=== PATIENT | female | born 1950 | race Caucasian/White ===

== ENCOUNTER 2016-11-08 17:04 | Inpatient (IN) | payer OTHER, MEDICARE ==
[2016-11-08] VITALS (8 sets, daily range): BP systolic 116–173; BP diastolic 55–101; PULSE 63–184; RESP 18–24; TEMP 98.2–98.7; O2SAT 95–100
[~2016-11-08] VITALS: Ht 170.2 cm; Wt 59.0 kg
[~2016-11-08 17:04] MED LIST: ASPI1TAB69 PO; ATOR40TA16 PO; CEFT500T3 PO; FURO20TA PO; KOMB2.5T PO; LOSA25TA PO; MAGN400T2 PO; METO25TA3 PO; PRED5PAK2 PO; ZITH250T PO
[2016-11-08] MEDS ORDERED: RESP: ALBUTEROL 2.5 MG/IPRATROPIUM 0.5 MG NEB (SCH) INH ONE (17:15)
[2016-11-08] MEDS ORDERED: SODIUM CHLOR 0.9% 1000 ML INJ 1,000 ML IV ONE (17:15)
[2016-11-08] MEDS ORDERED: SODIUM CHLORIDE 0.9% FLUSH 5 ML FLUSH IVF PRN (17:15)
--- NOTE | 2016-11-08 17:19 | PD ---
HPI Chief Complaint: Respiratory Symptoms Time Seen by Provider: 17:11 Travel History International Travel<30 days: No Contact w/Intl Traveler<30days: No Traveled to known affect area: No History of Present Illness HPI 66-year-old female with history of CAD, tobaccoism, recently quit smoking, brought in by ambulance from home for evaluation of hemoptysis. The patient is been coughing up blood for last 2 days. She denies hematemesis. She states that she was admitted to the hospital about 2 weeks ago and diagnosed with a right lower lobe pneumonia. Her symptoms never improved. She denies chest pain. Mild dyspnea. EMS noted her heart rate to be in the 160s, A. fib. The patient states that she was recently told that she has A. fib. She is on aspirin. No other antiplatelets or anticoagulants. No recent travel. No known history of cancer. No history of DVT or PE. PFSH Past Medical History Hx Anticoagulant Therapy: Yes (BABY ASA DAILY) Anxiety: Yes Depression: No Cancer: No Cardiac Catheterization: Yes (2 STENTS) Cardiovascular Problems: Yes (TRIIPLE BYPASS, HTN) Coronary Artery Disease: Yes Diabetes: Yes Diminished Hearing: No Endocrine: Yes Genitourinary: Yes Hypertension: Yes Musculoskeletal: Yes Neurologic: No Psychiatric: Yes Reproductive: No Respiratory: No ?: Not Menopausal: Yes Past Surgical History Section: Yes Coronary Artery Bypass Graft: Yes (07/2015) Gynecologic Surgery: Yes (3 ) Hysterectomy: Yes Social History Alcohol Use: No Tobacco Use: Yes (2-5 cigarettes/day) Substance Use: No Allergies-Medications (Allergen,Severity, Reaction): Coded Allergies: No Known Allergies (Verified , 11/08/16) Reported Meds & Prescriptions Reported Meds & Active Scripts Active Zithromax (Azithromycin) 250 Mg Tab 500 Mg PO DAILY Reported Metoprolol Tartrate 25 Mg Tab 25 Mg PO BID Atorvastatin (Atorvastatin Calcium) 40 Mg Tab 40 Mg PO HS Magnesium Oxide 400 Mg Tab 400 Mg PO BID Kombiglyze Xr (Saxagliptin-Metformin ER) 2.5-1,000 Mg Tab 1 Tab PO DAILY Aspirin 81 Mg Tabdr 81 Mg PO DAILY Review of Systems Except as stated in HPI: all other systems reviewed are Neg Physical Exam Narrative GENERAL: Well-developed well-nourished, awake, alert, coughing up blood, no acute distress. SKIN: Warm and dry. HEAD: Atraumatic. Normocephalic. EYES: Pupils equal and round. No scleral icterus. No injection or drainage. ENT: No nasal bleeding or discharge. Mucous membranes pink and moist. Poor dentition with several missing teeth. No oral mucosal lesions. NECK: Trachea midline. No JVD. CARDIOVASCULAR: Tachycardic, irregularly irregular, rate 160s. RESPIRATORY: No accessory muscle use. Coarse breath sounds bilaterally. Breath sounds equal bilaterally. GASTROINTESTINAL: Abdomen soft, non-tender, nondistended. MUSCULOSKELETAL: No obvious deformities. No clubbing. No cyanosis. No edema. NEUROLOGICAL: Awake and alert. No obvious cranial nerve deficits. Motor grossly within normal limits. Normal speech. PSYCHIATRIC: Appropriate mood and affect; insight and judgment normal. Data Data Last Documented VS Vital Signs Date Time Temp Pulse Resp B/P Pulse Ox O2 Delivery O2 Flow Rate FiO2 11/08/16 19:29 92 22 97 Nasal Cannula 11/08/16 19:28 155/68 11/08/16 18:33 2 11/08/16 14:33 98.7 Orders Complete Blood Count With Diff (11/08/16 17:11) Comprehensive Metabolic Panel (11/08/16 17:11) B-Type Natriuretic Peptide (11/08/16 17:11) Act Partial Throm Time (Ptt) (11/08/16 17:11) Prothrombin Time / Inr (Pt) (11/08/16 17:11) Ckmb (Isoenzyme) Profile (11/08/16 17:11) Troponin I (11/08/16 17:11) Influenzae A/B Antigen (11/08/16 17:11) Blood Culture (11/08/16 17:11) Iv Access Insert/Monitor (11/08/16 17:11) Electrocardiogram (11/08/16 17:11) Ecg Monitoring (11/08/16 17:11) Oximetry (11/08/16 17:11) Oxygen Administration (11/08/16 17:11) Chest, Single Ap (11/08/16 17:11) Ct Pulmonary Angiogram (11/08/16 17:11) Sodium Chloride 0.9% Flush (Ns Flush) (11/08/16 17:15) Albuterol-Ipratropium Neb (Duoneb Neb) (11/08/16 17:15) Type And Screen (11/08/16 17:11) Lactic Acid (11/08/16 17:11) Sodium Chlor 0.9% 1000 Ml Inj (Ns 1000 M (11/08/16 17:15) Diltiazem Inj (Cardizem Inj) (11/08/16 17:30) Iohexol 350 Inj (Omnipaque 350 Inj) (11/08/16 18:21) Lorazepam Inj (Ativan Inj) (11/08/16 19:00) Ceftriaxone Inj (Rocephin Inj) (11/08/16 19:00) Azithromycin Inj (Zithromax Inj) (11/08/16 19:00) Admit Order (Ed Use Only) (11/08/16 19:34) Labs Laboratory Tests Test 11/08/16 17:10 White Blood Count 14.5 TH/MM3 Red Blood Count 3.38 MIL/MM3 Hemoglobin 8.7 GM/DL Hematocrit 26.4 % Mean Corpuscular Volume 78.1 FL Mean Corpuscular Hemoglobin 25.6 PG Mean Corpuscular Hemoglobin 32.8 % Concent Red Cell Distribution Width 15.5 % Platelet Count 310 TH/MM3 Mean Platelet Volume 8.3 FL Neutrophils (%) (Auto) 63.2 % Lymphocytes (%) (Auto) 25.7 % Monocytes (%) (Auto) 8.3 % Eosinophils (%) (Auto) 1.7 % Basophils (%) (Auto) 1.1 % Neutrophils # (Auto) 9.1 TH/MM3 Lymphocytes # (Auto) 3.7 TH/MM3 Monocytes # (Auto) 1.2 TH/MM3 Eosinophils # (Auto) 0.2 TH/MM3 Basophils # (Auto) 0.2 TH/MM3 CBC Comment DIFF FINAL Differential Comment Prothrombin Time 10.7 SEC Prothromb Time International 1.0 RATIO Ratio Activated Partial 24.6 SEC Thromboplast Time Sodium Level 134 MEQ/L Potassium Level 4.0 MEQ/L Chloride Level 98 MEQ/L Carbon Dioxide Level 25.7 MEQ/L Anion Gap 10 MEQ/L Blood Urea Nitrogen 15 MG/DL Creatinine 0.85 MG/DL Estimat Glomerular Filtration 67 ML/MIN Rate Random Glucose 315 MG/DL Lactic Acid Level 2.5 mmol/L Calcium Level 8.1 MG/DL Total Bilirubin 0.3 MG/DL Aspartate Amino Transf 6 U/L (AST/SGOT) Alanine Aminotransferase 11 U/L (ALT/SGPT) Alkaline Phosphatase 84 U/L Total Creatine Kinase 57 U/L Troponin I 0.06 NG/ML B-Type Natriuretic Peptide 477 PG/ML Total Protein 6.1 GM/DL Albumin 2.8 GM/DL Blood Type A POSITIVE Antibody Screen NEGATIVE MDM Medical Decision Making Medical Screen Exam Complete: Yes Emergency Medical Condition: Yes Medical Record Reviewed: Yes Interpretation(s) EKG: A. fib, rate 150, normal axis, ST depressions in V3 through V6, inferior leads, I and aVL, no ST elevations. Differential Diagnosis PE, pneumonia, pulmonary infarct, TB, CHF, anemia, A. fib with RVR, coagulopathy Narrative Course The patient's initial EKG showed A. fib with RVR. About 15 minutes after arrival to the emergency department the patient's heart rate improved to 80 without any intervention. Repeat EKG shows sinus with a rate of [address] depressions in V4 through V6, I and aVL, no ST segment elevations. Vital signs reviewed. CBC is remarkable for hemoglobin 8.7. Her baseline is around 10. WBC 14.5, hematocrit 26.4, platelets 310 CMP is remarkable for random glucose 315, otherwise unremarkable. Cardiac enzymes show a troponin of 0.06 Lactic acid is 2.5. CT pulmonary angiogram: CONCLUSION: 1. Right hilar mass of concern for a central primary bronchogenic carcinoma. Enlarged subcarinal lymph node, presumably metastatic. 2. Obstructive consolidation of the right middle lobe. 3. Patchy groundglass opacities in both lungs, probably infectious or inflammatory. 4. Bilateral adrenal nodules that are I believe unchanged and probably benign. The patient was made aware of all findings. She will be given antibiotics. She became a little anxious after receiving the news and states that she usually takes Ativan. I will give her a dose here. She'll be admitted for further treatment and evaluation of massive hemoptysis, bronchogenic carcinoma. Case discussed with hospitalist Dr. Martinez who will admit the patient to her service. Diagnosis Primary Impression: Lung mass Additional Impressions: Hemoptysis Anemia Qualified Code: D64.9 - Anemia, unspecified type Pneumonia Qualified Code: J18.9 - Pneumonia of right lung due to infectious organism, unspecified part of lung Admitting Information Admitting Physician Requests: Admit Jai Marie MD Nov 08, 2016 17:19
[2016-11-08] MEDS ORDERED: DILTIAZEM HCL 25 MG/5 ML VIAL IV ONE (17:30)
--- NOTE | 2016-11-08 17:44 | RADRPT ---
EXAM DATE/TIME: 11/08/2016 17:21 [facility] COMPARISON: CHEST SINGLE AP, October 20, 2016, 11:25. INDICATIONS : Shortness of breath and cough. Coughing up blood today. MEDICAL HISTORY : Hypertension. SURGICAL HISTORY : CABG. ENCOUNTER: Initial ACUITY: 1 day PAIN SCORE: 0/10 LOCATION: Bilateral chest FINDINGS: Sternal wires from previous median sternotomy are noted. The heart is enlarged. Pulmonary vasculari ty is normal. There is no alveolar consolidation, pleural effusion or pneumothorax. Portion of the bony skeleton visualized is unremarkable. CONCLUSION: 1. Evidence for bypass. 2. Mild compensated cardiomegaly. Yasmany Coon MD FACR on November 08, 2016 at 17:41 Board Certified Radiologist. This report was verified electronically.
[2016-11-08 17:47] LABS: AUTOMATED NEUTROPHIL # 9.1 TH/MM3 (1.8-7.7); BASOPHIL # 0.2 TH/MM3 (0-0.2); BASOPHIL % 1.1 % (0.0-2.0); EOSINOPHIL # 0.2 TH/MM3 (0-0.4); EOSINOPHIL % 1.7 % (0.0-4.0); HEMATOCRIT 26.4 % (35.0-46.0); HEMO FLAGS DIFF FINAL; LYMPH % 25.7 % (9.0-44.0); LYMPHOCYTE # 3.7 TH/MM3 (1.0-4.8); MEAN CELL VOLUME 78.1 FL (80.0-100.0); MEAN CORPUSCULAR HEMOGLOBIN 25.6 PG (27.0-34.0); MEAN CORPUSCULAR HGB CONC 32.8 % (32.0-36.0); MONO % 8.3 % (0.0-8.0); NEUT % 63.2 % (16.0-70.0); PLATELET COUNT 310 TH/MM3 (150-450); RED BLOOD COUNT 3.38 MIL/MM3 (4.00-5.30); RED CELL DISTRIBUTION WIDTH 15.5 % (11.6-17.2); WHITE BLOOD COUNT 14.5 TH/MM3 (4.0-11.0)
[2016-11-08 17:53] LABS: APTT (PATIENT) 24.6 SEC (24.3-30.1); PROTHROMBIN TIME - PATIENT 10.7 SEC (9.8-11.6)
[2016-11-08 18:02] LABS: ANION GAP 10 MEQ/L (5-15); AST (GOT) 6 U/L (15-37); BICARBONATE 25.7 MEQ/L (21.0-32.0); BLOOD UREA NITROGEN 15 MG/DL (7-18); CHLORIDE 98 MEQ/L (98-107); GLOMERULAR FILTRATION RATE 67 ML/MIN (>89); SODIUM (NA) 134 MEQ/L (136-145)
[2016-11-08 18:08] LABS: ALKALINE PHOSPHATASE 84 U/L (45-117); ALT (GPT) 11 U/L (10-53); TOTAL BILIRUBIN ADULT 0.3 MG/DL (0.2-1.0)
[2016-11-08 18:15] LABS: CREATINE KINASE 57 U/L (26-192)
[2016-11-08] MEDS ORDERED: IOHEXOL 350 MG/ML 10 ML VIAL (for RAD DIAG) IV ONE (18:21)
--- NOTE | 2016-11-08 18:45 | RADRPT ---
EXAM DATE/TIME: 11/08/2016 18:21 [facility] COMPARISON: CT PULMONARY ANGIOGRAM, February 03, 2016, 23:41. INDICATIONS : Coughing up blood and atrial fibrillation. IV CONTRAST: 74 cc Omnipaque 350 (iohexol) IV RADIATION DOSE: 23.38 CTDIvol (mGy) MEDICAL HISTORY : Hypertension. Cardiovascular disease SURGICAL HISTORY : None. ENCOUNTER: Initial ACUITY: 1 day PAIN SCALE: 3/10 LOCATION: Bilateral chest TECHNIQUE: Volumetric scanning of the chest was performed using a pulmonary embolism protocol MIP images were re constructed. Using automated exposure control and adjustment of the mA and/or kV according to patien t size, radiation dose was kept as low as reasonably achievable to obtain optimal diagnostic quality images. FINDINGS: There is ill-defined mass in the right hilum and an approximate 4.8 cm subcarinal lymph node of swapna rn for a central primary bronchogenic carcinoma with mediastinal evelyn metastases. There is obstructi ve consolidation of the right middle lobe. Patchy groundglass opacities are seen of both lungs, fairl y diffuse but with a slight basilar predominance. No effusion. No pneumothorax. No pulmonary embolus demonstrated. Heart size normal. There is coronary artery calcification. Subcentimeter bilateral adrenal nodules are demonstrated and I don't think changed. CONCLUSION: 1. Right hilar mass of concern for a central primary bronchogenic carcinoma. Enlarged subcarinal lymp h node, presumably metastatic. 2. Obstructive consolidation of the right middle lobe. 3. Patchy groundglass opacities in both lungs, probably infectious or inflammatory. 4. Bilateral adrenal nodules that are I believe unchanged and probably benign. Henry Biggs MD on November 08, 2016 at 18:38 Board Certified Radiologist. This report was verified electronically.
[2016-11-08] MEDS ORDERED: LORazepam 2 MG/ML VIAL IV PUSH ONE (19:00)
[2016-11-08] MEDS ORDERED: cefTRIAXone INJ 1,000 MG in SODIUM CHLORIDE 0.9% INJ 100 ML IV ONE (19:00)
[2016-11-08] MEDS ORDERED: AZITHROMYCIN INJ 500 MG in SODIUM CHLOR 0.9% 250 ML INJ 250 ML IV ONE (19:00)
[2016-11-08] MEDS ORDERED: SODIUM CHLORIDE 0.9% FLUSH 5 ML FLUSH FLUSH PRN (20:30)
[2016-11-08] MEDS ORDERED: NALOXONE HCL 0.4 MG/ML AMP IV PRN (20:30)
[2016-11-08] MEDS: SODIUM CHLORIDE 0.9% FLUSH 5 ML FLUSH FLUSH SCH (21:29)
[2016-11-08] MEDS: METOPROLOL TARTRATE 25 MG TAB PO SCH (21:30)
[2016-11-08] MEDS: ATORVASTATIN 40 MG TAB PO SCH (21:30)
[2016-11-08] MEDS: MAGNESIUM OXIDE 400 MG TAB PO SCH (22:42)
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
[2016-11-09] VITALS (15 sets, daily range): BP systolic 120–198; BP diastolic 50–85; PULSE 64–72; RESP 16–20; TEMP 97–99; O2SAT 95–100
[2016-11-09] MEDS: LORazepam 0.5 MG TAB PO PRN ×3 (00:34→21:59)
[2016-11-09 07:27] LABS: AUTOMATED NEUTROPHIL # 8.8 TH/MM3 (1.8-7.7); BASOPHIL # 0.1 TH/MM3 (0-0.2); EOSINOPHIL # 0.2 TH/MM3 (0-0.4); EOSINOPHIL % 1.8 % (0.0-4.0); HEMATOCRIT 21.8 % (35.0-46.0); HEMO FLAGS DIFF FINAL; LYMPH % 24.2 % (9.0-44.0); LYMPHOCYTE # 3.2 TH/MM3 (1.0-4.8); MEAN CELL VOLUME 77.7 FL (80.0-100.0); MEAN CORPUSCULAR HEMOGLOBIN 25.5 PG (27.0-34.0); MEAN CORPUSCULAR HGB CONC 32.9 % (32.0-36.0); MONO % 7.4 % (0.0-8.0); NEUT % 65.6 % (16.0-70.0); PLATELET COUNT 298 TH/MM3 (150-450); RED BLOOD COUNT 2.81 MIL/MM3 (4.00-5.30); RED CELL DISTRIBUTION WIDTH 15.5 % (11.6-17.2); WHITE BLOOD COUNT 13.3 TH/MM3 (4.0-11.0)
[2016-11-09 07:40] LABS: BICARBONATE 26.1 MEQ/L (21.0-32.0); POTASSIUM 4.2 MEQ/L (3.5-5.1)
[2016-11-09] MEDS: MAGNESIUM OXIDE 400 MG TAB PO SCH ×2 (08:12→21:59)
[2016-11-09] MEDS: LEVOFLOXACIN 750 MG PREMIX INJ 150 ML IV SCH (08:12)
[2016-11-09] MEDS: METOPROLOL TARTRATE 25 MG TAB PO SCH ×2 (08:12→21:59)
[2016-11-09] MEDS: SODIUM CHLORIDE 0.9% FLUSH 5 ML FLUSH FLUSH SCH ×2 (08:13→21:58)
[2016-11-09] MEDS ORDERED: DEXTROSE 50% IN WATER 50 ML VIAL(D50) IV PUSH PRN (09:00)
[2016-11-09] MEDS ORDERED: GLUCAGON 1 MG/ML VIAL OTHER PRN (09:00)
[2016-11-09] MEDS ORDERED: ASPIRIN EC 81 MG TABEC PO SCH (09:00)
--- NOTE | 2016-11-09 09:01 | HHI.PR ---
Subjective Remarks Follow-up for hemoptysis, weight loss, cough. Patient is currently doing well. Denies any chest pain, shortness of breath. No fever or chills. Daughter at bedside. Patient is anxious about her possible diagnosis of lung cancer. Objective Vitals Vital Signs Date Time Temp Pulse Resp B/P Pulse Ox O2 Delivery O2 Flow Rate FiO2 11/09/16 08:35 97.9 67 18 137/59 100 11/09/16 05:48 98.2 68 20 129/50 99 11/09/16 00:04 98.5 69 20 120/52 95 11/09/16 00:00 69 11/08/16 22:30 72 11/08/16 22:07 98.2 78 20 116/55 100 11/08/16 21:29 90 22 161/70 95 Nasal Cannula 3 11/08/16 19:29 92 22 97 Nasal Cannula 11/08/16 19:28 92 22 155/68 97 Nasal Cannula 11/08/16 18:33 67 22 173/78 100 Nasal Cannula 2 11/08/16 18:02 97 Nasal Cannula 2.00 11/08/16 18:02 24 97 Nasal Cannula 2 11/08/16 18:02 72 18 173/78 97 Nasal Cannula 2 11/08/16 18:02 97 Nasal Cannula 2 11/08/16 17:09 184 24 144/101 96 I/O 11/08/16 11/08/16 11/08/16 11/09/16 11/09/16 11/09/16 07:00 15:00 23:00 07:00 15:00 23:00 Output Total 114 ml 50 ml Balance -114 ml -50 ml Output Emesis 114 ml 50 ml # Voids 1 1 # Bowel Movements 0 Result Diagram: 11/09/16 0630 11/09/16 0630 Imaging Last Impressions Chest X-Ray 11/08/161710 Signed Impressions: Service Date/Time: Tuesday, November 08, 2016 17:21 - CONCLUSION: 1. Evidence for bypass. 2. Mild compensated cardiomegaly. Yasmany Coon MD FACR CT Angiography 11/08/161710 Signed Impressions: Service Date/Time: Tuesday, November 08, 2016 18:21 - CONCLUSION: 1. Right hilar mass of concern for a central primary bronchogenic carcinoma. Enlarged subcarinal lymph node, presumably metastatic. 2. Obstructive consolidation of the right middle lobe. 3. Patchy groundglass opacities in both lungs, probably infectious or inflammatory. 4. Bilateral adrenal nodules that are I believe unchanged and probably benign. Henry Biggs MD Objective Remarks GENERAL: AOX3, NAD. SKIN: Warm and dry. HEAD: Normocephalic. EYES: No scleral icterus. No injection or drainage. NECK: Supple, trachea midline. No JVD or lymphadenopathy. CARDIOVASCULAR: Regular rate and rhythm without murmurs, gallops, or rubs. RESPIRATORY: Moderate air entry. Somewhat diminished breath sound on the right but no wheezing noted. No accessory muscle use. GASTROINTESTINAL: Abdomen soft, non-tender, nondistended. MUSCULOSKELETAL: No cyanosis, or edema. BACK: Nontender without obvious deformity. No CVA tenderness. Procedures None. A/P Problem List: (1) Bronchogenic carcinoma of right lung ICD Code: C34.91 Status: Acute (2) Hemoptysis ICD Code: R04.2 Status: Acute (3) Anemia ICD Code: D64.9 Status: Acute (4) Pneumonia ICD Code: J18.9 Status: Acute Assessment and Plan Ms. Dutta is a pleasant 66-year-old female with a long history of smoking, coronary artery disease status post CABG who presented to the emergency department on 11/08/2016 due to worsening cough, hemoptysis. She has recently been treated at various medical facilities for suspected upper respiratory infection and pneumonia. However, despite using antibiotics her symptoms have continued to worsen. She reports about 40 pound weight loss in the last 1 year. - Right hilar mass - Given patient's history of smoking and clinical symptoms of hemoptysis, weight loss - findings concerning for primary bronchogenic carcinoma. - Subcarinal lymph node also enlarged. - Pulmonology consult pending - waiting for Dr. Corky garrison to evaluate patient. - May need Bronchoscopy - Probable iron deficiency anemia - Will do a iron study. - Hgb 8.7 --> 7.2. Possibly dilutional effect from fluid. Will repeat H&H. If it drops below 7.0, we will transfuse. - No active chest pain - thus even with a history of CABG more than a year ago, at this point, we will hold off transfusion. - Probable post-obstructive pneumonia. - Leukocytosis is improving - 14.5 --> 13.3. - Will continue Levaquin IV for now. Consider Levaquin PO in a day or so. - CAD s/p CABG more than one year ago - Hold aspirin for now. Continue metoprolol tartrate 25 mg by mouth twice a day, atorvastatin 40 mg by mouth daily at bedtime - History of Afib - currently rate/rhythm control. - If heart rate becomes high, we can put her back on telemetry. - Diabetes mellitus - patient takes oral comminution medication - Saxagliptin- Metformin. - Inpatient we'll continue Levemir 5 units daily at bedtime, pre-meal insulin 3 units 3 times a day before meals, sliding scale insulin. - Titrate up basal insulin and pre-meal insulin as needed. - Tobacco abuse - patient counselled on tobacco cessation. Full code. SCDs. Problem Qualifiers (1) Anemia: Qualified Code: D64.9 - Anemia, unspecified type (2) Pneumonia: Qualified Code: J18.9 - Pneumonia of right lung due to infectious organism, unspecified part of lung Henrietta Nelson DO Nov 09, 2016 9:01 am
[2016-11-09 11:18] LABS: REVIEW FLAG FINAL
[2016-11-09 12:26] LABS: TRANSFERRIN IRON PROFILE 190 MG/DL (200-360)
[2016-11-09] MEDS: INSULIN ASPART 1,000 UNITS/10 ML VIAL SQ SCH ×2 (13:23→17:50)
[2016-11-09] MEDS: INSULIN ASPART SUPPLEMENTAL SCALE SQ SCH ×3 (13:23→21:00)
--- NOTE | 2016-11-09 14:07 | EKG ---
Date Performed: 11/08/2016 Time Performed: 17:17:12 PTAGE: 66 years EKG: ATRIAL FIBRILLATION WITH RAPID VENTRICULAR RESPONSE ST DEPRESSION, CONSIDER SUBENDOCARDIAL INJURY Compared to previous tracing, atrial fibrillation is new and ST-T wave changes is more promina nt. ABNORMAL ECG PREVIOUS TRACING : 10/20/2016 23.20 DOCTOR: Man Campos Interpretating Date/Time 11/09/2016 14:06:21
--- NOTE | 2016-11-09 14:07 | EKG ---
Date Performed: 11/08/2016 Time Performed: 17:27:38 PTAGE: 66 years EKG: Sinus rhythm LEFT ATRIAL ENLARGEMENT NONSPECIFIC ST & T-WAVE ABNORMALITY Compared to previous tracing, the patien t is no longer in afib, prominant ST abnormalities persist. ABNORMAL ECG PREVIOUS TRACING : 11/08/2016 17.17 DOCTOR: Man Campos Interpretating Date/Time 11/09/2016 14:06:53
[2016-11-09] MEDS ORDERED: diphenhydrAMINE HCL 25 MG CAP PO PRN (15:15)
[2016-11-09] MEDS ORDERED: ACETAMINOPHEN 325 MG TAB PO PRN (15:15)
[2016-11-09] MEDS ORDERED: FUROSEMIDE 20 MG/2 ML VIAL IV ONE (15:45)
--- NOTE | 2016-11-09 17:09 | MB ---
cc: LEON PENDLETON DATE OF CONSULTATION 11/09/16 HISTORY The patient is a 66-year-old white female, lifelong smoker, who has been ill for 2-3 months. She has had cough, congestion, has received intermittent courses of antibiotics and steroids, would get better and then worse and finally presented for a chest x-ray a couple of weeks ago and had a pneumonia in the right lung. However, she was not doing well with outpatient therapy. She came in today because she was having significant hemoptysis and was concerned. CT scan on admission reveals a right middle and lower lobe infiltrate as well as a probable right hilar and subcarinal mass suspicious for malignancy. Although she has recently cut back on smoking, she continues to smoke about 5-10 cigarettes a day and has a 40-50 pack-year smoking history. She also has a significant prior cardiac history. She has had stents in the past and then about a year ago she had a CABG. She is followed by Dr. White and apparently has had a recent outpatient nuclear study that was stable. She has had no obvious anginal chest pain recently, but she has had significant dyspnea, orthopnea, PND. No significant edema. PAST MEDICAL HISTORY 1. Hypertension, 2. Diabetes, 3. Coronary artery disease, 4. Prior . ALLERGIES None known. MEDICATIONS Reviewed in the EMR. SOCIAL HISTORY Smoking noted. No recent alcohol use. Manages her own affairs. Recently grieving over the loss of son. REVIEW OF SYSTEMS The hemoptysis has been mixed with sputum. She has had no obvious hemorrhage from the lung, although she is quite anemic. She is receiving blood transfusion. CT scan does not suggest significant intrapulmonary hemorrhage. She has no chest pain. Denies fever, has lost 30 pounds since her bypass last year. No swelling in her legs. Denies nausea, vomiting or chronic reflux, has had no recent diarrhea or abdominal pain. PHYSICAL EXAMINATION GENERAL: Thin, white female, comfortable at rest, cough with no hemoptysis at this point. VITAL SIGNS: 98 degrees, 130/60, pulse 66, RR 18, sat 100%. HEENT: Sclerae pale, anicteric. Mucous membranes are a little dry. NECK: Neck veins are not distended. LUNGS: She has wheezing throughout both lungs and scattered congestion. HEART: Regular rhythm. No harsh murmur. ABDOMEN: Soft. No peripheral edema or cyanosis. No clubbing. No calf tenderness. LABORATORY DATA Hemoglobin prior to transfusion 6.2, white count 13,000, BUN, creatinine 15.8. BNP 477. PT/INR normal. DISCUSSION Mrs. Dutta presents with intermittent hemoptysis with a prolonged illness over the last several months and a CT scan very suspicious for malignancy. We will need to treat this probable pneumonia with exacerbation of chronic obstructive pulmonary disease initially. She is on antibiotics. I will order IV corticosteroids and aerosolized bronchodilators. We will try to collect a sputum culture. Once stabilized, she needs to be bronchoscoped and I have asked cardiology also to clear her in light of the prior cardiac history and fairly recent bypass surgery. Further diagnostic and/or therapeutic intervention will depend on her ongoing clinical course and response to therapy. ADDENDUM Brief pulmonary note for a bronchoscopy informed consent on an inpatient. Ms. Dutta is a 66-year-old white female who presented yesterday with hemoptysis and a right hilar mass. She had cardiac complications as well but Dr. Man Campos has seen her, her rhythm has converted to sinus and he feels that she is stable from a cardiac standpoint to proceed with bronchoscopy. I have discussed the procedure with Ms. Dutta in simple terms so that she understands what it involves and we have also discussed the potential risks. There is an increased cardiovascular risk and anesthetic risk. She has had hemoptysis. There is a risk of additional bleeding and a more remote risk of pneumothorax. After reviewing this with her carefully she understands the risks and benefits and is agreeable to proceed. R. MD DEIDRE Ibrahim/ /3:20 PM /2:23 PM
[2016-11-09] MEDS: RESP: ALBUTEROL 2.5 MG/IPRATROPIUM 0.5 MG NEB (SCH) NEB (20:12)
[2016-11-09] MEDS ORDERED: INSULIN DETEMIR 100 UNITS/ML VIAL SQ SCH (21:00)
[2016-11-09] MEDS: ATORVASTATIN 40 MG TAB PO SCH (21:59)
[2016-11-09] MEDS: methylPREDNISolone SOD SUCC 40 MG/1 ML VIAL IV PUSH SCH (21:59)
[2016-11-10] VITALS (12 sets, daily range): BP systolic 122–190; BP diastolic 61–80; PULSE 60–115; RESP 16–20; TEMP 96.6–98.4; O2SAT 93–100
[2016-11-10] MEDS: methylPREDNISolone SOD SUCC 40 MG/1 ML VIAL IV PUSH SCH (05:37)
[2016-11-10] MEDS: INSULIN ASPART SUPPLEMENTAL SCALE SQ SCH (06:00)
[2016-11-10] MEDS: RESP: ALBUTEROL 2.5 MG/IPRATROPIUM 0.5 MG NEB (SCH) NEB ×3 (07:30→20:16)
[2016-11-10 07:45] LABS: AUTOMATED NEUTROPHIL # 9.7 TH/MM3 (1.8-7.7); BASOPHIL % 0.2 % (0.0-2.0); HEMATOCRIT 28.8 % (35.0-46.0); HEMO FLAGS DIFF FINAL; LYMPH % 5.5 % (9.0-44.0); LYMPHOCYTE # 0.6 TH/MM3 (1.0-4.8); MEAN CELL VOLUME 80.4 FL (80.0-100.0); MEAN CORPUSCULAR HEMOGLOBIN 26.8 PG (27.0-34.0); MEAN CORPUSCULAR HGB CONC 33.3 % (32.0-36.0); MONO % 0.7 % (0.0-8.0); NEUT % 93.6 % (16.0-70.0); PLATELET COUNT 238 TH/MM3 (150-450); RED BLOOD COUNT 3.58 MIL/MM3 (4.00-5.30); RED CELL DISTRIBUTION WIDTH 15.8 % (11.6-17.2); WHITE BLOOD COUNT 10.4 TH/MM3 (4.0-11.0)
[2016-11-10] MEDS: LEVOFLOXACIN 750 MG PREMIX INJ 150 ML IV SCH (07:55)
[2016-11-10] MEDS: SODIUM CHLORIDE 0.9% FLUSH 5 ML FLUSH FLUSH SCH ×2 (07:56→21:08)
[2016-11-10 08:08] LABS: MAGNESIUM 1.9 MG/DL (1.5-2.5); POTASSIUM 4.1 MEQ/L (3.5-5.1)
[2016-11-10] MEDS: INSULIN ASPART 1,000 UNITS/10 ML VIAL SQ SCH ×3 (09:14→16:25)
[2016-11-10] MEDS: MAGNESIUM OXIDE 400 MG TAB PO SCH ×2 (09:14→21:09)
[2016-11-10] MEDS: METOPROLOL TARTRATE 25 MG TAB PO SCH ×2 (09:14→21:09)
[2016-11-10] MEDS ORDERED: GLUCAGON 1 MG/ML VIAL OTHER PRN (10:15)
[2016-11-10] MEDS ORDERED: DEXTROSE 50% IN WATER 50 ML VIAL(D50) IV PUSH PRN (10:15)
--- NOTE | 2016-11-10 10:57 | MB ---
cc: CHIN PIERRE M.D. DATE OF CONSULTATION: 11/10/2016 REASON FOR CONSULTATION Preoperative clearance for bronchoscopy. HISTORY OF PRESENT ILLNESS Kristi Dutta is a 66-year-old woman followed by my colleague, Dr. White. She has known heart disease. She had a cardiac catheterization on August 13, 2015. The left main coronary artery was normal. The left anterior descending artery had an 80% mid stenosis. The circumflex artery had 70% proximal and mid disease. The first obtuse marginal branch had some distal disease. This vessel was not bypassed. There was a second obtuse marginal branch. The right coronary artery had 70% mid disease with history of previous stents. She underwent bypass surgery August 18, 2015 with a left internal mammary graft to the LAD, vein graft to the right coronary artery and vein graft to the second obtuse marginal branch. She has not had any chest pain at all. She was seen by Dr. White on October 21 at which time she had pneumonia and very mildly elevated troponins of 0.2, 0.18 and 0.17. She underwent a nuclear stress test. This showed a small area of mild ischemia in the lateral wall. Medical therapy was elected. The patient does not have any anginal symptoms. She has continued to have a cough and developed hemoptysis, and came to the hospital because of hemoptysis. She now has a CT scan showing a 4.8 cm subcarinal lymph node of concern and an ill-defined mass in the right hilum suspicious for central primary bronchogenic carcinoma with metastasis to the mediastinum and obstruction of the right middle lobe. Dr. Yasmany Quiroz has been consulted and will be doing a bronchoscopy for definitive diagnosis. Of note, the patient has been having severe paroxysms of coughing with hemoptysis and this has been going on for at least a couple of weeks. She has noticed some increased heart rate which settles down as soon as she stops coughing. When she came into the ER she was in atrial fibrillation with a ventricular rate of 150, but 15 minutes later converted back to sinus rhythm and is in sinus rhythm now. She has been on aspirin but that has been stopped at the time of admission because of the hemoptysis. She has no history of strokes. She has continued to smoke and has smoked all of her life. PAST MEDICAL HISTORY 1. Hypertension. 2. Diabetes. 3. Anxiety. 4. Chronic tobacco use. 5. Coronary artery disease. 6. Peripheral arterial disease with bilateral disease of both superficial femoral arteries, but has not had intervention. Denies claudication at the moment. FAMILY HISTORY Father had CHF and a pacemaker. Her son of an aortic and esophageal tear apparently. SOCIAL HISTORY Notable for lifelong smoking. PHYSICAL EXAMINATION GENERAL: A thin female older than her stated age. VITAL SIGNS: Vital signs are charted. HEENT: Exam unremarkable. NECK: No JVD. No bruits. CHEST: Diminished breath sounds on the right. CARDIAC: S1, S2, regular rate and rhythm, 1/6 systolic murmur. ABDOMEN: Soft. EXTREMITIES: No peripheral edema. Pedal pulses are reduced. Femoral pulses are strong. Radial pulses are intact. LABORATORY DATA Hematocrit 19.0 at 10:50 a.m. Repeat was 28.8. BUN is 16, creatinine 0.95. Glucose is elevated. There was one troponin checked which was normal. EKG DATA EKG shows sinus rhythm with extensive ST-T wave changes, but she has had ST-T wave changes in all of her prior tracings as well. IMPRESSION This a 66-year-old female with known coronary artery disease. She was only bypassed a little over a year ago. She does not have any typical angina. There was disease of the distal first obtuse marginal branch that was not bypassed and that would account for the nuclear stress test. I do not think she requires a repeat cardiac cath. I am clearing her for bronchoscopy. She has had paroxysmal atrial fibrillation occurring in the setting of coughing, hopefully that will not recur. She is obviously not a candidate for anticoagulation. Prognosis of concern here because if it is truly bronchogenic cancer that has metastasized to the mediastinum her prognosis will be quite limited. I favor medical management at this point for her heart problems and clearing her for bronchoscopy. I will be available to see her as needed. Thank you for asking me to see this pleasant lady. MD RATNA Medrano/ALAINA /10:09 AM /10:34 AM
[2016-11-10] MEDS: MEDIUM DOSE INSULIN NOVOLOG SUPPLEMENTAL SCALE SQ SCH ×3 (12:43→21:09)
[2016-11-10] MEDS ORDERED: RESP: ALBUTEROL CONC 2.5 MG/0.5 ML NEB NEB SCH (13:30)
[2016-11-10] MEDS ORDERED: SODIUM CHLOR 0.45% 1000 ML INJ 1,000 ML IV SCH (13:30)
[2016-11-10] MEDS ORDERED: RESP: LIDOCAINE HCL 4% PF 5 ML NEB NEB SCH (13:30)
[2016-11-10 16:46] LABS: HEMOGLOBIN A1a 1.7 %; HEMOGLOBIN A1b 2.2 %; HEMOGLOBIN Ao 79.5 %; HEMOGLOBIN P3 4.6 %
--- NOTE | 2016-11-10 17:18 | HHI.PR ---
Subjective Remarks Patient sitting in bed, denied chest and or short of breath Stable, she is going for bronchoscopy tomorrow Afebrile still having some cough Objective Vitals Vital Signs Date Time Temp Pulse Resp B/P Pulse Ox O2 Delivery O2 Flow Rate FiO2 11/10/16 15:54 97.5 70 18 156/66 97 11/10/16 11:15 97.5 60 18 141/64 97 11/10/16 08:46 72 11/10/16 07:31 98 Nasal Cannula 2.00 11/10/16 07:18 97.6 74 18 136/66 98 11/10/16 06:09 68 16 128/61 97 11/10/16 05:47 96.6 115 16 122/70 98 11/10/16 04:42 98.2 63 20 168/69 93 11/10/16 00:42 98.4 62 20 152/68 95 11/09/16 23:52 67 11/09/16 22:00 97.0 68 16 146/67 96 11/09/16 20:31 97.0 69 16 165/72 98 11/09/16 20:14 96 Nasal Cannula 2.00 11/09/16 19:44 98.7 72 16 158/85 98 11/09/16 18:20 99.0 70 16 156/68 96 11/09/16 18:05 98.9 69 16 150/70 98 Result Diagram: 11/10/16 0729 11/10/16 1239 Objective Remarks GENERAL: This is a well-nourished, well-developed patient, in no apparent distress. SKIN: No rashes, warm and dry HEAD: Atraumatic. Normocephalic. EYES: Pupils equal round and reactive. Extraocular motions intact. No scleral icterus. ENT: Nose without bleeding, or drainage, Airway patent. NECK: Trachea midline. Supple CARDIOVASCULAR: Regular rate and rhythm systolic murmur 3 out of 6 in the aortic area RESPIRATORY: Diminished air entry on the right with crackles. GASTROINTESTINAL: Abdomen soft, non-tender, nondistended. Positive bowel sounds MUSCULOSKELETAL: Extremities without clubbing, cyanosis, or edema. Pedal pulses appreciated NEUROLOGICAL: Awake and alert. Moves all extremity. Normal speech.no focal neurological deficit Procedures None. A/P Problem List: (1) Bronchogenic carcinoma of right lung ICD Code: C34.91 Status: Acute (2) Hemoptysis ICD Code: R04.2 Status: Acute (3) Anemia ICD Code: D64.9 Status: Acute (4) Pneumonia ICD Code: J18.9 Status: Acute Assessment and Plan Ms. Dutta is a pleasant 66-year-old female with a long history of smoking, coronary artery disease status post CABG who presented to the emergency department on 11/08/2016 due to worsening cough, hemoptysis. She has recently been treated at various medical facilities for suspected upper respiratory infection and pneumonia. However, despite using antibiotics her symptoms have continued to worsen. She reports about 40 pound weight loss in the last 1 year. - Right hilar mass - Given patient's history of smoking and clinical symptoms of hemoptysis, weight loss - findings concerning for primary bronchogenic carcinoma. - Subcarinal lymph node also enlarged. -Appreciate pulmonology consultation -Plan for bronchoscopy in a.m. - Probable iron deficiency anemia -Iron study showed low iron level and saturation. - Hgb 8.7 --> 7.2. Status post transfusion now hemoglobin at 9.6 - No active chest pain - thus even with a history of CABG more than a year ago, at this point, we will hold off transfusion. - Probable post-obstructive pneumonia. - Leukocytosis is improving - continue Levaquin IV for now. - CAD s/p CABG more than one year ago - Hold aspirin for now. Continue metoprolol tartrate 25 mg by mouth twice a day, atorvastatin 40 mg by mouth daily at bedtime - History of Afib - currently rate/rhythm control. - Diabetes mellitus uncontrolled blood glucose in the 400s on 11/10/16- patient takes oral comminution medication - Saxagliptin-Metformin. -Increase Levemir 10 units twice a day, pre-meal insulin 3 units 3 times a day before meals, upgrade sliding scale insulin. - Tobacco abuse - patient counselled on tobacco cessation. Full code. SCDs. Problem Qualifiers (1) Anemia: Qualified Code: D64.9 - Anemia, unspecified type (2) Pneumonia: Qualified Code: J18.9 - Pneumonia of right lung due to infectious organism, unspecified part of lung Nanette Muñoz MD Nov 10, 2016 17:18 Nanette Muñoz MD Nov 10, 2016 17:18
[2016-11-10 17:36] LABS: BICARBONATE 22.2 MEQ/L (21.0-32.0); POTASSIUM 3.7 MEQ/L (3.5-5.1)
[2016-11-10] MEDS: ATORVASTATIN 40 MG TAB PO SCH (21:09)
[2016-11-10] MEDS: INSULIN DETEMIR 100 UNITS/ML VIAL SQ SCH (21:10)
[2016-11-10] MEDS: LORazepam 0.5 MG TAB PO PRN (21:11)
[2016-11-11] VITALS (9 sets, daily range): BP systolic 140–184; BP diastolic 64–76; PULSE 56–73; RESP 16–20; TEMP 97.2–98.1; O2SAT 96–99
[2016-11-11] MEDS: MEDIUM DOSE INSULIN NOVOLOG SUPPLEMENTAL SCALE SQ SCH ×4 (05:41→21:45)
[2016-11-11] MEDS: LEVOFLOXACIN 750 MG PREMIX INJ 150 ML IV SCH (07:41)
[2016-11-11] MEDS: SODIUM CHLORIDE 0.9% FLUSH 5 ML FLUSH FLUSH SCH ×2 (07:41→21:45)
[2016-11-11] MEDS: INSULIN ASPART 1,000 UNITS/10 ML VIAL SQ SCH ×3 (08:00→16:30)
[2016-11-11] MEDS: RESP: ALBUTEROL 2.5 MG/IPRATROPIUM 0.5 MG NEB (SCH) NEB ×3 (08:00→19:08)
[2016-11-11] MEDS: METOPROLOL TARTRATE 25 MG TAB PO SCH ×2 (09:00→21:44)
[2016-11-11] MEDS: INSULIN DETEMIR 100 UNITS/ML VIAL SQ SCH ×2 (09:00→21:46)
[2016-11-11] MEDS ORDERED: INSULIN DETEMIR 100 UNITS/ML VIAL SQ ONE (09:15)
[2016-11-11] MEDS: methylPREDNISolone SOD SUCC 40 MG/1 ML VIAL IV PUSH SCH (09:28)
[2016-11-11] MEDS: MAGNESIUM OXIDE 400 MG TAB PO SCH ×2 (09:29→21:44)
[2016-11-11] MEDS ORDERED: ePHEDrine/NS 50 MG/5 ML SYR IV ONE (12:00)
[2016-11-11] MEDS ORDERED: ONDANSETRON HCL 4 MG/2 ML VIAL IV PUSH ONE (12:00)
[2016-11-11] MEDS ORDERED: PROPOFOL 200 MG/20 ML AMP IV ONE (12:00)
[2016-11-11] MEDS ORDERED: LIDOCAINE HCL 4% PF 5 ML AMP OTHER ONE (12:14)
[2016-11-11] MEDS ORDERED: EPINEPHrine HCL (1:1000) 1 MG/ML VIAL ITR ONE (12:14)
[2016-11-11] MEDS ORDERED: RESP: ALBUTEROL 2.5 MG/3 ML NEB (PRN) NEB (12:45)
[2016-11-11] MEDS ORDERED: DO NOT ADM ANY ANTICOAGULANT DRUGS XX PRN (12:52)
[2016-11-11] MEDS ORDERED: MIDAZOLAM HCL 2 MG/2 ML VIAL ONE (13:02)
--- NOTE | 2016-11-11 16:07 | HHI.PR ---
Subjective Remarks Resting in bed comfortably Breathing okay, she came from bronchoscopy today Afebrile still coughing, blood sugar better today She told me she had never problem controlling her blood sugar she usually on glipizide Objective Vitals Vital Signs Date Time Temp Pulse Resp B/P Pulse Ox O2 Delivery O2 Flow Rate FiO2 11/11/16 15:55 98.1 73 20 140/66 97 11/11/16 13:15 97.2 76 16 131/58 96 Nasal Cannula 2 11/11/16 13:00 90 16 156/66 97 Nasal Cannula 2 11/11/16 12:50 97.2 101 16 188/94 99 Nasal Cannula 4 11/11/16 07:50 97.6 61 18 184/74 96 148/64 11/11/16 07:30 61 11/11/16 05:40 162/75 11/11/16 04:27 97.6 65 20 180/76 99 11/11/16 00:12 97.2 67 16 150/76 99 11/10/16 22:02 71 11/10/16 20:17 95 21 11/10/16 20:02 97.6 63 20 187/78 100 I/O 11/10/16 11/10/16 11/10/16 11/11/16 11/11/16 11/11/16 07:00 15:00 23:00 07:00 15:00 23:00 Intake Total 400 ml Balance 400 ml Intake Other 400 ml # Voids 1 Result Diagram: 11/10/16 0729 11/10/16 1637 Objective Remarks GENERAL: This is a well-nourished, well-developed patient, in no apparent distress. SKIN: No rashes, warm and dry HEAD: Atraumatic. Normocephalic. EYES: Pupils equal round and reactive. Extraocular motions intact. No scleral icterus. ENT: Nose without bleeding, or drainage, Airway patent. NECK: Trachea midline. Supple CARDIOVASCULAR: Regular rate and rhythm systolic murmur 3 out of 6 in the aortic area RESPIRATORY: Better aeration with bilateral crackles. Positive wheezing bilaterally GASTROINTESTINAL: Abdomen soft, non-tender, nondistended. Positive bowel sounds MUSCULOSKELETAL: Extremities without clubbing, cyanosis, or edema. Pedal pulses appreciated NEUROLOGICAL: Awake and alert. Moves all extremity. Normal speech.no focal neurological deficit Procedures None. A/P Problem List: (1) Bronchogenic carcinoma of right lung ICD Code: C34.91 Status: Acute (2) Hemoptysis ICD Code: R04.2 Status: Acute (3) Anemia ICD Code: D64.9 Status: Acute (4) Pneumonia ICD Code: J18.9 Status: Acute Assessment and Plan Ms. Dutta is a pleasant 66-year-old female with a long history of smoking, coronary artery disease status post CABG who presented to the emergency department on 11/08/2016 due to worsening cough, hemoptysis. She has recently been treated at various medical facilities for suspected upper respiratory infection and pneumonia. However, despite using antibiotics her symptoms have continued to worsen. She reports about 40 pound weight loss in the last 1 year. - Right hilar mass - Given patient's history of smoking and clinical symptoms of hemoptysis, weight loss - findings concerning for primary bronchogenic carcinoma. - Subcarinal lymph node also enlarged. -Appreciate pulmonology consultation -Status post bronchoscopy today, report pending - Probable iron deficiency anemia -Iron study showed low iron level and saturation. - Hgb 8.7 --> 7.2. Status post transfusion now hemoglobin at 9.6 - No active chest pain - thus even with a history of CABG more than a year ago, at this point, we will hold off transfusion. - Probable post-obstructive pneumonia. - Leukocytosis is improving - continue Levaquin IV for now. - CAD s/p CABG more than one year ago - Hold aspirin for now. Continue metoprolol tartrate 25 mg by mouth twice a day, atorvastatin 40 mg by mouth daily at bedtime - History of Afib - currently rate/rhythm control. - Diabetes mellitus uncontrolled blood glucose in the 400s on 11/10/16- patient takes oral comminution medication - Saxagliptin-Metformin. -Better control with Levemir 10 units twice a day, pre-meal insulin 3 units 3 times a day before meals, upgrade sliding scale insulin. Hemoglobin A1c 7.8, will monitor after tapering Solu-Medrol - Tobacco abuse - patient counselled on tobacco cessation. Full code. SCDs. Problem Qualifiers (1) Anemia: Qualified Code: D64.9 - Anemia, unspecified type (2) Pneumonia: Qualified Code: J18.9 - Pneumonia of right lung due to infectious organism, unspecified part of lung Nanette Muñoz MD Nov 11, 2016 16:07
[2016-11-11] MEDS: ACETAMINOPHEN/HYDROcodone 325 MG/5 MG TAB PO PRN (16:31)
[2016-11-11 16:56] LABS: BICARBONATE 24.4 MEQ/L (21.0-32.0); POTASSIUM 4.4 MEQ/L (3.5-5.1)
[2016-11-11] MEDS: ATORVASTATIN 40 MG TAB PO SCH (21:44)
[2016-11-11] MEDS: LORazepam 0.5 MG TAB PO PRN (22:00)
[2016-11-12] VITALS (11 sets, daily range): BP systolic 140–202; BP diastolic 65–83; PULSE 53–65; RESP 18–20; TEMP 96.6–98.8; O2SAT 96–98
[2016-11-12] MEDS: MEDIUM DOSE INSULIN NOVOLOG SUPPLEMENTAL SCALE SQ SCH ×4 (06:50→21:00)
[2016-11-12] MEDS: RESP: ALBUTEROL 2.5 MG/IPRATROPIUM 0.5 MG NEB (SCH) NEB ×3 (08:00→19:44)
[2016-11-12 08:15] LABS: BICARBONATE 27.8 MEQ/L (21.0-32.0); MAGNESIUM 1.9 MG/DL (1.5-2.5); POTASSIUM 4.2 MEQ/L (3.5-5.1)
[2016-11-12] MEDS: LEVOFLOXACIN 750 MG PREMIX INJ 150 ML IV SCH (08:18)
[2016-11-12] MEDS: MAGNESIUM OXIDE 400 MG TAB PO SCH ×2 (08:20→23:43)
[2016-11-12] MEDS: INSULIN DETEMIR 100 UNITS/ML VIAL SQ SCH ×2 (08:20→23:42)
[2016-11-12] MEDS: METOPROLOL TARTRATE 25 MG TAB PO SCH ×2 (08:20→23:43)
[2016-11-12] MEDS: methylPREDNISolone SOD SUCC 40 MG/1 ML VIAL IV PUSH SCH (08:21)
[2016-11-12] MEDS: INSULIN ASPART 1,000 UNITS/10 ML VIAL SQ SCH ×3 (08:25→17:54)
[2016-11-12] MEDS: SODIUM CHLORIDE 0.9% FLUSH 5 ML FLUSH FLUSH SCH ×2 (08:25→23:42)
[2016-11-12] MEDS: ACETAMINOPHEN/HYDROcodone 325 MG/5 MG TAB PO PRN (08:34)
--- NOTE | 2016-11-12 15:55 | HHI.PR ---
Subjective Remarks patient is emotional, she was told about the results of the bronchoscopy by the young adult librarian, her daughter and her friend at the bedside, oncology was consulted by pulmonology see patient the daughter asked questionsif the patient will be discharged tomorrow Patient still coughing some phlegm Objective Vitals Vital Signs Date Time Temp Pulse Resp B/P Pulse Ox O2 Delivery O2 Flow Rate FiO2 11/12/16 11:53 97.6 53 18 165/71 98 11/12/16 09:34 18 11/12/16 08:32 97 11/12/16 08:12 57 11/12/16 08:07 96.6 58 18 141/65 96 11/12/16 05:32 98.2 62 19 150/70 96 11/12/16 02:16 98 21 11/12/16 00:47 97.8 65 20 157/70 98 11/11/16 23:51 56 11/11/16 20:06 98.1 64 20 148/67 97 11/11/16 17:58 68 I/O 11/11/16 11/11/16 11/11/16 11/12/16 11/12/16 11/12/16 07:00 15:00 23:00 07:00 15:00 23:00 Intake Total 400 ml Balance 400 ml Intake Other 400 ml Result Diagram: 11/10/16 0729 11/12/16 0622 Objective Remarks GENERAL: This is a well-nourished, well-developed patient, in no apparent distress. SKIN: No rashes, warm and dry HEAD: Atraumatic. Normocephalic. EYES: Pupils equal round and reactive. Extraocular motions intact. No scleral icterus. ENT: Nose without bleeding, or drainage, Airway patent. NECK: Trachea midline. Supple CARDIOVASCULAR: Regular rate and rhythm systolic murmur 3 out of 6 in the aortic area RESPIRATORY: Better aeration with bilateral crackles. Positive wheezing bilaterally GASTROINTESTINAL: Abdomen soft, non-tender, nondistended. Positive bowel sounds MUSCULOSKELETAL: Extremities without clubbing, cyanosis, or edema. Pedal pulses appreciated NEUROLOGICAL: Awake and alert. Moves all extremity. Normal speech.no focal neurological deficit Procedures None. A/P Problem List: (1) Bronchogenic carcinoma of right lung ICD Code: C34.91 Status: Acute (2) Hemoptysis ICD Code: R04.2 Status: Acute (3) Anemia ICD Code: D64.9 Status: Acute (4) Pneumonia ICD Code: J18.9 Status: Acute Assessment and Plan Ms. Dutta is a pleasant 66-year-old female with a long history of smoking, coronary artery disease status post CABG who presented to the emergency department on 11/08/2016 due to worsening cough, hemoptysis. She has recently been treated at various medical facilities for suspected upper respiratory infection and pneumonia. However, despite using antibiotics her symptoms have continued to worsen. She reports about 40 pound weight loss in the last 1 year. - Right hilar mass - Given patient's history of smoking and clinical symptoms of hemoptysis, weight loss - findings concerning for primary bronchogenic carcinoma. - Subcarinal lymph node also enlarged. -Appreciate pulmonology consultation -Status post bronchoscopy 11/11/16>> Mostly bronchogenic cneoplasm, oncology consulted by young adult librarian - Probable iron deficiency anemia -Iron study showed low iron level and saturation. - Hgb 8.7 --> 7.2. Status post transfusion now hemoglobin at 9.6 - No active chest pain - thus even with a history of CABG more than a year ago, at this point, we will hold off transfusion. - Probable post-obstructive pneumonia. - Leukocytosis is improving - continue Levaquin IV for now. - CAD s/p CABG more than one year ago - Hold aspirin for now. Continue metoprolol tartrate 25 mg by mouth twice a day, atorvastatin 40 mg by mouth daily at bedtime - History of Afib - currently rate/rhythm control. - Diabetes mellitus uncontrolled blood glucose in the 400s on 11/10/16- patient takes oral comminution medication - Saxagliptin-Metformin. -Better control with Levemir 10 units twice a day, pre-meal insulin 3 units 3 times a day before meals, upgrade sliding scale insulin. Hemoglobin A1c 7.8, will monitor after tapering Solu-Medrol - Tobacco abuse - patient counselled on tobacco cessation. Full code. SCDs. Problem Qualifiers (1) Anemia: Qualified Code: D64.9 - Anemia, unspecified type (2) Pneumonia: Qualified Code: J18.9 - Pneumonia of right lung due to infectious organism, unspecified part of lung Nanette Muñoz MD Nov 12, 2016 15:55
[2016-11-12] MEDS: ATORVASTATIN 40 MG TAB PO SCH (23:43)
[2016-11-12] MEDS: LORazepam 0.5 MG TAB PO PRN (23:51)
[2016-11-13 01:34] VITALS: BP 172/74; PULSE 54
[2016-11-13 03:30] VITALS: PULSE 51
[2016-11-13 04:36] VITALS: BP 185/78; PULSE 56; RESP 19; TEMP 97.9; O2SAT 94
[2016-11-13] MEDS: MEDIUM DOSE INSULIN NOVOLOG SUPPLEMENTAL SCALE SQ SCH ×2 (06:18→13:21)
[2016-11-13 07:09] LABS: RETIC % 4.6 % (0.4-3.0); REVIEW FLAG FINAL
[2016-11-13 07:21] LABS: LDH SERUM 155 U/L (84-246); TRANSFERRIN IRON PROFILE 189 MG/DL (200-360)
[2016-11-13 07:36] VITALS: BP_SYST 166; BP_SYST 191; BP_DIAS 58; BP_DIAS 77; PULSE 57; RESP 19; O2SAT 95
[2016-11-13] MEDS: RESP: ALBUTEROL 2.5 MG/IPRATROPIUM 0.5 MG NEB (SCH) NEB ×2 (08:13→14:00)
[2016-11-13 08:15] VITALS: O2SAT 97
[2016-11-13] MEDS ORDERED: predniSONE 10 MG TAB PO SCH (09:00)
[2016-11-13] MEDS: INSULIN DETEMIR 100 UNITS/ML VIAL SQ SCH (09:00)
[2016-11-13] MEDS: MAGNESIUM OXIDE 400 MG TAB PO SCH (09:00)
[2016-11-13] MEDS: METOPROLOL TARTRATE 25 MG TAB PO SCH (09:00)
[2016-11-13] MEDS: SODIUM CHLORIDE 0.9% FLUSH 5 ML FLUSH FLUSH SCH (09:01)
[2016-11-13] MEDS: INSULIN ASPART 1,000 UNITS/10 ML VIAL SQ SCH ×2 (09:01→13:22)
[2016-11-13] MEDS: LEVOFLOXACIN 750 MG PREMIX INJ 150 ML IV SCH (09:02)
--- NOTE | 2016-11-13 09:08 | MB ---
cc: ALEXANDR MIRANDA DATE OF CONSULTATION: 11/13/2016 ADDENDUM: ASSESSMENT AND PLAN: 1. I will obtain a CEA and Lactic acid dehydrogenase level. 2. Anemia. We will obtain anemia workup, I have checked a stool hemoccult. 3. Tobacco abuse counseling. I advised the patient to abstain from smoking. Thank you for allowing me to participate in the care of this patient. I will continue to follow this patient along with you. MD LACY Gonzalez/marcello /11:53 PM /9:06 AM
[2016-11-13] MEDS ORDERED: IOHEXOL 350 MG/ML 10 ML VIAL (for RAD DIAG) IV ONE (09:33)
--- NOTE | 2016-11-13 09:38 | MB ---
cc: ALEXANDR MIRANDA DATE OF CONSULTATION: DATE OF : 1950 REASON FOR CONSULTATION The patient with newly diagnosed invasive moderately differentiated squamous cell carcinoma. CHIEF COMPLAINT Dyspnea and congestion, shortness of breath and intermittent hemoptysis. HISTORY OF PRESENT ILLNESS Ms. Dutta is a 66-year-old female who has a history of tobacco abuse, COPD and coronary artery disease. She has a history of cardiac cath in 2014. She also has a history of diabetes, history of peripheral arterial disease with both superficial femoral arteries. She presented to the emergency department with a history of nyw-mq-vwyit months of being not feeling well. She complained of cough, congestion and intermittent hemoptysis. She states that she recently went to the [facility] and was discharged home with antibiotics and steroids but then she continued to feel ill with dyspnea and cough. She presented to the [facility]. A CT angiogram was completed on admission, it did not show any evidence of pulmonary embolism but there was an ill-defined mass in the right hilum and an approximate 4.8 cm subcarinal lymph node. There was obstructive consolidation of the right middle lobe. She underwent bronchoscopy and had right mainstem bronchus biopsy which confirmed invasive moderately differentiated squamous cell carcinoma. I have been consulted to make further recommendations. The patient denies any headaches, no blurry vision, no dysphagia. She has occasional pleuritic chest pain, complains of dyspnea, intermittent hemoptysis. No abdominal pain. No changes in her bowel habits. She has lower extremity edema. Her ECOG performance status is 0. REVIEW OF SYSTEMS A comprehensive 14-point review of systems was completed which is negative except as described in the HPI. PAST MEDICAL HISTORY 1. Hypertension. 2. Diabetes. 3. Coronary artery disease. 4. COPD. 5. Tobacco abuse. PAST SURGICAL HISTORY History of . MEDICATIONS Inpatient medications include - 1. Prednisone 30 mg daily. 2. Newcomb 5/325 p.o. q.6 hours p.r.n. 3. Insulin. 4. Levemir injection 10 units q.12 hours. 5. Albuterol nebulizer as needed. 6. Insulin sliding scale. 7. DuoNebs t.i.d. p.r.n. 8. Ativan 0.5 mg p.o. p.r.n. 9. Levofloxacin q.24 hours IV. 10. Atorvastatin 40 mg p.o. q.h.s. 11. Magnesium hydroxide 400 mg one tablet p.o. b.i.d. 12. Lopressor 25 mg p.o. b.i.d. ALLERGIES NO KNOWN DRUG ALLERGIES. FAMILY HISTORY Family history was reviewed and is noncontributory to this admission. SOCIAL HISTORY She is a chronic smoker with greater than 40 pack-years of smoking history. Occasional alcohol use. No illicit drug use. PHYSICAL EXAMINATION VITAL SIGNS: Blood pressure is 165/71, pulse is in the 50s, temperature is 97.6, respiratory rate is 18, O2 sats are 98% on room air. GENERAL: A thin female, in no apparent distress. HEENT: Pupils are equal, round and reactive to light. EOMI. No oral thrush. No oral lesions. NECK: Neck is supple. No JVD. No bruits. No lymphadenopathy. CHEST: Bilateral scattered rhonchi, bilateral wheezes on expiration in upper lung singh. CARDIAC: S1, S2. Regular rate and rhythm. ABDOMEN: Soft, nontender, nondistended. Bowel sounds are present. EXTREMITIES: Without any edema, erythema or cyanosis. SKIN: Without any petechiae, lesion or bruises. EXTREMITIES: Trace edema. NEUROLOGIC: No focal deficits. PSYCHIATRIC: Mood and affect is appropriate. LABORATORY DATA WBC 7.4, hemoglobin is 9.6, MCV is 80.4, platelet count is 238. Sodium is 134, potassium 4.2, chloride is 98, BUN is 16, creatinine is 0.84, GFR is 68, calcium is 8.3, phosphorus 3.2, magnesium is 1.9. INR is 1, PT 10.7, PTT 24.6. IMAGING STUDIES Chest x-ray and CT angiogram reviewed. ASSESSMENT AND PLAN This is a 66-year-old female with a history of chronic tobacco abuse, COPD, coronary artery disease, diabetes, hypertension who presents with dyspnea, cough and intermittent hemoptysis and she was found to have multiple lung lesions. Multiple right lung lesions consistent with invasive moderately differentiated squamous cell carcinoma. I have reviewed the imaging and it appears that this is at least stage III disease with involvement of the mediastinal lymph nodes, the disease appeared to be ipsilateral. We will need to obtain PET-CT scan to further assess her disease. I had a long conversation with the patient. I explained to her that if this is stage III disease, this is usually treated with combined modality radiation and chemotherapy; however, we will need to obtain a PET-CT scan which can be completed outpatient. I will obtain a CT of the abdomen and pelvis with contrast to evaluate for any distant disease. She does not have any signs and symptoms of WHITE SIDEWALL TIRE BUFFER involvement, but I would defer any imaging of the brain at this time. She will need to have a port placed prior to receiving chemotherapy. The patient insisted that she would like to go home as soon as possible. I explained to her that it will depend on her clinical status and whether she gets cleared by the primary team. MD LACY Gonzalez/SHAY /11:38 PM /8:56 AM MTDD
--- NOTE | 2016-11-13 09:43 | PD.ONC.PN ---
Subjective Subjective Remarks pat. seen no new issues o/n Objective Data Date Time Temp Pulse Resp B/P Pulse Ox O2 Delivery O2 Flow Rate FiO2 11/13/16 08:15 97 21 11/13/16 07:36 57 19 166/58 95 Manual Cuff/Auscultation 11/13/16 04:36 97.9 56 19 185/78 94 11/13/16 03:30 51 11/13/16 01:34 54 172/74 11/12/16 23:36 98.1 64 202/83 96 11/12/16 19:45 98 21 11/12/16 18:11 56 11/12/16 16:24 98.8 60 18 188/78 98 11/12/16 11:53 97.6 53 18 165/71 98 Result Diagram: 11/10/1629 11/12/1622 Laboratory Results Laboratory Tests Test 11/13/16 06:00 Reticulocyte Count 4.6 % Absolute Reticulocyte Count 152.0 MIL/L Haptoglobin 235 MG/DL Iron Level 49 MCG/DL Total Iron Binding Capacity 265 MCG/DL Percent Iron Saturation 18.5 % Transferrin 189 MG/DL Lactate Dehydrogenase 155 U/L Carcinoembryonic Antigen 2.4 NG/ML Vitamin B12 Level 317 PG/ML Blood Type A POSITIVE Direct Antiglobulin Test NEGATIVE (Shiraz) Culture Results Microbiology Date/Time Procedure Status Source Growth 11/11/16 12:29 Gram Stain - Final Resulted Bronchial Washings Other 11/11/16 12:29 Bronchial Culture - Preliminary Resulted Bronchial Washings Other NO GROWTH IN 24 HOURS. 11/11/16 12:29 Acid Fast Stain - Final Resulted Bronchial Washings Other NO ACID FAST BACILLI SEEN 11/11/16 12:29 Mycobacterial Culture Resulted Bronchial Washings Other Pending 11/11/16 12:29 Fungal Smear - Final Resulted Bronchial Washings Other NO FUNGAL ELEMENTS SEEN. 11/11/16 12:29 Fungal Culture Resulted Bronchial Washings Other Pending Administered Medications Medications (Trade) Dose Ordered Sig/Babar Route PRN Reason Start Time Stop Time Status Last Admin Dose Admin IV Flush (NS Flush) 2 ml BID FLUSH 11/08/16 21:00 11/13/16 09:01 Atorvastatin Calcium (Lipitor) 40 mg HS PO 11/08/16 21:00 11/12/16 23:43 Magnesium Oxide (Mag-Ox) 400 mg BID PO 11/08/16 21:00 11/13/16 09:00 Metoprolol Tartrate 25 mg 25 mg BID PO 11/08/16 21:00 11/13/16 09:00 Levofloxacin/ Dextrose (Levaquin 750 Mg Premix Inj) 150 ml @ 100 mls/hr Q24H IV 11/09/16 08:00 11/13/16 09:02 Insulin Aspart (NovoLOG INJ) 3 units TIDAC SQ 11/09/16 12:00 11/13/16 09:01 Lorazepam 0.5 mg 0.5 mg TID PRN PO anxiety 11/09/16 18:00 11/12/16 23:51 Sodium Chloride (1/2 NS 1000 ml Inj) 1,000 ml @ 0 mls/hr Q0M IV 11/10/16 13:30 11/11/16 11:19 Insulin Detemir (Levemir Inj) 10 units Q12HR SQ 11/10/16 21:00 11/13/16 09:00 Acetaminophen/ Hydrocodone Bitart (Bigfork 5-325 Mg) 1 tab Q6H PRN PO pain4-10 11/11/16 16:15 11/12/16 08:34 Prednisone (Deltasone) 30 mg DAILY PO 11/13/16 09:00 11/13/16 09:00 Objective Remarks GENERAL: Well-nourished, well-developed patient. SKIN: Warm and dry. HEAD: Normocephalic. EYES: No scleral icterus. No injection or drainage. NECK: Supple, trachea midline. No JVD or lymphadenopathy. LYMPHATIC: No adenopathy. CARDIOVASCULAR: Regular rate and rhythm without murmurs. RESPIRATORY: Breath sounds equal bilaterally. No accessory muscle use. GASTROINTESTINAL: Abdomen soft, non-tender, nondistended. EXTREMITIES: No cyanosis, or edema. MUSCULOSKELETAL: Adequate muscle tone. NEUROLOGICAL: No obvious focal deficit. Awake, alert, and oriented x3. PSYCHIATRIC: Appropriate mood and affect; insight and judgment normal. Assessment/Plan Plan continue current management Narendra Stewart MD Nov 13, 2016 09:42
--- NOTE | 2016-11-13 10:38 | RADRPT ---
EXAM DATE/TIME: 11/13/2016 09:23 [facility] COMPARISON: CT PULMONARY ANGIOGRAM, November 08, 2016, 18:21. INDICATIONS : Epigastic pain. Right hilar mass. IV CONTRAST: 100 cc Omnipaque 350 (iohexol) IV ORAL CONTRAST: No oral contrast ingested. RADIATION DOSE: 5.98 CTDIvol (mGy) MEDICAL HISTORY : Cardiovascular disease. Hypertension. Diabetes mellitus type 2. SURGICAL HISTORY : Hysterectomy. ENCOUNTER: Initial ACUITY: 1 day PAIN SCALE: 5/10 LOCATION: abdomen TECHNIQUE: Volumetric scanning of the abdomen and pelvis was performed. Using automated exposure control and ad justment of the mA and/or kV according to patient size, radiation dose was kept as low as reasonably achievable to obtain optimal diagnostic quality images. FINDINGS: LOWER LUNGS: There is stable mild groundglass attenuation in the inferior aspect of the right middle lobe and left upper lobe. LIVER: Homogeneous density without lesion. There is no dilation of the biliary tree. No calcified gallston es. SPLEEN: Normal size without lesion. PANCREAS: Within normal limits. KIDNEYS: Normal in size and shape. There is no mass, stone or hydronephrosis. ADRENAL GLANDS: Within normal limits. VASCULAR: There is no aortic aneurysm. There is severe atherosclerotic disease. BOWEL/MESENTERY: The stomach, small bowel, and colon demonstrate no acute abnormality. There is no free intraperitone al air or fluid. ABDOMINAL WALL: Within normal limits. RETROPERITONEUM: There is no lymphadenopathy. BLADDER: No wall thickening or mass. REPRODUCTIVE: Within normal limits. INGUINAL: There is no lymphadenopathy or hernia. MUSCULOSKELETAL: There are degenerative changes of the spine. No lytic or blastic lesion is seen. CONCLUSION: 1. No acute finding is identified within the abdomen or pelvis. Specifically, there are no findings t o indicate metastatic disease. 2. Stable groundglass attenuation in the visualized inferior aspect of the right middle lobe and left upper lobe. 3. Severe atherosclerotic disease. Henry Guerrier MD on November 13, 2016 at 10:33 Board Certified Radiologist. This report was verified electronically.
[2016-11-13 12:00] VITALS: BP 146/67; PULSE 54; RESP 20; TEMP 95.7; O2SAT 97
[2016-11-13] MEDS ORDERED: LEVA750T PO (13:32)
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
--- NOTE | 2016-11-16 19:17 | MR ---
cc: Ezra PENDLETON DATE: 11/11/2016 PROCEDURE Bronchoscopy. INDICATION Hemoptysis and lung mass. After informed consent was obtained, the patient underwent diagnostic bronchoscopy with LMA anesthesia. Examination of the larynx was unremarkable. Examination of the trachea down to the level of the mainstem bronchi was normal but at the takeoff of the right upper lobe there was a large endobronchial mass. There was also a visible mucosal irregularity with the appearance of tumor in the mid proximal to mid left mainstem bronchus as well. There was some old blood noted. This was all aspirated. The area of the tumor was washed extensively and submitted for cytology and cultures. A needle aspiration biopsy was then obtained and submitted for cytology. Two brushings were then obtained from the tumor itself and submitted for cytology. There was a little bit of bleeding with that. Dilute epinephrine solution was then instilled over the tumor and a bronchial biopsy was obtained. There was a little brisk bleeding after that but it was controlled. A good piece of the tumor was obtained. Bleeding was controlled, some additional instillation of adrenaline solution and no active bleeding at the end of the procedure. SUMMARY She has a large tumor right at the right mainstem bronchus and what appears to be disease as well in the proximal to mid medial left mainstem bronchus as well. Multiple specimens were submitted for culture, cytology and routine histology. She tolerated the procedure well without apparent complication and bleeding is stopped at the end of the procedure. MD DEIDRE Rojas/SHENG /12:46 PM /7:06 PM
== END 2016-11-13 15:24 | disposition home or self-care (01) | DRG 180 ==
LOC: NEPA 17:04 → NEDA 19:35 → NEPHCDU 21:54
PROVIDERS: ADMIT Hospitalist; ATTEND Hospitalist
PROC: 30233N1 Transfusion of Nonautologous Red Blood Cells into Peripheral Vein, Percutaneous Approach (ICD-10-PCS; 2016-11-09)
PROC: 0BB38ZX Excision of Right Main Bronchus, Via Natural or Artificial Opening Endoscopic, Diagnostic (ICD-10-PCS; principal; 2016-11-11 12:01)
DX: C34.01 Malignant neoplasm of right main bronchus (principal); J18.9 Pneumonia, unspecified organism; E87.2 Acidosis; I48.0 Paroxysmal atrial fibrillation; E11.65 Type 2 diabetes mellitus with hyperglycemia; J44.0 Chronic obstructive pulmonary disease with (acute) lower respiratory infection; F17.210 Nicotine dependence, cigarettes, uncomplicated; I10 Essential (primary) hypertension; D50.9 Iron deficiency anemia, unspecified; R04.2 Hemoptysis; I25.10 Atherosclerotic heart disease of native coronary artery without angina pectoris; I73.9 Peripheral vascular disease, unspecified; Z79.84 Long term (current) use of oral hypoglycemic drugs; Z95.1 Presence of aortocoronary bypass graft; Z95.5 Presence of coronary angioplasty implant and graft
CPT/HCPCS: 36430; 71010; 71275; 74177; 80048; 80053; 82378; 82550; 82607; 82747; 82947; 82948; 83010; 83036; 83540; 83550; 83605; 83615; 83735; 83880; 84100; 84466; 84484; 85014; 85018; 85025; 85044; 85610; 85730; 86850; 86880; 86900; 86901; 86920; 87015; 87040; 87070; 87102; 87116; 87205; 87206; 87804; 88112; 88305; 93005; 94640; 94664; 96361; 96374; J0171; J0456; J0696; J1815; J1940; J1956; J2060; J2250; J2405; J2920; J3010; J7030; J7050; J7512; J7611; P9016; Q9967

== ENCOUNTER 2016-11-16 16:40 | Emergency (ER) | payer MEDICARE, OTHER ==
[~2016-11-16] VITALS: Ht 170.2 cm; Wt 60.0 kg
[~2016-11-16 16:40] MED LIST changes: +LEVA750T PO
[2016-11-16 16:42] VITALS: BP 199/82; PULSE 67; RESP 14; TEMP 97.6; O2SAT 97
--- NOTE | 2016-11-16 17:44 | PD ---
HPI Chief Complaint: Abnormal Results Time Seen by Provider: 17:44 Travel History International Travel<30 days: No Contact w/Intl Traveler<30days: No Traveled to known affect area: No History of Present Illness HPI 66 year-old female recently diagnosed with primary bronchogenic carcinoma presents to emergency department at the instruction [facility], her primary care providers HYBRID TESTER. Patient states that she is uncertain why she is here. I contacted Shannon and Shannon states that in the office today the patient was short of breath and having coughing fits. She was concerned that she would not be able to handle this at home on her own since sent her to the emergency department. Patient states that at this time she feels fine. She states she has shortness of breath but she typically does in her cough is productive of bloody sputum like it has been. She states she has been taking Levaquin as prescribed. She denies fever or chills. She denies any significant pain. She has no other symptoms to report. Shannon informedr me that they have put a stat consulted to Dr. Stewart, the oncologist for follow-up and hope to have an appointment tomorrow.. She stated that if the patient did feel okay to go home and we felt couple discharging her that she could but requested she be given a cough syrup to help ease her cough. PFSH Past Medical History Hx Anticoagulant Therapy: Yes (BABY ASA DAILY) Blood Disorders: No Anxiety: Yes Depression: No Heart Rhythm Problems: No Cancer: Yes (DIAGNOSED THIS ADMISSION) Cardiac Catheterization: Yes (2 STENTS) Cardiovascular Problems: Yes High Cholesterol: No Chest Pain: No Congestive Heart Failure: Yes Coronary Artery Disease: Yes Diabetes: Yes Diminished Hearing: No Endocrine: Yes Genitourinary: Yes Hypertension: Yes Immune Disorder: No Musculoskeletal: Yes Neurologic: No Psychiatric: Yes Reproductive: No Respiratory: Yes Thyroid Disease: No ?: Not Menopausal: Yes Past Surgical History Body Medical Devices: STENTS Section: Yes Coronary Artery Bypass Graft: Yes (07/2015) Gynecologic Surgery: Yes (3 ) Hysterectomy: Yes Other Surgery: Yes Social History Alcohol Use: No Tobacco Use: Yes (2-5 cigarettes/day) Substance Use: No Allergies-Medications (Allergen,Severity, Reaction): Coded Allergies: No Known Allergies (Verified , 11/08/16) Reported Meds & Prescriptions Reported Meds & Active Scripts Active Proair Hfa 8.5 GM Inh (Albuterol Sulfate) 90 Mcg/Act Aer 2 Puff INH Q4HR PRN 108 mcg/actuation Promethazine-Codeine Liq 6.25-10 Mg/5 Ml Syrp 10 Ml PO Q6H PRN Levaquin (Levofloxacin) 750 Mg Tab 750 Mg PO DAILY Zithromax (Azithromycin) 250 Mg Tab 500 Mg PO DAILY Reported Metoprolol Tartrate 25 Mg Tab 25 Mg PO BID Atorvastatin (Atorvastatin Calcium) 40 Mg Tab 40 Mg PO HS Magnesium Oxide 400 Mg Tab 400 Mg PO BID Kombiglyze Xr (Saxagliptin-Metformin ER) 2.5-1,000 Mg Tab 1 Tab PO DAILY Aspirin 81 Mg Tabdr 81 Mg PO DAILY Review of Systems Except as stated in HPI: all other systems reviewed are Neg Physical Exam Narrative GENERAL: Thin female patient, ambulatory and in no acute distress SKIN: Warm and dry. HEAD: Atraumatic. Normocephalic. EYES: Pupils equal and round. No scleral icterus. No injection or drainage. ENT: No nasal bleeding or discharge. Mucous membranes pink and moist. NECK: Trachea midline. No JVD. CARDIOVASCULAR: Regular rate and rhythm. No murmur appreciated. RESPIRATORY: No accessory muscle use. Coarse throughout, Rales and rhonchi Breath sounds equal bilaterally. GASTROINTESTINAL: Abdomen soft, non-tender, nondistended. Hepatic and splenic margins not palpable. MUSCULOSKELETAL: No obvious deformities. No clubbing. No cyanosis. No edema. NEUROLOGICAL: Awake and alert. No obvious cranial nerve deficits. Motor grossly within normal limits. Normal speech. PSYCHIATRIC: Appropriate mood and affect; insight and judgment normal. Data Data Last Documented VS Vital Signs Date Time Temp Pulse Resp B/P Pulse Ox O2 Delivery O2 Flow Rate FiO2 11/16/16 18:37 99 21 11/16/16 16:42 97.6 67 14 199/82 Room Air Orders Dexamethasone Inj (Decadron Inj) (11/16/16 18:15) Albuterol-Ipratropium Neb (Duoneb Neb) (11/16/16 18:15) [facility] Medical Decision Making Medical Screen Exam Complete: Yes Emergency Medical Condition: Yes Medical Record Reviewed: Yes Differential Diagnosis Carcinoma versus pneumonia versus bronchospasm versus COPD exacerbation Narrative Course 66 year-old female presents to emergency department for evaluation. Patient appears without distress. Her vital signs are stable. Patient does have very coarse breath sounds and she does have hemoptysis however this is not acute. Patient is given IM Decadron and counseled on closely monitoring her glucose. I discussed the patient with my attending physician Dr. Queen who agrees that the patient can be discharged home She is given prescription for albuterol and has well as Phenergan with codeine cough syrup. I have instructed her to contact her primary care provider's office in the morning and also informed her that a stat consult has been placed to oncology. She agrees to return immediately with any acute worsening symptoms. Diagnosis Primary Impression: Bronchogenic carcinoma of right lung Additional Impression: Hemoptysis Referrals: Narendra Stewart MD Primary Care Physician Patient Instructions: Acute Hemoptysis (DC), General Instructions Additional Instructions: Call Dr. Stewart's office in the morning Call Dr. Fleming's office in the AM Return to ED with acute worsening of symptoms Med/Other Pt SpecificInfo: Prescription(s) given Scripts Albuterol 8.5 GM Inh (Proair Hfa 8.5 GM Inh)90 Mcg/Act Aer2 Puff INH Q4HR PRN ( SHORTNESS OF BREATH) #1 INHALER Ref 0 108 mcg/actuation Prov:Jes Kaufman 11/16/16 Promethazine-Codeine Liq 6.25-10 Mg/5 Ml Syrp10 Ml PO Q6H PRN (COUGH) #120 ML Ref 0 Prov:Allan Queen MD 11/16/16 Disposition: 01 DISCHARGE HOME Condition: Stable Jes Kaufman Nov 16, 2016 17:44
[2016-11-16] MEDS ORDERED: PROM6.256 PO (18:11)
[2016-11-16] MEDS ORDERED: ALBUAER3 INH (18:14)
[2016-11-16] MEDS ORDERED: RESP: ALBUTEROL 2.5 MG/IPRATROPIUM 0.5 MG NEB (SCH) NEB ONE (18:15)
[2016-11-16] MEDS ORDERED: DEXAMETHASONE SOD PHOS 20 MG/5 ML VIAL IM ONE (18:15)
[2016-11-16 18:37] VITALS: O2SAT 99
== END 2016-11-16 21:03 | disposition home or self-care (01) ==
LOC: NETRI 16:40
DX: C34.90 Malignant neoplasm of unspecified part of unspecified bronchus or lung (principal); R04.2 Hemoptysis; I10 Essential (primary) hypertension; E11.9 Type 2 diabetes mellitus without complications; Z72.0 Tobacco use; Z79.82 Long term (current) use of aspirin; Z79.84 Long term (current) use of oral hypoglycemic drugs; Z86.59 Personal history of other mental and behavioral disorders; Z86.79 Personal history of other diseases of the circulatory system; Z87.448 Personal history of other diseases of urinary system; Z87.39 Personal history of other diseases of the musculoskeletal system and connective tissue; Z87.09 Personal history of other diseases of the respiratory system
CPT/HCPCS: 94664; 96372; 99284; J1100

== ENCOUNTER 2016-11-26 06:09 | Day surgery (SDC) | payer OTHER ==
[~2016-11-26] VITALS: Ht 170.2 cm; Wt 60.5 kg
[~2016-11-26 06:09] MED LIST changes: +ALBUAER3 INH; -CEFT500T3 PO; -FURO20TA PO; -LOSA25TA PO; -PRED5PAK2 PO; +PROM6.256 PO
[2016-11-26 06:42] VITALS: BP 194/85; PULSE 53; RESP 20; TEMP 98; O2SAT 95
[2016-11-26] MEDS ORDERED: POVIDONE IODINE 5% (ANTISEPSIS KIT) 4 APPLICATIONS EACH NARE SCH (06:45)
[2016-11-26] MEDS ORDERED: VANCOMYCIN 1000 MG/NS 250 ML - implanted port/tunneled catheter IV SCH ×2 (06:45)
[2016-11-26] MEDS ORDERED: SODIUM CHLORIDE 0.9% 1000 ML IV SCH (06:45)
[2016-11-26] MEDS ORDERED: CHLORHEXIDINE GLUCONATE 2 % 1 PACK (2 CLOTHS) TOPICAL SCH (06:45)
[2016-11-26] MEDS ORDERED: ceFAZolin 2 GM PREMIX 50 ML - implanted port/tunneled catheter insertion IV SCH (06:45)
[2016-11-26] MEDS ORDERED: MIDAZOLAM HCL 5 MG/5 ML VIAL ONE (08:03)
[2016-11-26] MEDS ORDERED: fentaNYL CITRATE 250 MCG/5 ML AMP ONE (08:03)
[2016-11-26] MEDS ORDERED: LIDOCAINE 1%/EPINEPHrine 1:100,000 SOLN 20 ML VIAL ONE (08:07)
--- NOTE | 2016-11-26 09:13 | PD.RAD ---
Post Procedure Progress Note Procedure Date: Nov 26, 2016 Supervising Radiologist: Aiden Conti Proceduralist/Assist: Talia Salazar RT(R), Liz Taylor RT(R)() Anesthesia: Local, Conscious Sedation Plan of Activity Patient to Unit: [facility]U Patient Condition: Good See PACS Report for procedural detail/treatment Central Venous Access Device Procedure 1 Right Internal Jugular Infusaport Placement single lumen [place]: 8 Aiden Conti MD Nov 26, 2016 09:13
[2016-11-26 09:20] VITALS: BP 192/72; PULSE 192; PULSE 52; RESP 16; RESP 18; TEMP 98.3; O2SAT 88
[2016-11-26 09:35] VITALS: BP 171/63; PULSE 50; RESP 18; O2SAT 97
[2016-11-26 10:05] VITALS: BP 175/73; PULSE 51; RESP 18; O2SAT 97
[2016-11-26 10:35] VITALS: BP 137/58; PULSE 52; RESP 18; O2SAT 98
--- NOTE | 2016-11-26 11:30 | RADRPT ---
EXAM DATE/TIME: 11/26/2016 08:22 [facility] COMPARISON: No previous studies available for comparison. INDICATIONS : Patient with history of lung cancer in need of port placement. MEDICAL HISTORY : 1.COPD 2.CAD 3.DM 4.PAD 5.HTN SURGICAL HISTORY : 1.Cardiac cath 2. ENCOUNTER: Initial ACUITY: 3 months PAIN SCORE: 0/10 FLUORO TIME: 0.6 minutes SEDATION TIME: 45 minutes ACCESS: Right internal jugular vein SEDATION: 1.) 3.5 mg midazolam (Versed) IV 2.) 175 mcg fentanyl (Sublimaze) IV Prophylactic antibiotics were administered with appropriate pre-procedure timing. Vancomycin within 2 hours of procedure, Ancef (or alternative) within 1 hour of procedure. DEVICE: 1. 8 [place] single lumen Bard Power Port PROCEDURE : 1. Continuous pulse oximetry and EKG monitoring. 2. Intravenous conscious sedation. 3. Ultrasound guidance for venous access. 4. Fluoroscopic guided implantable central venous port placement. The patient was placed supine. The neck was prepped in sterile fashion. Full sterile technique was u sed, including cap, mask, sterile gloves and gown, and a large sterile sheet. Hand hygiene and 2% ch lorhexidine Betadine was utilized per protocol for cutaneous antisepsis with appropriate dry time for site. The skin and subcutaneous tissues were infiltrated with local anesthetic solution. Under direct ultrasound guidance, central venous access was accomplished in the targeted vessel. The ultrasound images depicting access guidance were stored and saved to PACS for permanent record. A s ubcutaneous pocket was created using blunt dissection. The port was introduced to the pocket. The c atheter tubing was fed through a subcutaneous tunnel to the venotomy site. The catheter tubing was c ut to a suitable length and then was introduced through a valved Peel-Away sheath and positioned with catheter tubing tip at the cavo-atrial junction level. The pocket incision was closed with subcutic ular Vicryl suture. Steri-Strips were applied. The port was flushed and locked with heparin solutio n per protocol. Sterile dressing was applied to the site. The patient tolerated the procedure well. Conscious sedation was performed with the prescribed dosages and duration as above. The patient gustavo ated the procedure well and there were no complications. EKG and oximetry remained stable throughout the procedure. The patient was sent to post anesthesia recovery in stable condition. CONCLUSION: Uncomplicated ultrasound and fluoroscopic guided implanted central venous port catheter placement as described in detail above. An 8 [place]an Power port was placed. Aiden Cotni MD on November 26, 2016 at 11:29 Board Certified Radiologist. This report was verified electronically.
[2016-11-26 11:35] VITALS: BP 148/60; PULSE 53; RESP 18; O2SAT 95
== END 2016-11-26 11:50 | disposition home or self-care (01) ==
LOC: HRIP 06:09 → HROP 06:09
PROVIDERS: ATTEND Internal Medicine
DX: C34.01 Malignant neoplasm of right main bronchus (principal)
CPT/HCPCS: 36561; 76937; 77001; 99152; 99153; C1788; J0690; J1642; J2250; J3010; J3370; J7030; J7050

== ENCOUNTER 2016-12-20 13:46 | Inpatient (IN) | payer OTHER, MEDICARE ==
[~2016-12-20] VITALS: Ht 170.2 cm; Wt 60.8 kg
[~2016-12-20 13:46] MED LIST changes: -ATOR40TA16 PO; -LEVA750T PO; -PROM6.256 PO; -ZITH250T PO
[2016-12-20 13:48] VITALS: BP 169/75; PULSE 60; RESP 20; TEMP 97.9; O2SAT 97
[2016-12-20] MEDS ORDERED: ZANT300T PO (13:56)
[2016-12-20] MEDS ORDERED: FLUTI110I INH (13:56)
[2016-12-20] MEDS ORDERED: PRED20 PO (13:56)
[2016-12-20 14:12] VITALS: O2SAT 98
[2016-12-20] MEDS ORDERED: SODIUM CHLOR 0.9% 1000 ML INJ 1,000 ML IV ONE (14:36)
--- NOTE | 2016-12-20 14:42 | PD ---
HPI Chief Complaint: General Weakness Time Seen by Provider: 14:38 Travel History International Travel<30 days: No Contact w/Intl Traveler<30days: No Traveled to known affect area: No History of Present Illness HPI 66-year-old female that presents to the ED for evaluation of weakness, nausea and vomiting and history of cancer. Per patient she has lung cancer that is currently being treated with chemotherapy. Per patient she had her first dose of chemotherapy last Tuesday. Per patient since having the chemotherapy she's been weak and tired as well as having some nausea and vomiting. Patient was prescribed medications for the nausea and vomiting. Per patient she's been trying to deal with it as she knew that she will expect some side effects from the medication but she states that for the past 24 hours she just been getting worse and worse. Per patient the medication for the nausea and vomiting doesn' t seem to help anymore. Per patient she cannot keep anything down. Per patient she has some abdominal discomfort. Per patient she also had diarrhea yesterday. She states that she's been trying to keep fluids down but it tastes different and it's hard to drink because of the but also because she feels nauseous and feels like he cannot throw it up. She also has lost her appetite. She states that she try to contact her doctor Dr. Stewart with success. She has no allergies to medication. Per patient she has minimal discomfort other than GI upset which she doesn't really call it pain, more like an ache. Per patient this discomfort is 4 out of 10. She is able to pass gas and bowel movements. She denies any chest pain or shortness of breath. She denies any cough. No fevers chills or sweats. PFSH Past Medical History Hx Anticoagulant Therapy: Yes (BABY ASA DAILY) Blood Disorders: No Anxiety: Yes Depression: No Heart Rhythm Problems: No Cancer: Yes (Lung ca) Cardiac Catheterization: Yes (2 STENTS) Cardiovascular Problems: Yes High Cholesterol: No Chemotherapy: Yes Chest Pain: No Congestive Heart Failure: Yes Coronary Artery Disease: Yes Diabetes: Yes Patient Takes Glucophage: Yes Diminished Hearing: No Endocrine: Yes Genitourinary: No Hepatitis: No Hiatal Hernia: No Hypertension: Yes Immune Disorder: No Implanted Vascular Access Dvce: Yes Medical other: Yes Musculoskeletal: No Neurologic: No Psychiatric: No Reproductive: No Respiratory: Yes Immunizations Current: No Thyroid Disease: No Tetanus Vaccination: > 5 Years Menopausal: Yes Past Surgical History Abdominal Surgery: No AICD: No Body Medical Devices: STENTS Cardiac Surgery: Yes (Stents, CABG x 3) Section: Yes Coronary Artery Bypass Graft: Yes (07/2015) Ear Surgery: No Endocrine Surgery: No Eye Surgery: No Genitourinary Surgery: No Gynecologic Surgery: No Hysterectomy: Yes Joint Replacement: No Oral Surgery: No Pacemaker: No Thoracic Surgery: No Other Surgery: Yes Social History Alcohol Use: No Tobacco Use: Yes Substance Use: No Allergies-Medications (Allergen,Severity, Reaction): Coded Allergies: No Known Allergies (Verified , 12/20/16) Reported Meds & Prescriptions Reported Meds & Active Scripts Active Proair Hfa 8.5 GM Inh (Albuterol Sulfate) 90 Mcg/Act Aer 2 Puff INH Q4HR PRN 108 mcg/actuation Reported Flovent Hfa 12 GM Inh (Fluticasone Propionate) 110 Mcg/Act Inh 2 Puff INH BID Prednisone 20 Mg Tab 20 Mg PO DIRECTED 40 MG twice a day x 3 days, then 20 MG daily x 3 days, then 10 MG daily x 3 days Zantac (Ranitidine HCl) 300 Mg Tab 300 Mg PO DAILY Metoprolol Tartrate 25 Mg Tab 25 Mg PO BID Magnesium Oxide 400 Mg Tab 400 Mg PO BID Kombiglyze Xr (Saxagliptin-Metformin ER) 2.5-1,000 Mg Tab 1 Tab PO DAILY Aspirin 81 Mg Tabdr 81 Mg PO DAILY Review of Systems General / Constitutional: No: Fever, Chills, Weight Gain, Weight Loss, Other Eyes: No: Diploplia, Blurred Vision, Photophobia, Drainage, Redness, Foreign Body Sensation, Pain, Tearing, Blind Spots, Visual changes, Blindness, Other HENT: No: Headaches, Vertigo, Lightheadedness, Sore Throat, Rhinitis, Rhinorrhea, Congestion, Nosebleed, Neck Stiffness, Neck Pain, Masses, Gingival Bleeding, Dental Difficulties, Ear Discharge, Earache, Other Cardiovascular: No: Chest Pain or Discomfort, Palpitations, Irregular Rhythm, Tachycardia, Diaphoresis, Syncope, Dyspnea on exertion, Varicosities, Edema, Cyanosis, Varicosities, Phlebitis, Claudication, Other Respiratory: No: Cough, Shortness of Breath, Wheezing, Sneezing, Orthopnea, Hemoptysis, Stridor, Night Sweats, Pleuritic Pain, Other Gastrointestinal: Positive: Nausea, Vomiting, Diarrhea, Abdominal Pain, Indigestion, No: Hematemesis, Hematochezia, Constipation, Changes in Bowel Habits, Dysphagia, Loss of Appetite, Other Genitourinary: No: Urgency, Frequency, Dysuria, Nocturia, Hematuria, Decreased Urinary Output, Oliguria, Hesitancy, Dribbling, Incontinence, Pelvic Pain, Flank Pain, Dyspareunia, Discharge, Dysmenorrhea, Menorrhagia, Metorrhagia, Vaginal Bleeding, Other Musculoskeletal: No: Myalgias, Arthralgias, Limited ROM, Weakness, Cramping, Edema, Pain, Atrophy, Other Skin: No Rash, No Itching, No Dryness, No Lumps, No Hives, No Change in Pigmentation, No Change in nails, No Alopecia, No Lesions, No Breast Lumps, No Breast Tenderness, No Breast Swelling, No Other Neurologic: No: Weakness, Dizziness, Syncope, Focal Abnormalities, Coordination Problem, Tremor, Ataxia, Headache, Change in Mentation, Slurred Speech, Paresthesia, Incontinence, Seizures, Sensory Disturbance, Other Psychiatric: No: Anxiety, Depression, Suicidal Ideations, Disorder of Thought, Mood Disorder, Substance Abuse, Homicidal Ideation, Other Endocrine: No: Heat Intolerance, Cold Intolerance, Polyuria, Polydipsia, Other Hematologic/Lymphatic: No: Easy Bruising, Lymph Node Enlargement, Other Physical Exam Narrative GENERAL: SKIN: Warm and dry. HEAD: Atraumatic. Normocephalic. EYES: Pupils equal and round. No scleral icterus. No injection or drainage. ENT: No nasal bleeding or discharge. Mucous membranes pink and moist. Tongue is midline. No uvula deviation. NECK: Trachea midline. No JVD. CARDIOVASCULAR: Regular rate and rhythm. No murmurs, S3, S4. RESPIRATORY: No accessory muscle use. Clear to auscultation. Breath sounds equal bilaterally. GASTROINTESTINAL: Abdomen soft, non-tender, nondistended. Hepatic and splenic margins not palpable. MUSCULOSKELETAL: Extremities without clubbing, cyanosis, or edema. No obvious deformities. Full range of motion of the upper and lower extremities bilaterally. 2+ pulses bilaterally. NEUROLOGICAL: Awake and alert. No obvious cranial nerve deficits. Motor grossly within normal limits. Five out of 5 muscle strength in the arms and legs. Normal speech. PSYCHIATRIC: Appropriate mood and affect; insight and judgment normal. Data Data Last Documented VS Vital Signs Date Time Temp Pulse Resp B/P Pulse Ox O2 Delivery O2 Flow Rate FiO2 12/20/16 14:12 98 Room Air 12/20/16 13:48 97.9 60 20 169/75 Orders Electrocardiogram (12/20/16 14:05) Complete Blood Count With Diff (12/20/16 14:05) Comprehensive Metabolic Panel (12/20/16 14:05) Ckmb (Isoenzyme) Profile (12/20/16 14:05) Troponin I (12/20/16 14:05) Prothrombin Time / Inr (Pt) (12/20/16 14:05) Act Partial Throm Time (Ptt) (12/20/16 14:05) Lipase (12/20/16 14:05) Urinalysis - C+S If Indicated (12/20/16 14:05) Thyroid Stimulating Hormone (12/20/16 14:05) Chest, Single Ap (12/20/16 14:05) Iv Access Insert/Monitor (12/20/16 14:05) Ecg Monitoring (12/20/16 14:05) Oximetry (12/20/16 14:05) Ondansetron Inj (Zofran Inj) (12/20/16 14:45) Sodium Chlor 0.9% 1000 Ml Inj (Ns 1000 M (12/20/16 14:36) C Diff Toxin Pcr (12/20/16 15:24) Cath For Specimen (12/20/16 15:41) Admit Order (Ed Use Only) (12/20/16 16:22) Labs Laboratory Tests Test 12/20/16 14:20 White Blood Count 0.7 TH/MM3 Red Blood Count 3.97 MIL/MM3 Hemoglobin 10.1 GM/DL Hematocrit 30.7 % Mean Corpuscular Volume 77.3 FL Mean Corpuscular Hemoglobin 25.4 PG Mean Corpuscular Hemoglobin 32.9 % Concent Red Cell Distribution Width 15.3 % Platelet Count 178 TH/MM3 Mean Platelet Volume 9.3 FL Neutrophils (%) (Auto) % Lymphocytes (%) (Auto) % Monocytes (%) (Auto) % Eosinophils (%) (Auto) % Basophils (%) (Auto) % Neutrophils # (Auto) TH/MM3 Lymphocytes # (Auto) TH/MM3 Monocytes # (Auto) TH/MM3 Eosinophils # (Auto) TH/MM3 Basophils # (Auto) TH/MM3 CBC Comment AUTO DIFF Differential Total Cells 50 Counted Neutrophils % (Manual) 52 % Band Neutrophils % 2 % Lymphocytes % 42 % Monocytes % 2 % Basophils % 2 % Neutrophils # (Manual) 0.4 TH/MM3 Nucleated Red Blood Cells 2 /100 WBC Differential Comment FINAL DIFF MANUAL Toxic Vacuolation PRESENT Platelet Estimate NORMAL Platelet Morphology Comment NORMAL Target Cells 1+ Robi Cells 1+ Rouleau PRESENT Keratocytes 1+ Prothrombin Time 10.7 SEC Prothromb Time International 1.0 RATIO Ratio Activated Partial 18.7 SEC Thromboplast Time Sodium Level 134 MEQ/L Potassium Level 4.8 MEQ/L Chloride Level 102 MEQ/L Carbon Dioxide Level 23.4 MEQ/L Anion Gap 9 MEQ/L Blood Urea Nitrogen 21 MG/DL Creatinine 0.85 MG/DL Estimat Glomerular Filtration 67 ML/MIN Rate Random Glucose 210 MG/DL Calcium Level 8.6 MG/DL Total Bilirubin 1.0 MG/DL Aspartate Amino Transf 19 U/L (AST/SGOT) Alanine Aminotransferase 15 U/L (ALT/SGPT) Alkaline Phosphatase 69 U/L Total Creatine Kinase 46 U/L Troponin I 0.04 NG/ML Total Protein 6.2 GM/DL Albumin 3.2 GM/DL Lipase 164 U/L Thyroid Stimulating Hormone 0.314 uIU/ML [address] [place] [address] Medical Decision Making Medical Screen Exam Complete: Yes Emergency Medical Condition: Yes Medical Record Reviewed: Yes Interpretation(s) CBC & BMP Diagram 12/20/16 14:20 LFTS and lipase WNL CXR negative Differential Diagnosis Intractable vomiting versus nausea and vomiting versus medication side effect versus cancer versus chemotherapy versus obstruction versus leukocytosis versus generalized weakness Narrative Course 66-year-old female that presents to the ED for evaluation of weakness, nausea and vomited secondary to chemotherapy. Patient was properly examined and was found to have signs and symptoms consistent with appears to be side effects from the chemotherapy. At this time labs and imaging will be done. Patient was given IV fluids and antiemetics. Patient will be reassessed. Patient does appear to be dehydrated on exam. Patient was reassessed and still feels not improved. Patient still feels weak. Patient still looks somewhat dehydrated. She was given a liter of fluids. Case was discussed in my attending Dr. Wyatt who recommends admission for intractable nausea and vomiting likely secondary to the chemotherapy and generalized weakness. Labs here essentially unremarkable other than for a neuthrophenia likely secondary to edema HEPAS was paged and Dr Red agrees to admission, Spoke with Dr Stewart who was made aware of patient and agrees to evaluate her in the hospital. Diagnosis Primary Impression: Nausea & vomiting Qualified Code: R11.2 - Intractable vomiting with nausea, unspecified vomiting type Additional Impressions: Generalized weakness Bronchogenic carcinoma of right lung Admitting Information Admitting Physician Requests: Fer Solomon Dec 20, 2016 14:42
[2016-12-20 14:44] LABS: HEMATOCRIT 30.7 % (35.0-46.0); MEAN CELL VOLUME 77.3 FL (80.0-100.0); MEAN CORPUSCULAR HEMOGLOBIN 25.4 PG (27.0-34.0); MEAN CORPUSCULAR HGB CONC 32.9 % (32.0-36.0); PLATELET COUNT 178 TH/MM3 (150-450); RED BLOOD COUNT 3.97 MIL/MM3 (4.00-5.30); RED CELL DISTRIBUTION WIDTH 15.3 % (11.6-17.2); WHITE BLOOD COUNT 0.7 TH/MM3 (4.0-11.0)
[2016-12-20] MEDS ORDERED: ONDANSETRON HCL 4 MG/2 ML VIAL IVP ONE (14:45)
[2016-12-20 14:56] LABS: APTT (PATIENT) 18.7 SEC (24.3-30.1); PROTHROMBIN TIME - PATIENT 10.7 SEC (9.8-11.6)
[2016-12-20 15:02] LABS: HEMO FLAGS AUTO DIFF
--- NOTE | 2016-12-20 15:02 | RADRPT ---
EXAM DATE/TIME: 12/20/2016 14:30 [facility] COMPARISON: CHEST SINGLE AP, November 08, 2016, 17:21. INDICATIONS : Syncope, increased weakness. Shortness of breath. MEDICAL HISTORY : Hypertension. Carcinoma, lung. Diabetes mellitus type II. Congestive heart failure. SURGICAL HISTORY : CABG. Coronary artery stent. Port placement. ENCOUNTER: Initial ACUITY: 1 day PAIN SCORE: 0/10 LOCATION: Bilateral chest FINDINGS: [id number] is in good position. Sternal wires from previous median sternotomy are noted. Heart and pulmonary vascularity are normal. Portions of the bony skeleton visualized are unremarkable. CONCLUSION: Negative chest for acute disease. Yasmany Coon MD FACR on December 20, 2016 at 14:53 Board Certified Radiologist. This report was verified electronically.
[2016-12-20 15:04] LABS: ALKALINE PHOSPHATASE 69 U/L (45-117); ALT (GPT) 15 U/L (10-53); ANION GAP 9 MEQ/L (5-15); AST (GOT) 19 U/L (15-37); BICARBONATE 23.4 MEQ/L (21.0-32.0); BLOOD UREA NITROGEN 21 MG/DL (7-18); CHLORIDE 102 MEQ/L (98-107); GLOMERULAR FILTRATION RATE 67 ML/MIN (>89); POTASSIUM 4.8 MEQ/L (3.5-5.1); SODIUM (NA) 134 MEQ/L (136-145)
[2016-12-20 15:13] LABS: CREATINE KINASE 46 U/L (26-192)
[2016-12-20 15:38] LABS: BANDS 2 % (0-6); BASOPHILS 2 % (0-2); CORRECTED NUCLEATED RBC 2 /100 WBC (0-0); NEUTROPHIL # MANUAL DIFF 0.4 TH/MM3 (1.8-7.7); POLYS (SEG NEUTROPHILS) 52 % (16-70); ROULEAUX PRESENT (NORMAL); WBC DIFF SAMPLE 50
[2016-12-20 15:39] LABS: TOXIC VACUOLATION PRESENT (NONE SEEN)
[2016-12-20 15:40] LABS: BURR CELLS 1+ (NORMAL); KERATOCYTES 1+ (NORMAL)
[2016-12-20 15:41] LABS: TARGET CELLS 1+ (NORMAL)
[2016-12-20 15:54] LABS: PLATELET ESTIMATE SMEAR NORMAL (NORMAL); PLATELET MORPHOLOGY NORMAL (NORMAL)
[2016-12-20 15:55] LABS: SCAN/DIFF FINAL DIFF MANUAL
[2016-12-20 16:28] LABS: BLOOD, URINE NEG (NEG); COMMENT (UR) CULT NOT INDICATED; CULTURE IF INDICATED CULT NOT INDICATED; GLUCOSE,URINE 300 mg/dL (NEG); KETONE, URINE TRACE mg/dL (NEG); MUCUS URINE FEW /lpf (OCC); NITRITE,URINE NEG (NEG); URINE COLOR YELLOW (YELLW/STRAW)
[2016-12-20] MEDS ORDERED: GLUCAGON 1 MG/ML VIAL OTHER PRN (17:45)
[2016-12-20] MEDS ORDERED: SODIUM CHLORIDE 0.9% FLUSH 5 ML FLUSH IV PRN (17:45)
[2016-12-20] MEDS ORDERED: DEXTROSE 50% IN WATER 50 ML VIAL(D50) IV PUSH PRN (17:45)
[2016-12-20] MEDS ORDERED: ONDANSETRON HCL 4 MG/2 ML VIAL IV PRN (17:45)
[2016-12-20] MEDS ORDERED: ALBUTEROL SULFATE 90 MCG/ACT HFA 8 GM INHALER INH PRN (17:45)
--- NOTE | 2016-12-20 17:53 | HHI.HP ---
HPI Service [facility] Primary Care Physician Henry Fleming, Admission Diagnosis nausea and vomit, dehydration, generalized weakness Diagnoses: Chief Complaint: Generalized weakness Travel History International Travel<30 Days: No Contact w/Intl Traveler <30 Da: No Traveled to Known Affected Are: No History of Present Illness 66-year-old female with history of HTN, DM, CAD, COPD, SCC right lung currently undergoing chemotherapy who presents with nausea, vomiting, diarrhea, and weakness. The patient's last chemotherapy treatment was a week ago last Tuesday. She states that she's been having nausea and poor appetite since then. She has been having intermittent vomiting since that time, last tolerated oral intake yesterday morning. For the past week she's been having intermittent loose stools, now with intractable diarrhea overnight. She's been taking oral Zofran and Compazine at home with no improvement in nausea. She denies any specific fever or chills. She has mild abdominal ache from retching. She denies any chest pain or shortness of breath. She does have a cough, but this is significantly improved since starting the chemotherapy. Today the patient was feeling significantly more weak, could not get up, and so the paramedics were called to bring her to the hospital. Review of Systems Except as stated in HPI: all other systems reviewed are Neg Past Family Social History Past Medical History Hypertension Diabetes mellitus Coronary artery disease COPD Squamous cell carcinoma of the right lung Past Surgical History CABG Reported Medications Proair Hfa 8.5 GM Inh (Albuterol Sulfate) 90 Mcg/Act Aer 2 Puff INH Q4HR PRN 108 mcg/actuation Flovent Hfa 12 GM Inh (Fluticasone Propionate) 110 Mcg/Act Inh 2 Puff INH BID Prednisone 20 Mg Tab 20 Mg PO DIRECTED 40 MG twice a day x 3 days, then 20 MG daily x 3 days, then 10 MG daily x 3 days Zantac (Ranitidine HCl) 300 Mg Tab 300 Mg PO DAILY Metoprolol Tartrate 25 Mg Tab 25 Mg PO BID Magnesium Oxide 400 Mg Tab 400 Mg PO BID Kombiglyze Xr (Saxagliptin-Metformin ER) 2.5-1,000 Mg Tab 1 Tab PO DAILY Aspirin 81 Mg Tabdr 81 Mg PO DAILY Allergies: Coded Allergies: No Known Allergies (Verified , 12/20/16) Family History Father has CHF and pacemaker placement Son had esophageal and aortic tear Social History Smoked about 1 pack per day for 40 years, quit a few months ago Denies any alcohol or substance abuse Physical Exam Vital Signs Vital Signs Date Time Temp Pulse Resp B/P Pulse Ox O2 Delivery O2 Flow Rate FiO2 12/20/16 14:12 98 Room Air 12/20/16 13:48 97.9 60 20 169/75 97 Physical Exam GENERAL: Well-developed well-nourished. In no acute distress. SKIN: Warm and dry. No lesions noted. HEENT: Normocephalic. Pupils equal and round. Mucous membranes pink and moist. CARDIOVASCULAR: Regular rate and rhythm. No murmur appreciated. RESPIRATORY: No accessory muscle use. Clear to auscultation. Breath sounds equal bilaterally. GASTROINTESTINAL: Abdomen soft, non-tender, nondistended. Hyperactive Bowel sounds. MUSCULOSKELETAL: No obvious deformities. No clubbing or cyanosis. No edema. NEUROLOGICAL: Awake and alert. No focal neurological deficits. Moves upper and lower extremities spontaneously. Normal speech. PSYCHIATRIC: Appropriate mood and affect; insight and judgment normal. Laboratory Laboratory Tests Test 12/20/16 12/20/16 14:20 16:07 White Blood Count 0.7 Red Blood Count 3.97 Hemoglobin 10.1 Hematocrit 30.7 Mean Corpuscular Volume 77.3 Mean Corpuscular Hemoglobin 25.4 Mean Corpuscular Hemoglobin 32.9 Concent Red Cell Distribution Width 15.3 Platelet Count 178 Mean Platelet Volume 9.3 Neutrophils (%) (Auto) Lymphocytes (%) (Auto) Monocytes (%) (Auto) Eosinophils (%) (Auto) Basophils (%) (Auto) Neutrophils # (Auto) Lymphocytes # (Auto) Monocytes # (Auto) Eosinophils # (Auto) Basophils # (Auto) CBC Comment AUTO DIFF Differential Total Cells 50 Counted Neutrophils % (Manual) 52 Band Neutrophils % 2 Lymphocytes % 42 Monocytes % 2 Basophils % 2 Neutrophils # (Manual) 0.4 Nucleated Red Blood Cells 2 Differential Comment FINAL DIFF MANUAL Toxic Vacuolation PRESENT Platelet Estimate NORMAL Platelet Morphology Comment NORMAL Target Cells 1+ Robi Cells 1+ Rouleau PRESENT Keratocytes 1+ Prothrombin Time 10.7 Prothromb Time International 1.0 Ratio Activated Partial 18.7 Thromboplast Time Sodium Level 134 Potassium Level 4.8 Chloride Level 102 Carbon Dioxide Level 23.4 Anion Gap 9 Blood Urea Nitrogen 21 Creatinine 0.85 Estimat Glomerular Filtration 67 Rate Random Glucose 210 Calcium Level 8.6 Total Bilirubin 1.0 Aspartate Amino Transf 19 (AST/SGOT) Alanine Aminotransferase 15 (ALT/SGPT) Alkaline Phosphatase 69 Total Creatine Kinase 46 Troponin I 0.04 Total Protein 6.2 Albumin 3.2 Lipase 164 Thyroid Stimulating Hormone 0.314 3rd Gen Urine Color YELLOW Urine Turbidity HAZY Urine pH 5.0 Urine Specific [place] 1.015 Urine Protein 30 Urine Glucose (UA) 300 Urine Ketones TRACE Urine Occult Blood NEG Urine Nitrite NEG Urine Bilirubin NEG Urine Urobilinogen LESS THAN 2.0 Urine Leukocyte Esterase SMALL Urine WBC 3 Urine Amorphous Sediment RARE Urine Mucus FEW Microscopic Urinalysis Comment CULT NOT INDICATED Result Diagram: 12/20/16 1420 12/20/16 1420 Imaging Last Impressions Chest X-Ray 12/20/16 1405 Signed Impressions: Service Date/Time: Tuesday, December 20, 2016 14:30 - CONCLUSION: Negative chest for acute disease. Yasmany Coon MD FACR Assessment and Plan Assessment and Plan 66-year-old female with history of HTN, DM, CAD, COPD, SCC right lung currently undergoing chemotherapy who presents with nausea, vomiting, diarrhea, and weakness Nausea, vomiting, diarrhea: Chemotherapy side effects vs acute gastroenteritis. Neutropenia. Afebrile. Check stool studies. IVF. Antiemetics. Clear liquids, ADAT. Follow-up labs in the a.m. Continue home Zantac. Squamous cell carcinoma of the right lung currently undergoing chemotherapy: With neutropenia as above. ED consulted patient's oncologist, appreciate input. Weakness: Secondary to the above. PT eval when the patient is improved. CAD/HTN: Chronic. Continue aspirin, metoprolol. Diabetes mellitus: Hold home oral hypoglycemic. Coverage with SSI with [employer]. COPD: Chronic, stable. Continue home albuterol and fluticasone inhalers. O2 as needed. DVT prophylaxis: Lovenox Discussed Condition With Patient with family at bedside, Dr. Red Attending Statement 66 years old with Lung cancer ongoing chemotherapy, neutropenia with weakness, nausea started on IVF Prn Zofran blood cultures ordered. type 2 DM . on short course Prednisone. ff blood sugars Dr. Stewart - Oncologist consulted and will be ff along with us The exam, history, and the medical decision-making described in the above note were completed with the assistance of the mid-level provider. I reviewed and agree with the findings presented. I attest that I had a [id number] encounter with the patient on the same day, and personally performed and documented my assessment and findings in the medical record. Walter Luna Dec 20, 2016 17:53 Kassy Red MD Dec 20, 2016 20:59
[2016-12-20 17:54] VITALS: BP 145/63; PULSE 62; RESP 18; O2SAT 96
[2016-12-20] MEDS: SODIUM CHLOR 0.9% 1000 ML INJ 1,000 ML IV SCH (18:40)
[2016-12-20 18:54] VITALS: BP 175/94; PULSE 63; RESP 18; O2SAT 94
[2016-12-20 20:00] VITALS: BP 144/63; PULSE 74; RESP 18; TEMP 100.6; O2SAT 99
[2016-12-20] MEDS: ENOXAPARIN SODIUM 40 MG/0.4 ML SYRINGE SQ SCH (20:47)
[2016-12-20] MEDS: INSULIN ASPART SUPPLEMENTAL SCALE SQ SCH (20:47)
[2016-12-20] MEDS: METOPROLOL TARTRATE 25 MG TAB PO SCH (20:48)
[2016-12-20] MEDS: FAMOTIDINE 20 MG TAB PO SCH (20:48)
[2016-12-20] MEDS: SODIUM CHLORIDE 0.9% FLUSH 5 ML FLUSH IV SCH (20:49)
[2016-12-20] MEDS: FLUTICASONE PROPIONATE 110 MCG/ACT 12 GM INHALER INH SCH (20:49)
[2016-12-20] MEDS ORDERED: ACETAMINOPHEN 325 MG TAB PO ONE (21:00)
[2016-12-20] MEDS ORDERED: metroNIDAZOLE 500 MG INJ 100 ML IV ONE (23:00)
--- NOTE | 2016-12-20 23:06 | HHI.PR ---
Addendum to Inpatient Note Additional Information Neutropenic fever. Blood cultures obtained. Urinalysis not suggestive UTI. Chest x-ray negative for pneumonia. Obtain C. difficile and give single doses of IV vancomycin, Zosyn and Flagyl Patrick Aggarwal MD Dec 20, 2016 23:06
[2016-12-20] MEDS ORDERED: PIPERACIL-TAZO 3.375 GM PREMIX 50 ML IV ONE (23:30)
[2016-12-21] VITALS: BP 130/60; PULSE 55; RESP 18; TEMP 98.9; O2SAT 98
[2016-12-21] MEDS ORDERED: VANCOMYCIN INJ 750 MG in SODIUM CHLOR 0.9% 250 ML INJ 250 ML IV ONE ×2
[2016-12-21 04:00] VITALS: BP 146/67; PULSE 60; RESP 17; TEMP 98.8; O2SAT 97
[2016-12-21] MEDS: INSULIN ASPART SUPPLEMENTAL SCALE SQ SCH ×4 (05:41→21:00)
[2016-12-21 06:39] LABS: AUTOMATED NEUTROPHIL # 0.1 TH/MM3 (1.8-7.7); BASOPHIL % 1.3 % (0.0-2.0); EOSINOPHIL % 1.5 % (0.0-4.0); HEMATOCRIT 22.7 % (35.0-46.0); LYMPH % 61.3 % (9.0-44.0); LYMPHOCYTE # 0.4 TH/MM3 (1.0-4.8); MEAN CELL VOLUME 76.7 FL (80.0-100.0); MEAN CORPUSCULAR HEMOGLOBIN 25.5 PG (27.0-34.0); MEAN CORPUSCULAR HGB CONC 33.2 % (32.0-36.0); MONO % 17.6 % (0.0-8.0); NEUT % 18.3 % (16.0-70.0); PLATELET COUNT 129 TH/MM3 (150-450); RED BLOOD COUNT 2.96 MIL/MM3 (4.00-5.30); WHITE BLOOD COUNT 0.6 TH/MM3 (4.0-11.0)
[2016-12-21 07:05] LABS: HEMO FLAGS AUTO DIFF
[2016-12-21 07:11] LABS: BICARBONATE 22.3 MEQ/L (21.0-32.0); POTASSIUM 3.5 MEQ/L (3.5-5.1)
[2016-12-21 08:00] VITALS: BP 122/86; PULSE 84; RESP 18; TEMP 99.2; O2SAT 96
[2016-12-21 08:09] LABS: BANDS 4 % (0-6); BASOPHILS 2 % (0-2); EOSINOPHILS 4 % (0-4); NEUTROPHIL # MANUAL DIFF 0.1 TH/MM3 (1.8-7.7); PLATELET ESTIMATE SMEAR LOW (NORMAL); PLATELET MORPHOLOGY NORMAL (NORMAL); POLYS (SEG NEUTROPHILS) 14 % (16-70); SCAN/DIFF FINAL DIFF MANUAL; WBC DIFF SAMPLE 50
[2016-12-21] MEDS: SODIUM CHLORIDE 0.9% FLUSH 5 ML FLUSH IV SCH ×2 (09:00→21:00)
[2016-12-21] MEDS: FLUTICASONE PROPIONATE 110 MCG/ACT 12 GM INHALER INH SCH ×2 (09:00→21:00)
[2016-12-21] MEDS: FAMOTIDINE 20 MG TAB PO SCH ×2 (09:53→22:14)
[2016-12-21] MEDS: ASPIRIN EC 81 MG TABEC PO SCH (09:53)
[2016-12-21] MEDS: METOPROLOL TARTRATE 25 MG TAB PO SCH ×2 (09:54→22:14)
[2016-12-21] MEDS: SODIUM CHLOR 0.9% 1000 ML INJ 1,000 ML IV SCH ×2 (09:54→18:18)
[2016-12-21] MEDS: PROMETHAZINE INJ 25 MG/ML VIAL IM PRN ×2 (09:57→18:19)
[2016-12-21 16:00] VITALS: BP 151/6; PULSE 59; RESP 18; TEMP 100.5; O2SAT 99
--- NOTE | 2016-12-21 16:31 | HHI.PR ---
Subjective Remarks feels weak, hard to swallow having some loose stools Objective Vitals Vital Signs Date Time Temp Pulse Resp B/P Pulse Ox O2 Delivery O2 Flow Rate FiO2 12/21/16 08:00 99.2 84 18 122/86 96 12/21/16 04:00 98.8 60 17 146/67 97 12/21/16 00:00 98.9 55 18 130/60 98 12/20/16 20:00 100.6 74 18 144/63 99 12/20/16 18:54 63 18 175/94 94 12/20/16 17:54 62 18 145/63 96 I/O 12/20/16 12/20/16 12/20/16 12/21/16 12/21/16 12/21/16 07:00 15:00 23:00 07:00 15:00 23:00 Intake Total 806 ml Balance 806 ml Intake IV Total 806 ml # Voids 1 # Bowel Movements 1 Result Diagram: 12/21/16 0530 12/21/16 0530 Imaging Last Impressions Chest X-Ray 12/20/16 1405 Signed Impressions: Service Date/Time: Tuesday, December 20, 2016 14:30 - CONCLUSION: Negative chest for acute disease. Yasmany Coon MD FACR Objective Remarks awake and alert, tearful anicteric throat- hard palate with some petechial rashes no oral thrush no nuchal rigidity lungs clear regular rhythm abdomen soft, nontender extremities no edema neuro exam- unremarkable A/P Assessment and Plan 66-year-old female with history of HTN, DM, CAD, COPD, SCC right lung currently undergoing chemotherapy who presents with nausea, vomiting, diarrhea, and weakness Nausea, vomiting, diarrhea: Chemotherapy side effects vs acute gastroenteritis. Febrile Neutropenia. - low grade fever Check stool studies. IVF. ? Neupogen- will defer to Dr. Stewart KEILA. Follow-up labs in the a.m. d/w Dr. Stewart- start Cefepime 2 gm q 8 . Acute anemia- check iron studies type and x match 2 units RBC standby Squamous cell carcinoma of the right lung currently undergoing chemotherapy: - on hold Dr. Stewart ff Odynophagia/Dysphagia Lidocaine/magic mouthwash qid consider GI consult History of CAD. on ASA. BB Weakness: PT eval when the patient is improved. Cachexia-get quality control technician consult CAD/HTN: Chronic. Continue aspirin, metoprolol. Diabetes mellitus: Hold home oral hypoglycemic. Coverage with SSI with Accu- Cheks. change to regular diet for now COPD: Chronic, stable. Continue home albuterol and fluticasone inhalers. O2 as needed. DVT prphylaxis- TEDS. on Lovenox- hold with acute drop in hemoglobin Kassy Red MD Dec 21, 2016 16:31
--- NOTE | 2016-12-21 16:47 | EKG ---
Date Performed: 12/20/2016 Time Performed: 15:51:25 PTAGE: 66 years EKG: Sinus rhythm WITH SINUS ARRHYTHMIA LEFT ATRIAL ENLARGEMENT ST DEVIATION AND MODERATE T-WAVE ABNORMALITY, CONSIDER ANTEROLATERAL ISCHEmia ST-T WAVE CHANGE IS NEW, MORE MARKED IN THE PRECARDIUM THAN IN PRIOR TRACING. Clinical correlation is recommended ABNORMAL ECG PREVIOUS TRACING : 11/08/2016 17.27 DOCTOR: Jose A Field Interpretating Date/Time 12/21/2016 16:45:48
[2016-12-21] MEDS: NYSTAT/DIPHENHY/LIDO MOUTHWASH (Adult) 120ML SWISH-SWAL SCH ×2 (18:18→22:13)
[2016-12-21] MEDS: CEFEPIME INJ 2,000 MG in SODIUM CHLORIDE 0.9% INJ 100 ML IV SCH (18:19)
--- NOTE | 2016-12-21 19:28 | MB ---
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 CHIEF COMPLAINT Nausea, vomiting, dehydration, lethargy, weakness. HISTORY OF PRESENT ILLNESS Ms. Dutta is a 66-year-old female with a past medical history of moderately differentiated squamous cell carcinoma. She is currently being treated with chemotherapy consisting of cisplatin and Taxol. The patient was considered not a candidate for concurrent radiation treatments because of her poor PFTs. She has received first cycle of her treatment. She is now being admitted with nausea, vomiting, diarrhea and weakness. She has persistent hemoptysis and cough secondary to her malignancy. She was admitted to the hospital on admission. She was found to be neutropenic with a WBC of 0.6. Her hemoglobin today is 7.5 and platelet count is 129,000. She had spiked a fever earlier and I spoke with Dr. Red and the patient was started on IV cefepime. Blood cultures were drawn. She had a chest x-ray on admission which did not show any evidence of pneumonia. REVIEW OF SYSTEMS A comprehensive 14-point review of systems was completed which is negative except as described in the HPI. PAST MEDICAL HISTORY New squamous cell carcinoma of the lung, hypertension, diabetes, coronary artery disease, COPD. PAST SURGICAL HISTORY 1. CABG. 2. 3. Lung biopsy. HOME MEDICATIONS: 1. ProAir HFA 2. Flovent 3. Prednisone 20 mg daily 4. Zantac 3 mg daily 5. Metoprolol 25 mg tablet p.o. b.i.d. 6. Magnesium oxide 400 mg p.o. b.i.d. 7. Metformin 8. Kombiglyze 2.5 / 1000 mg tablet daily. 9. Aspirin 81 milligrams daily. ALLERGIES NO KNOWN DRUG ALLERGIES. FAMILY HISTORY: Significant for CHF and coronary artery disease SOCIAL HISTORY: She has greater than 50 pack-year smoking history. She quit smoking 2 months ago. She denies alcohol or illicit drug use. PHYSICAL EXAMINATION Vital signs: Blood pressure is 151/60, pulse is in the 50s, temperature is 100.5, O2 sats are 99% on room air. General: Acutely ill, cachectic female in no apparent distress. HEENT: Pupils are equal, round, reactive to light. EOMI. No oral thrush. No oral lesions. Neck: Supple. No JVD, no bruits. No lymphadenopathy. Chest: Clear auscultation bilaterally. Cardiac: S1-S2 regular rate and rhythm. Abdomen is soft, nontender, nondistended. Bowel sounds are present. Extremities: Without any edema, erythema or cyanosis. Skin: Without any petechiae, lesion or bruises. Neuro: No focal deficits. Lymph node exam. No lymphadenopathy on exam. LABORATORY DATA WBCs 0.6, hemoglobin is 7.5, platelet count is 129. Serum chemistries show potassium of 3.5, sodium 137, BUN 14, creatinine 0.68, calcium is 7.5, AST is 19, ALT is 15, alk phos is 69. IMAGING STUDIES Reviewed in the EMR. ASSESSMENT/PLAN This is a 66-year-old female with a diagnosis of stage III squamous cell carcinoma of the lung, who is currently getting [place] based chemotherapy. She presents with nausea, vomiting, diarrhea and weakness. 1. Febrile neutropenia. Start the patient on IV cefepime, obtain blood cultures x2. I will start her on Neupogen injections. If she becomes hypotensive and spikes high fevers despite being on IV cefepime, we will broaden her coverage with IV vancomycin. 2. Nausea, vomiting and dehydration. IV fluids, antiemetics. Will schedule Zofran 4 mg q.6 hours. Compazine for p.r.n. nausea. 3. Anemia, secondary to chemotherapy. I will transfuse her 1 unit of packed red blood cells since she is symptomatic. 4. Weakness secondary to the above-mentioned problems. PT evaluation would be appropriate. 5. Cachexia, malnutrition. Nutrition consult, dietary supplementation with Boost or Ensure, encourage oral intake. Thank you for allowing me to participate in the care of this patient. I will continue to follow this patient along. MD LACY Gonzalez/AVINASH /6:49 PM /7:09 PM OSCAR
[2016-12-21 20:40] VITALS: BP 167/71; PULSE 62; RESP 18; TEMP 97.3; O2SAT 98
[2016-12-21 21:47] LABS: FERRITIN 175 NG/ML (8-252); TRANSFERRIN IRON PROFILE 154 MG/DL (200-360)
[2016-12-21] MEDS: ENOXAPARIN SODIUM 40 MG/0.4 ML SYRINGE SQ SCH (22:13)
[2016-12-22] VITALS (15 sets, daily range): BP systolic 122–171; BP diastolic 60–93; PULSE 50–91; RESP 16–20; TEMP 96.3–100.4; O2SAT 96–100
[2016-12-22] MEDS: CEFEPIME INJ 2,000 MG in SODIUM CHLORIDE 0.9% INJ 100 ML IV SCH ×3 (02:42→19:42)
[2016-12-22] MEDS: FILGRASTIM 480 MCG/1.6 ML VIAL SQ SCH ×2 (02:42→13:04)
[2016-12-22] MEDS: ONDANSETRON HCL 4 MG/2 ML VIAL IV PUSH SCH ×3 (04:56→21:55)
[2016-12-22] MEDS: SODIUM CHLOR 0.9% 1000 ML INJ 1,000 ML IV SCH ×2 (04:57→21:57)
[2016-12-22 05:19] LABS: AUTOMATED NEUTROPHIL # 0.2 TH/MM3 (1.8-7.7); BASOPHIL % 1.1 % (0.0-2.0); LYMPH % 53.6 % (9.0-44.0); LYMPHOCYTE # 0.6 TH/MM3 (1.0-4.8); MEAN CELL VOLUME 77.5 FL (80.0-100.0); MEAN CORPUSCULAR HEMOGLOBIN 25.1 PG (27.0-34.0); MEAN CORPUSCULAR HGB CONC 32.4 % (32.0-36.0); NEUT % 15.3 % (16.0-70.0); PLATELET COUNT 117 TH/MM3 (150-450); RED BLOOD COUNT 2.69 MIL/MM3 (4.00-5.30); RED CELL DISTRIBUTION WIDTH 15.1 % (11.6-17.2); WHITE BLOOD COUNT 1.1 TH/MM3 (4.0-11.0)
[2016-12-22 05:27] LABS: HEMO FLAGS AUTO DIFF
[2016-12-22 05:29] LABS: HEMATOCRIT 20.9 % (35.0-46.0)
[2016-12-22 05:39] LABS: BICARBONATE 23.3 MEQ/L (21.0-32.0); POTASSIUM 3.1 MEQ/L (3.5-5.1)
[2016-12-22 05:56] LABS: CALCIUM-PROTEIN CORRECTED 8.5 MG/DL (8.5-10.1)
[2016-12-22] MEDS ORDERED: diphenhydrAMINE HCL 50 MG/ML VIAL IV PUSH ONE (06:15)
[2016-12-22] MEDS: ACETAMINOPHEN 325 MG TAB PO PRN ×2 (06:16→12:18)
[2016-12-22] MEDS: INSULIN ASPART SUPPLEMENTAL SCALE SQ SCH ×4 (06:18→21:59)
[2016-12-22 07:20] LABS: BANDS 7 % (0-6); BASOPHILS 1 % (0-2); DOHLE BODIES PRESENT (NONE SEEN); EOSINOPHILS 3 % (0-4); NEUTROPHIL # MANUAL DIFF 0.1 TH/MM3 (1.8-7.7); POLYS (SEG NEUTROPHILS) 4 % (16-70); TOXIC GRANULATION 1+ (NORMAL); WBC DIFF SAMPLE 100
[2016-12-22 07:21] LABS: PLATELET ESTIMATE SMEAR LOW (NORMAL); PLATELET MORPHOLOGY NORMAL (NORMAL); SCAN/DIFF FINAL DIFF MANUAL
[2016-12-22] MEDS: SODIUM CHLORIDE 0.9% FLUSH 5 ML FLUSH IV SCH ×2 (08:02→21:00)
[2016-12-22] MEDS: FLUTICASONE PROPIONATE 110 MCG/ACT 12 GM INHALER INH SCH ×2 (08:02→21:00)
[2016-12-22] MEDS: MEGESTROL ACETATE SUSP 400 MG/10 ML CUP PO SCH (08:02)
[2016-12-22] MEDS: ASPIRIN EC 81 MG TABEC PO SCH (08:02)
[2016-12-22] MEDS: FAMOTIDINE 20 MG TAB PO SCH ×2 (08:02→21:56)
[2016-12-22] MEDS: NYSTAT/DIPHENHY/LIDO MOUTHWASH (Adult) 120ML SWISH-SWAL SCH ×4 (08:03→21:00)
[2016-12-22] MEDS: METOPROLOL TARTRATE 25 MG TAB PO SCH ×2 (09:00→21:56)
--- NOTE | 2016-12-22 11:49 | HHI.PR ---
Subjective Remarks coughed a small amount of blood generalized weakness swallowing better- seen by speech T down no further episodes of diarrhea Objective Vitals Vital Signs Date Time Temp Pulse Resp B/P Pulse Ox O2 Delivery O2 Flow Rate FiO2 12/22/16 11:06 96.3 52 20 146/67 98 12/22/16 09:52 96 21 12/22/16 08:05 97.4 50 20 140/65 99 12/22/16 08:05 97.4 50 20 140/65 99 12/22/16 07:50 144/66 12/22/16 07:35 97.6 54 16 168/72 97 12/22/16 07:35 96.4 54 18 168/72 97 12/22/16 04:00 99.0 59 16 126/60 98 12/22/16 00:00 100.4 56 18 163/71 96 12/21/16 20:40 97.3 62 18 167/71 98 12/21/16 16:00 100.5 59 18 151/6 99 I/O 12/21/16 12/21/16 12/21/16 12/22/16 12/22/16 12/22/16 07:00 15:00 23:00 07:00 15:00 23:00 Intake Total 1286 ml 480 ml 240 ml Balance 1286 ml 480 ml 240 ml Intake Oral 480 ml 480 ml 240 ml IV Total 806 ml # Voids 1 2 2 # Bowel Movements 1 2 Result Diagram: 12/22/16 0450 12/22/16 0450 Imaging Last Impressions Chest X-Ray 12/20/16 1405 Signed Impressions: Service Date/Time: Tuesday, December 20, 2016 14:30 - CONCLUSION: Negative chest for acute disease. Yasmany Coon MD FACR Objective Remarks awake and alert, in better spirits anicteric throat- hard palate with some petechial rashes no oral thrush no nuchal rigidity lungs clear regular rhythm abdomen soft, nontender extremities no edema neuro exam- unremarkable A/P Assessment and Plan 66-year-old female with history of HTN, DM, CAD, COPD, SCC right lung currently undergoing chemotherapy who presents with nausea, vomiting, diarrhea, and weakness Nausea, vomiting, diarrhea: Chemotherapy side effects vs acute gastroenteritis. gradually improving Febrile Neutropenia. - T down on neupogen per Dr. Stewart on Cefepime 2 gm q 8 FF cultures. negative so far Acute anemia- iron studies suggestive of chronic disease type and x match 2 units RBC standby- patient to receive 2 units RBC Squamous cell carcinoma of the right lung currently undergoing chemotherapy: - on hold Dr. Terry barahona Odynophagia/Dysphagia- some improvement Speech therapy ff Lidocaine/magic mouthwash qid consider GI consult History of CAD/HTN. on ASA. BB- HYpokalemia- replace IV 30 meq x 1 . recheck in am Weakness: PT eval Cachexia-get baseball inspector and repairer consult will start ensure- felisa flavor. Diabetes mellitus: Hold home oral hypoglycemic. Coverage with SSI with Accu- Cheks. change to regular diet for now COPD: Chronic, stable. Continue home albuterol and fluticasone inhalers. O2 as needed. DVT prphylaxis- TEDS. on Lovenox- hold with acute drop in hemoglobin Kassy Red MD Dec 22, 2016 11:49 Kassy Red MD Dec 22, 2016 11:49
[2016-12-22] MEDS ORDERED: POTASSIUM CHLOR 10 MEQ PREMIX 100 ML IV SCH (12:15)
[2016-12-22] MEDS ORDERED: POTASSIUM CHLORIDE INJ 30 MEQ in SODIUM CHLORIDE 0.9% INJ 100 ML IV-CENTRAL ONE (13:00)
[2016-12-22] MEDS ORDERED: diphenhydrAMINE HCL 25 MG CAP PO PRN (13:00)
--- NOTE | 2016-12-22 13:00 | PD.ONC.PN ---
Subjective Subjective Remarks Afebrile overnight. Patient tells me she has had a numb feeling about her entire body all day today, "it might have been there yesterday, too. I'm not sure.' No weakness. No loss of feeling or slurred speech. No rash. No difficulty breathing. She had no diarrhea today. No vomiting. She has very little appetite and food smells make her feel nauseated. She ate some cheerios for breakfast and nothing for lunch. Objective Data Date Time Temp Pulse Resp B/P Pulse Ox O2 Delivery O2 Flow Rate FiO2 12/22/16 12:00 97.0 91 16 122/93 97 12/22/16 11:06 96.3 52 20 146/67 98 12/22/16 09:52 96 21 12/22/16 08:05 97.4 50 20 140/65 99 12/22/16 08:05 97.4 50 20 140/65 99 12/22/16 07:50 144/66 12/22/16 07:35 97.6 54 16 168/72 97 12/22/16 07:35 96.4 54 18 168/72 97 12/22/16 04:00 99.0 59 16 126/60 98 12/22/16 00:00 100.4 56 18 163/71 96 12/21/16 20:40 97.3 62 18 167/71 98 12/21/16 16:00 100.5 59 18 151/6 99 12/22/16 12/22/16 12/22/16 07:00 15:00 23:00 Intake Total 240 ml Balance 240 ml Result Diagram: 12/22/16 0450 12/22/16 0450 Laboratory Results Laboratory Tests Test 12/21/16 12/22/16 18:05 04:50 Blood Type A POSITIVE Antibody Screen NEGATIVE Crossmatch Leukocyte-Reduced Red Blood Cells Blood Bank Comment White Blood Count 1.1 TH/MM3 Red Blood Count 2.69 MIL/MM3 Hemoglobin 6.8 GM/DL Hematocrit 20.9 % Mean Corpuscular Volume 77.5 FL Mean Corpuscular Hemoglobin 25.1 PG Mean Corpuscular Hemoglobin 32.4 % Concent Red Cell Distribution Width 15.1 % Platelet Count 117 TH/MM3 Mean Platelet Volume 8.4 FL Neutrophils (%) (Auto) 15.3 % Lymphocytes (%) (Auto) 53.6 % Monocytes (%) (Auto) 28.0 % Eosinophils (%) (Auto) 2.0 % Basophils (%) (Auto) 1.1 % Neutrophils # (Auto) 0.2 TH/MM3 Lymphocytes # (Auto) 0.6 TH/MM3 Monocytes # (Auto) 0.3 TH/MM3 Eosinophils # (Auto) 0.0 TH/MM3 Basophils # (Auto) 0.0 TH/MM3 CBC Comment AUTO DIFF Differential Total Cells 100 Counted Neutrophils % (Manual) 4 % Band Neutrophils % 7 % Lymphocytes % 62 % Monocytes % 23 % Eosinophils % 3 % Basophils % 1 % Neutrophils # (Manual) 0.1 TH/MM3 Differential Comment FINAL DIFF MANUAL Toxic Granulation 1+ Dohle Bodies PRESENT Platelet Estimate LOW Platelet Morphology Comment NORMAL Sodium Level 140 MEQ/L Potassium Level 3.1 MEQ/L Chloride Level 108 MEQ/L Carbon Dioxide Level 23.3 MEQ/L Anion Gap 9 MEQ/L Blood Urea Nitrogen 8 MG/DL Creatinine 0.61 MG/DL Estimat Glomerular Filtration 98 ML/MIN Rate Random Glucose 146 MG/DL Calcium Level 7.0 MG/DL Protein Corrected Calcium 8.5 MG/DL Total Protein 4.4 GM/DL Culture Results Microbiology Date/Time Procedure Status Source Growth 12/20/16 22:00 Aerobic Blood Culture - Preliminary Resulted Blood Line NO GROWTH IN 2 DAYS 12/20/16 22:00 Anaerobic Blood Culture - Preliminary Resulted Blood Line NO GROWTH IN 2 DAYS 12/20/16 22:30 Aerobic Blood Culture - Preliminary Resulted Blood Peripheral NO GROWTH IN 2 DAYS 12/20/16 22:30 Anaerobic Blood Culture - Preliminary Resulted Blood Peripheral NO GROWTH IN 2 DAYS Administered Medications Medications (Trade) Dose Ordered Sig/Babar Route PRN Reason Start Time Stop Time Status Last Admin Dose Admin Aspirin (Ecotrin Ec) 81 mg DAILY PO 12/21/16 09:00 12/22/16 08:02 Metoprolol Tartrate (Lopressor) 25 mg BID PO 12/20/16 21:00 12/21/16 22:14 Famotidine 20 mg 20 mg BID PO 12/20/16 21:00 12/22/16 08:02 Sodium Chloride (NS 1000 ml Inj) 1,000 ml @ 60 mls/hr [id number] IV 12/20/16 17:38 12/22/16 04:57 Enoxaparin Sodium (Lovenox Inj) 40 mg Q24H SQ 12/20/16 20:00 12/21/16 22:13 Promethazine HCl 25 mg 25 mg Q6H PRN IM NAUSEA 12/20/16 17:45 12/21/16 18:19 Cefepime HCl/ Sodium Chloride (Maxipime Inj/NS Inj) 100 ml @ 200 mls/hr Q8H IV 12/21/16 18:00 12/22/16 11:01 Multi-Ingredient Mouthwash/Gargle (Magic Mouthwash Adult Liq) 5 ml QID SWISH-SWAL 12/21/16 18:00 12/22/16 08:03 Filgrastim (Neupogen Inj) 480 mcg DAILY@14 SQ 12/22/16 00:30 12/22/16 02:42 Megestrol Acetate (Megace Liq) 400 mg DAILY PO 12/22/16 09:00 12/22/16 08:02 Ondansetron HCl (Zofran Inj) 4 mg Q8HR IV PUSH 12/22/16 06:00 12/24/16 06:00 12/22/16 04:56 Acetaminophen (Tylenol) 650 mg Q4H PRN PO fever >100.5 12/22/16 01:15 12/22/16 12:18 Objective Remarks GENERAL: This is a thin, pleasant female, lying in bed in nad. She is receiving blood. SKIN: Warm and dry. no rash. HEAD: Normocephalic. EYES: No injection or drainage. NECK: Supple, trachea midline. CARDIOVASCULAR: Regular rate and rhythm RESPIRATORY: diminished at bases. occasional rhonchi. no accessory muscle work. unlabored breathing. GASTROINTESTINAL: Abdomen soft, non-tender, nondistended. EXTREMITIES: No cyanosis MUSCULOSKELETAL: Adequate muscle tone. NEUROLOGICAL: No obvious focal deficit. Awake, alert, and oriented x3. facial movements symmetric. light touch sensation intact. able to move all extremities. PSYCHIATRIC: Appropriate mood and affect; insight and judgment normal. Assessment/Plan Problem List: (1) Bronchogenic carcinoma of right lung Status: Acute Plan: --s/p C1 with cisplatin and Taxol, no XRT b/c of poor PFTs (2) Nausea & vomiting Status: Acute Plan: -- IV fluids, antiemetics. --Zofran 4 mg q.6 hours. Compazine for p.r.n. nausea. 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 h/o hypertension, diabetes, coronary artery disease, COPD. Plan 1. continue supportive care with IV fluids, anti-emetics 2. monitor CBC 3. continue Neupogen 4. continue antibiotics. Attending Statement The exam, history, and the medical decision-making described in the above note were completed with the assistance of the mid-level provider. I reviewed and agree with the findings presented. I attest that I had a [id number] encounter with the patient on the same day, and personally performed and documented my assessment and findings in the medical record. Persistently nauseous. Trial of short course if dexamethasone Anemia--2 units of pRBC transfusion Has iron deficiency-- will add IV iron Replace electrolytes. Neutropenia improving. continue daily Neupogen Thrombocytopenia--mild continue to monitor d/w RN Problem Qualifiers (1) Nausea & vomiting: Qualified Code: R11.2 - Intractable vomiting with nausea, unspecified vomiting type Beth Weller Dec 22, 2016 13:00 Narendra Stewart MD Dec 23, 2016 00:03
[2016-12-22] MEDS: amLODIPine BESYLATE 5 MG TAB PO SCH (14:15)
[2016-12-22] MEDS ORDERED: ENALAPRILAT 1.25 MG/ML VIAL IV PUSH PRN (17:45)
[2016-12-22] MEDS: MIRTAZAPINE 15 MG TAB PO SCH (21:00)
[2016-12-22] MEDS: ENOXAPARIN SODIUM 40 MG/0.4 ML SYRINGE SQ SCH (21:55)
[2016-12-23] VITALS (9 sets, daily range): BP systolic 134–176; BP diastolic 60–89; PULSE 55–63; RESP 16–18; TEMP 96.5–98.3; O2SAT 98–100
[2016-12-23] MEDS: CEFEPIME INJ 2,000 MG in SODIUM CHLORIDE 0.9% INJ 100 ML IV SCH ×3 (02:29→18:27)
[2016-12-23 05:01] LABS: C. DIFF EPI 027 PRESUMPTIVE NEGATIVE (NEGATIVE); C. DIFF TOXIN PCR NEGATIVE (NEGATIVE)
[2016-12-23] MEDS: INSULIN ASPART SUPPLEMENTAL SCALE SQ SCH ×4 (05:14→21:55)
[2016-12-23] MEDS: ONDANSETRON HCL 4 MG/2 ML VIAL IV PUSH SCH ×3 (05:14→21:54)
[2016-12-23 05:44] LABS: HEMATOCRIT 30.7 % (35.0-46.0); MEAN CELL VOLUME 78.6 FL (80.0-100.0); MEAN CORPUSCULAR HEMOGLOBIN 26.9 PG (27.0-34.0); MEAN CORPUSCULAR HGB CONC 34.2 % (32.0-36.0); PLATELET COUNT 119 TH/MM3 (150-450); WHITE BLOOD COUNT 3.6 TH/MM3 (4.0-11.0)
[2016-12-23 05:58] LABS: HEMO FLAGS AUTO DIFF
[2016-12-23 06:11] LABS: BICARBONATE 21.4 MEQ/L (21.0-32.0)
[2016-12-23 06:13] LABS: POTASSIUM 2.8 MEQ/L (3.5-5.1)
[2016-12-23 06:29] LABS: CALCIUM-PROTEIN CORRECTED 8.5 MG/DL (8.5-10.1)
[2016-12-23] MEDS ORDERED: POTASSIUM CHLOR 40 MEQ PREMIX 100 ML IV ONE (07:30)
[2016-12-23] MEDS: DEXAMETHASONE 4 MG TAB PO SCH ×2 (08:42→21:38)
[2016-12-23] MEDS: ACETAMINOPHEN 325 MG TAB PO PRN (08:42)
[2016-12-23] MEDS: FAMOTIDINE 20 MG TAB PO SCH ×2 (08:42→21:37)
[2016-12-23] MEDS: ASPIRIN EC 81 MG TABEC PO SCH (08:42)
[2016-12-23] MEDS: amLODIPine BESYLATE 5 MG TAB PO SCH (08:42)
[2016-12-23] MEDS: METOPROLOL TARTRATE 25 MG TAB PO SCH ×2 (08:43→21:00)
[2016-12-23] MEDS: NYSTAT/DIPHENHY/LIDO MOUTHWASH (Adult) 120ML SWISH-SWAL SCH ×4 (08:43→21:00)
[2016-12-23] MEDS: FLUTICASONE PROPIONATE 110 MCG/ACT 12 GM INHALER INH SCH ×2 (08:43→21:00)
[2016-12-23] MEDS: MEGESTROL ACETATE SUSP 400 MG/10 ML CUP PO SCH ×2 (08:43→08:46)
[2016-12-23] MEDS ORDERED: diphenhydrAMINE HCL 25 MG CAP PO PRN (08:45)
[2016-12-23] MEDS: SODIUM CHLORIDE 0.9% FLUSH 5 ML FLUSH IV SCH ×2 (09:00→21:00)
[2016-12-23] MEDS: IRON SUCROSE INJ 200 MG in SODIUM CHLORIDE 0.9% INJ 100 ML IV SCH (10:10)
[2016-12-23 10:29] LABS: BANDS 33 % (0-6); BASOPHILS 2 % (0-2); EOSINOPHILS 2 % (0-4); METAMYELOCYTES 3 % (0-1); MYELOCYTES 3 % (0-0); NEUTROPHIL # MANUAL DIFF 1.6 TH/MM3 (1.8-7.7); POLYS (SEG NEUTROPHILS) 5 % (16-70); WBC DIFF SAMPLE 100
[2016-12-23 10:30] LABS: PLATELET ESTIMATE SMEAR LOW (NORMAL); PLATELET MORPHOLOGY NORMAL (NORMAL); SCAN/DIFF FINAL DIFF MANUAL
--- NOTE | 2016-12-23 11:44 | RADRPT ---
EXAM DATE/TIME: 12/23/2016 11:13 [facility] COMPARISON: CHEST SINGLE AP, December 20, 2016, 14:30. INDICATIONS : Short of breath MEDICAL HISTORY : Hypertension. Carcinoma, lung. Diabetes mellitus type II. Congestive heart faliure. SURGICAL HISTORY : CABG. Coronary artery stent. Infusaport ENCOUNTER: Subsequent ACUITY: 3 days PAIN SCORE: 0/10 LOCATION: Bilateral chest FINDINGS: The cardiac silhouette is normal in transverse diameter. Median sternotomy wires are present. Infuse- a-Port is in place via right internal jugular approach with its tip in the superior vena cava. The dave ngs are free of acute parenchymal opacity. No effusions are identified. CONCLUSION: 1. Cardiomegaly. No acute pulmonary disease. Emanuel Romo MD on December 23, 2016 at 11:43 Board Certified Radiologist. This report was verified electronically.
[2016-12-23] MEDS: FILGRASTIM 480 MCG/1.6 ML VIAL SQ SCH (12:36)
--- NOTE | 2016-12-23 12:49 | PD.ONC.PN ---
Subjective Subjective Remarks Afebrile overnight. Patient was having chest pain earlier today, but states she feels well now. Hospitalist has ordered EKG and troponins as well as chest x- ray. The patient describes a dull pain along her left substernal chest that lasted for a few seconds and then went away. No precipitating or relieving factors. Objective Data Date Time Temp Pulse Resp B/P Pulse Ox O2 Delivery O2 Flow Rate FiO2 12/23/16 09:25 99 21 12/23/16 08:00 98.3 57 16 144/65 98 12/23/16 04:00 96.6 55 18 176/89 98 12/23/16 00:00 96.5 63 17 170/77 100 12/22/16 20:00 96.7 63 18 161/71 99 12/22/16 17:48 164/70 12/22/16 17:29 96.6 58 16 171/72 99 12/22/16 17:06 98 21 12/22/16 14:24 96 21 12/22/16 13:09 96.4 55 20 168/66 99 12/22/16 12:45 96.9 55 20 170/72 99 12/23/16 12/23/16 12/23/16 07:00 15:00 23:00 Intake Total 240 ml Balance 240 ml Result Diagram: 12/23/1651612/23/16516 Laboratory Results Laboratory Tests Test 12/23/16 12/23/16 03:11 05:17 Stool C. difficile Toxin (PCR) NEGATIVE Stl C. difficile Toxin PRESUMPTIVE Epiderm 027 NEGATIVE White Blood Count 3.6 TH/MM3 Red Blood Count 3.90 MIL/MM3 Hemoglobin 10.5 GM/DL Hematocrit 30.7 % Mean Corpuscular Volume 78.6 FL Mean Corpuscular Hemoglobin 26.9 PG Mean Corpuscular Hemoglobin 34.2 % Concent Red Cell Distribution Width 15.0 % Platelet Count 119 TH/MM3 Mean Platelet Volume 8.8 FL Neutrophils (%) (Auto) % Lymphocytes (%) (Auto) % Monocytes (%) (Auto) % Eosinophils (%) (Auto) % Basophils (%) (Auto) % Neutrophils # (Auto) TH/MM3 Lymphocytes # (Auto) TH/MM3 Monocytes # (Auto) TH/MM3 Eosinophils # (Auto) TH/MM3 Basophils # (Auto) TH/MM3 CBC Comment AUTO DIFF Differential Total Cells 100 Counted Neutrophils % (Manual) 5 % Band Neutrophils % 33 % Lymphocytes % 38 % Monocytes % 14 % Eosinophils % 2 % Basophils % 2 % Neutrophils # (Manual) 1.6 TH/MM3 Metamyelocytes 3 % Myelocytes 3 % Differential Comment FINAL DIFF MANUAL Platelet Estimate LOW Platelet Morphology Comment NORMAL Sodium Level 140 MEQ/L Potassium Level 2.8 MEQ/L Chloride Level 109 MEQ/L Carbon Dioxide Level 21.4 MEQ/L Anion Gap 10 MEQ/L Blood Urea Nitrogen 8 MG/DL Creatinine 0.62 MG/DL Estimat Glomerular Filtration 96 ML/MIN Rate Random Glucose 177 MG/DL Calcium Level 7.1 MG/DL Protein Corrected Calcium 8.5 MG/DL Total Protein 4.6 GM/DL Culture Results Microbiology Date/Time Procedure Status Source Growth 12/20/16 22:00 Aerobic Blood Culture - Preliminary Resulted Blood Line NO GROWTH IN 3 DAYS 12/20/16 22:00 Anaerobic Blood Culture - Preliminary Resulted Blood Line NO GROWTH IN 3 DAYS 12/20/16 22:30 Aerobic Blood Culture - Preliminary Resulted Blood Peripheral NO GROWTH IN 3 DAYS 12/20/16 22:30 Anaerobic Blood Culture - Preliminary Resulted Blood Peripheral NO GROWTH IN 3 DAYS 12/23/16 03:11 Received Stool Stool Pending Administered Medications Medications (Trade) Dose Ordered Sig/Babar Route PRN Reason Start Time Stop Time Status Last Admin Dose Admin Aspirin (Ecotrin Ec) 81 mg DAILY PO 12/21/16 09:00 12/23/16 08:42 Metoprolol Tartrate (Lopressor) 25 mg BID PO 12/20/16 21:00 12/23/16 08:43 Famotidine 20 mg 20 mg BID PO 12/20/16 21:00 12/23/16 08:42 Sodium Chloride (NS 1000 ml Inj) 1,000 ml @ 60 mls/hr [id number] IV 12/20/16 17:38 12/22/16 21:57 Enoxaparin Sodium (Lovenox Inj) 40 mg Q24H SQ 12/20/16 20:00 12/22/16 21:55 Promethazine HCl 25 mg 25 mg Q6H PRN IM NAUSEA 12/20/16 17:45 12/21/16 18:19 Cefepime HCl/ Sodium Chloride (Maxipime Inj/NS Inj) 100 ml @ 200 mls/hr Q8H IV 12/21/16 18:00 12/23/16 12:16 Multi-Ingredient Mouthwash/Gargle (Magic Mouthwash Adult Liq) 5 ml QID SWISH-SWAL 12/21/16 18:00 12/23/16 08:43 Filgrastim (Neupogen Inj) 480 mcg DAILY@14 SQ 12/22/16 00:30 12/22/16 13:04 Megestrol Acetate (Megace Liq) 400 mg DAILY PO 12/22/16 09:00 12/22/16 08:02 Ondansetron HCl (Zofran Inj) 4 mg Q8HR IV PUSH 12/22/16 06:00 12/24/16 06:00 12/23/16 05:14 Acetaminophen (Tylenol) 650 mg Q4H PRN PO fever >100.5 12/22/16 01:15 12/23/16 08:42 Amlodipine Besylate (Norvasc) 5 mg DAILY PO 12/22/16 12:45 12/23/16 08:42 Enalaprilat (Vasotec Inj) 1.25 mg Q8H PRN IV PUSH SBP>170, DBP>90 12/22/16 17:45 12/23/16 05:14 Dexamethasone 4 mg 4 mg Q12HR PO 12/23/16 09:00 12/23/16 08:42 Iron Sucrose/ Sodium Chloride (Venofer Inj/NS Inj) 110 ml @ 110 mls/hr DAILY IV 12/23/16 09:00 12/25/16 09:59 12/23/16 10:10 Diphenhydramine HCl (Benadryl) 25 mg ONCE PRN PO PRIOR VENOFER ADMINISTRATION 12/23/16 08:45 12/23/16 23:59 12/23/16 08:42 Objective Remarks GENERAL: Chronically ill appearing female, sitting upright in bed in nad. SKIN: Warm and dry. no rash. HEAD: Normocephalic. EYES: No injection or drainage. NECK: Supple, trachea midline. CARDIOVASCULAR: Regular rate and rhythm RESPIRATORY: diminished at bases. scattered rhonchi. GASTROINTESTINAL: Abdomen soft, non-tender, nondistended. EXTREMITIES: No cyanosis NEUROLOGICAL: awake and alert, normal speech. moving all extremities. Assessment/Plan Problem List: (1) Bronchogenic carcinoma of right lung Status: Acute Plan: --s/p C1 with cisplatin and Taxol, no XRT b/c of poor PFTs (2) Nausea & vomiting Status: Acute Plan: -- IV fluids, antiemetics + Decadron --Zofran 4 mg q.8 hours. Compazine for p.r.n. nausea. 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 h/o hypertension, diabetes, coronary artery disease, COPD. Plan 1. continue supportive care 2. monitor CBC 3. continue Neupogen until WBC>5K Attending Statement The exam, history, and the medical decision-making described in the above note were completed with the assistance of the mid-level provider. I reviewed and agree with the findings presented. I attest that I had a [id number] encounter with the patient on the same day, and personally performed and documented my assessment and findings in the medical record. Neutropenia- much improved. continue neupogen one more dose tomorrow Anemia Hb 10.5 Diarrhea: c.diff negative. add imodium Afib/non -specfic st segment changes. rate control/ 2 d echo. discussed with Dr. Red. Get CTA to r/o PE Hypokalemia/Hpomagnesemia: replace electrolytes Iron deficiency: D2 iron infusion Nutrition: poor intake. on remeron and decadron. encourage oral intake D/w Dr. Red Problem Qualifiers (1) Nausea & vomiting: Qualified Code: R11.2 - Intractable vomiting with nausea, unspecified vomiting type Beth Weller Dec 23, 2016 12:49 Narendra Stewart MD Dec 23, 2016 22:10
--- NOTE | 2016-12-23 13:03 | HHI.PR ---
Subjective Remarks patient had transient episode of chest pain/discomfort cross the chest she is very emotional and tearful too denies any shortness of breath- 02 sats 99% room air 12 lead ekg- atrial fibrillation transiently- now back to SR Objective Vitals Vital Signs Date Time Temp Pulse Resp B/P Pulse Ox O2 Delivery O2 Flow Rate FiO2 12/23/16 09:25 99 21 12/23/16 08:00 98.3 57 16 144/65 98 12/23/16 04:00 96.6 55 18 176/89 98 12/23/16 00:00 96.5 63 17 170/77 100 12/22/16 20:00 96.7 63 18 161/71 99 12/22/16 17:48 164/70 12/22/16 17:29 96.6 58 16 171/72 99 12/22/16 17:06 98 21 12/22/16 14:24 96 21 12/22/16 13:09 96.4 55 20 168/66 99 I/O 12/22/16 12/22/16 12/22/16 12/23/16 12/23/16 12/23/16 07:00 15:00 23:00 07:00 15:00 23:00 Intake Total 240 ml 857 ml 240 ml Balance 240 ml 857 ml 240 ml Intake Oral 240 ml 240 ml IV Total 150 ml Packed Cells 707 ml # Voids 3 2 # Bowel Movements 3 Result Diagram: 12/23/16 0517 12/23/16 0517 Imaging Last Impressions Chest X-Ray 12/20/16 1405 Signed Impressions: Service Date/Time: Tuesday, December 20, 2016 14:30 - CONCLUSION: Negative chest for acute disease. Yasmany Coon MD FACR Objective Remarks awake and alert, tearful anicteric, throat- hard palate with some petechial rashes no oral thrush no nuchal rigidity lungs clear regular rhythm abdomen soft, nontender extremities no edema neuro exam- unremarkable A/P Assessment and Plan 66-year-old female with history of HTN, DM, CAD, COPD, SCC right lung currently undergoing chemotherapy who presents with nausea, vomiting, diarrhea, and weakness Nausea, vomiting, diarrhea: Chemotherapy side effects vs acute gastroenteritis. C diff negative. Dr. Stewart will give Immodium Febrile Neutropenia. - T down on neupogen per Dr. Stewart on Cefepime 2 gm q 8 FF cultures. 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 Terry barahona Odynophagia/Dysphagia- some improvement Speech therapy ff Lidocaine/magic mouthwash qid consider GI consult Chest pain History of CAD/HTN. on ASA. BB- Transient atrial fibrillation-this am - now in SR will order for CTA chest. get Echo HYpokalemia- give 40 meq IV x 1 start po KCL bid-maintenance- ongoing diarrhea BMP in am get a Mg level now Weakness: PT daily Cachexia will start ensure- felisa flavor. Diabetes mellitus: Hold home oral hypoglycemic. Coverage with SSI with [employer]- Cheks. change to regular diet for now COPD: Chronic, stable. Continue home albuterol and fluticasone inhalers. O2 as needed. DVT prphylaxis- TEDS. on Lovenox- hold with acute drop in hemoglobin Kassy Red MD Dec 23, 2016 13:03
[2016-12-23] MEDS ORDERED: IOHEXOL 350 MG/ML 10 ML VIAL (for RAD DIAG) IV ONE (15:29)
--- NOTE | 2016-12-23 15:55 | RADRPT ---
EXAM DATE/TIME: 12/23/2016 15:29 [place] COMPARISON: CT ABDOMEN & PELVIS W CONTRAST, November 13, 2016, 9:23. INDICATIONS : Left substernal chest pain with shortness of breath. IV CONTRAST: 75 cc Omnipaque 350 (iohexol) IV RADIATION DOSE: 22.93 CTDIvol (mGy) MEDICAL HISTORY : Cardiovascular disease. Congestive heart failure. Carcinoma, lung. SURGICAL HISTORY : CABG Hysterectomy. ENCOUNTER: Subsequent ACUITY: 1 day PAIN SCALE: 6/10 LOCATION: Left chest TECHNIQUE: Volumetric scanning of the chest was performed using a pulmonary embolism protocol MIP images were re constructed. Using automated exposure control and adjustment of the mA and/or kV according to patien t size, radiation dose was kept as low as reasonably achievable to obtain optimal diagnostic quality images. FINDINGS: The examination is of good diagnostic quality. No pulmonary embolus is identified. The heart is normal in size. There is no pericardial effusion. The examination demonstrates numerous enlarged nodes in the middle mediastinum and subcarinal evelyn c sherry. The largest evelyn mass identified is in the subcarinal region and measures 3.6 x 3.0 cm. The pulmonary parenchyma demonstrates atelectatic changes in the right middle lobe but is otherwise c lear. The limited portions of upper abdomen visualized are unremarkable. There are degenerative changes throughout the spine. CONCLUSION: 1. No pulmonary embolus identified. 2. Abnormal exam with mediastinal adenopathy. The largest evelyn mass identified in the subcarinal nod al region measuring 3.6 x 3.0 cm. 3. Scattered areas of atelectasis as above. Pavan Coon MD on December 23, 2016 at 15:50 Board Certified Radiologist. This report was verified electronically.
--- NOTE | 2016-12-23 19:04 | EC ---
Study Study Date:12/23/2016 STUDY CONCLUSIONS SUMMARY - Left ventricle: The cavity size was normal. Wall thickness was normal. Systolic function was normal. The estimated ejection fraction was in the range of 55% to 60%. Wall motion was normal; there were no regional wall motion abnormalities. - Aortic valve: Valve area: 2.24cm^2(VTI). Valve area: 1.88cm^2 (Vmax). - Mitral valve: Mild regurgitation. Valve area by continuity equation (using LVOT flow): 1.72cm^2. - Pulmonary arteries: PA peak pressure: 37mm Hg (S). If LV function is below 40, please consider prescribing an ACEI or ARB or document rationale for non-use. PROCEDURE DATA STUDY STATUS: Elective. Procedure: Transthoracic echocardiography. Image quality was good. Scanning was performed from the parasternal, apical, and subcostal acoustic windows. Study completion: The patient tolerated the procedure well. Transthoracic echocardiography. M-mode, complete 2D, complete spectral Doppler, and color Doppler. Height: Height: 67in. Weight: Weight: 125.7lb. Body mass index: BMI: 19.7kg/m^2. Body surface area: BSA: 1.66m^2. Patient status: Inpatient. CARDIAC ANATOMY LEFT VENTRICLE: The cavity size was normal. Wall thickness was normal. Systolic function was normal. The estimated ejection fraction was in the range of 55% to 60%. Wall motion was normal; there were no regional wall motion abnormalities. AORTIC VALVE: Trileaflet; mildly thickened, mildly calcified leaflets. Doppler: Transvalvular velocity was within the normal range. There was no stenosis. No regurgitation. Valve area: 2.24cm^2(VTI). Indexed valve area: 1.35cm^2/m^2 (VTI). Valve area: 1.88cm^2 (Vmax). Indexed valve area: 1.13cm^2/m^2 (Vmax). Mean gradient: 5mm Hg (S). AORTA: Aortic root: The aortic root was normal in size. MITRAL VALVE: Structurally normal valve. Doppler: Transvalvular velocity was within the normal range. There was no evidence for stenosis. Mild regurgitation. Valve area by continuity equation (using LVOT flow): 1.72cm^2. Indexed valve area by continuity equation (using LVOT flow): 1.04cm^2/m^2. Mean gradient: 2mm Hg (D). Peak gradient: 6mm Hg (D). LEFT ATRIUM: The atrium was normal in size. RIGHT VENTRICLE: The cavity size was normal. Wall thickness was normal. PULMONIC VALVE: Doppler: Transvalvular velocity was within the normal range. There was no evidence for stenosis. No regurgitation. TRICUSPID VALVE: Structurally normal valve. Doppler: Transvalvular velocity was within the normal range. Trace to mild regurgitation. PULMONARY ARTERY: The main pulmonary artery was normal-sized. Systolic pressure was within the normal range. RIGHT ATRIUM: The atrium was normal in size. PERICARDIUM: There was no pericardial effusion. SYSTEMIC VEINS: Inferior vena cava: The vessel was normal in size. Patient weight: 125.7lb _Ejection fraction:_ 65-75% _Fractional shortening:_ 32% up to 5Kg 5-11.5Kg 11.6-22.9Kg 23-45Kg 45-57Kg Aortic Root 7-13 <17 13-22 17-27 17-27 LA diam 6-13 <23 24-38 33-47 37-40 RVID 10-17 7-15 7-15 7-18 8-17 LVIDd 12-22 <32 24-38 33-47 37-40 LVPW 2-4 3-6 5-7 6-8 7-8 IVS 2-4 3-6 5-7 6-8 7-8 BASIC MEASUREMENTS ADULT NORMAL Left ventricle LV internal dimension, ED, chordal 48.5 mm 43-52 level, PLAX LV internal dimension, ES, chordal 27.6 mm 23-38 level, PLAX Fractional shortening, chordal level, 43 % >29 PLAX LV posterior wall thickness, ED 7.93 mm IVS/LVPW ratio, ED 1 <1.3 Ventricular septum Septal thickness, ED 7.93 mm Aortic valve Leaflet separation 21 mm 15-26 Aorta Root diameter, ED 30 mm Left atrium Anterior-posterior dimension 37 mm Anterior-posterior dimension index *2.23 cm/m^2 <2.2 BASIC MEASUREMENTS ADULT NORMAL Aortic valve Leaflet separation 21 mm 15-26 DOPPLER MEASUREMENTS ADULT NORMAL Main pulmonary artery Pressure, S *37 mm Hg =30 Aortic valve Peak velocity, S 147 cm/s Mean velocity, S 105 cm/s VTI, S 43.9 cm Mean gradient, S 5 mm Hg Valve area, VTI 2.24 cm^2 Valve area index, VTI 1.35 cm^2/m^2 Valve area, Vmax 1.88 cm^2 Valve area index, Vmax 1.13 cm^2/m^2 Mitral valve Peak E-wave velocity 79 cm/s Peak A-wave velocity 87.4 cm/s Mean velocity, D 60 cm/s Mean gradient, D 2 mm Hg Peak gradient, D 6 mm Hg Peak E/A ratio 0.9 Valve area, LVOT continuity 1.72 cm^2 Valve area index, LVOT continuity 1.04 cm^2/m^2 Tricuspid valve Regurgitant peak velocity 263 cm/s Peak RV-RA gradient, S 28 mm Hg Maximal regurgitant velocity 263 cm/s Systemic veins Estimated CVP 10 mm Hg Right ventricle RV pressure, S *38 mm Hg <30 Pulmonic valve Peak velocity, S 52.6 cm/s LEGEND: Mean values are shown as u=mean value. Asterisk (*) mina values outside specified normal range. Prepared and signed by Matheus Nelson [id number]
[2016-12-23] MEDS: ENOXAPARIN SODIUM 40 MG/0.4 ML SYRINGE SQ SCH (20:00)
[2016-12-23] MEDS: MAGNESIUM OXIDE 400 MG TAB PO SCH (21:38)
[2016-12-23] MEDS: POTASSIUM CHLORIDE 20 MEQ CONTROLLED RELEASE TAB PO SCH (21:38)
[2016-12-23] MEDS: MAGNESIUM SULFATE 1 GM PREMIX 100 ML IV SCH ×2 (21:39→22:56)
[2016-12-23] MEDS: MIRTAZAPINE 15 MG TAB PO SCH (21:55)
--- NOTE | 2016-12-23 23:36 | EKG ---
Date Performed: 12/23/2016 Time Performed: 10:49:25 PTAGE: 66 years EKG: ATRIAL FIBRILLATION WITH ABERRANT CONDUCTION OR VENTRICULAR PREMATURE COMPLEXES ST DEVIATIO N AND MODERATE T-WAVE ABNORMALITY, CONSIDER LATERAL ISCHEMIA ABNORMAL ECG PREVIOUS TRACING : 12/20/2016 15.51 Compared to prior tracing no significant change DOCTOR: Ricci Brooks Interpretating Date/Time 12/23/2016 23:34:28
[2016-12-24] VITALS (7 sets, daily range): BP systolic 140–176; BP diastolic 65–75; PULSE 54–67; RESP 16; TEMP 95.4–96.4; O2SAT 97–100
[2016-12-24] MEDS: SODIUM CHLOR 0.9% 1000 ML INJ 1,000 ML IV SCH ×2 (00:33→01:50)
[2016-12-24] MEDS: CEFEPIME INJ 2,000 MG in SODIUM CHLORIDE 0.9% INJ 100 ML IV SCH ×3 (01:47→16:54)
[2016-12-24] MEDS: ONDANSETRON HCL 4 MG/2 ML VIAL IV PUSH SCH (06:14)
[2016-12-24] MEDS: INSULIN ASPART SUPPLEMENTAL SCALE SQ SCH ×4 (06:18→20:40)
[2016-12-24 07:11] LABS: BICARBONATE 20.2 MEQ/L (21.0-32.0); MAGNESIUM 1.8 MG/DL (1.5-2.5); POTASSIUM 3.6 MEQ/L (3.5-5.1)
[2016-12-24] MEDS: MAGNESIUM OXIDE 400 MG TAB PO SCH ×2 (10:05→20:24)
[2016-12-24] MEDS: SODIUM CHLORIDE 0.9% FLUSH 5 ML FLUSH IV SCH ×2 (10:05→20:23)
[2016-12-24] MEDS: METOPROLOL TARTRATE 25 MG TAB PO SCH ×2 (10:06→20:24)
[2016-12-24] MEDS: POTASSIUM CHLORIDE 20 MEQ CONTROLLED RELEASE TAB PO SCH ×2 (10:06→20:23)
[2016-12-24] MEDS: MEGESTROL ACETATE SUSP 400 MG/10 ML CUP PO SCH (10:06)
[2016-12-24] MEDS: FAMOTIDINE 20 MG TAB PO SCH ×2 (10:06→20:24)
[2016-12-24] MEDS: amLODIPine BESYLATE 5 MG TAB PO SCH (10:07)
[2016-12-24] MEDS: DEXAMETHASONE 4 MG TAB PO SCH ×2 (10:07→20:23)
[2016-12-24] MEDS: ASPIRIN EC 81 MG TABEC PO SCH (10:07)
[2016-12-24] MEDS: NYSTAT/DIPHENHY/LIDO MOUTHWASH (Adult) 120ML SWISH-SWAL SCH ×4 (10:07→20:24)
[2016-12-24] MEDS: IRON SUCROSE INJ 200 MG in SODIUM CHLORIDE 0.9% INJ 100 ML IV SCH (10:08)
[2016-12-24] MEDS: FLUTICASONE PROPIONATE 110 MCG/ACT 12 GM INHALER INH SCH ×2 (10:12→20:21)
--- NOTE | 2016-12-24 10:18 | PD.ONC.PN ---
Subjective Subjective Remarks Afebrile overnight. Pt states she has not had any more chest pain. She reports that her stools are firming. She is asking questions about what future treatments might be available to her given the side effects she had from the first. Per RN no bleeding. Objective Data Date Time Temp Pulse Resp B/P Pulse Ox O2 Delivery O2 Flow Rate FiO2 12/24/16 08:00 95.4 65 16 153/67 100 12/24/16 00:00 96.0 67 16 140/65 97 12/23/16 21:00 58 12/23/16 20:00 97.6 59 16 137/62 99 12/23/16 18:46 55 12/23/16 16:00 97.3 55 16 170/68 99 12/23/16 12:00 96.5 60 16 134/60 98 Result Diagram: 12/23/16 0517 12/24/16 0610 Laboratory Results Laboratory Tests Test 12/23/16 12/24/16 12:25 06:10 Magnesium Level 1.0 MG/DL 1.8 MG/DL Troponin I 0.05 NG/ML B-Type Natriuretic Peptide 390 PG/ML Sodium Level 140 MEQ/L Potassium Level 3.6 MEQ/L Chloride Level 111 MEQ/L Carbon Dioxide Level 20.2 MEQ/L Anion Gap 9 MEQ/L Blood Urea Nitrogen 8 MG/DL Creatinine 0.72 MG/DL Estimat Glomerular Filtration 81 ML/MIN Rate Random Glucose 271 MG/DL Calcium Level 7.5 MG/DL Culture Results Microbiology Date/Time Procedure Status Source Growth 12/23/16 03:11 Received Stool Stool Pending Administered Medications Medications (Trade) Dose Ordered Sig/Babar Route PRN Reason Start Time Stop Time Status Last Admin Dose Admin Aspirin (Ecotrin Ec) 81 mg DAILY PO 12/21/16 09:00 12/23/16 08:42 Metoprolol Tartrate (Lopressor) 25 mg BID PO 12/20/16 21:00 12/23/16 08:43 Famotidine 20 mg 20 mg BID PO 12/20/16 21:00 12/23/16 21:37 Sodium Chloride (NS 1000 ml Inj) 1,000 ml @ 60 mls/hr [id number] IV 12/20/16 17:38 12/24/16 01:50 Enoxaparin Sodium (Lovenox Inj) 40 mg Q24H SQ 12/20/16 20:00 12/23/16 20:00 Promethazine HCl 25 mg 25 mg Q6H PRN IM NAUSEA 12/20/16 17:45 12/21/16 18:19 Cefepime HCl/ Sodium Chloride (Maxipime Inj/NS Inj) 100 ml @ 200 mls/hr Q8H IV 12/21/16 18:00 12/24/16 01:47 Multi-Ingredient Mouthwash/Gargle (Magic Mouthwash Adult Liq) 5 ml QID SWISH-SWAL 12/21/16 18:00 12/23/16 12:38 Filgrastim (Neupogen Inj) 480 mcg DAILY@14 SQ 12/22/16 00:30 12/23/16 12:36 Megestrol Acetate (Megace Liq) 400 mg DAILY PO 12/22/16 09:00 12/22/16 08:02 Mirtazapine (Remeron) 15 mg HS PO 12/22/16 21:00 12/23/16 21:55 Acetaminophen (Tylenol) 650 mg Q4H PRN PO fever >100.5 12/22/16 01:15 12/23/16 08:42 Amlodipine Besylate (Norvasc) 5 mg DAILY PO 12/22/16 12:45 12/23/16 08:42 Enalaprilat (Vasotec Inj) 1.25 mg Q8H PRN IV PUSH SBP>170, DBP>90 12/22/16 17:45 12/23/16 05:14 Dexamethasone 4 mg 4 mg Q12HR PO 12/23/16 09:00 12/23/16 21:38 Iron Sucrose/ Sodium Chloride (Venofer Inj/NS Inj) 110 ml @ 110 mls/hr DAILY IV 12/23/16 09:00 12/25/16 09:59 12/23/16 10:10 Potassium Chloride (KCl) 20 meq Q12HR PO 12/23/16 21:00 12/23/16 21:38 Magnesium Oxide (Mag-Ox) 400 mg Q12HR PO 12/23/16 21:00 12/23/16 21:38 Objective Remarks GENERAL: Chronically ill appearing female, sitting upright in bed in no distress. SKIN: Warm and dry. no rash. HEAD: Normocephalic. EYES: No injection or drainage. NECK: Supple, trachea midline. CARDIOVASCULAR: Regular rate and rhythm RESPIRATORY: Clear throughout, slightly diminished at bases. GASTROINTESTINAL: Abdomen soft, non-tender, nondistended. EXTREMITIES: No cyanosis or edema. NEUROLOGICAL: A&Ox3. Normal speech. Moving all extremities. Assessment/Plan Problem List: (1) Bronchogenic carcinoma of right lung Status: Acute Plan: --s/p C1 with cisplatin and Taxol, no XRT b/c of poor PFTs (2) Nausea & vomiting Status: Acute Plan: -- IV fluids, antiemetics + Decadron --Zofran 4 mg q.8 hours. Compazine for p.r.n. nausea. 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 h/o hypertension, diabetes, coronary artery disease, COPD. Plan 1. CTA was negative for pulmonary embolism. ECHO shows EF of 55-60%. No CP. 2. Await CBC today. Pancytopenia has been improving. 3. Will D/C Neupogen when WBC's > 5000. 4. Continue IV Cefepime. Attending Statement The exam, history, and the medical decision-making described in the above note were completed with the assistance of the mid-level provider. I reviewed and agree with the findings presented. I attest that I had a [id number] encounter with the patient on the same day, and personally performed and documented my assessment and findings in the medical record. Clinically doing much better d/c neupogen Anxiety/insomnia; ativan 0.25 q6h prn Anorexia: decrease dexamethasone to 4mg po daily D/c home in AM with home health Labs on Tuesday at [facility] CBC and CMP discussed with Dr. Red D/W patient and daughter--answered questions regarding future treatment Time spent--30 minutes. Problem Qualifiers (1) Nausea & vomiting: Qualified Code: R11.2 - Intractable vomiting with nausea, unspecified vomiting type Margaret Harden Dec 24, 2016 10:17 Narendra Stewart MD Dec 25, 2016 00:02
[2016-12-24] MEDS ORDERED: PILL SPLITTER OTHER PRN (10:45)
[2016-12-24] MEDS ORDERED: LORazepam 0.5 MG TAB PO PRN (11:00)
[2016-12-24 11:03] LABS: AUTOMATED NEUTROPHIL # 13.7 TH/MM3 (1.8-7.7); BASOPHIL # 0.3 TH/MM3 (0-0.2); BASOPHIL % 1.7 % (0.0-2.0); EOSINOPHIL % 0.1 % (0.0-4.0); HEMATOCRIT 33.1 % (35.0-46.0); LYMPH % 4.4 % (9.0-44.0); LYMPHOCYTE # 0.7 TH/MM3 (1.0-4.8); MEAN CELL VOLUME 78.9 FL (80.0-100.0); MEAN CORPUSCULAR HEMOGLOBIN 26.1 PG (27.0-34.0); MONO % 4.6 % (0.0-8.0); NEUT % 89.2 % (16.0-70.0); PLATELET COUNT 150 TH/MM3 (150-450); RED BLOOD COUNT 4.19 MIL/MM3 (4.00-5.30); RED CELL DISTRIBUTION WIDTH 15.8 % (11.6-17.2); WHITE BLOOD COUNT 15.4 TH/MM3 (4.0-11.0)
[2016-12-24 11:07] LABS: HEMO FLAGS AUTO DIFF
[2016-12-24 11:53] LABS: BANDS 25 % (0-6); METAMYELOCYTES 2 % (0-1); MYELOCYTES 1 % (0-0); NEUTROPHIL # MANUAL DIFF 14.2 TH/MM3 (1.8-7.7); POLYS (SEG NEUTROPHILS) 62 % (16-70); PROMYELOCYTES 2 % (0-0); WBC DIFF SAMPLE 100
[2016-12-24 11:55] LABS: PLATELET ESTIMATE SMEAR NORMAL (NORMAL); PLATELET MORPHOLOGY NORMAL (NORMAL); SCAN/DIFF FINAL DIFF MANUAL
[2016-12-24 11:56] LABS: TOXIC GRANULATION 1+ (NORMAL)
[2016-12-24] MEDS: FILGRASTIM 480 MCG/1.6 ML VIAL SQ SCH (14:26)
--- NOTE | 2016-12-24 15:27 | HHI.PR ---
Subjective Remarks patient emotionally feeling better po intake improved no chest pains or shortness of breath Objective Vitals Vital Signs Date Time Temp Pulse Resp B/P Pulse Ox O2 Delivery O2 Flow Rate FiO2 12/24/16 12:34 96.4 57 16 176/75 100 12/24/16 08:00 95.4 65 16 153/67 100 12/24/16 00:00 96.0 67 16 140/65 97 12/23/16 21:00 58 12/23/16 20:00 97.6 59 16 137/62 99 12/23/16 18:46 55 12/23/16 16:00 97.3 55 16 170/68 99 I/O 12/23/16 12/23/16 12/23/16 12/24/16 12/24/16 12/24/16 07:00 15:00 23:00 07:00 15:00 23:00 Intake Total 240 ml 610 ml 400 ml 1002 ml 1456 ml Balance 240 ml 610 ml 400 ml 1002 ml 1456 ml Intake Oral 240 ml 400 ml 880 ml IV Total 610 ml 1002 ml 576 ml # Voids 2 4 1 3 # Bowel Movements 3 3 0 30 Result Diagram: 12/24/16 1047 12/24/16 0610 Imaging Last Impressions Chest X-Ray 12/23/16 0000 Signed Impressions: Service Date/Time: December 11:13 - CONCLUSION: 1. Cardiomegaly. No acute pulmonary disease. Emanuel Romo MD CT Angiography 12/23/16 0000 Signed Impressions: Service Date/Time: December 15:29 - CONCLUSION: 1. No pulmonary embolus identified. 2. Abnormal exam with mediastinal adenopathy. The largest evelyn mass identified in the subcarinal evelyn region measuring 3.6 x 3.0 cm. 3. Scattered areas of atelectasis as above. Pavan Coon MD Objective Remarks awake and alert, NAD anicteric no oral thrush no nuchal rigidity lungs clear regular rhythm abdomen soft, nontender extremities no edema neuro exam- unremarkable A/P Assessment and Plan 66-year-old female with history of HTN, DM, CAD, COPD, SCC right lung currently undergoing chemotherapy who presents with nausea, vomiting, diarrhea, and weakness Nausea, vomiting, diarrhea: Chemotherapy side effects . - IMPROVED C diff negative Febrile Neutropenia. - T down on neupogen per Dr. Stewart on Cefepime 2 gm q 8 FF cultures. negative so far Acute anemia- improved iron studies suggestive of chronic disease S/P 2 units RBC IV Sucrose x 3 days Squamous cell carcinoma of the right lung currently undergoing chemotherapy: - on hold Dr. Stewart ff Odynophagia/Dysphagia- IMproving Speech therapy ff Lidocaine/magic mouthwash qid Chest pain- no further episodes, troponins negative, CTA negative for PE History of CAD/HTN. on ASA. BB- Transient atrial fibrillation-this am - now in SR CTA negative for PE, echo unremarkable HYpokalemia- improved Hypomagnesemia on bid [id number] bid start po KCL bid-maintenance- Weakness: PT daily Cachexia ensure- felisa flavor. Diabetes mellitus: Hold home oral hypoglycemic. Coverage with SSI with [employer]- Cheks. change to regular diet for now COPD: Chronic, stable. Continue home albuterol and fluticasone inhalers. O2 as needed. DVT prphylaxis- TEDS. on Lovenox- hold with acute drop in hemoglobin patient up and ambulated well Kassy Red MD Dec 24, 2016 15:26
[2016-12-24] MEDS: ENOXAPARIN SODIUM 40 MG/0.4 ML SYRINGE SQ SCH (20:00)
[2016-12-24] MEDS ORDERED: TEMAZEPAM 7.5 MG CAP PO PRN (20:00)
[2016-12-24] MEDS: MIRTAZAPINE 15 MG TAB PO SCH (20:24)
[2016-12-25] VITALS: BP 166/75; PULSE 59; RESP 15; TEMP 96.5; O2SAT 98
[2016-12-25] MEDS: CEFEPIME INJ 2,000 MG in SODIUM CHLORIDE 0.9% INJ 100 ML IV SCH ×2 (01:46→09:54)
[2016-12-25] MEDS: INSULIN ASPART SUPPLEMENTAL SCALE SQ SCH ×2 (05:55→11:56)
[2016-12-25 07:50] VITALS: BP 142/66; PULSE 55; RESP 18; TEMP 96.1; O2SAT 100
--- NOTE | 2016-12-25 07:57 | HHI.PR ---
Subjective Remarks no complains looking forward to going home Objective Vitals Vital Signs Date Time Temp Pulse Resp B/P Pulse Ox O2 Delivery O2 Flow Rate FiO2 12/25/16 00:00 96.5 59 15 166/75 98 12/24/16 21:00 55 12/24/16 20:00 96.1 54 16 167/72 99 12/24/16 16:00 96.1 59 16 160/71 100 12/24/16 12:34 96.4 57 16 176/75 100 12/24/16 08:00 95.4 65 16 153/67 100 I/O 12/24/16 12/24/16 12/24/16 12/25/16 12/25/16 12/25/16 07:00 15:00 23:00 07:00 15:00 23:00 Intake Total 1002 ml 1456 ml 898 ml 467 ml Balance 1002 ml 1456 ml 898 ml 467 ml Intake Oral 880 ml 480 ml IV Total 1002 ml 576 ml 418 ml 467 ml # Voids 3 2 1 # Bowel Movements 3 1 Result Diagram: 12/24/16 1047 12/24/16 0610 Imaging Last Impressions Chest X-Ray 12/23/16 0000 Signed Impressions: Service Date/Time: December 11:13 - CONCLUSION: 1. Cardiomegaly. No acute pulmonary disease. Emanuel Romo MD CT Angiography 12/23/16 0000 Signed Impressions: Service Date/Time: December 15:29 - CONCLUSION: 1. No pulmonary embolus identified. 2. Abnormal exam with mediastinal adenopathy. The largest evelyn mass identified in the subcarinal evelyn region measuring 3.6 x 3.0 cm. 3. Scattered areas of atelectasis as above. Pavan Coon MD Objective Remarks awake and alert, NAD anicteric no oral thrush no nuchal rigidity lungs clear regular rhythm abdomen soft, nontender extremities no edema neuro exam- unremarkable A/P Assessment and Plan 66-year-old female with history of HTN, DM, CAD, COPD, SCC right lung currently undergoing chemotherapy who presents with nausea, vomiting, diarrhea, and weakness Nausea, vomiting, diarrhea: Chemotherapy side effects . - IMPROVED C diff negative Febrile Neutropenia. - T down- WBC up on neupogen per Dr. Stewart on Cefepime 2 gm q 8 - change to po levaquin on DC FF cultures. negative x 4 days Acute anemia- improved iron studies suggestive of chronic disease S/P 2 units RBC on IV sucrose x 3 days Squamous cell carcinoma of the right lung currently undergoing chemotherapy: - Dr. Stewart ff - OP ff up Odynophagia/Dysphagia-improving Speech therapy ff DC Lidocaine/magic mouthwash Chest pain- no further episodes, troponins negative, CTA negative for PE History of CAD/HTN. on ASA. - BB- not getting HR- in the 50s.- decrease to 12.5 mg po bid - CCB Transient atrial fibrillation-this am - now in SR CTA negative for PE, echo unremarkable continue BB- on 12.5 mg po bid HYpokalemia- improved Hypomagnesemia on bid [id number] bid KCL bid-maintenance- Weakness: PT daily Cachexia ensure- felisa flavor. Diabetes mellitus: Coverage with SSI with [employer]Che[employer]. change to ADA diet blood sugars increased with Dexamethasone resume her home diabetic meds on DC d/w patient- montior sugars COPD: Chronic, stable. Continue home albuterol and fluticasone inhalers. O2 as needed. DVT prphylaxis- TEDS. on Lovenox- hold with acute drop in hemoglobin patient up and ambulated well DC home today if cleared with oncology service and after 3rd bag of IV sucrose Kassy Red MD Dec 25, 2016 07:57
--- NOTE | 2016-12-25 08:47 | PD.ONC.PN ---
Subjective Subjective Remarks Afebrile overnight. Pt sitting up in bed eating breakfast. She states she has been able to eat a little more. She has no complaints. Eager to go home. Objective Data Date Time Temp Pulse Resp B/P Pulse Ox O2 Delivery O2 Flow Rate FiO2 12/25/16 00:00 96.5 59 15 166/75 98 12/24/16 21:00 55 12/24/16 20:00 96.1 54 16 167/72 99 12/24/16 16:00 96.1 59 16 160/71 100 12/24/16 12:34 96.4 57 16 176/75 100 12/25/16 12/25/16 12/25/16 07:00 15:00 23:00 Intake Total 467 ml Balance 467 ml Result Diagram: 12/24/16 1047 12/24/16 0610 Laboratory Results Laboratory Tests Test 12/24/16 10:47 White Blood Count 15.4 TH/MM3 Red Blood Count 4.19 MIL/MM3 Hemoglobin 10.9 GM/DL Hematocrit 33.1 % Mean Corpuscular Volume 78.9 FL Mean Corpuscular Hemoglobin 26.1 PG Mean Corpuscular Hemoglobin 33.0 % Concent Red Cell Distribution Width 15.8 % Platelet Count 150 TH/MM3 Mean Platelet Volume 9.2 FL Neutrophils (%) (Auto) 89.2 % Lymphocytes (%) (Auto) 4.4 % Monocytes (%) (Auto) 4.6 % Eosinophils (%) (Auto) 0.1 % Basophils (%) (Auto) 1.7 % Neutrophils # (Auto) 13.7 TH/MM3 Lymphocytes # (Auto) 0.7 TH/MM3 Monocytes # (Auto) 0.7 TH/MM3 Eosinophils # (Auto) 0.0 TH/MM3 Basophils # (Auto) 0.3 TH/MM3 CBC Comment AUTO DIFF Differential Total Cells 100 Counted Neutrophils % (Manual) 62 % Band Neutrophils % 25 % Lymphocytes % 2 % Monocytes % 6 % Neutrophils # (Manual) 14.2 TH/MM3 Metamyelocytes 2 % Myelocytes 1 % Promyelocytes 2 % Differential Comment FINAL DIFF MANUAL Toxic Granulation 1+ Platelet Estimate NORMAL Platelet Morphology Comment NORMAL Red Cell Morphology Comment NORMAL Culture Results Microbiology Date/Time Procedure Status Source Growth 12/23/16 03:11 - Final Complete Stool Stool NO ENTERIC PATHOGENS DETECTED BY PCR... Administered Medications Medications (Trade) Dose Ordered Sig/Babar Route PRN Reason Start Time Stop Time Status Last Admin Dose Admin Aspirin (Ecotrin Ec) 81 mg DAILY PO 12/21/16 09:00 12/24/16 10:07 Fluticasone Propionate (Flovent Hfa 110 Mcg Inh) 2 puff BID INH 12/20/16 21:00 12/24/16 20:21 Metoprolol Tartrate (Lopressor) 25 mg BID PO 12/20/16 21:00 12/24/16 10:06 Famotidine 20 mg 20 mg BID PO 12/20/16 21:00 12/24/16 20:24 Sodium Chloride (NS 1000 ml Inj) 1,000 ml @ 60 mls/hr [id number] IV 12/20/16 17:38 12/24/16 00:33 Enoxaparin Sodium (Lovenox Inj) 40 mg Q24H SQ 12/20/16 20:00 12/24/16 20:00 Promethazine HCl 25 mg 25 mg Q6H PRN IM NAUSEA 12/20/16 17:45 12/21/16 18:19 Cefepime HCl/ Sodium Chloride (Maxipime Inj/NS Inj) 100 ml @ 200 mls/hr Q8H IV 12/21/16 18:00 12/25/16 01:46 Multi-Ingredient Mouthwash/Gargle (Magic Mouthwash Adult Liq) 5 ml QID SWISH-SWAL 12/21/16 18:00 12/23/16 12:38 Megestrol Acetate (Megace Liq) 400 mg DAILY PO 12/22/16 09:00 12/22/16 08:02 Mirtazapine (Remeron) 15 mg HS PO 12/22/16 21:00 12/24/16 20:24 Acetaminophen (Tylenol) 650 mg Q4H PRN PO fever >100.5 12/22/16 01:15 12/23/16 08:42 Enalaprilat (Vasotec Inj) 1.25 mg Q8H PRN IV PUSH SBP>170, DBP>90 12/22/16 17:45 12/23/16 05:14 Dexamethasone 4 mg 4 mg Q12HR PO 12/23/16 09:00 12/24/16 20:23 Iron Sucrose/ Sodium Chloride (Venofer Inj/NS Inj) 110 ml @ 110 mls/hr DAILY IV 12/23/16 09:00 12/25/16 09:59 12/24/16 10:08 Potassium Chloride (KCl) 20 meq Q12HR PO 12/23/16 21:00 12/24/16 20:23 Magnesium Oxide (Mag-Ox) 400 mg Q12HR PO 12/23/16 21:00 12/24/16 20:24 Lorazepam (Ativan) 0.25 mg Q6H PRN PO ANXIETY 12/24/16 11:00 12/24/16 11:50 Objective Remarks GENERAL: Older female, sitting up on bedside eating breakfast in no distress. SKIN: Warm and dry. HEAD: Normocephalic. EYES: No injection or drainage. NECK: Supple, trachea midline. CARDIOVASCULAR: Regular rate and rhythm. No murmur. RESPIRATORY: Clear throughout, slightly diminished at bases. GASTROINTESTINAL: Abdomen soft, non-tender, nondistended. EXTREMITIES: No cyanosis or edema. NEUROLOGICAL: A&Ox3. Normal speech. Moving all extremities. Assessment/Plan Problem List: (1) Bronchogenic carcinoma of right lung Status: Acute Plan: --s/p C1 with cisplatin and Taxol, no XRT b/c of poor PFTs (2) Nausea & vomiting Status: Acute Plan: -- IV fluids, antiemetics + Decadron --Zofran 4 mg q.8 hours. Compazine for p.r.n. nausea. 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 h/o hypertension, diabetes, coronary artery disease, COPD. Plan 1. OK for discharge from oncology standpoint. 2. Dexamethasone can be decreased to 4mg po once daily; used as an appetite stimulant. 3. Pt to get labs on Tuesday at [facility]; CBC, CMP. 4. Followup as scheduled with Dr. Stewart. Problem Qualifiers (1) Nausea & vomiting: Qualified Code: R11.2 - Intractable vomiting with nausea, unspecified vomiting type Margaret Harden Dec 25, 2016 08:47
[2016-12-25] MEDS ORDERED: DEXAMETHASONE 4 MG TAB PO SCH (09:00)
[2016-12-25] MEDS: IRON SUCROSE INJ 200 MG in SODIUM CHLORIDE 0.9% INJ 100 ML IV SCH (09:43)
[2016-12-25] MEDS: FLUTICASONE PROPIONATE 110 MCG/ACT 12 GM INHALER INH SCH (09:46)
[2016-12-25] MEDS: SODIUM CHLORIDE 0.9% FLUSH 5 ML FLUSH IV SCH (09:46)
[2016-12-25] MEDS: POTASSIUM CHLORIDE 20 MEQ CONTROLLED RELEASE TAB PO SCH (09:47)
[2016-12-25] MEDS: MAGNESIUM OXIDE 400 MG TAB PO SCH (09:47)
[2016-12-25] MEDS: FAMOTIDINE 20 MG TAB PO SCH (09:47)
[2016-12-25] MEDS: ASPIRIN EC 81 MG TABEC PO SCH (09:48)
[2016-12-25] MEDS: METOPROLOL TARTRATE 25 MG TAB PO SCH (09:49)
[2016-12-25] MEDS: MEGESTROL ACETATE SUSP 400 MG/10 ML CUP PO SCH (09:51)
[2016-12-25] MEDS: NYSTAT/DIPHENHY/LIDO MOUTHWASH (Adult) 120ML SWISH-SWAL SCH (09:51)
[2016-12-25] MEDS ORDERED: AMLO10 PO (10:29)
[2016-12-25] MEDS ORDERED: POTA20TA5 PO (10:29)
[2016-12-25] MEDS ORDERED: DEXA4TAB PO (10:29)
[2016-12-25] MEDS ORDERED: METO25TA3 PO (10:29)
[2016-12-25] MEDS ORDERED: MAGN400T3 PO (10:29)
[2016-12-25] MEDS ORDERED: LEVA500T PO (10:34)
--- NOTE | 2016-12-25 10:36 | HHI.DS ---
Discharge Summary Admission Date Dec 21, 2016 at 08:42 Discharge Date: Dec 25, 2016 Admitting Diagnosis nausea and vomit, dehydration, generalized weakness (1) Nausea & vomiting ICD Code: R11.2 Diagnosis: Principal (2) Pancytopenia due to antineoplastic chemotherapy ICD Code: D61.810 Diagnosis: Principal (3) Bronchogenic carcinoma of right lung ICD Code: C34.91 Diagnosis: Secondary Procedures none Brief History - From Admission 66-year-old female with history of HTN, DM, CAD, COPD, SCC right lung currently undergoing chemotherapy who presents with nausea, vomiting, diarrhea, and weakness. The patient's last chemotherapy treatment was a week ago last Tuesday. She states that she's been having nausea and poor appetite since then. She has been having intermittent vomiting since that time, last tolerated oral intake yesterday morning. For the past week she's been having intermittent loose stools, now with intractable diarrhea overnight. She's been taking oral Zofran and Compazine at home with no improvement in nausea. She denies any specific fever or chills. She has mild abdominal ache from retching. She denies any chest pain or shortness of breath. She does have a cough, but this is significantly improved since starting the chemotherapy. Today the patient was feeling significantly more weak, could not get up, and so the paramedics were called to bring her to the hospital. CBC/BMP: 12/24/16 1047 12/24/16 0610 Significant Findings Laboratory Tests Test 12/23/16 12/23/16 12/24/16 12/24/16 05:17 12:25 06:10 10:47 White Blood Count 3.6 TH/MM3 15.4 TH/MM3 (4.0-11.0) (4.0-11.0) Red Blood Count 3.90 MIL/MM3 (4.00-5.30) Hemoglobin 10.5 GM/DL 10.9 GM/DL (11.6-15.3) (11.6-15.3) Hematocrit 30.7 % 33.1 % (35.0-46.0) (35.0-46.0) Mean Corpuscular Volume 78.6 FL 78.9 FL (80.0-100.0) (80.0-100.0) Mean Corpuscular Hemoglobin 26.9 PG 26.1 PG (27.0-34.0) (27.0-34.0) Platelet Count 119 TH/MM3 (150-450) Neutrophils % (Manual) 5 % (16-70) Band Neutrophils % 33 % (0-6) 25 % (0-6) Monocytes % 14 % (0-8) Neutrophils # (Manual) 1.6 TH/MM3 14.2 TH/MM3 (1.8-7.7) (1.8-7.7) Metamyelocytes 3 % (0-1) 2 % (0-1) Myelocytes 3 % (0-0) 1 % (0-0) Platelet Estimate LOW (NORMAL) Potassium Level 2.8 MEQ/L (3.5-5.1) Chloride Level 109 MEQ/L 111 MEQ/L (98-107) (98-107) Random Glucose 177 MG/DL 271 MG/DL (74-106) (74-106) Calcium Level 7.1 MG/DL 7.5 MG/DL (8.5-10.1) (8.5-10.1) Total Protein 4.6 GM/DL (6.4-8.2) Magnesium Level 1.0 MG/DL (1.5-2.5) B-Type Natriuretic Peptide 390 PG/ML (0-100) Carbon Dioxide Level 20.2 MEQ/L (21.0-32.0) Estimat Glomerular Filtration 81 ML/MIN (>89) Rate Neutrophils (%) (Auto) 89.2 % (16.0-70.0) Lymphocytes (%) (Auto) 4.4 % (9.0-44.0) Neutrophils # (Auto) 13.7 TH/MM3 (1.8-7.7) Lymphocytes # (Auto) 0.7 TH/MM3 (1.0-4.8) Basophils # (Auto) 0.3 TH/MM3 (0-0.2) Lymphocytes % 2 % (9-44) Promyelocytes 2 % (0-0) Toxic Granulation 1+ (NORMAL) Imaging Last Impressions Chest X-Ray 12/23/16 0000 Signed Impressions: Service Date/Time: December 11:13 - CONCLUSION: 1. Cardiomegaly. No acute pulmonary disease. Emanuel Romo MD CT Angiography 12/23/16 0000 Signed Impressions: Service Date/Time: December 15:29 - CONCLUSION: 1. No pulmonary embolus identified. 2. Abnormal exam with mediastinal adenopathy. The largest evelyn mass identified in the subcarinal evelyn region measuring 3.6 x 3.0 cm. 3. Scattered areas of atelectasis as above. Pavan Coon MD PE at Discharge awake and alert, NAD anicteric no oral thrush no nuchal rigidity lungs clear regular rhythm abdomen soft, nontender extremities no edema neuro exam- unremarkable Pt update on day of discharge afebrile, swallowing with no difficulties no cough or diarrhea Hospital Course 66-year-old female with history of HTN, DM, CAD, COPD, SCC right lung currently undergoing chemotherapy who presents with nausea, vomiting, diarrhea, and weakness Nausea, vomiting, diarrhea: Chemotherapy side effects . - IMPROVED C diff negative Febrile Neutropenia. - T down- WBC up on neupogen per Dr. Stewart on Cefepime 2 gm q 8 - change to po levaquin on DC FF cultures. negative x 4 days Acute anemia- improved iron studies suggestive of chronic disease S/P 2 units RBC on IV sucrose x 3 days Squamous cell carcinoma of the right lung currently undergoing chemotherapy: - Dr. Stewart ff - OP ff up Odynophagia/Dysphagia-improving Speech therapy ff DC Lidocaine/magic mouthwash Chest pain- no further episodes, troponins negative, CTA negative for PE History of CAD/HTN. on ASA. - BB- not getting HR- in the 50s.- decrease to 12.5 mg po bid - CCB Transient atrial fibrillation-this am - now in SR CTA negative for PE, echo unremarkable continue BB- on 12.5 mg po bid HYpokalemia- improved Hypomagnesemia on bid Un3kwbd bid KCL bid-maintenance- Weakness: PT daily Cachexia ensure- felisa flavor. Diabetes mellitus: Coverage with SSI with [employer]. change to ADA diet blood sugars increased with Dexamethasone resume her home diabetic meds on DC d/w patient- monITOR sugars at home COPD: Chronic, stable. Continue home albuterol and fluticasone inhalers. O2 as needed. DVT prophylaxis- TEDS. on Lovenox- hold with acute drop in hemoglobin patient up and ambulated well DC home today after 3rd bag of IV sucrose Pt Condition on Discharge: Stable Discharge Disposition: Discharge Home Discharge Time: <= 30 minutes Discharge Instructions DIET: Follow Instructions for: Heart Healthy Diet, Diabetic Diet Speech Therapy-Diet Recommends: Regular Activities you can perform: Weight Bearing as Segundo Follow up Referrals: Oncology - As Per Protocol with [facility] PCP Follow-up - 12/27/16 with ALFREDO New Orders: BASIC METABOLIC PROF - 12/28/16 CBC WITH DIFF - 12/28/16 New Medications: Amlodipine (Norvasc) 10 Mg Tab 10 MG PO DAILY HTN Days 30 TAB Dexamethasone (Dexamethasone) 4 Mg Tab 4 MG PO DAILY MOOK Days 10 TAB Levofloxacin (Levaquin) 500 Mg Tab 500 MG PO DAILY febneut Days 10 TAB Magnesium Oxide (Magnesium Oxide) 241.3 Mg Tab 400 MG PO Q12HR elec Days 14 TAB Metoprolol Tartrate (Metoprolol Tartrate) 25 Mg Tab 12.5 MG PO Q12HR CAD Days 30 TAB Potassium Chloride Microencaps (Potassium Chloride Microencaps) 20 Meq Tab 20 MEQ PO Q12HR elec Days 14 TAB Continued Medications: Albuterol 8.5 GM Inh (Proair Hfa 8.5 GM Inh) 90 Mcg/Act Aer 2 PUFF INH Q4HR 108 mcg/actuation PRN SHORTNESS OF BREATH #1 Ref 0 INHALER Aspirin (Aspirin) 81 Mg Tabdr 81 MG PO DAILY TAB Fluticasone 12 GM Inh (Flovent Hfa 12 GM Inh) 110 Mcg/Act Inh 2 PUFF INH BID Asthma Management #1 Ref 0 INHALER Ranitidine (Zantac) 300 Mg Tab 300 MG PO DAILY Ref 0 TAB Saxagliptin-Metformin ER (Kombiglyze Xr) 2.5-1,000 Mg Tab 1 TAB PO DAILY Blood Sugar Management #30 Ref 0 TAB Discontinued Medications: Magnesium Oxide (Magnesium Oxide) 400 Mg Tab 400 MG PO BID Nutritional Supplement Ref 0 TAB Metoprolol Tartrate (Metoprolol Tartrate) 25 Mg Tab 25 MG PO BID #60 Ref 0 TAB Prednisone (Prednisone) 20 Mg Tab 20 MG PO DIRECTED 40 MG twice a day x 3 days, then 20 MG daily x 3 days, then 10 MG daily x 3 days Inflammation #11 Ref 0 TAB Kassy Red MD Dec 25, 2016 10:36
[2016-12-25] MEDS ORDERED: LEVOFLOXACIN 500 MG TAB PO SCH (11:00)
[2016-12-25] MEDS ORDERED: METOPROLOL TARTRATE 25 MG TAB PO SCH (21:00)
== END 2016-12-25 12:35 | disposition home or self-care (01) | DRG 809 ==
LOC: NEPE 13:46 → NEDA 16:24 → HOCA 19:32 → OBSVTOIN 12-21 08:42
PROVIDERS: ADMIT Internal Medicine; ATTEND Internal Medicine
PROC: 30253N1 (ICD-10-PCS; principal; 2016-12-21)
DX: D61.810 Antineoplastic chemotherapy induced pancytopenia (principal); C34.91 Malignant neoplasm of unspecified part of right bronchus or lung; R64 Cachexia; E46 Unspecified protein-calorie malnutrition; E83.42 Hypomagnesemia; I11.0 Hypertensive heart disease with heart failure; I50.9 Heart failure, unspecified; I25.810 Atherosclerosis of coronary artery bypass graft(s) without angina pectoris; I48.91 Unspecified atrial fibrillation; J44.9 Chronic obstructive pulmonary disease, unspecified; E86.0 Dehydration; E11.9 Type 2 diabetes mellitus without complications; E87.6 Hypokalemia; T45.1X5A Adverse effect of antineoplastic and immunosuppressive drugs, initial encounter; Z95.1 Presence of aortocoronary bypass graft; R13.10 Dysphagia, unspecified; R50.81 Fever presenting with conditions classified elsewhere; Z72.0 Tobacco use; Z95.5 Presence of coronary angioplasty implant and graft
CPT/HCPCS: 36430; 71010; 71275; 80048; 80053; 81001; 82550; 82728; 82948; 83540; 83550; 83690; 83735; 83880; 84155; 84443; 84484; 85007; 85027; 85610; 85730; 86850; 86900; 86901; 86920; 87040; 87493; 87506; 93005; 93306; 96361; 96374; G0378; J0692; J1200; J1442; J1650; J1756; J1815; J2405; J2543; J2550; J3370; J3475; J3480; J7030; J7050; J8540; P9016; P9612; Q9967

== ENCOUNTER 2017-01-21 14:27 | Inpatient (IN) | payer OTHER, MEDICARE ==
[~2017-01-21] VITALS: Ht 170.2 cm; Wt 54.0 kg
[~2017-01-21 14:27] MED LIST changes: +AMLO10 PO; +DEXA4TAB PO; +FLUTI110I INH; +LEVA500T PO; -MAGN400T2 PO; +MAGN400T3 PO; +POTA20TA5 PO; +ZANT300T PO
[2017-01-21] MEDS ORDERED: SODIUM CHLOR 0.9% 1000 ML INJ 1,000 ML IV ONE (14:39)
--- NOTE | 2017-01-21 14:44 | PD ---
HPI Chief Complaint: GI Complaint Time Seen by Provider: 14:35 Travel History International Travel<30 days: No Contact w/Intl Traveler<30days: No Traveled to known affect area: No History of Present Illness HPI The patient is a 66-year-old female who presents to the emergency department via EMS for nausea, vomiting, diarrhea. The patient has a history of stage IV lung cancer which is currently being treated by her oncologist, Dr. Stewart. The patient receives chemotherapy every 21 days, last received chemotherapy 2 weeks ago. The patient complains of persistent nausea and vomiting over the last 2 days with diarrhea. Patient describes the diarrhea as loose, watery, without any visible blood. The patient denies any history of C. difficile. The patient's primary physician is Dr. Fleming. Patient has any fever, chills, or sweats. She denies any current chest pain or increasing shortness of breath. Symptoms are moderate, possibly exacerbated by chemotherapy and lung cancer, and not alleviated with Zofran at home. PFSH Past Medical History Hx Anticoagulant Therapy: Yes (BABY ASA DAILY) Blood Disorders: No Anxiety: Yes Depression: No Heart Rhythm Problems: No Cancer: Yes (Lung ca) Cardiac Catheterization: Yes (2 STENTS) Cardiovascular Problems: Yes High Cholesterol: No Chemotherapy: Yes Chest Pain: No Congestive Heart Failure: Yes Coronary Artery Disease: Yes Diabetes: Yes Patient Takes Glucophage: No Diminished Hearing: No Endocrine: Yes Genitourinary: No Hepatitis: No Hiatal Hernia: No Hypertension: Yes Immune Disorder: No Implanted Vascular Access Dvce: Yes Medical other: Yes Musculoskeletal: No Neurologic: No Psychiatric: No Reproductive: No Respiratory: Yes Immunizations Current: No Thyroid Disease: No Menopausal: Yes Past Surgical History Abdominal Surgery: No AICD: No Body Medical Devices: STENTS Cardiac Surgery: Yes (Stents, CABG x 3) Section: Yes Coronary Artery Bypass Graft: Yes (07/2015) Ear Surgery: No Endocrine Surgery: No Eye Surgery: No Genitourinary Surgery: No Gynecologic Surgery: No Hysterectomy: Yes Joint Replacement: No Oral Surgery: No Pacemaker: No Thoracic Surgery: No Other Surgery: Yes Social History Alcohol Use: No Tobacco Use: Yes Substance Use: No Allergies-Medications (Allergen,Severity, Reaction): Coded Allergies: No Known Allergies (Verified , 12/20/16) Reported Meds & Prescriptions Reported Meds & Active Scripts Active Potassium Chloride Microencaps 20 Meq Tab 20 Meq PO Q12HR 14 Days Metoprolol Tartrate 25 Mg Tab 12.5 Mg PO Q12HR 30 Days Magnesium Oxide 241.3 Mg Tab 400 Mg PO Q12HR 14 Days Dexamethasone 4 Mg Tab 4 Mg PO DAILY 10 Days Norvasc (Amlodipine Besylate) 10 Mg Tab 10 Mg PO DAILY 30 Days Proair Hfa 8.5 GM Inh (Albuterol Sulfate) 90 Mcg/Act Aer 2 Puff INH Q4HR PRN 108 mcg/actuation Reported Flovent Hfa 12 GM Inh (Fluticasone Propionate) 110 Mcg/Act Inh 2 Puff INH BID Zantac (Ranitidine HCl) 300 Mg Tab 300 Mg PO DAILY Kombiglyze Xr (Saxagliptin-Metformin ER) 2.5-1,000 Mg Tab 1 Tab PO DAILY Aspirin 81 Mg Tabdr 81 Mg PO DAILY Review of Systems Except as stated in HPI: all other systems reviewed are Neg General / Constitutional: No: Fever HENT: Positive: Other (dry mouth) Cardiovascular: No: Chest Pain or Discomfort Respiratory: Positive: Other (history of lung carcinoma), No: Shortness of Breath Gastrointestinal: Positive: Nausea, Vomiting, Diarrhea, No: Abdominal Pain Genitourinary: No: Dysuria Musculoskeletal: Positive: Weakness Neurologic: Positive: Weakness Physical Exam Narrative GENERAL: Awake, alert, 66-year-old female who appears her stated age and is in no acute respiratory distress. SKIN: Focused skin assessment warm/dry. HEAD: Atraumatic. Normocephalic. EYES: No injection or drainage. ENT: Dry mucous membranes. Poor dentition. NECK: Trachea midline. No JVD. CARDIOVASCULAR: Regular rate and rhythm. No murmur appreciated. Well-healed midline surgical scar. RESPIRATORY: No accessory muscle use. Diminished breath sounds in the bases. GASTROINTESTINAL: Abdomen soft, non-tender, nondistended. No rebound tenderness. MUSCULOSKELETAL: No obvious deformities. No clubbing. No cyanosis. No edema. NEUROLOGICAL: Awake and alert. No obvious cranial nerve deficits. Motor grossly within normal limits. Normal speech. PSYCHIATRIC: Appropriate mood and affect; insight and judgment normal. Data Data Last Documented VS Vital Signs Date Time Temp Pulse Resp B/P Pulse Ox O2 Delivery O2 Flow Rate FiO2 01/21/17 16:00 81 16 155/66 97 Room Air Orders Complete Blood Count With Diff (01/21/17 14:39) Comprehensive Metabolic Panel (01/21/17 14:39) Urinalysis - C+S If Indicated (01/21/17 14:39) Lipase (01/21/17 14:39) Iv Access Insert/Monitor (01/21/17 14:39) Ecg Monitoring (01/21/17 14:39) Oximetry (01/21/17 14:39) Ondansetron Inj (Zofran Inj) (01/21/17 14:45) Sodium Chlor 0.9% 1000 Ml Inj (Ns 1000 M (01/21/17 14:39) Sodium Chloride 0.9% Flush (Ns Flush) (01/21/17 14:45) C Diff Toxin Pcr (01/21/17 14:39) Enteric Path (Stool) (01/21/17 14:39) Lactic Acid (01/21/17 14:39) Prochlorperazine Inj (Compazine Inj) (01/21/17 16:45) Ns + Kcl 20 Meq Inj (Ns + Kcl 20 Meq Inj (01/21/17 16:45) Chest, Single Ap (01/21/17 ) Blood Culture (01/21/17 16:50) Magnesium (Mg) (01/21/17 16:54) Labs Laboratory Tests Test 01/21/17 01/21/17 14:48 14:52 White Blood Count 4.9 TH/MM3 Red Blood Count 4.36 MIL/MM3 Hemoglobin 11.1 GM/DL Hematocrit 34.5 % Mean Corpuscular Volume 79.2 FL Mean Corpuscular Hemoglobin 25.4 PG Mean Corpuscular Hemoglobin 32.0 % Concent Red Cell Distribution Width 18.8 % Platelet Count 127 TH/MM3 Mean Platelet Volume 8.9 FL Neutrophils (%) (Auto) 80.0 % Lymphocytes (%) (Auto) 14.5 % Monocytes (%) (Auto) 5.2 % Eosinophils (%) (Auto) 0.1 % Basophils (%) (Auto) 0.2 % Neutrophils # (Auto) 4.0 TH/MM3 Lymphocytes # (Auto) 0.7 TH/MM3 Monocytes # (Auto) 0.3 TH/MM3 Eosinophils # (Auto) 0.0 TH/MM3 Basophils # (Auto) 0.0 TH/MM3 CBC Comment AUTO DIFF Differential Total Cells 100 Counted Neutrophils % (Manual) 31 % Band Neutrophils % 34 % Lymphocytes % 13 % Monocytes % 15 % Eosinophils % 2 % Neutrophils # (Manual) 3.4 TH/MM3 Metamyelocytes 2 % Myelocytes 3 % Differential Comment FINAL DIFF MANUAL Toxic Granulation 1+ Dohle Bodies PRESENT Platelet Estimate LOW Platelet Morphology Comment NORMAL Ovalocytes 1+ Sodium Level 133 MEQ/L Potassium Level 2.8 MEQ/L Chloride Level 99 MEQ/L Carbon Dioxide Level 23.9 MEQ/L Anion Gap 10 MEQ/L Blood Urea Nitrogen 32 MG/DL Creatinine 1.01 MG/DL Estimat Glomerular Filtration 55 ML/MIN Rate Random Glucose 256 MG/DL Lactic Acid Level 2.4 mmol/L Calcium Level 7.7 MG/DL Total Bilirubin 0.3 MG/DL Aspartate Amino Transf 9 U/L (AST/SGOT) Alanine Aminotransferase 11 U/L (ALT/SGPT) Alkaline Phosphatase 86 U/L Total Protein 4.7 GM/DL Albumin 2.0 GM/DL Lipase 32 U/L Stool C. difficile Toxin (PCR) NEGATIVE Stl C. difficile Toxin PRESUMPTIVE Epiderm 027 NEGATIVE MDM Medical Decision Making Medical Screen Exam Complete: Yes Emergency Medical Condition: Yes Medical Record Reviewed: Yes Interpretation(s) Laboratory Tests Test 01/21/17 01/21/17 14:48 14:52 White Blood Count 4.9 TH/MM3 Red Blood Count 4.36 MIL/MM3 Hemoglobin 11.1 GM/DL Hematocrit 34.5 % Mean Corpuscular Volume 79.2 FL Mean Corpuscular Hemoglobin 25.4 PG Mean Corpuscular Hemoglobin 32.0 % Concent Red Cell Distribution Width 18.8 % Platelet Count 127 TH/MM3 Mean Platelet Volume 8.9 FL Neutrophils (%) (Auto) 80.0 % Lymphocytes (%) (Auto) 14.5 % Monocytes (%) (Auto) 5.2 % Eosinophils (%) (Auto) 0.1 % Basophils (%) (Auto) 0.2 % Neutrophils # (Auto) 4.0 TH/MM3 Lymphocytes # (Auto) 0.7 TH/MM3 Monocytes # (Auto) 0.3 TH/MM3 Eosinophils # (Auto) 0.0 TH/MM3 Basophils # (Auto) 0.0 TH/MM3 CBC Comment AUTO DIFF Differential Total Cells 100 Counted Neutrophils % (Manual) 31 % Band Neutrophils % 34 % Lymphocytes % 13 % Monocytes % 15 % Eosinophils % 2 % Neutrophils # (Manual) 3.4 TH/MM3 Metamyelocytes 2 % Myelocytes 3 % Differential Comment FINAL DIFF MANUAL Toxic Granulation 1+ Dohle Bodies PRESENT Platelet Estimate LOW Platelet Morphology Comment NORMAL Ovalocytes 1+ Sodium Level 133 MEQ/L Potassium Level 2.8 MEQ/L Chloride Level 99 MEQ/L Carbon Dioxide Level 23.9 MEQ/L Anion Gap 10 MEQ/L Blood Urea Nitrogen 32 MG/DL Creatinine 1.01 MG/DL Estimat Glomerular Filtration 55 ML/MIN Rate Random Glucose 256 MG/DL Lactic Acid Level 2.4 mmol/L Calcium Level 7.7 MG/DL Total Bilirubin 0.3 MG/DL Aspartate Amino Transf 9 U/L (AST/SGOT) Alanine Aminotransferase 11 U/L (ALT/SGPT) Alkaline Phosphatase 86 U/L Total Protein 4.7 GM/DL Albumin 2.0 GM/DL Lipase 32 U/L Stool C. difficile Toxin (PCR) NEGATIVE Stl C. difficile Toxin PRESUMPTIVE Epiderm 027 NEGATIVE Differential Diagnosis Differential diagnosis includes gastritis, gastritis, enteritis, colitis, medication side effect, dehydration, electrolyte abnormality. Narrative Course The patient's port was accessed, labs are drawn and sent, and the patient was placed on cardiac telemetry monitoring and continuous pulse oximetry monitoring. The patient received Zofran and 1 L of IV fluids. Electrolytes were sent to lab. Stool studies were ordered. C. difficile is negative. The patient's white count is normal, however, does have significant bandemia 34%. Therefore, UA was ordered and chest x-ray was obtained. The patient's potassium is low at 2.8, patient was reevaluated at 4:40 PM and has persistent nausea. Therefore, the patient was administered Compazine and normal saline with potassium chloride was started. The patient's protein level and albumin are low, the patient has poor nutritional status and is dehydrated. Therefore, patient will be admitted. The patient has [employer], therefore, [facility] were paged for admission. Physician Communication Physician Communication The patient has [employer], therefore, [facility] were paged for 23 hour observation. I discussed the patient with Dr. Nelson who agrees with 23 hour observation. Diagnosis Primary Impression: Nausea & vomiting Qualified Code: R11.2 - Nausea and vomiting, intractability of vomiting not specified, unspecified vomiting type Additional Impressions: Hypokalemia Bandemia Admitting Information Admitting Physician Requests: Observation Condition: Stable Nigel Wyatt MD Jan 21, 2017 14:44
[2017-01-21] MEDS ORDERED: SODIUM CHLORIDE 0.9% FLUSH 10 ML FLUSH IVF PRN (14:45)
[2017-01-21] MEDS ORDERED: ONDANSETRON HCL 4 MG/2 ML VIAL IVP ONE (14:45)
[2017-01-21 15:35] LABS: BASOPHIL % 0.2 % (0.0-2.0); EOSINOPHIL % 0.1 % (0.0-4.0); HEMATOCRIT 34.5 % (35.0-46.0); LYMPH % 14.5 % (9.0-44.0); LYMPHOCYTE # 0.7 TH/MM3 (1.0-4.8); MEAN CELL VOLUME 79.2 FL (80.0-100.0); MEAN CORPUSCULAR HEMOGLOBIN 25.4 PG (27.0-34.0); MONO % 5.2 % (0.0-8.0); PLATELET COUNT 127 TH/MM3 (150-450); RED BLOOD COUNT 4.36 MIL/MM3 (4.00-5.30); RED CELL DISTRIBUTION WIDTH 18.8 % (11.6-17.2); WHITE BLOOD COUNT 4.9 TH/MM3 (4.0-11.0)
[2017-01-21 15:39] LABS: HEMO FLAGS AUTO DIFF
[2017-01-21 16:00] VITALS: BP 155/66; PULSE 81; RESP 16; O2SAT 97
[2017-01-21 16:25] LABS: ALKALINE PHOSPHATASE 86 U/L (45-117); ALT (GPT) 11 U/L (10-53); ANION GAP 10 MEQ/L (5-15); AST (GOT) 9 U/L (15-37); BICARBONATE 23.9 MEQ/L (21.0-32.0); BLOOD UREA NITROGEN 32 MG/DL (7-18); CHLORIDE 99 MEQ/L (98-107); GLOMERULAR FILTRATION RATE 55 ML/MIN (>89); SODIUM (NA) 133 MEQ/L (136-145); TOTAL BILIRUBIN ADULT 0.3 MG/DL (0.2-1.0)
[2017-01-21 16:27] LABS: POTASSIUM 2.8 MEQ/L (3.5-5.1)
[2017-01-21 16:32] LABS: C. DIFF EPI 027 PRESUMPTIVE NEGATIVE (NEGATIVE); C. DIFF TOXIN PCR NEGATIVE (NEGATIVE)
[2017-01-21 16:34] LABS: BANDS 34 % (0-6); EOSINOPHILS 2 % (0-4); METAMYELOCYTES 2 % (0-1); MYELOCYTES 3 % (0-0); NEUTROPHIL # MANUAL DIFF 3.4 TH/MM3 (1.8-7.7); POLYS (SEG NEUTROPHILS) 31 % (16-70); WBC DIFF SAMPLE 100
[2017-01-21 16:35] LABS: TOXIC GRANULATION 1+ (NORMAL)
[2017-01-21 16:36] LABS: DOHLE BODIES PRESENT (NONE SEEN)
[2017-01-21 16:37] LABS: OVALOCYTES 1+ (NORMAL)
[2017-01-21 16:39] LABS: PLATELET ESTIMATE SMEAR LOW (NORMAL); PLATELET MORPHOLOGY NORMAL (NORMAL); SCAN/DIFF FINAL DIFF MANUAL
[2017-01-21] MEDS ORDERED: PROCHLORPERAZINE INJ 10 MG/2 ML VIAL IV PUSH ONE (16:45)
[2017-01-21] MEDS ORDERED: NS + KCL 20 MEQ INJ 1,000 ML IV SCH (16:45)
[2017-01-21] MEDS ORDERED: TEMAZEPAM 15 MG CAP PO PRN (17:00)
[2017-01-21] MEDS ORDERED: SODIUM CHLOR 0.9% 1000 ML INJ 1,000 ML IV SCH (17:00)
[2017-01-21] MEDS ORDERED: ONDANSETRON HCL 4 MG/2 ML VIAL IVP PRN (17:00)
[2017-01-21] MEDS ORDERED: PROCHLORPERAZINE 25 MG SUPP RECTAL PRN (17:00)
[2017-01-21] MEDS ORDERED: SODIUM CHLORIDE 0.9% FLUSH 10 ML FLUSH IV FLUSH PRN (17:00)
[2017-01-21] MEDS ORDERED: ACETAMINOPHEN 325 MG TAB PO PRN (17:00)
[2017-01-21] MEDS ORDERED: NALOXONE HCL 0.4 MG/ML AMP IV PRN (17:00)
--- NOTE | 2017-01-21 17:27 | RADRPT ---
EXAM DATE/TIME: 01/21/2017 16:58 [facility] COMPARISON: CHEST SINGLE AP, December 23, 2016, 11:13. INDICATIONS : Cough. MEDICAL HISTORY : Carcinoma, lung. Congestive heart failure. SURGICAL HISTORY : Coronary artery stent. CABG. [place] ENCOUNTER: Initial ACUITY: 1 day PAIN SCORE: 0/10 LOCATION: Bilateral chest FINDINGS: [id number] is in good position. The lungs are clear. Heart and pulmonary vascularity are normal. CONCLUSION: 1. Negative chest for acute disease. 2. Exogra-[id number]-Brjj and sternal wires are evident. Yasmany Coon MD FACR on January 21, 2017 at 17:22 Board Certified Radiologist. This report was verified electronically.
[2017-01-21] MEDS: ENOXAPARIN SODIUM 40 MG/0.4 ML SYRINGE SQ SCH (17:54)
[2017-01-21 18:00] VITALS: BP 125/68; PULSE 90; RESP 16; O2SAT 97
[2017-01-21] MEDS ORDERED: ALBUTEROL SULFATE 90 MCG/ACT HFA 8 GM INHALER INH PRN (18:15)
[2017-01-21] MEDS ORDERED: DEXTROSE 50% IN WATER 50 ML VIAL(D50) IV PUSH PRN (18:30)
[2017-01-21] MEDS ORDERED: GLUCAGON 1 MG/ML VIAL OTHER PRN (18:30)
--- NOTE | 2017-01-21 18:32 | HHI.HP ---
[facility] Henry Fleming, Admission Diagnosis gastritis, nausea/vomiting, hypokalemia, bandemia Diagnoses: Chief Complaint: Diarrhea and vomiting Travel History International Travel<30 Days: No Contact w/Intl Traveler <30 Da: No Traveled to Known Affected Are: No History of Present Illness 66-year-old female with a past medical history of lung SCC, HTN, DM, CAD, COPD who presented with intractable diarrhea and vomiting. The patient states that on Tuesday she began having diarrhea and vomiting. She states she vomited about 4 times over 2 days, no vomiting today. She continues to complain of persistent nausea and poor appetite, was able to tolerate some Jell-O earlier today. She's been having intractable diarrhea. She states that she's had more than a dozen episodes of loose stools today. She describes stool is watery, denies any blood in them. She denies any abdominal pain. She reports chills, but no specific fevers. Her last chemotherapy session was about 2 weeks ago. 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 Past Surgical History CABG 3 vessel C-sections Right chest port placement Reported Medications Potassium Chloride Microencaps 20 Meq Tab 20 Meq PO Q12HR 14 Days Metoprolol Tartrate 25 Mg Tab 12.5 Mg PO Q12HR 30 Days Magnesium Oxide 241.3 Mg Tab 400 Mg PO Q12HR 14 Days Dexamethasone 4 Mg Tab 4 Mg PO DAILY 10 Days Norvasc (Amlodipine Besylate) 10 Mg Tab 10 Mg PO DAILY 30 Days Proair Hfa 8.5 GM Inh (Albuterol Sulfate) 90 Mcg/Act Aer 2 Puff INH Q4HR PRN 108 mcg/actuation Flovent Hfa 12 GM Inh (Fluticasone Propionate) 110 Mcg/Act Inh 2 Puff INH BID Zantac (Ranitidine HCl) 300 Mg Tab 300 Mg PO DAILY Kombiglyze Xr (Saxagliptin-Metformin ER) 2.5-1,000 Mg Tab 1 Tab PO DAILY Aspirin 81 Mg Tabdr 81 Mg PO DAILY Allergies: Coded Allergies: No Known Allergies (Verified , 12/20/16) Active Ordered Medications Current Medications Medications (Trade) Dose Ordered Sig/Babar Route Start Time Stop Time Status Last Admin (NS Flush) 2 ml UNSCH PRN IV FLUSH 01/21/17 17:00 (NS Flush) 2 ml BID IV FLUSH 01/21/17 21:00 (Tylenol) 650 mg Q4H PRN PO 01/21/17 17:00 (Zofran Inj) 4 mg Q6H PRN IVP 01/21/17 17:00 (Compazine Supp) 25 mg Q12H PRN RECTAL 01/21/17 17:00 (Restoril) 15 mg HS PRN PO 01/21/17 17:00 (Lovenox Inj) 40 mg Q24H SQ 01/21/17 17:00 01/21/17 17:54 Naloxone HCl 0.4 mg 0.4 mg UNSCH PRN IV 01/21/17 17:00 (Magnesium Sulfate 1 Gm Premix) 100 ml @ 100 mls/hr Q1H IV 01/21/17 18:00 01/21/17 19:59 (Proair Hfa Inh) 2 puff Q4HR PRN INH 01/21/17 18:15 UNV (Norvasc) 10 mg DAILY PO 01/22/17 09:00 UNV (Ecotrin Ec) 81 mg DAILY PO 01/22/17 09:00 UNV (Decadron) 4 mg DAILY PO 01/22/17 09:00 UNV (Flovent Hfa 110 Mcg Inh) 2 puff BID INH 01/21/17 21:00 UNV (Lopressor) 12.5 mg Q12HR PO 01/21/17 21:00 UNV Non-Formulary Medication 300 mg DAILY PO 01/22/17 09:00 UNV Family History Patient denies any family history of cancer, Parkinson's, Alzheimer's, heart disease Social History Former tobacco use, quit a few months ago, 40 pack years Denies alcohol or drug use Physical Exam Vital Signs Vital Signs Date Time Temp Pulse Resp B/P Pulse Ox O2 Delivery O2 Flow Rate FiO2 01/21/17 16:00 81 16 155/66 97 Room Air Physical Exam GENERAL: Well-developed fair-nourished thin chronically ill-appearing female. In no acute distress. SKIN: Warm and dry. Right chest port placement. HEENT: Normocephalic. Pupils equal and round. Mucous membranes extremely dry. CARDIOVASCULAR: Regular rate and rhythm. No murmur appreciated. RESPIRATORY: No accessory muscle use. Clear to auscultation. Breath sounds equal bilaterally. GASTROINTESTINAL: Abdomen soft, non-tender, nondistended. Bowel sounds x4. MUSCULOSKELETAL: No obvious deformities. No clubbing or cyanosis. No edema. NEUROLOGICAL: Awake and alert. No focal neurological deficits. Moves upper and lower extremities spontaneously. Normal speech. PSYCHIATRIC: Appropriate mood and affect; insight and judgment normal. Laboratory Laboratory Tests Test 01/21/17 01/21/17 14:48 14:52 White Blood Count 4.9 Red Blood Count 4.36 Hemoglobin 11.1 Hematocrit 34.5 Mean Corpuscular Volume 79.2 Mean Corpuscular Hemoglobin 25.4 Mean Corpuscular Hemoglobin 32.0 Concent Red Cell Distribution Width 18.8 Platelet Count 127 Mean Platelet Volume 8.9 Neutrophils (%) (Auto) 80.0 Lymphocytes (%) (Auto) 14.5 Monocytes (%) (Auto) 5.2 Eosinophils (%) (Auto) 0.1 Basophils (%) (Auto) 0.2 Neutrophils # (Auto) 4.0 Lymphocytes # (Auto) 0.7 Monocytes # (Auto) 0.3 Eosinophils # (Auto) 0.0 Basophils # (Auto) 0.0 CBC Comment AUTO DIFF Differential Total Cells 100 Counted Neutrophils % (Manual) 31 Band Neutrophils % 34 Lymphocytes % 13 Monocytes % 15 Eosinophils % 2 Neutrophils # (Manual) 3.4 Metamyelocytes 2 Myelocytes 3 Differential Comment FINAL DIFF MANUAL Toxic Granulation 1+ Dohle Bodies PRESENT Platelet Estimate LOW Platelet Morphology Comment NORMAL Ovalocytes 1+ Sodium Level 133 Potassium Level 2.8 Chloride Level 99 Carbon Dioxide Level 23.9 Anion Gap 10 Blood Urea Nitrogen 32 Creatinine 1.01 Estimat Glomerular Filtration 55 Rate Random Glucose 256 Lactic Acid Level 2.4 Calcium Level 7.7 Magnesium Level 1.2 Total Bilirubin 0.3 Aspartate Amino Transf 9 (AST/SGOT) Alanine Aminotransferase 11 (ALT/SGPT) Alkaline Phosphatase 86 Total Protein 4.7 Albumin 2.0 Lipase 32 Stool C. difficile Toxin (PCR) NEGATIVE Stl C. difficile Toxin PRESUMPTIVE Epiderm 027 NEGATIVE Date/Time Procedure Status Source Growth 01/21/17 17:55 Aerobic Blood Culture Received Blood Peripheral Pending 01/21/17 17:55 Anaerobic Blood Culture Received Blood Peripheral Pending 01/21/17 14:52 Received Stool Stool Pending Result Diagram: 01/21/17 1448 01/21/17 1448 Imaging Last Impressions Chest X-Ray 01/21/17 0000 Signed Impressions: Service Date/Time: Saturday, January 21, 2017 16:58 - CONCLUSION: 1. Negative chest for acute disease. 2. Ocjntn-n-Ubpz and sternal wires are evident. Yasmany Coon MD FACR Assessment and Plan Assessment and Plan 66-year-old female with a past medical history of lung SCC, HTN, DM, CAD, COPD who presented with intractable diarrhea and vomiting Acute gastroenteritis: Presented with nausea, vomiting, and intractable diarrhea. No abdominal pain. Multiple electrolyte derangements including hypo- and treatment anemia, hypokalemia, hypomagnesemia slightly elevated BUN and creatinine. C. difficile negative, further stool studies pending. IVF. Electrolyte replacement. Clear liquids, ADAT. Hypokalemia/hypomagnesemia: Replace by IV. Follow-up labs in the morning. Diabetes mellitus: Hold home oral hypoglycemics. D5 IVF to prevent hypoglycemia. Hypoglycemia protocol in place. Coverage with SSI with Accu- Cheks. Other chronic medical conditions include lung cancer, GERD, CAD, HTN, COPD: Stable at this time and will continue home medications as indicated. DVT prophylaxis: Lovenox Written by Walter Luna, acting as scribe for Dr. Nelson on 01/21/17 at 18:31. All or portions of this note were transcribed by HILARIO Layton. I, Dr. Cristiano Nelson personally performed the history, physical exam, and medical decision making; and confirmed the accuracy of the information in the transcribed note. Authenticated by Dr. Cristiano Nelson on 01/21/17 at 19:41. Please note that this patient's admission was switched to in-patient after discussing with case management. Patient is expected to stay in the hospital 2 days and possible discharge back to home. Discussed Condition With Patient Waletr Luna Jan 21, 2017 18:32 Henrietta Nelson DO Jan 21, 2017 19:42
[2017-01-21] MEDS ORDERED: PILL SPLITTER OTHER PRN (18:45)
[2017-01-21] MEDS: SODIUM CHLOR 0.9% 1000 ML INJ 1,000 ML IV SCH (19:00)
[2017-01-21] MEDS ORDERED: D5-1/2 NS + KCL 20 MEQ INJ 1,000 ML IV SCH (19:00)
[2017-01-21 20:00] VITALS: BP 134/71; PULSE 79; RESP 17; TEMP 96; O2SAT 98
[2017-01-21] MEDS: POTASSIUM CHLOR 20 MEQ PREMIX 100 ML IV SCH ×2 (20:03→22:02)
[2017-01-21] MEDS: MAGNESIUM SULFATE 1 GM PREMIX 100 ML IV SCH ×2 (20:04→22:02)
[2017-01-21] MEDS: SODIUM CHLORIDE 0.9% FLUSH 10 ML FLUSH IV FLUSH SCH (21:00)
[2017-01-21] MEDS: FLUTICASONE PROPIONATE 110 MCG/ACT 12 GM INHALER INH SCH (21:00)
[2017-01-21] MEDS: INSULIN ASPART SUPPLEMENTAL SCALE SQ SCH (21:54)
[2017-01-21] MEDS: METOPROLOL TARTRATE 25 MG TAB PO SCH (21:54)
[2017-01-21] MEDS ORDERED: ALBUTEROL SULFATE 90 MCG/ACT HFA 18 GM INHALER INH PRN (22:15)
[2017-01-22] VITALS: BP 126/57; PULSE 79; RESP 16; TEMP 96.1; O2SAT 97
[2017-01-22 04:00] VITALS: BP 113/62; PULSE 75; RESP 16; TEMP 96.5; O2SAT 98
[2017-01-22] MEDS: SODIUM CHLOR 0.9% 1000 ML INJ 1,000 ML IV SCH (04:37)
[2017-01-22 05:20] LABS: AUTOMATED NEUTROPHIL # 7.1 TH/MM3 (1.8-7.7); BASOPHIL % 0.1 % (0.0-2.0); EOSINOPHIL % 0.1 % (0.0-4.0); HEMATOCRIT 29.4 % (35.0-46.0); LYMPH % 10.2 % (9.0-44.0); LYMPHOCYTE # 0.8 TH/MM3 (1.0-4.8); MEAN CORPUSCULAR HEMOGLOBIN 26.5 PG (27.0-34.0); MONO % 4.1 % (0.0-8.0); NEUT % 85.5 % (16.0-70.0); PLATELET COUNT 122 TH/MM3 (150-450); RED BLOOD COUNT 3.78 MIL/MM3 (4.00-5.30); RED CELL DISTRIBUTION WIDTH 18.8 % (11.6-17.2); WHITE BLOOD COUNT 8.2 TH/MM3 (4.0-11.0)
[2017-01-22 05:24] LABS: HEMO FLAGS AUTO DIFF
[2017-01-22 05:40] LABS: BICARBONATE 19.8 MEQ/L (21.0-32.0); MAGNESIUM 1.8 MG/DL (1.5-2.5); POTASSIUM 3.1 MEQ/L (3.5-5.1)
[2017-01-22] MEDS: INSULIN ASPART SUPPLEMENTAL SCALE SQ SCH ×4 (06:43→22:18)
[2017-01-22 07:21] LABS: BANDS 65 % (0-6); DOHLE BODIES PRESENT (NONE SEEN); NEUTROPHIL # MANUAL DIFF 6.7 TH/MM3 (1.8-7.7); POLYS (SEG NEUTROPHILS) 17 % (16-70); WBC DIFF SAMPLE 100
[2017-01-22 07:22] LABS: PLATELET ESTIMATE SMEAR LOW (NORMAL); PLATELET MORPHOLOGY NORMAL (NORMAL); SCAN/DIFF FINAL DIFF MANUAL; TOXIC GRANULATION 1+ (NORMAL)
[2017-01-22 08:00] VITALS: BP 105/57; PULSE 65; RESP 16; TEMP 96.1; O2SAT 99
[2017-01-22] MEDS: SODIUM CHLORIDE 0.9% FLUSH 10 ML FLUSH IV FLUSH SCH ×2 (09:00→21:00)
[2017-01-22] MEDS: FAMOTIDINE 20 MG TAB PO SCH ×2 (10:23→22:12)
[2017-01-22] MEDS: FLUTICASONE PROPIONATE 110 MCG/ACT 12 GM INHALER INH SCH ×2 (10:23→22:22)
[2017-01-22] MEDS: DEXAMETHASONE 4 MG TAB PO SCH (10:24)
[2017-01-22] MEDS: METOPROLOL TARTRATE 25 MG TAB PO SCH ×2 (10:24→22:12)
[2017-01-22] MEDS: ASPIRIN EC 81 MG TABEC PO SCH (10:24)
[2017-01-22 12:00] VITALS: BP 112/56; PULSE 65; RESP 16; TEMP 97.8; O2SAT 98
[2017-01-22] MEDS: POTASSIUM CHLORIDE 20 MEQ CONTROLLED RELEASE TAB PO SCH ×2 (13:47→22:12)
--- NOTE | 2017-01-22 13:52 | HHI.PR ---
Subjective Remarks Follow-up gastroenteritis. Continues to have loose stools but denies nausea, vomiting and abdominal pain. Requesting diet be advanced. Discussed with RN Objective Vitals Vital Signs Date Time Temp Pulse Resp B/P Pulse Ox O2 Delivery O2 Flow Rate FiO2 01/22/17 08:00 96.1 65 16 105/57 99 01/22/17 04:00 96.5 75 16 113/62 98 01/22/17 00:00 96.1 79 16 126/57 97 01/21/17 20:00 96.0 79 17 134/71 98 01/21/17 18:00 90 16 125/68 97 Room Air 01/21/17 16:00 81 16 155/66 97 Room Air I/O 01/21/17 01/21/17 01/21/17 01/22/17 01/22/17 01/22/17 07:00 15:00 23:00 07:00 15:00 23:00 Intake Total 240 ml Balance 240 ml Intake Oral 240 ml # Voids 2 1 # Bowel Movements 1 4 3 Result Diagram: 01/22/17 0445 01/22/17 0445 Imaging Last Impressions Chest X-Ray 01/21/17 0000 Signed Impressions: Service Date/Time: Saturday, January 21, 2017 16:58 - CONCLUSION: 1. Negative chest for acute disease. 2. Dfeqho-d-Kgez and sternal wires are evident. Yasmany Coon MD FACR Objective Remarks GENERAL: Well-developed fair-nourished thin chronically ill-appearing female. In no acute distress. SKIN: Warm and dry. Right chest port placement. HEENT: Normocephalic. Pupils equal and round. Mucous membranes moist. Throat clear CARDIOVASCULAR: Regular rate and rhythm. No murmur appreciated. RESPIRATORY: No accessory muscle use. Clear to auscultation. Breath sounds equal bilaterally. GASTROINTESTINAL: Abdomen soft, non-tender, nondistended. Bowel sounds x4. MUSCULOSKELETAL: No obvious deformities. No clubbing or cyanosis. No edema. NEUROLOGICAL: Awake and alert. No focal neurological deficits. Moves upper and lower extremities spontaneously. Normal speech. PSYCHIATRIC: Appropriate mood and affect; insight and judgment normal. Procedures none A/P Problem List: (1) Nausea & vomiting ICD Code: R11.2 Status: Acute Assessment and Plan 66-year-old female with a past medical history of lung SCC, HTN, DM, CAD, COPD who presented with intractable diarrhea and vomiting Acute gastroenteritis: Presented with nausea, vomiting, and intractable diarrhea. No abdominal pain. Multiple electrolyte derangements including hypokalemia, hypomagnesemia slightly elevated BUN and creatinine. C. difficile negative, further stool studies pending. IVF. Electrolyte replacement. KEILA. Improving follow-up urinalysis Hypokalemia/hypomagnesemia: Replace by IV. Follow-up labs in the morning. Diabetes mellitus: Hold home oral hypoglycemics. Hypoglycemia protocol in place. Coverage with SSI with Accu-Cheks. Other chronic medical conditions include lung cancer, GERD, CAD, HTN, COPD: Stable at this time and will continue home medications as indicated. DVT prophylaxis: Lovenox Problem Qualifiers (1) Nausea & vomiting: Qualified Code: R11.2 - Nausea and vomiting, intractability of vomiting not specified, unspecified vomiting type Patrick Aggarwal MD Jan 22, 2017 13:52
[2017-01-22] MEDS ORDERED: NS + KCL 20 MEQ INJ 1,000 ML IV SCH (14:00)
[2017-01-22] MEDS ORDERED: DIPHENOXYLATE/ATROPINE 2.5 MG/0.025 MG TAB PO PRN (14:00)
[2017-01-22] MEDS ORDERED: MENTHOL LOZENGE BUCCAL PRN (14:00)
[2017-01-22] MEDS ORDERED: PHENOL 1.4% SOLN 180 ML BTL MT PRN (15:00)
[2017-01-22 16:00] VITALS: BP 116/58; PULSE 65; RESP 16; TEMP 96.8; O2SAT 100
[2017-01-22] MEDS: ENOXAPARIN SODIUM 40 MG/0.4 ML SYRINGE SQ SCH (18:08)
[2017-01-22 20:00] VITALS: BP 116/59; PULSE 70; RESP 17; TEMP 96; O2SAT 98
[2017-01-23 04:00] VITALS: BP 124/67; PULSE 68; RESP 18; TEMP 95.9; O2SAT 99
[2017-01-23] MEDS: INSULIN ASPART SUPPLEMENTAL SCALE SQ SCH ×2 (05:55→11:00)
[2017-01-23 07:04] LABS: AUTOMATED NEUTROPHIL # 3.7 TH/MM3 (1.8-7.7); BASOPHIL % 0.1 % (0.0-2.0); EOSINOPHIL % 0.1 % (0.0-4.0); HEMATOCRIT 28.8 % (35.0-46.0); LYMPH % 12.8 % (9.0-44.0); LYMPHOCYTE # 0.6 TH/MM3 (1.0-4.8); MEAN CELL VOLUME 79.6 FL (80.0-100.0); MEAN CORPUSCULAR HGB CONC 32.7 % (32.0-36.0); MONO % 8.6 % (0.0-8.0); NEUT % 78.4 % (16.0-70.0); PLATELET COUNT 117 TH/MM3 (150-450); RED BLOOD COUNT 3.61 MIL/MM3 (4.00-5.30); RED CELL DISTRIBUTION WIDTH 18.8 % (11.6-17.2); WHITE BLOOD COUNT 4.7 TH/MM3 (4.0-11.0)
[2017-01-23 07:07] LABS: BICARBONATE 20.9 MEQ/L (21.0-32.0); MAGNESIUM 1.6 MG/DL (1.5-2.5); POTASSIUM 3.9 MEQ/L (3.5-5.1)
[2017-01-23 07:08] LABS: HEMO FLAGS AUTO DIFF
[2017-01-23 08:00] VITALS: BP 129/61; PULSE 68; RESP 16; TEMP 96.4; O2SAT 99
[2017-01-23] MEDS: FLUTICASONE PROPIONATE 110 MCG/ACT 12 GM INHALER INH SCH (08:25)
[2017-01-23] MEDS: POTASSIUM CHLORIDE 20 MEQ CONTROLLED RELEASE TAB PO SCH (08:26)
[2017-01-23] MEDS: METOPROLOL TARTRATE 25 MG TAB PO SCH (08:26)
[2017-01-23] MEDS: FAMOTIDINE 20 MG TAB PO SCH (08:26)
[2017-01-23] MEDS: ASPIRIN EC 81 MG TABEC PO SCH (08:26)
[2017-01-23] MEDS: DEXAMETHASONE 4 MG TAB PO SCH (08:27)
[2017-01-23] MEDS: SODIUM CHLORIDE 0.9% FLUSH 10 ML FLUSH IV FLUSH SCH (08:27)
--- NOTE | 2017-01-23 08:34 | HHI.PR ---
Subjective Remarks Follow-up mesenteritis. No nausea and diarrhea tolerating diet. Wants to go home. Follow-up with oncology in the morning. Discussed with RN Objective Vitals Vital Signs Date Time Temp Pulse Resp B/P Pulse Ox O2 Delivery O2 Flow Rate FiO2 01/23/17 04:00 95.9 68 18 124/67 99 01/22/17 20:00 96.0 70 17 116/59 98 01/22/17 16:00 96.8 65 16 116/58 100 01/22/17 12:00 97.8 65 16 112/56 98 I/O 01/22/17 01/22/17 01/22/17 01/23/17 01/23/17 01/23/17 07:00 15:00 23:00 07:00 15:00 23:00 Intake Total 240 ml 3111 ml 480 ml Balance 240 ml 3111 ml 480 ml Intake Oral 240 ml 920 ml 480 ml IV Total 2191 ml # Voids 1 2 3 1 # Bowel Movements 3 2 3 1 Result Diagram: 01/23/17 0543 01/23/17 0543 Imaging Last Impressions Chest X-Ray 01/21/17 0000 Signed Impressions: Service Date/Time: Saturday, January 21, 2017 16:58 - CONCLUSION: 1. Negative chest for acute disease. 2. Svbefn-h-Ngvg and sternal wires are evident. Yasmany Coon MD FACR Objective Remarks GENERAL: Well-developed fair-nourished thin chronically ill-appearing female. In no acute distress. No signs of dehydration SKIN: Warm and dry. Right chest port placement. HEENT: Normocephalic. Pupils equal and round. Mucous membranes moist. Throat clear CARDIOVASCULAR: Regular rate and rhythm. No murmur appreciated. RESPIRATORY: No accessory muscle use. Clear to auscultation. Breath sounds equal bilaterally. GASTROINTESTINAL: Abdomen soft, non-tender, nondistended. Bowel sounds x4. MUSCULOSKELETAL: No obvious deformities. No clubbing or cyanosis. No edema. NEUROLOGICAL: Awake and alert. No focal neurological deficits. Moves upper and lower extremities spontaneously. Normal speech. PSYCHIATRIC: Appropriate mood and affect; insight and judgment normal. Procedures none A/P Problem List: (1) Nausea & vomiting ICD Code: R11.2 Status: Acute Assessment and Plan 66-year-old female with a past medical history of lung SCC, HTN, DM, CAD, COPD who presented with intractable diarrhea and vomiting Acute gastroenteritis: Presented with nausea, vomiting, and intractable diarrhea. No abdominal pain. Multiple electrolyte derangements including hypokalemia, hypomagnesemia slightly elevated BUN and creatinine. C. difficile negative. IVF. Electrolyte replacement. KEILA. Resolved Hypokalemia/hypomagnesemia: Replace by IV. Improved Diabetes mellitus: Hold home oral hypoglycemics. Hypoglycemia protocol in place. Coverage with SSI with Accu-Cheks. Stable Other chronic medical conditions include lung cancer, GERD, CAD, HTN, COPD: Stable at this time and will continue home medications as indicated. DVT prophylaxis: Lovenox Discharge Planning Stable for discharge Problem Qualifiers (1) Nausea & vomiting: Qualified Code: R11.2 - Nausea and vomiting, intractability of vomiting not specified, unspecified vomiting type Patrick Aggarwal MD Jan 23, 2017 08:34
[2017-01-23 08:50] LABS: BANDS 31 % (0-6); POLYS (SEG NEUTROPHILS) 55 % (16-70); WBC DIFF SAMPLE 100
[2017-01-23 08:51] LABS: DOHLE BODIES PRESENT (NONE SEEN); PLATELET ESTIMATE SMEAR LOW (NORMAL); PLATELET MORPHOLOGY NORMAL (NORMAL); SCAN/DIFF FINAL DIFF MANUAL; TOXIC GRANULATION 2+ (NORMAL)
[2017-01-23] MEDS ORDERED: DIPH2.5T14 PO (09:01)
--- NOTE | 2017-01-23 09:02 | HHI.DCPOC ---
Discharge Care Plan Diagnosis: (1) Nausea & vomiting Your Health Problems Are: Difficulty with ADL Exercise Tolerance Goals to Promote Your Health * To prevent worsening of your condition and complications * To maintain your health at the optimal level Directions to Meet Your Goals Take your medications as prescribed Follow your dietary instruction Follow activity as directed Keep your appointments as scheduled Take your immunizations and boosters as scheduled If your symptoms worsen call your PCP, if no PCP go to Urgent Care Center or Emergency Room Smoking is Dangerous to Your Health. Avoid second hand smoke Call the 24-hour hour crisis hotline for domestic abuse at Patrick Aggarwal MD Jan 23, 2017 09:02
--- NOTE | 2017-01-23 09:03 | HHI.DS ---
Discharge Summary Admission Date Jan 21, 2017 at 18:54 Discharge Date: Jan 23, 2017 Admitting Diagnosis gastritis, nausea/vomiting, hypokalemia, bandemia (1) Nausea & vomiting ICD Code: R11.2 Diagnosis: Principal Procedures none Brief History - From Admission 66-year-old female with a past medical history of lung SCC, HTN, DM, CAD, COPD who presented with intractable diarrhea and vomiting. The patient states that on Tuesday she began having diarrhea and vomiting. She states she vomited about 4 times over 2 days, no vomiting today. She continues to complain of persistent nausea and poor appetite, was able to tolerate some Jell-O earlier today. She's been having intractable diarrhea. She states that she's had more than a dozen episodes of loose stools today. She describes stool is watery, denies any blood in them. She denies any abdominal pain. She reports chills, but no specific fevers. Her last chemotherapy session was about 2 weeks ago. CBC/BMP: 01/23/17 0543 01/23/17 0543 Significant Findings Laboratory Tests Test 01/21/17 01/22/17 01/23/17 14:48 04:45 05:43 Hemoglobin 11.1 GM/DL 10.0 GM/DL 9.4 GM/DL (11.6-15.3) (11.6-15.3) (11.6-15.3) Hematocrit 34.5 % 29.4 % 28.8 % (35.0-46.0) (35.0-46.0) (35.0-46.0) Mean Corpuscular Volume 79.2 FL 78.0 FL 79.6 FL (80.0-100.0) (80.0-100.0) (80.0-100.0) Mean Corpuscular Hemoglobin 25.4 PG 26.5 PG 26.0 PG (27.0-34.0) (27.0-34.0) (27.0-34.0) Red Cell Distribution Width 18.8 % 18.8 % 18.8 % (11.6-17.2) (11.6-17.2) (11.6-17.2) Platelet Count 127 TH/MM3 122 TH/MM3 117 TH/MM3 (150-450) (150-450) (150-450) Neutrophils (%) (Auto) 80.0 % 85.5 % 78.4 % (16.0-70.0) (16.0-70.0) (16.0-70.0) Lymphocytes # (Auto) 0.7 TH/MM3 0.8 TH/MM3 0.6 TH/MM3 (1.0-4.8) (1.0-4.8) (1.0-4.8) Band Neutrophils % 34 % (0-6) 65 % (0-6) 31 % (0-6) Monocytes % 15 % (0-8) 10 % (0-8) Metamyelocytes 2 % (0-1) Myelocytes 3 % (0-0) Toxic Granulation 1+ (NORMAL) 1+ (NORMAL) 2+ (NORMAL) Dohle Bodies PRESENT (NONE PRESENT (NONE PRESENT (NONE SEEN) SEEN) SEEN) Platelet Estimate LOW (NORMAL) LOW (NORMAL) LOW (NORMAL) Ovalocytes 1+ (NORMAL) Sodium Level 133 MEQ/L 135 MEQ/L (136-145) (136-145) Potassium Level 2.8 MEQ/L 3.1 MEQ/L (3.5-5.1) (3.5-5.1) Blood Urea Nitrogen 32 MG/DL (7-18) 25 MG/DL (7-18) Creatinine 1.01 MG/DL (0.50-1.00) Estimat Glomerular Filtration 55 ML/MIN (>89) 71 ML/MIN (>89) Rate Random Glucose 256 MG/DL 184 MG/DL 161 MG/DL (74-106) (74-106) (74-106) Lactic Acid Level 2.4 mmol/L (0.4-2.0) Calcium Level 7.7 MG/DL 7.7 MG/DL 7.6 MG/DL (8.5-10.1) (8.5-10.1) (8.5-10.1) Magnesium Level 1.2 MG/DL (1.5-2.5) Aspartate Amino Transf 9 U/L (15-37) (AST/SGOT) Total Protein 4.7 GM/DL (6.4-8.2) Albumin 2.0 GM/DL (3.4-5.0) Lipase 32 U/L (73-393) Red Blood Count 3.78 MIL/MM3 3.61 MIL/MM3 (4.00-5.30) (4.00-5.30) Lymphocytes % 8 % (9-44) 8 % (9-44) Carbon Dioxide Level 19.8 MEQ/L 20.9 MEQ/L (21.0-32.0) (21.0-32.0) Monocytes (%) (Auto) 8.6 % (0.0-8.0) Chloride Level 109 MEQ/L (98-107) Imaging Last Impressions Chest X-Ray 01/21/17 0000 Signed Impressions: Service Date/Time: Saturday, January 21, 2017 16:58 - CONCLUSION: 1. Negative chest for acute disease. 2. Soruow-u-Hxtw and sternal wires are evident. Yasmany Coon MD FACR PE at Discharge GENERAL: Well-developed fair-nourished thin chronically ill-appearing female. In no acute distress. No signs of dehydration SKIN: Warm and dry. Right chest port placement. HEENT: Normocephalic. Pupils equal and round. Mucous membranes moist. Throat clear CARDIOVASCULAR: Regular rate and rhythm. No murmur appreciated. RESPIRATORY: No accessory muscle use. Clear to auscultation. Breath sounds equal bilaterally. GASTROINTESTINAL: Abdomen soft, non-tender, nondistended. Bowel sounds x4. MUSCULOSKELETAL: No obvious deformities. No clubbing or cyanosis. No edema. NEUROLOGICAL: Awake and alert. No focal neurological deficits. Moves upper and lower extremities spontaneously. Normal speech. PSYCHIATRIC: Appropriate mood and affect; insight and judgment normal. Hospital Course 66-year-old female with a past medical history of lung SCC, HTN, DM, CAD, COPD who presented with intractable diarrhea and vomiting Acute gastroenteritis vs adverse reaction from chemotherapy: Presented with nausea, vomiting, and intractable diarrhea. No abdominal pain. Multiple electrolyte derangements including hypokalemia, hypomagnesemia slightly elevated BUN and creatinine. C. difficile negative. IVF. Electrolyte replacement. KEILA. Resolved Hypokalemia/hypomagnesemia: Replace by IV. Improved Diabetes mellitus: Hold home oral hypoglycemics. Hypoglycemia protocol in place. Coverage with SSI with Accu-Cheks. Stable Other chronic medical conditions include lung cancer, GERD, CAD, HTN, COPD: Stable at this time and will continue home medications as indicated. DVT prophylaxis: Lovenox Pt Condition on Discharge: Stable Discharge Disposition: Discharge Home Discharge Time: <= 30 minutes Discharge Instructions DIET: Follow Instructions for: Diabetic Diet Activities you can perform: Regular-No Restrictions Activities to Avoid: Driving Follow up Referrals: Oncology - Next Day PCP Follow-up - 2-3 Days New Medications: Diphenoxylate-Atropine (Diphenoxylate-Atropine) 2.5-0.025 Mg Tab 1 TAB PO Q6H PRN loose stool #30 TAB Continued Medications: Albuterol 8.5 GM Inh (Proair Hfa 8.5 GM Inh) 90 Mcg/Act Aer 2 PUFF INH Q4HR 108 mcg/actuation PRN SHORTNESS OF BREATH #1 Ref 0 INHALER Amlodipine (Norvasc) 10 Mg Tab 10 MG PO DAILY HTN Days 30 TAB Aspirin (Aspirin) 81 Mg Tabdr 81 MG PO DAILY TAB Dexamethasone (Dexamethasone) 4 Mg Tab 4 MG PO DAILY MOOK Days 10 TAB Fluticasone 12 GM Inh (Flovent Hfa 12 GM Inh) 110 Mcg/Act Inh 2 PUFF INH BID Asthma Management #1 Ref 0 INHALER Metoprolol Tartrate (Metoprolol Tartrate) 25 Mg Tab 12.5 MG PO Q12HR CAD Days 30 TAB Potassium Chloride Microencaps (Potassium Chloride Microencaps) 20 Meq Tab 20 MEQ PO Q12HR elec Days 14 TAB Ranitidine (Zantac) 300 Mg Tab 300 MG PO DAILY Ref 0 TAB Saxagliptin-Metformin ER (Kombiglyze Xr) 2.5-1,000 Mg Tab 1 TAB PO DAILY Blood Sugar Management #30 Ref 0 TAB Patrick Aggarwal MD Jan 23, 2017 09:03
[2017-01-23 12:00] VITALS: BP 123/60; PULSE 68; RESP 16; TEMP 97.2; O2SAT 98
== END 2017-01-23 13:46 | disposition home or self-care (01) | DRG 392 ==
LOC: NEPE 14:27 → NEDA 16:57 → OBSVTOIN 18:54 → HOCA 19:11
PROVIDERS: ADMIT Internal Medicine; ATTEND Internal Medicine
DX: K52.9 Noninfective gastroenteritis and colitis, unspecified (principal); J44.9 Chronic obstructive pulmonary disease, unspecified; E83.42 Hypomagnesemia; C34.90 Malignant neoplasm of unspecified part of unspecified bronchus or lung; I10 Essential (primary) hypertension; E87.6 Hypokalemia; I25.10 Atherosclerotic heart disease of native coronary artery without angina pectoris; E11.9 Type 2 diabetes mellitus without complications; Z95.1 Presence of aortocoronary bypass graft; Z95.5 Presence of coronary angioplasty implant and graft; Z87.891 Personal history of nicotine dependence
CPT/HCPCS: 36591; 71010; 80048; 80053; 82948; 83605; 83690; 83735; 85007; 85027; 87040; 87205; 87493; 87506; 96361; 96365; 96374; J0780; J1642; J1650; J1756; J1815; J2405; J3475; J3480; J7030; J7050; J8540

== ENCOUNTER 2017-01-26 10:28 | Inpatient (IN) | payer OTHER, MEDICARE ==
[2017-01-26] VITALS (10 sets, daily range): BP systolic 116–148; BP diastolic 56–83; PULSE 3–110; RESP 18–20; TEMP 98.4–98.6; O2SAT 92–99
[~2017-01-26] VITALS: Ht 160 cm; Wt 81.9 kg
[~2017-01-26 10:28] MED LIST changes: +DIPH2.5T14 PO; -LEVA500T PO
[2017-01-26] MEDS ORDERED: SODIUM CHLOR 0.9% 1000 ML INJ 1,000 ML IV ONE (10:55)
[2017-01-26] MEDS ORDERED: PRIL20CA9 PO (11:08)
[2017-01-26] MEDS ORDERED: REME15TA PO (11:08)
[2017-01-26] MEDS ORDERED: POTA10SO12 PO (11:08)
[2017-01-26] MEDS ORDERED: ZOFR8TAB PO (11:08)
[2017-01-26] MEDS ORDERED: FURO1TAB62 PO (11:08)
--- NOTE | 2017-01-26 11:18 | PD ---
HPI . Weakness Chief Complaint: General Weakness Time Seen by Provider: 10:54 Travel History International Travel<30 days: No Contact w/Intl Traveler<30days: No Traveled to known affect area: No History of Present Illness HPI Patient presents with a several day history of weakness. She states that she is so weak that she cannot walk. Patient has stage III lung cancer and is currently on chemotherapy. Last chemotherapy was 2-3 weeks ago. Patient was recently admitted the hospital from January 21-January 23 for nausea, vomiting and diarrhea. Patient is not currently having vomiting and diarrhea. Denies any urinary symptoms. EMS reports a fever of 100.4. PFSH Past Medical History Hx Anticoagulant Therapy: Yes (ASA ) Blood Disorders: No Anxiety: Yes Depression: No Heart Rhythm Problems: No Cancer: Yes (Lung ca) Cardiac Catheterization: Yes (2 STENTS) Cardiovascular Problems: Yes (HBP) High Cholesterol: No Chemotherapy: Yes Chest Pain: No Congestive Heart Failure: Yes Coronary Artery Disease: Yes Diabetes: Yes Patient Takes Glucophage: Yes Diminished Hearing: No Endocrine: Yes Genitourinary: No Hepatitis: No Hiatal Hernia: No Hypertension: Yes Immune Disorder: No Implanted Vascular Access Dvce: Yes Medical other: Yes Musculoskeletal: No Neurologic: No Psychiatric: No Reproductive: No Respiratory: Yes (LUNG CA) Immunizations Current: No Thyroid Disease: No Tetanus Vaccination: < 5 Years Influenza Vaccination: Yes Menopausal: Yes Past Surgical History Abdominal Surgery: No AICD: No Body Medical Devices: STENTS Cardiac Surgery: Yes (Stents, CABG x 3) Section: Yes Coronary Artery Bypass Graft: Yes (07/2015) Ear Surgery: No Endocrine Surgery: No Eye Surgery: No Genitourinary Surgery: No Gynecologic Surgery: No Hysterectomy: Yes Joint Replacement: No Oral Surgery: No Pacemaker: No Thoracic Surgery: No Other Surgery: Yes Social History Alcohol Use: No Tobacco Use: No Substance Use: No Allergies-Medications (Allergen,Severity, Reaction): Coded Allergies: No Known Allergies (Verified , 01/26/17) Reported Meds & Prescriptions Reported Meds & Active Scripts Active Diphenoxylate-Atropine 2.5-0.025 Mg Tab 1 Tab PO Q6H PRN Metoprolol Tartrate 25 Mg Tab 12.5 Mg PO Q12HR 30 Days Norvasc (Amlodipine Besylate) 10 Mg Tab 10 Mg PO DAILY 30 Days Proair Hfa 8.5 GM Inh (Albuterol Sulfate) 90 Mcg/Act Aer 2 Puff INH Q4HR PRN 108 mcg/actuation Reported Remeron (Mirtazapine) 15 Mg Tab 15 Mg PO DAILY Prilosec (Omeprazole) 20 Mg Cap 20 Mg PO DAILY Zofran (Ondansetron HCl) 8 Mg Tab 8 Mg PO TID PRN Lasix (Furosemide) 20 Mg Tab 10 Mg PO DAILY PRN Potassium Chloride Liq (Potassium Chloride) 20 Meq/15 Ml Soln 20 Meq PO DAILY Zantac (Ranitidine HCl) 300 Mg Tab 300 Mg PO HS Kombiglyze Xr (Saxagliptin-Metformin ER) 2.5-1,000 Mg Tab 1 Tab PO DAILY Aspirin 81 Mg Tabdr 81 Mg PO DAILY Review of Systems Except as stated in HPI: all other systems reviewed are Neg General / Constitutional: Positive: Fever Respiratory: No: Shortness of Breath Gastrointestinal: No: Nausea, Vomiting, Diarrhea Genitourinary: No: Urgency, Frequency, Dysuria Neurologic: Positive: Weakness Physical Exam Narrative GENERAL: Chronically ill-appearing woman. She is very thin. SKIN: Warm and dry. HEAD: Atraumatic. Normocephalic. EYES: Pupils equal and round. ENT: No nasal bleeding or discharge. Mucous membranes pink and moist. NECK: Trachea midline. CARDIOVASCULAR: Regular rate and rhythm. Heart sounds normal. RESPIRATORY: No accessory muscle use. Diffuse coarse rhonchi. GASTROINTESTINAL: Abdomen soft, non-tender, nondistended. MUSCULOSKELETAL: No obvious deformities. No edema. NEUROLOGICAL: Awake and alert. No obvious cranial nerve deficits. Motor grossly within normal limits. Normal speech. PSYCHIATRIC: Appropriate mood and affect; insight and judgment normal. Data Data Last Documented VS Vital Signs Date Time Temp Pulse Resp B/P Pulse Ox O2 Delivery O2 Flow Rate FiO2 01/26/17 13:16 98.6 98 18 116/60 99 Nasal Cannula 2 Orders Electrocardiogram (01/26/17 ) Complete Blood Count With Diff (01/26/17 10:55) Comprehensive Metabolic Panel (01/26/17 10:55) Urinalysis - C+S If Indicated (01/26/17 10:55) Iv Access Insert/Monitor (01/26/17 10:55) Ecg Monitoring (01/26/17 10:55) Oximetry (01/26/17 10:55) Sodium Chlor 0.9% 1000 Ml Inj (Ns 1000 M (01/26/17 10:55) Sodium Chloride 0.9% Flush (Ns Flush) (01/26/17 11:00) Blood Culture (01/26/17 10:55) Chest, Pa & Lat (01/26/17 10:55) Lactic Acid Sepsis Protocol (01/26/17 12:05) Cath For Specimen (01/26/17 12:52) Ceftriaxone Inj (Rocephin Inj) (01/26/17 13:15) Azithromycin Inj (Zithromax Inj) (01/26/17 13:15) Admit Order (Ed Use Only) (01/26/17 15:34) Labs Laboratory Tests Test 01/26/17 01/26/17 01/26/17 10:50 12:10 13:11 White Blood Count 33.9 TH/MM3 Red Blood Count 4.13 MIL/MM3 Hemoglobin 10.6 GM/DL Hematocrit 32.4 % Mean Corpuscular Volume 78.4 FL Mean Corpuscular Hemoglobin 25.7 PG Mean Corpuscular Hemoglobin 32.8 % Concent Red Cell Distribution Width 19.4 % Platelet Count 190 TH/MM3 Mean Platelet Volume 8.3 FL Neutrophils (%) (Auto) 93.3 % Lymphocytes (%) (Auto) 2.4 % Monocytes (%) (Auto) 4.1 % Eosinophils (%) (Auto) 0.1 % Basophils (%) (Auto) 0.1 % Neutrophils # (Auto) 31.7 TH/MM3 Lymphocytes # (Auto) 0.8 TH/MM3 Monocytes # (Auto) 1.4 TH/MM3 Eosinophils # (Auto) 0.0 TH/MM3 Basophils # (Auto) 0.0 TH/MM3 CBC Comment AUTO DIFF Differential Total Cells 100 Counted Neutrophils % (Manual) 71 % Band Neutrophils % 17 % Lymphocytes % 1 % Monocytes % 8 % Neutrophils # (Manual) 30.8 TH/MM3 Metamyelocytes 2 % Myelocytes 1 % Differential Comment FINAL DIFF MANUAL Toxic Granulation 3+ Dohle Bodies PRESENT Platelet Estimate NORMAL Platelet Morphology Comment NORMAL Ovalocytes 1+ Sodium Level 134 MEQ/L Potassium Level 3.7 MEQ/L Chloride Level 101 MEQ/L Carbon Dioxide Level 21.6 MEQ/L Anion Gap 11 MEQ/L Blood Urea Nitrogen 12 MG/DL Creatinine 0.55 MG/DL Estimat Glomerular Filtration 111 ML/MIN Rate Random Glucose 210 MG/DL Calcium Level 7.7 MG/DL Total Bilirubin 0.7 MG/DL Aspartate Amino Transf 19 U/L (AST/SGOT) Alanine Aminotransferase 13 U/L (ALT/SGPT) Alkaline Phosphatase 238 U/L Total Protein 4.4 GM/DL Albumin 1.6 GM/DL Lactic Acid Level 1.7 mmol/L Urine Color YELLOW Urine Turbidity HAZY Urine pH 5.5 Urine Specific [place] 1.015 Urine Protein TRACE mg/dL Urine Glucose (UA) 1000 mg/dL Urine Ketones 10 mg/dL Urine Occult Blood NEG Urine Nitrite NEG Urine Bilirubin NEG Urine Urobilinogen LESS THAN 2.0 MG/DL Urine Leukocyte Esterase NEG Urine RBC 1 /hpf Urine WBC 3 /hpf Urine Amorphous Sediment RARE Urine Bacteria RARE /hpf Urine Hyaline Casts 1 /lpf Urine Granular Casts 1 /lpf Urine Mucus FEW /lpf Microscopic Urinalysis Comment CULT NOT INDICATED MDM Medical Decision Making Medical Screen Exam Complete: Yes Emergency Medical Condition: Yes Medical Record Reviewed: Yes (records reviewed. Medical history includes diabetes, hypertension, COPD and a relatively new diagnosis of lung cancer.) Interpretation(s) EKG shows a sinus rhythm with a ventricular rate of 97. No ST segment elevation or depression. Differential Diagnosis Differential diagnosis of weakness includes but is not limited to infection, CVA , electrolyte disturbance, renal failure, hypoglycemia, UTI, ACS, acute blood loss Narrative Course This is a cancer patient who presents with weakness. There is suggestion of fever although we did not document one here. I am doing a septic workup. CBC & BMP Diagram 01/26/17 10:50 This white blood count is markedly increased from just a couple of days ago. UA is negative for infection Last Impressions Chest X-Ray 01/26/17 1055 Signed Impressions: Service Date/Time: Thursday, January 26, 2017 11:22 - CONCLUSION: 1. There are infiltrate in the right upper lobe and subtle rounded area of infiltrate in the left midlung field. CT imaging would be of benefit for more definitive characterization. Findings are new when compared to previous. Underlying pneumonia is not excluded. Pavan Coon MD The chest x-ray was independently viewed by me. This patient needs to be admitted for treatment of pneumonia. Physician Communication Physician Communication Dr. Red will admit. Diagnosis Primary Impression: Pneumonia Qualified Code: J18.9 - Pneumonia of both lungs due to infectious organism, unspecified part of lung Additional Impressions: Leukocytosis Qualified Code: D72.825 - Bandemia Generalized weakness Admitting Information Admitting Physician Requests: Admit Condition: Joanna Ross MD Jan 26, 2017 11:18
[2017-01-26 11:25] LABS: AUTOMATED NEUTROPHIL # 31.7 TH/MM3 (1.8-7.7); BASOPHIL % 0.1 % (0.0-2.0); EOSINOPHIL % 0.1 % (0.0-4.0); HEMATOCRIT 32.4 % (35.0-46.0); LYMPH % 2.4 % (9.0-44.0); LYMPHOCYTE # 0.8 TH/MM3 (1.0-4.8); MEAN CELL VOLUME 78.4 FL (80.0-100.0); MEAN CORPUSCULAR HEMOGLOBIN 25.7 PG (27.0-34.0); MEAN CORPUSCULAR HGB CONC 32.8 % (32.0-36.0); MONO % 4.1 % (0.0-8.0); NEUT % 93.3 % (16.0-70.0); PLATELET COUNT 190 TH/MM3 (150-450); RED BLOOD COUNT 4.13 MIL/MM3 (4.00-5.30); RED CELL DISTRIBUTION WIDTH 19.4 % (11.6-17.2); WHITE BLOOD COUNT 33.9 TH/MM3 (4.0-11.0)
[2017-01-26 11:28] LABS: HEMO FLAGS AUTO DIFF
--- NOTE | 2017-01-26 11:32 | RADRPT ---
EXAM DATE/TIME: 01/26/2017 11:22 [facility] COMPARISON: CT PULMONARY ANGIOGRAM, December 23, 2016, 15:29. CHEST SINGLE AP, January 21, 2017, 16:58. INDICATIONS : Weakness and can't stand or walk. MEDICAL HISTORY : Carcinoma, lung. Congestive heart failure. Cardiovascular disease. SURGICAL HISTORY : CABG. ENCOUNTER: Initial ACUITY: 2 days PAIN SCORE: 2/10 LOCATION: Bilateral chest FINDINGS: The heart is normal in size. The patient is post median sternotomy. There is an Naqjea-l-Tqwl in good position. There is patchy infiltrate seen in the right upper lobe which is new compared to previous exam. There is minimal fluid within the fissure. These findings are new when compared to prior study. Differential considerations would include an underlying pneumonia or radiation fibrotic change in th is patient with a known lung cancer. There is a subtle area of nonspecific appearing infiltrate in th e left midlung field as well. The visualized bony structures are intact. CONCLUSION: 1. There are infiltrate in the right upper lobe and subtle rounded area of infiltrate in the left mid lung field. CT imaging would be of benefit for more definitive characterization. Findings are new whe n compared to previous. Underlying pneumonia is not excluded. Pavan Coon MD on January 26, 2017 at 11:28 Board Certified Radiologist. This report was verified electronically.
--- NOTE | 2017-01-26 12:03 | EKG ---
Date Performed: 01/26/2017 Time Performed: 10:43:57 PTAGE: 66 years EKG: Sinus rhythm WITH OCCASIONAL SUPRAVENTRICULAR PREMATURE COMPLEXES LEFT ATRIAL ENLARGEMENT NONSPECIFIC ST & T-WAVE ABNORMALITY ABNORMAL ECG PREVIOUS TRACING : 12/23/2016 10.49 DOCTOR: Corky Rouse Interpretating Date/Time 01/26/2017 12:01:58
[2017-01-26 12:06] LABS: ALT (GPT) 13 U/L (10-53); ANION GAP 11 MEQ/L (5-15); AST (GOT) 19 U/L (15-37); BICARBONATE 21.6 MEQ/L (21.0-32.0); BLOOD UREA NITROGEN 12 MG/DL (7-18); CHLORIDE 101 MEQ/L (98-107); GLOMERULAR FILTRATION RATE 111 ML/MIN (>89); POTASSIUM 3.7 MEQ/L (3.5-5.1); SODIUM (NA) 134 MEQ/L (136-145)
[2017-01-26 12:07] LABS: BANDS 17 % (0-6); METAMYELOCYTES 2 % (0-1); MYELOCYTES 1 % (0-0); NEUTROPHIL # MANUAL DIFF 30.8 TH/MM3 (1.8-7.7); POLYS (SEG NEUTROPHILS) 71 % (16-70); WBC DIFF SAMPLE 100
[2017-01-26 12:08] LABS: DOHLE BODIES PRESENT (NONE SEEN); OVALOCYTES 1+ (NORMAL); PLATELET ESTIMATE SMEAR NORMAL (NORMAL); PLATELET MORPHOLOGY NORMAL (NORMAL); SCAN/DIFF FINAL DIFF MANUAL; TOXIC GRANULATION 3+ (NORMAL)
[2017-01-26 12:16] LABS: ALKALINE PHOSPHATASE 238 U/L (45-117); TOTAL BILIRUBIN ADULT 0.7 MG/DL (0.2-1.0)
[2017-01-26] MEDS: SODIUM CHLORIDE 0.9% FLUSH 10 ML FLUSH IVF PRN ×2 (12:30→14:27)
[2017-01-26] MEDS ORDERED: cefTRIAXone INJ 1,000 MG in SODIUM CHLORIDE 0.9% INJ 100 ML IV ONE (13:15)
[2017-01-26] MEDS ORDERED: AZITHROMYCIN INJ 500 MG in SODIUM CHLOR 0.9% 250 ML INJ 250 ML IV ONE (13:15)
[2017-01-26 14:01] LABS: BACTERIA, URINE RARE /hpf; BLOOD, URINE NEG (NEG); COMMENT (UR) CULT NOT INDICATED; CULTURE IF INDICATED CULT NOT INDICATED; GLUCOSE,URINE 1000 mg/dL (NEG); GRANULAR CAST, URINE 1 /lpf; HYALINE CAST, URINE 1 /lpf (RARE); KETONE, URINE 10 mg/dL (NEG); MUCUS URINE FEW /lpf (OCC); NITRITE,URINE NEG (NEG); PH, URINE 5.5 (5.0-8.5); URINE COLOR YELLOW (YELLW/STRAW)
[2017-01-26] MEDS ORDERED: RESP: ALBUTEROL 2.5 MG/IPRATROPIUM 0.5 MG NEB (PRN) INH (16:45)
[2017-01-26] MEDS ORDERED: BENZONATATE 100 MG CAP PO PRN (16:45)
[2017-01-26] MEDS ORDERED: guaiFENesin/CODEINE SYRUP 200 MG/20 MG/10 ML CUP PO PRN (16:45)
[2017-01-26] MEDS ORDERED: GLUCAGON 1 MG/ML VIAL OTHER PRN (17:00)
[2017-01-26] MEDS ORDERED: MAGNESIUM HYDROXIDE SUSP 30 ML CUP PO PRN (17:00)
[2017-01-26] MEDS ORDERED: NALOXONE HCL 0.4 MG/ML AMP IV PRN (17:00)
[2017-01-26] MEDS ORDERED: DEXTROSE 50% IN WATER 50 ML VIAL(D50) IV PUSH PRN (17:00)
[2017-01-26] MEDS ORDERED: SODIUM CHLORIDE 0.9% FLUSH 10 ML FLUSH IV FLUSH PRN (17:00)
[2017-01-26] MEDS ORDERED: SENNOSIDES 8.6 MG TAB PO PRN (17:00)
[2017-01-26] MEDS ORDERED: BISACODYL 10 MG SUPP RECTAL PRN (17:00)
[2017-01-26] MEDS ORDERED: ACETAMINOPHEN 325 MG TAB PO PRN (17:00)
[2017-01-26] MEDS ORDERED: ONDANSETRON HCL 4 MG/2 ML VIAL IVP PRN (17:00)
--- NOTE | 2017-01-26 17:03 | HHI.HP ---
[facility] Service [facility] Primary Care Physician Henry Fleming, DO Admission Diagnosis pneumonia, lung cancer Diagnoses: Chief Complaint: Weakness Travel History International Travel<30 Days: No Contact w/Intl Traveler <30 Da: No Traveled to Known Affected Are: No Sepsis Criteria SIRS Criteria (2 or more): Heart rate over 90, RR > 20 or PaCO2 < 32, WBC > 29518, < 4000 or > 10% bands Sepsis Criteria (SIRS+source): Infect source susp/known Criteria Outcome: Meets SIRS criteria, Meets sepsis criteria History of Present Illness This is a 66-year-old female with a history of lung cancer on chemotherapy, COPD , hypertension, diabetes with this and coronary artery disease. She is well- known to me from recent admission for gastroenteritis. She was discharged 3 days ago improved. Yesterday she developed weakness and productive cough of clear phlegm associated with shortness of breath. No fever, chills, nausea, vomiting and diarrhea. In the emergency department, she was found to have pneumonia and was given IV Rocephin and Zithromax. She meets criteria for sepsis with leukocytosis, tachypnea and tachycardia. Lactic acid 1.7. Review of Systems Constitutional: COMPLAINS OF: Fatigue, DENIES: Diaphoretic episodes, Fever, Weight gain, Weight loss, Chills, Dizziness, Change in appetite, Night Sweats Endocrine: DENIES: Heat/cold intolerance, Polydipsia, Polyuria, Polyphagia Eyes: DENIES: Blurred vision, Diplopia, Vision loss, Photosensitivity Ears, nose, mouth, throat: DENIES: Tinnitus, Vertigo, Throat pain, Hoarseness, Epistaxis, Odynophagia Respiratory: COMPLAINS OF: Cough, Shortness of breath, DENIES: Wheezing, Hemoptysis, Sputum production Cardiovascular: DENIES: Chest pain, Palpitations, Syncope, Dyspnea on Exertion , PND, Lower Extremity Edema, Orthopnea, Claudication Gastrointestinal: DENIES: Abdominal pain, Black stools, Bloody stools, Constipation, Diarrhea, Nausea, Vomiting, Difficulty Swallowing, Anorexia Genitourinary: DENIES: Urinary frequency, Urinary incontinence, Urgency, Hematuria, Dysuria, Nocturia, Vaginal discharge Integumentary: DENIES: Rash Neurologic: DENIES: Headache, Localized weakness, Seizures, Tremor, Poor Balance Psychiatric: DENIES: Anxiety, Confusion, Depression, Hallucinations, Agitation , Suicidal Ideation, Homicidal Ideation, Delusions Past Family Social History Past Medical History As previously mentioned Past Surgical History As previously mentioned. CABG, section, right chest port placement Reported Medications Remeron (Mirtazapine) 15 Mg Tab 15 Mg PO DAILY Prilosec (Omeprazole) 20 Mg Cap 20 Mg PO DAILY Zofran (Ondansetron HCl) 8 Mg Tab 8 Mg PO TID PRN Lasix (Furosemide) 20 Mg Tab 10 Mg PO DAILY PRN Potassium Chloride Liq (Potassium Chloride) 20 Meq/15 Ml Soln 20 Meq PO DAILY Zantac (Ranitidine HCl) 300 Mg Tab 300 Mg PO HS Kombiglyze Xr (Saxagliptin-Metformin ER) 2.5-1,000 Mg Tab 1 Tab PO DAILY Aspirin 81 Mg Tabdr 81 Mg PO DAILY Allergies: Coded Allergies: No Known Allergies (Verified , 01/26/17) Family History No Heart disease Social History She used to smoke. Does not drink Physical Exam Vital Signs Vital Signs Date Time Temp Pulse Resp B/P Pulse Ox O2 Delivery O2 Flow Rate FiO2 01/26/17 16:48 98.5 99 18 142/83 96 Nasal Cannula 2 01/26/17 15:00 98.4 96 18 140/78 96 Nasal Cannula 2 01/26/17 13:16 98.6 98 18 116/60 99 Nasal Cannula 2 01/26/17 11:42 93 18 123/67 99 Nasal Cannula 2 01/26/17 10:39 20 96 Nasal Cannula 2 01/26/17 10:39 98.5 110 20 129/56 95 01/26/17 10:39 113 18 96 Nasal Cannula 2 Physical Exam GENERAL: This is a well-nourished, well-developed patient, in no apparent distress. Appears weak SKIN: No rashes, ecchymoses or lesions. Cool and dry. HEAD: Atraumatic. Normocephalic. No temporal or scalp tenderness. EYES: Pupils equal round and reactive. Extraocular motions intact. No scleral icterus. No injection or drainage. ENT: Nose without bleeding, purulent drainage or septal hematoma. Throat without erythema, tonsillar hypertrophy or exudate. Uvula midline. Airway patent. NECK: Trachea midline. No JVD or lymphadenopathy. Supple, nontender, no meningeal signs. CARDIOVASCULAR: Regular rate and rhythm without murmurs, gallops, or rubs. RESPIRATORY: Bilateral rhonchi worse on the right with decreased breath sounds on the left GASTROINTESTINAL: Abdomen soft, non-tender, nondistended.No guarding. MUSCULOSKELETAL: Extremities without clubbing, cyanosis, or edema. No joint tenderness, effusion, or edema noted. No calf tenderness. Negative Homans sign bilaterally. NEUROLOGICAL: Awake and alert. Cranial nerves II through XII intact. Motor and sensory grossly within normal limits. Five out of 5 muscle strength in all muscle groups. Normal speech. Laboratory Laboratory Tests Test 01/26/17 01/26/17 01/26/17 10:50 12:10 13:11 White Blood Count 33.9 Red Blood Count 4.13 Hemoglobin 10.6 Hematocrit 32.4 Mean Corpuscular Volume 78.4 Mean Corpuscular Hemoglobin 25.7 Mean Corpuscular Hemoglobin 32.8 Concent Red Cell Distribution Width 19.4 Platelet Count 190 Mean Platelet Volume 8.3 Neutrophils (%) (Auto) 93.3 Lymphocytes (%) (Auto) 2.4 Monocytes (%) (Auto) 4.1 Eosinophils (%) (Auto) 0.1 Basophils (%) (Auto) 0.1 Neutrophils # (Auto) 31.7 Lymphocytes # (Auto) 0.8 Monocytes # (Auto) 1.4 Eosinophils # (Auto) 0.0 Basophils # (Auto) 0.0 CBC Comment AUTO DIFF Differential Total Cells 100 Counted Neutrophils % (Manual) 71 Band Neutrophils % 17 Lymphocytes % 1 Monocytes % 8 Neutrophils # (Manual) 30.8 Metamyelocytes 2 Myelocytes 1 Differential Comment FINAL DIFF MANUAL Toxic Granulation 3+ Dohle Bodies PRESENT Platelet Estimate NORMAL Platelet Morphology Comment NORMAL Ovalocytes 1+ Sodium Level 134 Potassium Level 3.7 Chloride Level 101 Carbon Dioxide Level 21.6 Anion Gap 11 Blood Urea Nitrogen 12 Creatinine 0.55 Estimat Glomerular Filtration 111 Rate Random Glucose 210 Calcium Level 7.7 Total Bilirubin 0.7 Aspartate Amino Transf 19 (AST/SGOT) Alanine Aminotransferase 13 (ALT/SGPT) Alkaline Phosphatase 238 Total Protein 4.4 Albumin 1.6 Lactic Acid Level 1.7 Urine Color YELLOW Urine Turbidity HAZY Urine pH 5.5 Urine Specific [place] 1.015 Urine Protein TRACE Urine Glucose (UA) 1000 Urine Ketones 10 Urine Occult Blood NEG Urine Nitrite NEG Urine Bilirubin NEG Urine Urobilinogen LESS THAN 2.0 Urine Leukocyte Esterase NEG Urine RBC 1 Urine WBC 3 Urine Amorphous Sediment RARE Urine Bacteria RARE Urine Hyaline Casts 1 Urine Granular Casts 1 Urine Mucus FEW Microscopic Urinalysis Comment CULT NOT INDICATED Date/Time Procedure Status Source Growth 01/26/17 10:53 Aerobic Blood Culture Received Blood Peripheral Pending 01/26/17 10:53 Anaerobic Blood Culture Received Blood Peripheral Pending Result Diagram: 01/26/17 1050 01/26/17 1050 Imaging EKG tracing interpreted by me with sinus rhythm no significant change from previous Chest x-ray image interpreted by me with infiltrate in the right upper lobe and left midlung Last Impressions Chest X-Ray 01/26/17 1055 Signed Impressions: Service Date/Time: Tuesday, January 26, 2017 11:22 - CONCLUSION: 1. There are infiltrate in the right upper lobe and subtle rounded area of infiltrate in the left midlung field. CT imaging would be of benefit for more definitive characterization. Findings are new when compared to previous. Underlying pneumonia is not excluded. Pavan Coon MD Assessment and Plan Problem List: (1) Pneumonia ICD Code: J18.9 Status: Acute (2) Leukocytosis ICD Code: D72.829 Status: Acute Assessment and Plan This is a 66-year-old female with a history of lung cancer on chemotherapy, COPD , hypertension, diabetes and coronary artery disease. She is well-known to me from recent admission for gastroenteritis. She was discharged 3 days ago improved. 01/25/17, she developed weakness and productive cough of clear phlegm associated with shortness of breath. ic acid 1.7. Sepsis with tachycardia, tachypnea and leukocytosis. Lactic acid 1.7. Follow- up blood cultures Bilateral pneumonia with history of COPD and lung cancer. We'll treat for hospital-acquired pneumonia with recent admission. Patient received Rocephin and Zithromax in the emergency department. Start Zosyn and obtain sputum culture, Legionella and pneumococcal urinary antigen. Obtain ABG Chronic medical conditions of hypertension, diabetes and coronary artery disease. Continue home medications as appropriate hold antihypertensives and hypoglycemics for now. Monitor fingerstick sugars sliding scale coverage DVT prophylaxis with SCD and subcutaneous heparin Code Status Full Discussed Condition With pt Physician Certification 2 Midnight Certification Type: Admission for Inpatient Services Order for Inpatient Services The services are ordered in accordance with Medicare regulations or non- Medicare payer requirements, as applicable. In the case of services not specified as inpatient-only, they are appropriately provided as inpatient services in accordance with the 2-midnight benchmark. Estimated LOS (days): 2 2 days is the estimated time the patient will need to remain in the hospital, assuming treatment plan goals are met and no additional complications. Post-Hospital Plan: Not yet determined Problem Qualifiers (1) Pneumonia: Qualified Code: J18.9 - Pneumonia of both lungs due to infectious organism, unspecified part of lung (2) Leukocytosis: Qualified Code: D72.825 - Bandemia Patrick Aggarwal MD Jan 26, 2017 17:03
[2017-01-26] MEDS: DOCUSATE SODIUM 100 MG CAP PO SCH (17:20)
[2017-01-26] MEDS: NS + KCL 20 MEQ INJ 1,000 ML IV SCH (17:21)
[2017-01-26] MEDS: PIPERACIL-TAZO 4.5 GM PREMIX 100 ML IV SCH (17:21)
[2017-01-26] MEDS: HEPARIN SODIUM - SQ 10,000 UNITS/ML VIAL SQ SCH (17:22)
[2017-01-26 18:29] LABS: BLOOD GAS BASE EXCESS -5.7 mmol/L (-2-2); BLOOD GAS HCO3 18 mmol/L (22-26); BLOOD GAS METHEMOGLOBIN 0.3 % (0-2); BLOOD GAS O2 HGB SATURATION 89 % (90-100); BLOOD GAS OXYGEN CONTENT 12.7 Vol % (12.0-20.0); BLOOD GAS PCO2 28 mmHg (38-42); BLOOD GAS PO2 56 mmHG (61-120); BLOOD GAS TOTAL HGB 10.1 G/DL (12.0-16.0); TEMP CORR TO 98.6
[2017-01-26 18:30] LABS: CRITICAL VALUE YES; DRAW SITE RT BRACHIAL; LITER FLOW 4 L/M; NUMBER OF ARTERIAL PUNCTURES 1; OXYGEN DEVICE NASAL CANNULA; STAT NO; ULNAR PULSE PRESENT
[2017-01-26] MEDS: RESP: ALBUTEROL 2.5 MG/IPRATROPIUM 0.5 MG NEB (SCH) INH (19:32)
[2017-01-26] MEDS: guaiFENesin E.R. 600 MG TAB PO SCH (20:48)
[2017-01-26] MEDS: INSULIN ASPART SUPPLEMENTAL SCALE SQ SCH (20:48)
[2017-01-26] MEDS: SODIUM CHLORIDE 0.9% FLUSH 10 ML FLUSH IV FLUSH SCH (20:48)
--- NOTE | 2017-01-26 23:16 | MB ---
cc: CHRIS BERNARDO DATE OF CONSULTATION 01/26/[address] Aggarwal REASON FOR CONSULTATION Evaluation of pneumonia. HISTORY OF PRESENT ILLNESS Ms. 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 She was not considered a candidate for concurrent chemo and radiation therapy. She is undergoing chemotherapy by Dr. Amber Stewart. Her last chemotherapy was about 3 weeks ago. She comes to the hospital with worsening of her shortness of breath. She has cough and congestion, feels very weak to the extent that she cannot lift herself from the commode. Because of worsening of symptoms she came to the hospital. She had a workup done. Her CBC showed WBC count 33.9, hemoglobin 10.6, hematocrit 32.4, MCV 78, platelet count 190. Her sodium 134, potassium 3.7, chloride 101, CO2 21, BUN 12, creatinine 0.55. Her blood gas on 4 liters nasal cannula pH 7.42, pCO2 28, pO2 56, bicarb 18. She had a chest x-ray done which shows that she has infiltrate in the right upper lobe and rounded infiltrate in the left mid lung field. PAST MEDICAL HISTORY Her past medical history is significant for history of CA of the lung. She is on chemotherapy. COPD, nicotine use, coronary artery disease, status post CABG. Hypertension, diabetes mellitus. MEDICATIONS She is currently takin. Aspirin 81 milligrams. 2. Mirtazapine 15 milligrams. 3. Protonix 20 milligrams. 4. Decadron 4 milligrams a day. 5. Mucinex 600 milligrams twice a day. 6. Albuterol/Atrovent nebulizer treatment. 7. Zosyn q. 6 hours. 8. Heparin 5000 q. 12-hour. 9. Tessalon 200 milligrams q. 8 hours. ALLERGIES NO KNOWN DRUG ALLERGIES. SOCIAL HISTORY She is single. She has a long history of smoking which she claims she recently quit. No alcohol use. 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 FAMILY HISTORY She has three children. She lives alone. REVIEW OF SYSTEMS She has lost weight. Feels very feet, particularly in her legs. No headache or dizziness. No seizure, stroke or epilepsy. PHYSICAL EXAMINATION GENERAL: Frail elderly female mild to moderate short of breath. VITAL SIGNS: Blood pressure 119/68, heart rate 99, respirations 20, temperature 98. HEENT: Examination pupils are equal and reactive. Oral mucosa, nasal mucosa normal. NECK: Supple. JVP not raised. CHEST: Air entry equal bilaterally. She has scattered rales. CARDIOVASCULAR: S1, S2 normal. ABDOMEN: Soft. Nondistended. Bowel sounds are present. IMPRESSION 1. Bilat pneumonia. 2. Leukocytosis. 3. CA of the lung. She is on chemotherapy. 4. COPD. 5. History of nicotine use. 6. Coronary artery disease. 7. Diabetes mellitus. PLAN I discussed with patient her latest CT scan of the chest without contrast. Will give her antibiotic . Check her cultures. Continue aerosol treatment, Protonix for GI prophylaxis and heparin for DVT prophylaxis. Further treatment will depend on the course in the hospital. Thank you Dr. Aggarwal for this consultation. MD GERI [facility]/ALTHEA /8:59 PM /10:44 PM [facility]
[2017-01-27] VITALS (9 sets, daily range): BP systolic 98–136; BP diastolic 53–87; PULSE 60–135; RESP 16–23; TEMP 97–99.6; O2SAT 90–100
[2017-01-27] MEDS: PIPERACIL-TAZO 4.5 GM PREMIX 100 ML IV SCH ×4 (00:54→17:51)
[2017-01-27] MEDS: DOCUSATE SODIUM 100 MG CAP PO SCH ×2 (05:00→17:54)
[2017-01-27] MEDS: HEPARIN SODIUM - SQ 10,000 UNITS/ML VIAL SQ SCH ×2 (05:15→17:51)
[2017-01-27 06:15] LABS: AUTOMATED NEUTROPHIL # 24.4 TH/MM3 (1.8-7.7); BASOPHIL # 0.1 TH/MM3 (0-0.2); BASOPHIL % 0.2 % (0.0-2.0); HEMATOCRIT 29.2 % (35.0-46.0); LYMPHOCYTE # 1.4 TH/MM3 (1.0-4.8); MEAN CELL VOLUME 79.8 FL (80.0-100.0); MEAN CORPUSCULAR HEMOGLOBIN 25.3 PG (27.0-34.0); MEAN CORPUSCULAR HGB CONC 31.7 % (32.0-36.0); MONO % 5.3 % (0.0-8.0); NEUT % 89.5 % (16.0-70.0); PLATELET COUNT 165 TH/MM3 (150-450); RED BLOOD COUNT 3.66 MIL/MM3 (4.00-5.30); RED CELL DISTRIBUTION WIDTH 19.7 % (11.6-17.2); WHITE BLOOD COUNT 27.3 TH/MM3 (4.0-11.0)
[2017-01-27 06:17] LABS: HEMO FLAGS AUTO DIFF
[2017-01-27] MEDS: INSULIN ASPART SUPPLEMENTAL SCALE SQ SCH ×4 (06:25→20:38)
[2017-01-27 06:50] LABS: BICARBONATE 19.4 MEQ/L (21.0-32.0); POTASSIUM 3.7 MEQ/L (3.5-5.1)
[2017-01-27 07:15] LABS: CALCIUM-PROTEIN CORRECTED 9.4 MG/DL (8.5-10.1)
[2017-01-27 07:26] LABS: BANDS 21 % (0-6); MYELOCYTES 1 % (0-0); PLATELET ESTIMATE SMEAR NORMAL (NORMAL); PLATELET MORPHOLOGY NORMAL (NORMAL); POLYS (SEG NEUTROPHILS) 66 % (16-70); SCAN/DIFF FINAL DIFF MANUAL; TOXIC GRANULATION 2+ (NORMAL); WBC DIFF SAMPLE 100
[2017-01-27 07:27] LABS: ACANTHOCYTES 1+ (NORMAL)
[2017-01-27] MEDS: RESP: ALBUTEROL 2.5 MG/IPRATROPIUM 0.5 MG NEB (SCH) INH ×4 (07:56→19:46)
[2017-01-27] MEDS ORDERED: DEXAMETHASONE 4 MG TAB PO SCH (09:00)
[2017-01-27] MEDS: SODIUM CHLORIDE 0.9% FLUSH 10 ML FLUSH IV FLUSH SCH ×2 (09:05→20:36)
[2017-01-27] MEDS: ASPIRIN EC 81 MG TABEC PO SCH (09:05)
[2017-01-27] MEDS: guaiFENesin E.R. 600 MG TAB PO SCH ×2 (09:05→20:38)
[2017-01-27] MEDS: MIRTAZAPINE 15 MG TAB PO SCH (09:05)
[2017-01-27] MEDS: PANTOPRAZOLE SOD 20 MG DELAYED RELEASE TAB PO SCH (09:05)
--- NOTE | 2017-01-27 09:18 | RADRPT ---
EXAM DATE/TIME: 01/27/2017 08:09 [place] COMPARISON: CT PULMONARY ANGIOGRAM, December 23, 2016, 15:29. CHEST PA & LAT, January 26, 2017, 11:22. INDICATIONS : Evaluate infiltrates RADIATION DOSE: 3.34 CTDIvol (mGy) MEDICAL HISTORY : Hypertension. Congestive heart failure. Carcinoma, lung. Diabetes SURGICAL HISTORY : CABG Hysterectomy. ENCOUNTER: Initial ACUITY: 3 days PAIN SCALE: 0/10 LOCATION: chest TECHNIQUE: Volumetric scanning of the chest was performed. Using automated exposure control and adjustment of t he mA and/or kV according to patient size, radiation dose was kept as low as reasonably achievable to obtain optimal diagnostic quality images. FINDINGS: LUNGS: There are multifocal bilateral areas of consolidation, segmental posterior segment right upper lobe a nd multisegmental in the left lower lobe. There are also numerous small areas of nodular-like infilt rate which measure up to 12 mm in size scattered throughout the left lower lung, right upper lung and 2 focal areas of consolidation measuring 2.5 cm located in the right lower lung. All these findings are new when compared to prior CT pulmonary angiogram on 12/23/16. PLEURAE: There is a small right pleural effusion which measures up to 1.3 cm, similar in size to prior CT. MEDIASTINUM: Prior CT had demonstrated a prominently enlarged subcarinal lymph node measuring 3.6 x 3.0 cm. The s ubcarinal node on today's exam measures 1.6 x 2.7 cm. Evidence of prior median sternotomy and CABG. AXILLAE: Within normal limits. No lymphadenopathy. MUSCULOSKELETAL: Within normal limits for patient age. MISCELLANEOUS: Knounu-j-Ioex catheter tip at cavoatrial junction. CONCLUSION: Multifocal varying size areas of infiltrate throughout both lungs, the largest located in the left lo wer lobe, lingula and posterior segment right upper lobe. These infiltrates appear to have progresse d significantly since chest x-ray yesterday and are new finding when compared to prior CT on 12/23/16. Stable small right pleural effusion. Dionte Valverde MD on January 27, 2017 at 9:10 Board Certified Radiologist. This report was verified electronically.
--- NOTE | 2017-01-27 13:48 | HHI.PR ---
Subjective Remarks Follow-up sepsis and pneumonia. Complaining of difficulty swallowing states she is choking, coughs whenever she eats or drinks. Denies odynophagia. She is not sure if she is taking Decadron. Discussed with RN and patient's oncologist. Objective Vitals Vital Signs Date Time Temp Pulse Resp B/P Pulse Ox O2 Delivery O2 Flow Rate FiO2 01/27/17 10:20 90 Nasal Cannula 6.00 01/27/17 04:35 98.2 92 23 136/61 96 01/27/17 00:14 99.6 60 21 99/53 96 01/26/17 20:00 98.6 103 20 95 01/26/17 19:37 92 Nasal Cannula 6.00 01/26/17 18:25 99 20 119/68 96 Room Air 01/26/17 18:16 95 Nasal Cannula 4.00 01/26/17 17:38 98.4 99 20 148/72 95 Nasal Cannula 3 01/26/17 16:48 98.5 99 18 142/83 96 Nasal Cannula 2 01/26/17 15:00 98.4 96 18 140/78 96 Nasal Cannula 2 I/O 01/26/17 01/26/17 01/26/17 01/27/17 01/27/17 01/27/17 07:00 15:00 23:00 07:00 15:00 23:00 Intake Total 1087 ml 360 ml Output Total 1 ml Balance 1086 ml 360 ml Intake Oral 520 ml 360 ml IV Total 567 ml Output Urine Total 1 ml # Voids 2 # Bowel Movements 0 0 Result Diagram: 01/27/17 0535 01/27/17 0535 Imaging Last Impressions Chest CT 01/27/17 0000 Signed Impressions: Service Date/Time: January 08:09 - CONCLUSION: Multifocal varying size areas of infiltrate throughout both lungs, the largest located in the left lower lobe, lingula and posterior segment right upper lobe. These infiltrates appear to have progressed significantly since chest x-ray yesterday and are new finding when compared to prior CT on 12/23/16. Stable small right pleural effusion. Dionte Valverde MD Chest X-Ray 01/26/17 1055 Signed Impressions: Service Date/Time: Thursday, January 26, 2017 11:22 - CONCLUSION: 1. There are infiltrate in the right upper lobe and subtle rounded area of infiltrate in the left midlung field. CT imaging would be of benefit for more definitive characterization. Findings are new when compared to previous. Underlying pneumonia is not excluded. Pavan Coon MD Objective Remarks GENERAL: This is a well-nourished, well-developed patient, in no apparent distress. Appears weak SKIN: No rashes, ecchymoses or lesions. Cool and dry. HEAD: Atraumatic. Normocephalic. No temporal or scalp tenderness. EYES: Pupils equal round and reactive. Extraocular motions intact. No scleral icterus. No injection or drainage. ENT: Nose without bleeding, purulent drainage or septal hematoma. Throat without erythema, tonsillar hypertrophy or exudate. Uvula midline. Airway patent. NECK: Trachea midline. No JVD or lymphadenopathy. Supple, nontender, no meningeal signs. CARDIOVASCULAR: Regular rate and rhythm without murmurs, gallops, or rubs. RESPIRATORY: Rhonchi on the left lung with decreased breath sounds on the right GASTROINTESTINAL: Abdomen soft, non-tender, nondistended.No guarding. MUSCULOSKELETAL: Extremities without clubbing, cyanosis, or edema. No joint tenderness, effusion, or edema noted. No calf tenderness. Negative Homans sign bilaterally. NEUROLOGICAL: Awake and alert. Cranial nerves II through XII intact. Motor and sensory grossly within normal limits. Five out of 5 muscle strength in all muscle groups. Normal speech. A/P Problem List: (1) Pneumonia ICD Code: J18.9 Status: Acute (2) Leukocytosis ICD Code: D72.829 Status: Acute Assessment and Plan This is a 66-year-old female with a history of lung cancer on chemotherapy, COPD , hypertension, diabetes and coronary artery disease. She is well-known to me from recent admission for gastroenteritis. She was discharged 3 days ago improved. 01/25/17, she developed weakness and productive cough of clear phlegm associated with shortness of breath. Lactic acid 1.7. Sepsis with tachycardia, tachypnea and leukocytosis. Lactic acid 1.7. Follow- up blood cultures negative to date Bilateral pneumonia with history of COPD and lung cancer. She has hypoxia. We' ll treat for hospital-acquired pneumonia with recent admission. Which are positive with Pseudomonas. Patient received Rocephin and Zithromax in the emergency department. Continue Zosyn. Negative Legionella and pneumococcal urinary antigen. Dysphagia. Obtain swallowing evaluation. Continue PPI. Consider GI consult. Chronic medical conditions of hypertension, diabetes and coronary artery disease. Continue home medications as appropriate hold antihypertensives and hypoglycemics for now. Monitor fingerstick sugars sliding scale coverage DVT prophylaxis with SCD and subcutaneous heparin Discharge Planning Not stable for discharge Problem Qualifiers (1) Pneumonia: Qualified Code: J18.9 - Pneumonia of both lungs due to infectious organism, unspecified part of lung (2) Leukocytosis: Qualified Code: D72.825 - Bandemia Patrick Aggarwal MD Jan 27, 2017 13:47
[2017-01-27] MEDS: NS + KCL 20 MEQ INJ 1,000 ML IV SCH (16:02)
--- NOTE | 2017-01-27 20:46 | HHI.PR ---
Subjective Remarks 66 YOWF with ca lung, Pn Feels weak Has cough with liquids No fever CT chest Bilat Pn Objective Vital Signs Vital Signs Date Time Temp Pulse Resp B/P Pulse Ox O2 Delivery O2 Flow Rate FiO2 01/27/17 19:47 93 Nasal Cannula 4.00 01/27/17 16:00 97.7 87 22 107/55 94 01/27/17 12:00 98.0 86 22 111/56 98 01/27/17 10:20 90 Nasal Cannula 6.00 01/27/17 08:00 97.7 75 22 111/56 100 01/27/17 04:35 98.2 92 23 136/61 96 01/27/17 00:14 99.6 60 21 99/53 96 I/O 01/26/17 01/26/17 01/26/17 01/27/17 01/27/17 01/27/17 07:00 15:00 23:00 07:00 15:00 23:00 Intake Total 1087 ml 360 ml 240 ml 1309 ml Output Total 1 ml Balance 1086 ml 360 ml 240 ml 1309 ml Intake Oral 520 ml 360 ml 240 ml IV Total 567 ml 1309 ml Output Urine Total 1 ml # Voids 2 2 # Bowel Movements 0 0 Result Diagram: 01/27/17 0535 01/27/17 0535 Objective Remarks GENERAL: Frail elderly female, mild sob SKIN: Warm and dry. HEAD: Normocephalic. EYES: No scleral icterus. No injection or drainage. NECK: Supple, trachea midline. No JVD or lymphadenopathy. CARDIOVASCULAR: Regular rate and rhythm without murmurs, gallops, or rubs. RESPIRATORY: Breath sounds equal bilaterally. No accessory muscle use. Bilat rhonchi GASTROINTESTINAL: Abdomen soft, non-tender, nondistended. MUSCULOSKELETAL: No cyanosis, or edema. BACK: Nontender without obvious deformity. No CVA tenderness. A/P Assessment and Plan Bilat Pneumonia ?Aspiration COPD Leucocytosis ca lung PLAN: Cont Abx Aerosol nebs Supplement 02 NPO TIN POT OPERATOR Fermin Crook MD Jan 27, 2017 20:46
[2017-01-28] VITALS (8 sets, daily range): BP systolic 100–146; BP diastolic 54–93; PULSE 18–107; RESP 16–19; TEMP 97.2–97.4; O2SAT 92–99
[2017-01-28] MEDS: PIPERACIL-TAZO 4.5 GM PREMIX 100 ML IV SCH ×4 (00:17→17:05)
[2017-01-28] MEDS: DOCUSATE SODIUM 100 MG CAP PO SCH ×2 (04:36→16:10)
[2017-01-28] MEDS ORDERED: DILTIAZEM INJ 125 MG in SODIUM CHLORIDE 0.9% INJ 100 ML IV SCH (04:45)
[2017-01-28] MEDS: HEPARIN SODIUM - SQ 10,000 UNITS/ML VIAL SQ SCH ×2 (05:33→16:12)
[2017-01-28 05:42] LABS: AUTOMATED NEUTROPHIL # 20.9 TH/MM3 (1.8-7.7); BASOPHIL % 0.1 % (0.0-2.0); EOSINOPHIL % 0.1 % (0.0-4.0); HEMATOCRIT 29.9 % (35.0-46.0); LYMPH % 3.1 % (9.0-44.0); LYMPHOCYTE # 0.7 TH/MM3 (1.0-4.8); MEAN CELL VOLUME 79.2 FL (80.0-100.0); MEAN CORPUSCULAR HEMOGLOBIN 25.1 PG (27.0-34.0); MEAN CORPUSCULAR HGB CONC 31.7 % (32.0-36.0); MONO % 4.2 % (0.0-8.0); NEUT % 92.5 % (16.0-70.0); PLATELET COUNT 189 TH/MM3 (150-450); RED BLOOD COUNT 3.78 MIL/MM3 (4.00-5.30); RED CELL DISTRIBUTION WIDTH 20.1 % (11.6-17.2); WHITE BLOOD COUNT 22.6 TH/MM3 (4.0-11.0)
[2017-01-28 05:50] LABS: HEMO FLAGS AUTO DIFF
[2017-01-28 06:09] LABS: ANION GAP 11 MEQ/L (5-15); BICARBONATE 21.5 MEQ/L (21.0-32.0); BLOOD UREA NITROGEN 15 MG/DL (7-18); CHLORIDE 109 MEQ/L (98-107); GLOMERULAR FILTRATION RATE 90 ML/MIN (>89); MAGNESIUM 1.3 MG/DL (1.5-2.5); POTASSIUM 3.9 MEQ/L (3.5-5.1); SODIUM (NA) 141 MEQ/L (136-145)
[2017-01-28 06:24] LABS: BANDS 1 % (0-6); METAMYELOCYTES 1 % (0-1); NEUTROPHIL # MANUAL DIFF 20.8 TH/MM3 (1.8-7.7); POLYS (SEG NEUTROPHILS) 90 % (16-70); SCAN/DIFF FINAL DIFF MANUAL; WBC DIFF SAMPLE 100
[2017-01-28 06:26] LABS: PLATELET ESTIMATE SMEAR NORMAL (NORMAL); PLATELET MORPHOLOGY NORMAL (NORMAL); TOXIC GRANULATION 2+ (NORMAL)
[2017-01-28] MEDS ORDERED: MAGNESIUM SULFATE 1 GM PREMIX 100 ML IV ONE (06:30)
[2017-01-28] MEDS: INSULIN ASPART SUPPLEMENTAL SCALE SQ SCH ×4 (07:00→22:23)
[2017-01-28] MEDS: RESP: ALBUTEROL 2.5 MG/IPRATROPIUM 0.5 MG NEB (SCH) INH ×4 (07:57→19:32)
[2017-01-28] MEDS ORDERED: DIGOXIN 0.5 MG/2 ML VIAL IVS ONE (08:00)
[2017-01-28] MEDS: NS + KCL 20 MEQ INJ 1,000 ML IV SCH ×2 (08:17→16:12)
[2017-01-28] MEDS: guaiFENesin E.R. 600 MG TAB PO SCH ×2 (08:18→22:05)
[2017-01-28] MEDS: SODIUM CHLORIDE 0.9% FLUSH 10 ML FLUSH IV FLUSH SCH ×2 (08:18→22:05)
[2017-01-28] MEDS: MIRTAZAPINE 15 MG TAB PO SCH (08:18)
[2017-01-28] MEDS: PANTOPRAZOLE SOD 20 MG DELAYED RELEASE TAB PO SCH (08:19)
[2017-01-28] MEDS: ASPIRIN EC 81 MG TABEC PO SCH (08:19)
[2017-01-28] MEDS: DILTIAZEM HCL 30 MG TAB PO SCH ×4 (08:20→22:05)
[2017-01-28] MEDS ORDERED: POTASSIUM CHLORIDE 10 MEQ CONTROLLED RELEASE TAB PO ONE (09:00)
[2017-01-28] MEDS ORDERED: SAXAGLIPTIN METFORMIN PO SCH (09:00)
[2017-01-28] MEDS: MAGNESIUM OXIDE 400 MG TAB PO SCH ×2 (09:04→22:04)
--- NOTE | 2017-01-28 10:04 | HHI.PR ---
Subjective Remarks F/U Fib RVR on cardizem drip. Developed RVR this am no cp and palpitations. No hx of fib but was on coumadin before reason not sure. Cards started dig and cardizem po dw RN Objective Vitals Vital Signs Date Time Temp Pulse Resp B/P Pulse Ox O2 Delivery O2 Flow Rate FiO2 01/28/17 08:00 97.3 107 18 100/59 99 01/28/17 07:58 97 Nasal Cannula 2.00 01/28/17 04:14 97.3 106 16 102/59 97 01/27/17 23:48 97.0 114 16 100/87 99 01/27/17 20:38 98.0 135 16 98/55 95 01/27/17 19:47 93 Nasal Cannula 4.00 01/27/17 16:00 97.7 87 22 107/55 94 01/27/17 12:00 98.0 86 22 111/56 98 01/27/17 10:20 90 Nasal Cannula 6.00 I/O 01/27/17 01/27/17 01/27/17 01/28/17 01/28/17 01/28/17 07:00 15:00 23:00 07:00 15:00 23:00 Intake Total 360 ml 240 ml 1680 ml 0 ml Output Total 350 ml 0 ml Balance 360 ml 240 ml 1330 ml 0 ml Intake Oral 360 ml 240 ml 0 ml 0 ml IV Total 1680 ml Output Urine Total 350 ml 0 ml # Voids 2 2 # Bowel Movements 0 0 0 Result Diagram: 01/28/17 0527 01/28/17 0527 Imaging Last Impressions Chest CT 01/27/17 0000 Signed Impressions: Service Date/Time: January 08:09 - CONCLUSION: Multifocal varying size areas of infiltrate throughout both lungs, the largest located in the left lower lobe, lingula and posterior segment right upper lobe. These infiltrates appear to have progressed significantly since chest x-ray yesterday and are new finding when compared to prior CT on 12/23/16. Stable small right pleural effusion. Dionte Valverde MD Chest X-Ray 01/26/17 1055 Signed Impressions: Service Date/Time: Thursday, January 26, 2017 11:22 - CONCLUSION: 1. There are infiltrate in the right upper lobe and subtle rounded area of infiltrate in the left midlung field. CT imaging would be of benefit for more definitive characterization. Findings are new when compared to previous. Underlying pneumonia is not excluded. Pavan Coon MD Objective Remarks GENERAL: This is a well-nourished, well-developed patient, in no apparent distress. Appears weak SKIN: No rashes, ecchymoses or lesions. Cool and dry. HEAD: Atraumatic. Normocephalic. No temporal or scalp tenderness. EYES: Pupils equal round and reactive. Extraocular motions intact. No scleral icterus. No injection or drainage. ENT: Nose without bleeding, purulent drainage or septal hematoma. Throat without erythema, tonsillar hypertrophy or exudate. Uvula midline. Airway patent. NECK: Trachea midline. No JVD or lymphadenopathy. Supple, nontender, no meningeal signs. CARDIOVASCULAR: Irregularly irregular without murmurs, gallops, or rubs. RESPIRATORY: Rhonchi on the left lung with decreased breath sounds on the right GASTROINTESTINAL: Abdomen soft, non-tender, nondistended.No guarding. MUSCULOSKELETAL: Extremities without clubbing, cyanosis, or edema. No joint tenderness, effusion, or edema noted. No calf tenderness. Negative Homans sign bilaterally. NEUROLOGICAL: Awake and alert. Cranial nerves II through XII intact. Motor and sensory grossly within normal limits. Five out of 5 muscle strength in all muscle groups. Normal speech. Procedures None A/P Problem List: (1) Pneumonia ICD Code: J18.9 Status: Acute (2) Leukocytosis ICD Code: D72.829 Status: Acute Assessment and Plan This is a 66-year-old female with a history of lung cancer on chemotherapy, COPD , hypertension, diabetes and coronary artery disease. She is well-known to me from recent admission for gastroenteritis. She was discharged 3 days ago improved. 01/25/17, she developed weakness and productive cough of clear phlegm associated with shortness of breath. Lactic acid 1.7. Sepsis with tachycardia, tachypnea and leukocytosis. Lactic acid 1.7. Follow- up blood cultures / with GNR Bilateral pneumonia with history of COPD and lung cancer. She has hypoxia. We' ll treat for hospital-acquired pneumonia with recent admission. Cx with Pseudomonas. Patient received Rocephin and Zithromax in the emergency department. Continue Zosyn. Negative Legionella and pneumococcal urinary antigen. Dysphagia. St recommends full liquid with honey thick fluids. Continue PPI. Consider GI consult. New onset Fib. Hemodynamically sable wean and dc drip ct dig, CCB and ASA. Hi [id number] score of 5. Anticoagulation dw pt she wants to talk to cardiology first. Recommended novel agents. Dc scheduled nebs Low TSH but not suppressed, FT4 WNL. Monitor. DM. Hyperglycemic. Restart home med Saxagliptin/Metformin. Monitor fingerstick sugars sliding scale coverage Chronic medical conditions of hypertension and coronary artery disease. Continue home medications as appropriate hold antihypertensives and hypoglycemics for now. DVT prophylaxis with SCD and subcutaneous heparin Discharge Planning Not stable for discharge Problem Qualifiers (1) Pneumonia: Qualified Code: J18.9 - Pneumonia of both lungs due to infectious organism, unspecified part of lung (2) Leukocytosis: Qualified Code: D72.825 - Bandemia Patrick Aggarwal MD Jan 28, 2017 10:04
--- NOTE | 2017-01-28 12:17 | EC ---
Study Study Date:01/28/2017 STUDY CONCLUSIONS SUMMARY - Left ventricle: The cavity size was normal. Wall thickness was normal. Systolic function was normal. The estimated ejection fraction was in the range of 55% to 60%. Wall motion was normal; there were no regional wall motion abnormalities. - Mitral valve: Mild to moderate regurgitation. If LV function is below 40, please consider prescribing an ACEI or ARB or document rationale for non-use. PROCEDURE DATA STUDY STATUS: Elective. Procedure: Transthoracic echocardiography. Image quality was good. Scanning was performed from the parasternal, apical, and subcostal acoustic windows. Study completion: The patient tolerated the procedure well. Transthoracic echocardiography. M-mode, complete 2D, complete spectral Doppler, and color Doppler. Patient status: Inpatient. CARDIAC ANATOMY LEFT VENTRICLE: The cavity size was normal. Wall thickness was normal. Systolic function was normal. The estimated ejection fraction was in the range of 55% to 60%. Wall motion was normal; there were no regional wall motion abnormalities. AORTIC VALVE: Trileaflet; normal thickness, mildly calcified leaflets. Doppler: Transvalvular velocity was within the normal range. There was no stenosis. No regurgitation. AORTA: Aortic root: The aortic root was normal in size. MITRAL VALVE: Structurally normal valve. Doppler: Transvalvular velocity was within the normal range. There was no evidence for stenosis. Mild to moderate regurgitation. LEFT ATRIUM: The atrium was normal in size. RIGHT VENTRICLE: The cavity size was normal. Wall thickness was normal. PULMONIC VALVE: Doppler: Transvalvular velocity was within the normal range. There was no evidence for stenosis. No regurgitation. TRICUSPID VALVE: Structurally normal valve. Doppler: Transvalvular velocity was within the normal range. No regurgitation. PULMONARY ARTERY: The main pulmonary artery was normal-sized. Systolic pressure was within the normal range. RIGHT ATRIUM: The atrium was normal in size. PERICARDIUM: There was no pericardial effusion. SYSTEMIC VEINS: Inferior vena cava: The vessel was normal in size. Prepared and signed by [place] [id number]
--- NOTE | 2017-01-28 13:07 | MB ---
cc: JIN LAKHANI MD DATE OF CONSULTATION: 01/28/2017. REASON FOR CONSULTATION: Atrial fibrillation with rapid ventricular response. HISTORY OF PRESENT ILLNESS: The patient is a very pleasant though unfortunate 66-year-old woman with a relatively recent diagnosis of lung cancer who has been undergoing chemotherapy. She presented with weakness and sputum production and was found to have pneumonia. Additionally, she was found to be in a mildly rapid atrial fibrillation and thus we were consulted. Currently she is on a Cardizem drip with relatively reasonable heart rates. She denies any specific cardiac symptoms such as chest pain or shortness of breath beyond her baseline. No lightheadedness, dizziness or syncope. PAST MEDICAL HISTORY: 1. Coronary artery disease. 2. Peripheral artery disease. 3. Chronic tobacco use. 4. Anxiety. 5. Diabetes. 6. Hypertension. 7. 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 8. Paroxysmal atrial fibrillation. CURRENT MEDICATIONS: 1. Cardizem drip. 2. Aspirin. 3. Remeron. 4. Guaifenesin. 5. Zosyn. ALLERGIES: NO KNOWN DRUG ALLERGIES. PHYSICAL EXAMINATION: VITAL SIGNS: Afebrile, pulse 106, respiratory rate 16, blood pressure 102/59 satting 97 on four liters. GENERAL: A pleasant cachectic chronically ill-appearing woman. NECK: No jugular venous distention. LUNGS: Decreased breath sounds. CARDIOVASCULAR: Irregularly irregular rhythm with a mildly rapid rate. No murmurs appreciated. ABDOMEN: Benign. EXTREMITIES: No edema. LABORATORY DATA: White count 22.6, hematocrit 29.9, platelets 189,000. Sodium 141, potassium 3.9, chloride 109, bicarb 21.5, BUN of 15, creatinine 0.66, glucose 238. Cardiac enzymes negative x1. EKGS: EKG shows atrial fibrillation at a rate of 124 with nonspecific S-T changes. IMPRESSION: Atrial fibrillation. Patient with known paroxysmal atrial fibrillation is currently in atrial fibrillation likely triggered by her ongoing pulmonary process. She is clearly not a candidate for anticoagulation given her invasive cancer and history of hemoptysis. I will try adding low-dose oral Cardizem with digoxin given her blood pressure is fairly low and she will likely not tolerate very high doses of Cardizem. We can to try to wean off the Cardizem drip once her oral regimen has begun. My partner will round for the weekend. Please call with any questions. Thank you again for the opportunity to participate in this patient's care. MD JAIME House/ALONSO /7:42 AM /12:47 PM
[2017-01-28] MEDS: DIGOXIN 0.5 MG/2 ML VIAL IVS SCH ×2 (15:05→22:05)
--- NOTE | 2017-01-28 19:27 | HHI.PR ---
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 Objective Vital Signs Vital Signs Date Time Temp Pulse Resp B/P Pulse Ox O2 Delivery O2 Flow Rate FiO2 01/28/17 17:05 100 146/93 01/28/17 16:00 97.3 18 18 107/54 92 01/28/17 12:00 97.2 79 19 115/66 96 01/28/17 08:00 97.3 107 18 100/59 99 01/28/17 07:58 97 Nasal Cannula 2.00 01/28/17 04:14 97.3 106 16 102/59 97 01/27/17 23:48 97.0 114 16 100/87 99 01/27/17 20:38 98.0 135 16 98/55 95 01/27/17 19:47 93 Nasal Cannula 4.00 I/O 01/27/17 01/27/17 01/27/17 01/28/17 01/28/17 01/28/17 07:00 15:00 23:00 07:00 15:00 23:00 Intake Total 360 ml 240 ml 1680 ml 0 ml 200 ml Output Total 350 ml 0 ml 350 ml Balance 360 ml 240 ml 1330 ml 0 ml -150 ml Intake Oral 360 ml 240 ml 0 ml 0 ml 200 ml IV Total 1680 ml Output Urine Total 350 ml 0 ml 350 ml # Voids 2 2 # Bowel Movements 0 0 0 0 Result Diagram: 01/28/17 0527 01/28/17526 Objective Remarks GENERAL: Frail elderly female, mild sob SKIN: Warm and dry. HEAD: Normocephalic. EYES: No scleral icterus. No injection or drainage. NECK: Supple, trachea midline. No JVD or lymphadenopathy. CARDIOVASCULAR: Regular rate and rhythm without murmurs, gallops, or rubs. RESPIRATORY: Breath sounds equal bilaterally. No accessory muscle use. Bilat rhonchi GASTROINTESTINAL: Abdomen soft, non-tender, nondistended. MUSCULOSKELETAL: No cyanosis, or edema. BACK: Nontender without obvious deformity. No CVA tenderness. A/P Assessment and Plan Bilat Pneumonia ?Aspiration COPD Leucocytosis ca lung PLAN: Cont Abx Aerosol nebs Supplement 02 DW pt and RN at Advised to stick with honey thickened liq to avoid aspiration Fermin Walls MD Jan 28, 2017 19:27
--- NOTE | 2017-01-28 21:49 | EKG ---
Date Performed: 01/28/2017 Time Performed: 04:22:20 PTAGE: 66 years EKG: Atrial fibrillation with rapid ventricular response. Inferior/lateral T wave changes are no nspecific Low QRS voltages in limb leads When compared to previous tracing, patient is now in atrial Fibrillation. Abnormal ECG PREVIOUS TRACING : 01/26/2017 10.43.57 DOCTOR: Matheus Nelson Interpretating Date/Time 01/28/2017 21:47:51
[2017-01-29] VITALS (9 sets, daily range): BP systolic 121–131; BP diastolic 59–74; PULSE 63–85; RESP 18; TEMP 97.4–97.9; O2SAT 93–98
[2017-01-29] MEDS: PIPERACIL-TAZO 4.5 GM PREMIX 100 ML IV SCH ×4 (00:43→17:59)
[2017-01-29] MEDS: DOCUSATE SODIUM 100 MG CAP PO SCH ×2 (05:39→18:00)
[2017-01-29] MEDS: HEPARIN SODIUM - SQ 10,000 UNITS/ML VIAL SQ SCH ×2 (05:39→18:00)
[2017-01-29] MEDS: INSULIN ASPART SUPPLEMENTAL SCALE SQ SCH ×4 (05:46→20:45)
--- NOTE | 2017-01-29 06:41 | PD.CARD.PN ---
Subjective Subjective Remarks no overnight events telemetry afib now SR Objective Medications Current Medications Medications (Trade) Dose Ordered Sig/Babar Route Start Time Stop Time Status Last Admin (Zosyn 4.5 Gm Premix) 100 ml @ 200 mls/hr Q6H IV 01/26/17 18:00 01/29/17 05:39 (Robitussin Ac 200-20 Mg/10 ml Liq) 10 ml Q4H PRN PO 01/26/17 16:45 01/26/17 17:20 (Heparin Inj) 5,000 units Q12H SQ 01/26/17 17:00 01/29/17 05:39 (Tessalon) 200 mg Q8H PRN PO 01/26/17 16:45 01/26/17 17:21 (Mucinex Er) 600 mg BID PO 01/26/17 21:00 01/28/17 22:05 (NS Flush) 2 ml UNSCH PRN IV FLUSH 01/26/17 17:00 (NS Flush) 2 ml BID IV FLUSH 01/26/17 21:00 01/28/17 22:05 (Tylenol) 650 mg Q4H PRN PO 01/26/17 17:00 (Zofran Inj) 4 mg Q6H PRN IVP 01/26/17 17:00 (Dulcolax Supp) 10 mg DAILY PRN RECTAL 01/26/17 17:00 (Colace) 100 mg Q12H PO 01/26/17 17:00 01/29/17 05:39 (Milk Of Magnesia Liq) 30 ml Q12H PRN PO 01/26/17 17:00 (Senokot) 17.2 mg Q12H PRN PO 01/26/17 17:00 (Narcan Inj) 0.4 mg UNSCH PRN IV 01/26/17 17:00 (D50w (Vial) Inj) 25 ml UNSCH PRN IV PUSH 01/26/17 17:00 (Glucagon Inj) 1 mg UNSCH PRN OTHER 01/26/17 17:00 (Ecotrin Ec) 81 mg DAILY PO 01/27/17 09:00 01/28/17 08:19 (Remeron) 15 mg DAILY PO 01/27/17 09:00 01/28/17 08:18 (Protonix) 20 mg DAILY PO 01/27/17 09:00 01/28/17 08:19 (Lanoxin) 0.25 mg DAILY PO 01/29/17 09:00 Diltiazem HCl 30 mg 30 mg QID PO 01/28/17 09:00 01/28/17 22:05 (NS + KCl 20 Meq Inj) 1,000 ml @ 50 mls/hr Q20H IV 01/28/17 18:00 01/28/17 16:12 (Mag-Ox) 400 mg Q12HR PO 01/28/17 09:00 01/28/17 22:04 Patient Own Medication PT OWN MED: KOMBIGL... DAILY PO 01/29/17 09:00 Future Hold Vital Signs / I&O Vital Signs Date Time Temp Pulse Resp B/P Pulse Ox O2 Delivery O2 Flow Rate FiO2 01/29/17 04:00 97.4 63 18 122/59 98 01/29/17 00:00 97.6 72 18 131/59 93 01/28/17 20:00 83 01/28/17 20:00 Nasal Cannula 4.00 Humidified 01/28/17 20:00 97.4 76 18 125/58 95 01/28/17 19:33 95 Nasal Cannula 2.00 01/28/17 17:05 100 146/93 01/28/17 16:00 97.3 18 18 107/54 92 01/28/17 12:00 97.2 79 19 115/66 96 01/28/17 08:00 97.3 107 18 100/59 99 01/28/17 07:58 97 Nasal Cannula 2.00 I/O 01/28/17 01/28/17 01/28/17 01/29/17 01/29/17 01/29/17 07:00 15:00 23:00 07:00 15:00 23:00 Intake Total 0 ml 200 ml 1030 ml 473 ml Output Total 0 ml 350 ml 150 ml Balance 0 ml -150 ml 880 ml 473 ml Intake Oral 0 ml 200 ml 90 ml 90 ml IV Total 940 ml 383 ml Output Urine Total 0 ml 350 ml 150 ml # Voids 2 # Bowel Movements 0 0 Physical Exam GENERAL: Awake, alert, and oriented x 3. Non-focal. SKIN: Warm and dry. HEAD: Normocephalic. EYES: No scleral icterus. No injection or drainage. NECK: Supple, trachea midline. No JVD or lymphadenopathy. CARDIOVASCULAR: Regular rate and rhythm without murmurs, gallops, or rubs. RESPIRATORY: Breath sounds equal bilaterally. No accessory muscle use. GASTROINTESTINAL: Abdomen soft, non-tender, nondistended. EXTREMITIES: No cyanosis, or edema. Imaging Last Impressions Chest CT 01/27/17 0000 Signed Impressions: Service Date/Time: January 08:09 - CONCLUSION: Multifocal varying size areas of infiltrate throughout both lungs, the largest located in the left lower lobe, lingula and posterior segment right upper lobe. These infiltrates appear to have progressed significantly since chest x-ray yesterday and are new finding when compared to prior CT on 12/23/16. Stable small right pleural effusion. Dionte Valverde MD Chest X-Ray 01/26/17 1055 Signed Impressions: Service Date/Time: Thursday, January 26, 2017 11:22 - CONCLUSION: 1. There are infiltrate in the right upper lobe and subtle rounded area of infiltrate in the left midlung field. CT imaging would be of benefit for more definitive characterization. Findings are new when compared to previous. Underlying pneumonia is not excluded. Pavan Coon MD Assessment and Plan Problem List: (1) Atrial fibrillation Assessment and Plan: Cont rate control with Digoxin and Cardizem PO Avoid electrolytes abnormalities Not candidate for OAC given hemoptysis (2) HTN (hypertension) (3) Diabetes mellitus (4) Bronchogenic carcinoma of right lung (5) Hemoptysis (6) CAD (coronary artery disease) Problem Qualifiers (1) Atrial fibrillation: Qualified Code: I48.2 - Chronic atrial fibrillation West Taylor MD Jan 29, 2017 06:41
[2017-01-29] MEDS: RESP: ALBUTEROL 2.5 MG/IPRATROPIUM 0.5 MG NEB (SCH) INH ×4 (07:36→20:35)
[2017-01-29 08:11] LABS: AUTOMATED NEUTROPHIL # 14.2 TH/MM3 (1.8-7.7); BASOPHIL % 0.2 % (0.0-2.0); EOSINOPHIL % 0.1 % (0.0-4.0); HEMATOCRIT 23.6 % (35.0-46.0); LYMPH % 5.4 % (9.0-44.0); LYMPHOCYTE # 0.9 TH/MM3 (1.0-4.8); MEAN CELL VOLUME 78.5 FL (80.0-100.0); MEAN CORPUSCULAR HGB CONC 33.1 % (32.0-36.0); MONO % 4.6 % (0.0-8.0); NEUT % 89.7 % (16.0-70.0); PLATELET COUNT 170 TH/MM3 (150-450); RED BLOOD COUNT 3.01 MIL/MM3 (4.00-5.30); RED CELL DISTRIBUTION WIDTH 19.8 % (11.6-17.2); WHITE BLOOD COUNT 15.8 TH/MM3 (4.0-11.0)
[2017-01-29 08:34] LABS: BICARBONATE 22.8 MEQ/L (21.0-32.0); MAGNESIUM 1.5 MG/DL (1.5-2.5); POTASSIUM 4.1 MEQ/L (3.5-5.1)
[2017-01-29 08:36] LABS: HEMO FLAGS AUTO DIFF
[2017-01-29] MEDS ORDERED: KOMBIGLYZE PO SCH (09:00)
[2017-01-29] MEDS ORDERED: DILTIAZEM HCL 60 MG TAB PO SCH (09:00)
[2017-01-29] MEDS: SODIUM CHLORIDE 0.9% FLUSH 10 ML FLUSH IV FLUSH SCH ×2 (09:00→20:46)
[2017-01-29] MEDS: guaiFENesin E.R. 600 MG TAB PO SCH ×2 (09:24→20:45)
[2017-01-29] MEDS: LEVOFLOXACIN 750 MG PREMIX INJ 150 ML IV SCH (09:24)
[2017-01-29] MEDS: DIGOXIN 0.25 MG TAB PO SCH (09:25)
[2017-01-29] MEDS: ASPIRIN EC 81 MG TABEC PO SCH (09:25)
[2017-01-29] MEDS: DILTIAZEM HCL 30 MG TAB PO SCH ×4 (09:25→20:46)
[2017-01-29] MEDS: PANTOPRAZOLE SOD 20 MG DELAYED RELEASE TAB PO SCH (09:25)
[2017-01-29] MEDS: MAGNESIUM OXIDE 400 MG TAB PO SCH ×2 (09:25→20:45)
[2017-01-29] MEDS: MIRTAZAPINE 15 MG TAB PO SCH (09:25)
[2017-01-29 11:00] LABS: BANDS 12 % (0-6); METAMYELOCYTES 1 % (0-1); NEUTROPHIL # MANUAL DIFF 13.7 TH/MM3 (1.8-7.7); PLATELET ESTIMATE SMEAR NORMAL (NORMAL); PLATELET MORPHOLOGY NORMAL (NORMAL); POLYS (SEG NEUTROPHILS) 74 % (16-70); WBC DIFF SAMPLE 100
[2017-01-29 11:01] LABS: OVALOCYTES 1+ (NORMAL); SCAN/DIFF FINAL DIFF MANUAL; TEARDROP RBCS 1+ (NORMAL); TOXIC GRANULATION 1+ (NORMAL)
--- NOTE | 2017-01-29 17:10 | HHI.PR ---
Subjective Remarks No new complaints. Cough continues. Cultures show Pseudomonas. Antibiotic treatments adjusted accordingly and this was discussed with the patient. Objective Vital Signs Date Time Temp Pulse Resp B/P Pulse Ox O2 Delivery O2 Flow Rate FiO2 01/29/17 12:08 97.7 85 18 130/74 95 01/29/17 08:05 97.4 75 18 121/65 98 01/29/17 08:02 83 01/29/17 08:00 Nasal Cannula 4.00 Humidified 01/29/17 07:38 95 Nasal Cannula 2.00 01/29/17 04:00 97.4 63 18 122/59 98 01/29/17 00:00 97.6 72 18 131/59 93 01/28/17 20:00 83 01/28/17 20:00 Nasal Cannula 4.00 Humidified 01/28/17 20:00 97.4 76 18 125/58 95 01/28/17 19:33 95 Nasal Cannula 2.00 01/28/17 17:05 100 146/93 I/O 01/28/17 01/28/17 01/28/17 01/29/17 01/29/17 01/29/17 07:00 15:00 23:00 07:00 15:00 23:00 Intake Total 0 ml 200 ml 1030 ml 473 ml Output Total 0 ml 350 ml 150 ml Balance 0 ml -150 ml 880 ml 473 ml Intake Oral 0 ml 200 ml 90 ml 90 ml IV Total 940 ml 383 ml Output Urine Total 0 ml 350 ml 150 ml # Voids 2 # Bowel Movements 0 0 Result Diagram: 01/29/17 0624 01/29/17 0624 Procedures Last Impressions Chest CT 01/27/17 0000 Signed Impressions: Service Date/Time: January 08:09 - CONCLUSION: Multifocal varying size areas of infiltrate throughout both lungs, the largest located in the left lower lobe, lingula and posterior segment right upper lobe. These infiltrates appear to have progressed significantly since chest x-ray yesterday and are new finding when compared to prior CT on 12/23/16. Stable small right pleural effusion. Dionte Valverde MD Chest X-Ray 01/26/17 1055 Signed Impressions: Service Date/Time: Thursday, January 26, 2017 11:22 - CONCLUSION: 1. There are infiltrate in the right upper lobe and subtle rounded area of infiltrate in the left midlung field. CT imaging would be of benefit for more definitive characterization. Findings are new when compared to previous. Underlying pneumonia is not excluded. Pavan Coon MD Objective Remarks GENERAL: NAD, AOx3 SKIN: Warm and dry. HEAD: Atraumatic. Normocephalic. EYES: Pupils equal and round. No scleral icterus. No injection or drainage. ENT: No nasal bleeding or discharge. Mucous membranes pink and moist. NECK: Trachea midline. No JVD. CARDIOVASCULAR: Regular rate and rhythm. RESPIRATORY: No accessory muscle use. Clear to auscultation. Breath sounds equal bilaterally. GASTROINTESTINAL: Abdomen soft, non-tender, nondistended. Hepatic and splenic margins not palpable. MUSCULOSKELETAL: Extremities without clubbing, cyanosis, or edema. No obvious deformities. NEUROLOGICAL: Awake and alert. No obvious cranial nerve deficits. Motor grossly within normal limits. Five out of 5 muscle strength in the arms and legs. Normal speech. PSYCHIATRIC: Appropriate mood and affect; insight and judgment normal. Medications and IVs Current Medications Sodium Chloride (NS 1000 ml Inj) 1,000 ml @ 1,000 mls/hr Q1H ONCE IV Last administered on 01/26/17 11:25; Start 01/26/17 at 10:55; Stop 01/26/17 at 11:54; Status DC Sodium Chloride 2 ml 2 ml UNSCH PRN IVF FLUSH AFTER USING IV ACCESS Last administered on 01/26/17 14:27; Start 01/26/17 at 11:00; Stop 01/26/17 at 16:54; Status DC Ceftriaxone Sodium 1000 mg/ Sodium Chloride 100 ml @ 200 mls/hr ONCE ONCE IV Last administered on 01/26/17 13:27; Start 01/26/17 at 13:15; Stop 01/26/17 at 13: 44; Status DC Azithromycin 500 mg/Sodium Chloride 250 ml @ 250 mls/hr ONCE ONCE IV Last administered on 01/26/17 13:27; Start 01/26/17 at 13:15; Stop 01/26/17 at 14:14; Status DC Piperacillin Sod/ Tazobactam Sod (Zosyn 4.5 Gm Premix) 100 ml @ 200 mls/hr Q6H IV Last administered on 01/29/17 12:55; Start 01/26/17 at 18:00 Albuterol/ Ipratropium (Duoneb Neb) 1 ampule QID NEB INH Last administered on 01/29/17 15:47; Start 01/26/17 at 20:00 Albuterol/ Ipratropium (Duoneb Neb) 1 ampule Q4HR NEB PRN INH SHORTNESS OF BREATH Last administered on 01/26/17 18:14; Start 01/26/17 at 16:45 Guaifenesin/ Codeine Phosphate (Robitussin Ac 200-20 Mg/10 ml Liq) 10 ml Q4H PRN PO severe COUGH Last administered on 01/26/17 17:20; Start 01/26/17 at 16:45 Heparin Sodium (Porcine) (Heparin Inj) 5,000 units Q12H SQ Last administered on 01/29/17 05:39; Start 01/26/17 at 17:00 Benzonatate (Tessalon) 200 mg Q8H PRN PO mild COUGH Last administered on 17:21; Start 01/26/17 at 16:45 Guaifenesin 600 mg 600 mg BID PO Last administered on 01/29/17 09:24; Start 01/26/17 at 21:00 Potassium Chloride/Sodium Chloride (NS + KCl 20 Meq Inj) 1,000 ml @ 50 mls/hr Q20H IV Last administered on 01/28/17 08:17; Start 01/26/17 at 18:00; Stop at 08:50; Status DC Sodium Chloride (NS Flush) 2 ml UNSCH PRN IV FLUSH FLUSH AFTER USING IV ACCESS ; Start 01/26/17 at 17:00 Sodium Chloride (NS Flush) 2 ml BID IV FLUSH Last administered on 01/29/17 09: 00; Start 01/26/17 at 21:00 Acetaminophen (Tylenol) 650 mg Q4H PRN PO TEMP > 100.4; Start 01/26/17 at 17:00 Ondansetron HCl (Zofran Inj) 4 mg Q6H PRN IVP NAUSEA OR VOMITING; Start at 17:00 Bisacodyl (Dulcolax Supp) 10 mg DAILY PRN RECTAL CONSTIPATION; Start 01/26/17 at 17:00 Docusate Sodium (Colace) 100 mg Q12H PO Last administered on 01/29/17 05:39; Start 01/26/17 at 17:00 Magnesium Hydroxide (Milk Of Magnliudmila Liq) 30 ml Q12H PRN PO severe CONSTIPATION; Start 01/26/17 at 17:00 Sennosides (Senokot) 17.2 mg Q12H PRN PO mild CONSTIPATION; Start 01/26/17 at 17 :00 Naloxone HCl (Narcan Inj) 0.4 mg UNSCH PRN IV SEE LABEL COMMENTS; Start at 17:00 Dextrose (D50w (Vial) Inj) 25 ml UNSCH PRN IV PUSH HYPOGLYCEMIA-SEE COMMENTS; Start 01/26/17 at 17:00 Glucagon (Glucagon Inj) 1 mg UNSCH PRN OTHER HYPOGLYCEMIA-SEE COMMENTS; Start 01/26/17 at 17:00 Insulin Aspart (NovoLOG SUPPLEMENTAL SCALE) 1 ACHS SLIDING SCALE SQ Last administered on 01/29/17 11:00; Start 01/26/17 at 21:00 Aspirin (Ecotrin Ec) 81 mg DAILY PO Last administered on 01/29/17 09:25; Start 01/27/17 at 09:00 Mirtazapine (Remeron) 15 mg DAILY PO Last administered on 01/29/17 09:25; Start 01/27/17 at 09:00 Pantoprazole Sodium (Protonix) 20 mg DAILY PO Last administered on 01/29/17 09: 25; Start 01/27/17 at 09:00 Dexamethasone 4 mg 4 mg DAILY PO Last administered on 01/27/17 09:05; Start 01/27/17 at 09:00; Stop 01/27/17 at 15:27; Status DC Diltiazem HCl 125 mg/Sodium Chloride 125 ml @ 0 mls/hr TITRATE IV Last administered on 01/28/17 05:04; Start 01/28/17 at 04:45; Stop 01/29/17 at 04:13; Status DC Magnesium Sulfate/ Dextrose (Magnesium Sulfate 1 Gm Premix) 100 ml @ 100 mls/ hr ONCE ONCE IV Last administered on 01/28/17 08:18; Start 01/28/17 at 06:30; Stop 01/28/17 at 07:29; Status DC Digoxin (Lanoxin Inj) 0.5 mg NOW ONCE IVS Last administered on 01/28/17 08:21 ; Start 01/28/17 at 08:00; Stop 01/28/17 at 08:02; Status DC Digoxin (Lanoxin Inj) 0.25 mg Q6H IVS Last administered on 01/28/17 22:05; Start 01/28/17 at 14:00; Stop 01/28/17 at 20:01; Status DC Digoxin (Lanoxin) 0.25 mg DAILY PO Last administered on 01/29/17 09:25; Start 01/29/17 at 09:00 Diltiazem HCl 30 mg 30 mg QID PO Last administered on 01/28/17 22:05; Start 01/28/17 at 09:00; Stop 01/29/17 at 06:38; Status DC Potassium Chloride/Sodium Chloride (NS + KCl 20 Meq Inj) 1,000 ml @ 50 mls/hr Q20H IV Last administered on 01/28/17 16:12; Start 01/28/17 at 18:00 Potassium Chloride (KCl) 10 meq ONCE ONCE PO Last administered on 01/28/17 09: 03; Start 01/28/17 at 09:00; Stop 01/28/17 at 09:01; Status DC Magnesium Oxide (Mag-Ox) 400 mg Q12HR PO Last administered on 01/29/17 09:25; Start 01/28/17 at 09:00 Non-Formulary Medication 1 tab DAILY PO BSM; Start 01/28/17 at 09:00; Status UNV Patient Own Medication PT OWN MED: KOMBIGL... DAILY PO ; Start 01/29/17 at 09:00 ; Status Hold Diltiazem HCl (Cardizem) 60 mg QID PO ; Start 01/29/17 at 09:00; Stop 01/29/17 at 09:00; Status DC Diltiazem HCl 30 mg 30 mg QID PO Last administered on 01/29/17 12:54; Start 01/29/17 at 09:00 Levofloxacin/ Dextrose (Levaquin 750 Mg Premix Inj) 150 ml @ 100 mls/hr Q24H IV Last administered on 01/29/17 09:24; Start 01/29/17 at 08:00 A/P Problem List: (1) Pseudomonas pneumonia ICD Code: J15.1 (2) Lung cancer ICD Code: C34.90 (3) Diabetes mellitus ICD Code: E11.9 (4) Bronchogenic carcinoma of right lung ICD Code: C34.91 (5) CAD (coronary artery disease) ICD Code: I25.10 (6) HTN (hypertension) ICD Code: I10 Assessment and Plan A/P Pseudomonas Pneumonia (immunocompromise) Continue zosyn Start levaquin Follow clinically for improvement Follow vital signs Lung Cancer Broncogenic Carcinoma of Right Lung Continue treatments as an outpatient contributory to immunocompromise on chemo CAD No chest pain Continue baseline managements DM2 Follow blood sugars Soft mechanical diabetic Diet Insulin if needed HTN Follow BP No adjsutments needed today Pavan Isaacs MD Jan 29, 2017 17:10
[2017-01-29] MEDS: NS + KCL 20 MEQ INJ 1,000 ML IV SCH (17:59)
--- NOTE | 2017-01-29 20:05 | HHI.PR ---
Subjective Remarks 66 YOWF with ca lung, Pn Feels weak Has cough with liquids No fever CT chest Bilat Pn Sp Pseudomonas Objective Vital Signs Vital Signs Date Time Temp Pulse Resp B/P Pulse Ox O2 Delivery O2 Flow Rate FiO2 01/29/17 16:06 97.9 78 18 122/66 97 01/29/17 12:08 97.7 85 18 130/74 95 01/29/17 08:05 97.4 75 18 121/65 98 01/29/17 08:02 83 01/29/17 08:00 Nasal Cannula 4.00 Humidified 01/29/17 07:38 95 Nasal Cannula 2.00 01/29/17 04:00 97.4 63 18 122/59 98 01/29/17 00:00 97.6 72 18 131/59 93 I/O 01/28/17 01/28/17 01/28/17 01/29/17 01/29/17 01/29/17 07:00 15:00 23:00 07:00 15:00 23:00 Intake Total 0 ml 200 ml 1030 ml 473 ml 120 ml Output Total 0 ml 350 ml 150 ml 700 ml Balance 0 ml -150 ml 880 ml 473 ml 120 ml -700 ml Intake Oral 0 ml 200 ml 90 ml 90 ml 120 ml IV Total 940 ml 383 ml Output Urine Total 0 ml 350 ml 150 ml 700 ml # Voids 2 2 # Bowel Movements 0 0 0 Result Diagram: 01/29/1762301/29/17623 Objective Remarks GENERAL: Frail elderly female, mild sob SKIN: Warm and dry. HEAD: Normocephalic. EYES: No scleral icterus. No injection or drainage. NECK: Supple, trachea midline. No JVD or lymphadenopathy. CARDIOVASCULAR: Regular rate and rhythm without murmurs, gallops, or rubs. RESPIRATORY: Breath sounds equal bilaterally. No accessory muscle use. Bilat rhonchi GASTROINTESTINAL: Abdomen soft, non-tender, nondistended. MUSCULOSKELETAL: No cyanosis, or edema. BACK: Nontender without obvious deformity. No CVA tenderness. A/P Assessment and Plan Bilat Pneumonia ?Aspiration COPD Leucocytosis ca lung PLAN: Cont Abx Aerosol nebs DW pt and RN at BS Advised to stick with honey thickened liq to avoid aspiration Wean 02 to keep sat >90% Fermin Walls MD Jan 29, 2017 20:05
[2017-01-30] VITALS (8 sets, daily range): BP systolic 129–160; BP diastolic 63–70; PULSE 60–82; RESP 18; TEMP 97.8–98.3; O2SAT 94–99
[2017-01-30] MEDS: PIPERACIL-TAZO 4.5 GM PREMIX 100 ML IV SCH ×4 (00:14→17:10)
[2017-01-30 01:54] LABS: HEMATOCRIT 23.6 % (35.0-46.0); REVIEW FLAG FINAL
[2017-01-30] MEDS: HEPARIN SODIUM - SQ 10,000 UNITS/ML VIAL SQ SCH ×2 (05:00→17:10)
[2017-01-30] MEDS: DOCUSATE SODIUM 100 MG CAP PO SCH ×2 (05:00→17:10)
[2017-01-30] MEDS: INSULIN ASPART SUPPLEMENTAL SCALE SQ SCH ×4 (06:24→20:32)
[2017-01-30 07:14] LABS: BICARBONATE 23.9 MEQ/L (21.0-32.0); POTASSIUM 4.2 MEQ/L (3.5-5.1)
[2017-01-30 07:31] LABS: AUTOMATED NEUTROPHIL # 11.2 TH/MM3 (1.8-7.7); BASOPHIL % 0.1 % (0.0-2.0); EOSINOPHIL % 0.1 % (0.0-4.0); LYMPH % 5.4 % (9.0-44.0); LYMPHOCYTE # 0.7 TH/MM3 (1.0-4.8); MEAN CORPUSCULAR HEMOGLOBIN 25.6 PG (27.0-34.0); MEAN CORPUSCULAR HGB CONC 32.4 % (32.0-36.0); MONO % 5.3 % (0.0-8.0); NEUT % 89.1 % (16.0-70.0); PLATELET COUNT 160 TH/MM3 (150-450); RED BLOOD COUNT 3.16 MIL/MM3 (4.00-5.30); RED CELL DISTRIBUTION WIDTH 19.7 % (11.6-17.2); WHITE BLOOD COUNT 12.6 TH/MM3 (4.0-11.0)
[2017-01-30] MEDS: RESP: ALBUTEROL 2.5 MG/IPRATROPIUM 0.5 MG NEB (SCH) INH ×3 (07:46→15:35)
[2017-01-30 07:48] LABS: HEMO FLAGS AUTO DIFF
[2017-01-30] MEDS: DIGOXIN 0.25 MG TAB PO SCH (08:02)
[2017-01-30] MEDS: PANTOPRAZOLE SOD 20 MG DELAYED RELEASE TAB PO SCH (08:02)
[2017-01-30] MEDS: DILTIAZEM HCL 30 MG TAB PO SCH ×4 (08:02→20:30)
[2017-01-30] MEDS: LEVOFLOXACIN 750 MG PREMIX INJ 150 ML IV SCH (08:02)
[2017-01-30] MEDS: MIRTAZAPINE 15 MG TAB PO SCH (08:02)
[2017-01-30] MEDS: guaiFENesin E.R. 600 MG TAB PO SCH ×2 (08:03→20:32)
[2017-01-30] MEDS: ASPIRIN EC 81 MG TABEC PO SCH (08:03)
[2017-01-30] MEDS: SODIUM CHLORIDE 0.9% FLUSH 10 ML FLUSH IV FLUSH SCH ×2 (08:03→20:33)
[2017-01-30] MEDS: MAGNESIUM OXIDE 400 MG TAB PO SCH ×2 (08:03→20:30)
[2017-01-30] MEDS: NS + KCL 20 MEQ INJ 1,000 ML IV SCH (08:05)
--- NOTE | 2017-01-30 09:37 | PD.CARD.PN ---
Subjective Subjective Remarks no overnight events Objective Medications Current Medications Medications (Trade) Dose Ordered Sig/Babar Route Start Time Stop Time Status Last Admin (Zosyn 4.5 Gm Premix) 100 ml @ 200 mls/hr Q6H IV 01/26/17 18:00 01/30/17 06:11 (Robitussin Ac 200-20 Mg/10 ml Liq) 10 ml Q4H PRN PO 01/26/17 16:45 01/26/17 17:20 (Heparin Inj) 5,000 units Q12H SQ 01/26/17 17:00 01/29/17 18:00 (Tessalon) 200 mg Q8H PRN PO 01/26/17 16:45 01/26/17 17:21 (Mucinex Er) 600 mg BID PO 01/26/17 21:00 01/30/17 08:03 (NS Flush) 2 ml UNSCH PRN IV FLUSH 01/26/17 17:00 (NS Flush) 2 ml BID IV FLUSH 01/26/17 21:00 01/29/17 09:00 (Tylenol) 650 mg Q4H PRN PO 01/26/17 17:00 (Zofran Inj) 4 mg Q6H PRN IVP 01/26/17 17:00 (Dulcolax Supp) 10 mg DAILY PRN RECTAL 01/26/17 17:00 (Colace) 100 mg Q12H PO 01/26/17 17:00 01/29/17 18:00 (Milk Of Magnesia Liq) 30 ml Q12H PRN PO 01/26/17 17:00 (Senokot) 17.2 mg Q12H PRN PO 01/26/17 17:00 (Narcan Inj) 0.4 mg UNSCH PRN IV 01/26/17 17:00 (D50w (Vial) Inj) 25 ml UNSCH PRN IV PUSH 01/26/17 17:00 (Glucagon Inj) 1 mg UNSCH PRN OTHER 01/26/17 17:00 (Ecotrin Ec) 81 mg DAILY PO 01/27/17 09:00 01/30/17 08:03 (Remeron) 15 mg DAILY PO 01/27/17 09:00 01/30/17 08:02 (Protonix) 20 mg DAILY PO 01/27/17 09:00 01/30/17 08:02 Digoxin 0.25 mg 0.25 mg DAILY PO 01/29/17 09:00 01/30/17 08:02 (NS + KCl 20 Meq Inj) 1,000 ml @ 50 mls/hr Q20H IV 01/28/17 18:00 01/30/17 08:05 (Mag-Ox) 400 mg Q12HR PO 01/28/17 09:00 01/30/17 08:03 Patient Own Medication PT OWN MED: KOMBIGL... DAILY PO 01/29/17 09:00 Hold Diltiazem HCl 30 mg 30 mg QID PO 01/29/17 09:00 01/30/17 08:02 (Levaquin 750 Mg Premix Inj) 150 ml @ 100 mls/hr Q24H IV 01/29/17 08:00 01/30/17 08:02 Vital Signs / I&O Vital Signs Date Time Temp Pulse Resp B/P Pulse Ox O2 Delivery O2 Flow Rate FiO2 01/30/17 08:00 97.9 60 18 129/70 97 01/30/17 07:49 98 Nasal Cannula 2.00 01/30/17 04:00 98.2 67 18 147/66 94 01/30/17 00:00 97.8 71 18 160/70 95 01/29/17 22:13 Nasal Cannula 4.00 Humidified 01/29/17 20:36 97 Nasal Cannula 2.00 01/29/17 20:00 97.6 78 18 121/70 96 01/29/17 20:00 76 01/29/17 16:06 97.9 78 18 122/66 97 01/29/17 12:08 97.7 85 18 130/74 95 I/O 01/29/17 01/29/17 01/29/17 01/30/17 01/30/17 01/30/17 07:00 15:00 23:00 07:00 15:00 23:00 Intake Total 473 ml 120 ml 269 ml 496 ml Output Total 700 ml 450 ml Balance 473 ml 120 ml -431 ml 46 ml Intake Oral 90 ml 120 ml IV Total 383 ml 269 ml 496 ml Output Urine Total 700 ml 450 ml # Voids 2 2 # Bowel Movements 0 Physical Exam GENERAL: Awake, alert, and oriented x 3. Non-focal. SKIN: Warm and dry. HEAD: Normocephalic. EYES: No scleral icterus. No injection or drainage. NECK: Supple, trachea midline. No JVD or lymphadenopathy. CARDIOVASCULAR: Regular rate and rhythm without murmurs, gallops, or rubs. RESPIRATORY: Breath sounds equal bilaterally. No accessory muscle use. GASTROINTESTINAL: Abdomen soft, non-tender, nondistended. EXTREMITIES: No cyanosis, or edema. Laboratory Laboratory Tests Test 01/30/17 01/30/17 01:33 06:15 Hemoglobin 7.9 GM/DL 8.1 GM/DL Hematocrit 23.6 % 25.0 % White Blood Count 12.6 TH/MM3 Red Blood Count 3.16 MIL/MM3 Mean Corpuscular Volume 79.0 FL Mean Corpuscular Hemoglobin 25.6 PG Mean Corpuscular Hemoglobin 32.4 % Concent Red Cell Distribution Width 19.7 % Platelet Count 160 TH/MM3 Mean Platelet Volume 8.2 FL Neutrophils (%) (Auto) 89.1 % Lymphocytes (%) (Auto) 5.4 % Monocytes (%) (Auto) 5.3 % Eosinophils (%) (Auto) 0.1 % Basophils (%) (Auto) 0.1 % Neutrophils # (Auto) 11.2 TH/MM3 Lymphocytes # (Auto) 0.7 TH/MM3 Monocytes # (Auto) 0.7 TH/MM3 Eosinophils # (Auto) 0.0 TH/MM3 Basophils # (Auto) 0.0 TH/MM3 CBC Comment AUTO DIFF Sodium Level 141 MEQ/L Potassium Level 4.2 MEQ/L Chloride Level 109 MEQ/L Carbon Dioxide Level 23.9 MEQ/L Anion Gap 8 MEQ/L Blood Urea Nitrogen 8 MG/DL Creatinine 0.43 MG/DL Estimat Glomerular Filtration 147 ML/MIN Rate Random Glucose 92 MG/DL Calcium Level 7.7 MG/DL Assessment and Plan Problem List: (1) Atrial fibrillation Assessment and Plan: Cont rate control with Digoxin and Cardizem PO Avoid electrolytes abnormalities Not candidate for OAC given hemoptysis Dr. Patterson to follow in AM (2) HTN (hypertension) (3) Diabetes mellitus (4) Bronchogenic carcinoma of right lung (5) Hemoptysis (6) CAD (coronary artery disease) Problem Qualifiers (1) Atrial fibrillation: Qualified Code: I48.2 - Chronic atrial fibrillation West Taylor MD Jan 30, 2017 09:37
[2017-01-30 10:00] LABS: BANDS 17 % (0-6); MYELOCYTES 1 % (0-0); NEUTROPHIL # MANUAL DIFF 10.5 TH/MM3 (1.8-7.7); PLATELET ESTIMATE SMEAR NORMAL (NORMAL); PLATELET MORPHOLOGY NORMAL (NORMAL); POLYS (SEG NEUTROPHILS) 65 % (16-70); SCAN/DIFF FINAL DIFF MANUAL; TOXIC GRANULATION 2+ (NORMAL); WBC DIFF SAMPLE 100
[2017-01-30 10:01] LABS: OVALOCYTES 1+ (NORMAL)
--- NOTE | 2017-01-30 13:24 | HHI.PR ---
Subjective Remarks She still feels weak and has a poor appetite. Levaquin was only added to Zosyn yesterday as that was when Pseudomonas resulted on cultures. She has not been worsening and hopefully she will improve now in the next 24-48 hours. She does feel well enough to start PT. Objective Vital Signs Date Time Temp Pulse Resp B/P Pulse Ox O2 Delivery O2 Flow Rate FiO2 01/30/17 12:00 98.1 73 18 149/67 98 01/30/17 08:00 97.9 60 18 129/70 97 01/30/17 07:49 98 Nasal Cannula 2.00 01/30/17 04:00 98.2 67 18 147/66 94 01/30/17 00:00 97.8 71 18 160/70 95 01/29/17 22:13 Nasal Cannula 4.00 Humidified 01/29/17 20:36 97 Nasal Cannula 2.00 01/29/17 20:00 97.6 78 18 121/70 96 01/29/17 20:00 76 01/29/17 16:06 97.9 78 18 122/66 97 I/O 01/29/17 01/29/17 01/29/17 01/30/17 01/30/17 01/30/17 07:00 15:00 23:00 07:00 15:00 23:00 Intake Total 473 ml 120 ml 269 ml 496 ml Output Total 700 ml 450 ml Balance 473 ml 120 ml -431 ml 46 ml Intake Oral 90 ml 120 ml IV Total 383 ml 269 ml 496 ml Output Urine Total 700 ml 450 ml # Voids 2 2 # Bowel Movements 0 Result Diagram: 01/30/17 0615 01/30/17 0615 Procedures Last Impressions Chest CT 01/27/17 0000 Signed Impressions: Service Date/Time: January 08:09 - CONCLUSION: Multifocal varying size areas of infiltrate throughout both lungs, the largest located in the left lower lobe, lingula and posterior segment right upper lobe. These infiltrates appear to have progressed significantly since chest x-ray yesterday and are new finding when compared to prior CT on 12/23/16. Stable small right pleural effusion. Dionte Valverde MD Chest X-Ray 01/26/17 1055 Signed Impressions: Service Date/Time: Thursday, January 26, 2017 11:22 - CONCLUSION: 1. There are infiltrate in the right upper lobe and subtle rounded area of infiltrate in the left midlung field. CT imaging would be of benefit for more definitive characterization. Findings are new when compared to previous. Underlying pneumonia is not excluded. Pavan Coon MD Objective Remarks GENERAL: NAD, AOx3 SKIN: Warm and dry. HEAD: Atraumatic. Normocephalic. EYES: Pupils equal and round. No scleral icterus. No injection or drainage. ENT: No nasal bleeding or discharge. Mucous membranes pink and moist. NECK: Trachea midline. No JVD. CARDIOVASCULAR: Regular rate and rhythm. RESPIRATORY: No accessory muscle use. Clear to auscultation. Breath sounds equal bilaterally. GASTROINTESTINAL: Abdomen soft, non-tender, nondistended. Hepatic and splenic margins not palpable. MUSCULOSKELETAL: Extremities without clubbing, cyanosis, or edema. No obvious deformities. NEUROLOGICAL: Awake and alert. No obvious cranial nerve deficits. Motor grossly within normal limits. Five out of 5 muscle strength in the arms and legs. Normal speech. PSYCHIATRIC: Appropriate mood and affect; insight and judgment normal. Medications and IVs Administered Medications Medications (Trade) Dose Ordered Sig/Babar Route PRN Reason Start Time Stop Time Status Last Admin Dose Admin Piperacillin Sod/ Tazobactam Sod (Zosyn 4.5 Gm Premix) 100 ml @ 200 mls/hr Q6H IV 01/26/17 18:00 01/30/17 11:53 Guaifenesin/ Codeine Phosphate (Robitussin Ac 200-20 Mg/10 ml Liq) 10 ml Q4H PRN PO severe COUGH 01/26/17 16:45 01/26/17 17:20 Heparin Sodium (Porcine) (Heparin Inj) 5,000 units Q12H SQ 01/26/17 17:00 01/29/17 18:00 Benzonatate (Tessalon) 200 mg Q8H PRN PO mild COUGH 01/26/17 16:45 01/26/17 17:21 Guaifenesin (Mucinex Er) 600 mg BID PO 01/26/17 21:00 01/30/17 08:03 Sodium Chloride (NS Flush) 2 ml BID IV FLUSH 01/26/17 21:00 01/29/17 09:00 Docusate Sodium (Colace) 100 mg Q12H PO 01/26/17 17:00 01/29/17 18:00 Aspirin (Ecotrin Ec) 81 mg DAILY PO 01/27/17 09:00 01/30/17 08:03 Mirtazapine (Remeron) 15 mg DAILY PO 01/27/17 09:00 01/30/17 08:02 Pantoprazole Sodium (Protonix) 20 mg DAILY PO 01/27/17 09:00 01/30/17 08:02 Digoxin 0.25 mg 0.25 mg DAILY PO 01/29/17 09:00 01/30/17 08:02 Potassium Chloride/Sodium Chloride (NS + KCl 20 Meq Inj) 1,000 ml @ 50 mls/hr Q20H IV 01/28/17 18:00 01/30/17 08:05 Magnesium Oxide (Mag-Ox) 400 mg Q12HR PO 01/28/17 09:00 01/30/17 08:03 Diltiazem HCl 30 mg 30 mg QID PO 01/29/17 09:00 01/30/17 11:53 Levofloxacin/ Dextrose (Levaquin 750 Mg Premix Inj) 150 ml @ 100 mls/hr Q24H IV 01/29/17 08:00 01/30/17 08:02 A/P Problem List: (1) Pseudomonas pneumonia ICD Code: J15.1 (2) Lung cancer ICD Code: C34.90 (3) Diabetes mellitus ICD Code: E11.9 (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
--- NOTE | 2017-01-30 19:01 | HHI.PR ---
Subjective Remarks 66 YOWF with ca lung, Pn Feels weak Has cough with liquids No fever CT chest Bilat Pn Sp Pseudomonas tired, appetite poor Objective Vital Signs Vital Signs Date Time Temp Pulse Resp B/P Pulse Ox O2 Delivery O2 Flow Rate FiO2 01/30/17 16:00 98.1 64 18 141/66 98 01/30/17 12:00 98.1 73 18 149/67 98 01/30/17 08:00 97.9 60 18 129/70 97 01/30/17 07:49 98 Nasal Cannula 2.00 01/30/17 04:00 98.2 67 18 147/66 94 01/30/17 00:00 97.8 71 18 160/70 95 01/29/17 22:13 Nasal Cannula 4.00 Humidified 01/29/17 20:36 97 Nasal Cannula 2.00 01/29/17 20:00 97.6 78 18 121/70 96 01/29/17 20:00 76 I/O 01/29/17 01/29/17 01/29/17 01/30/17 01/30/17 01/30/17 07:00 15:00 23:00 07:00 15:00 23:00 Intake Total 473 ml 120 ml 269 ml 496 ml 950 ml Output Total 700 ml 450 ml 500 ml Balance 473 ml 120 ml -431 ml 46 ml 450 ml Intake Oral 90 ml 120 ml 360 ml IV Total 383 ml 269 ml 496 ml 590 ml Output Urine Total 700 ml 450 ml 500 ml # Voids 2 2 # Bowel Movements 0 0 Result Diagram: 01/30/1715 01/30/17614 Objective Remarks GENERAL: Frail elderly female, mild sob SKIN: Warm and dry. HEAD: Normocephalic. EYES: No scleral icterus. No injection or drainage. NECK: Supple, trachea midline. No JVD or lymphadenopathy. CARDIOVASCULAR: Regular rate and rhythm without murmurs, gallops, or rubs. RESPIRATORY: Breath sounds equal bilaterally. No accessory muscle use. Bilat rhonchi GASTROINTESTINAL: Abdomen soft, non-tender, nondistended. MUSCULOSKELETAL: No cyanosis, or edema. BACK: Nontender without obvious deformity. No CVA tenderness. A/P Assessment and Plan Bilat Pneumonia ?Aspiration COPD Leucocytosis ca lung PLAN: Cont Abx Aerosol nebs DW pt and RN at Advised to stick with honey thickened liq to avoid aspiration Wean 02 to keep sat >90% Encourage po Add Ensure Fermin Walls MD Jan 30, 2017 19:01
[2017-01-30] MEDS: LORazepam 0.5 MG TAB PO PRN (20:30)
[2017-01-31] VITALS (9 sets, daily range): BP systolic 124–157; BP diastolic 59–79; PULSE 53–95; RESP 14–18; TEMP 97.6–97.9; O2SAT 93–100
[2017-01-31] MEDS: DOCUSATE SODIUM 100 MG CAP PO SCH ×2 (05:00→17:10)
[2017-01-31] MEDS: PIPERACIL-TAZO 4.5 GM PREMIX 100 ML IV SCH ×4 (05:30→17:10)
[2017-01-31] MEDS: HEPARIN SODIUM - SQ 10,000 UNITS/ML VIAL SQ SCH ×2 (05:31→17:17)
[2017-01-31] MEDS: NS + KCL 20 MEQ INJ 1,000 ML IV SCH (05:33)
[2017-01-31] MEDS: INSULIN ASPART SUPPLEMENTAL SCALE SQ SCH ×4 (05:34→21:00)
[2017-01-31 06:15] LABS: HEMATOCRIT 24.7 % (35.0-46.0); MEAN CORPUSCULAR HEMOGLOBIN 25.4 PG (27.0-34.0); MEAN CORPUSCULAR HGB CONC 32.2 % (32.0-36.0); PLATELET COUNT 162 TH/MM3 (150-450); RED BLOOD COUNT 3.12 MIL/MM3 (4.00-5.30); RED CELL DISTRIBUTION WIDTH 19.8 % (11.6-17.2); REVIEW FLAG FINAL; WHITE BLOOD COUNT 10.8 TH/MM3 (4.0-11.0)
[2017-01-31 06:25] LABS: BICARBONATE 26.4 MEQ/L (21.0-32.0); POTASSIUM 3.6 MEQ/L (3.5-5.1)
[2017-01-31 07:00] LABS: CALCIUM-PROTEIN CORRECTED 8.9 MG/DL (8.5-10.1)
[2017-01-31] MEDS: PANTOPRAZOLE SOD 20 MG DELAYED RELEASE TAB PO SCH (08:49)
[2017-01-31] MEDS: DIGOXIN 0.25 MG TAB PO SCH (08:49)
[2017-01-31] MEDS: guaiFENesin E.R. 600 MG TAB PO SCH ×2 (08:49→21:51)
[2017-01-31] MEDS: ASPIRIN EC 81 MG TABEC PO SCH (08:50)
[2017-01-31] MEDS: MAGNESIUM OXIDE 400 MG TAB PO SCH ×2 (08:50→21:51)
[2017-01-31] MEDS: MIRTAZAPINE 15 MG TAB PO SCH (08:50)
[2017-01-31] MEDS: LEVOFLOXACIN 750 MG PREMIX INJ 150 ML IV SCH (08:50)
[2017-01-31] MEDS: DILTIAZEM HCL 30 MG TAB PO SCH ×4 (08:50→21:51)
--- NOTE | 2017-01-31 11:07 | HHI.PR ---
Subjective Remarks in no acute distress. says that feels better today. appetite is better. no fever. still feels weak. Objective Vitals Vital Signs Date Time Temp Pulse Resp B/P Pulse Ox O2 Delivery O2 Flow Rate FiO2 01/31/17 08:30 97.6 78 18 157/73 98 01/31/17 04:00 97.8 64 14 143/63 93 01/31/17 00:00 97.9 73 16 129/59 99 01/30/17 20:30 Nasal Cannula 3.00 Humidified 01/30/17 20:13 99 Nasal Cannula 3.00 01/30/17 20:00 98.3 72 18 139/63 99 01/30/17 20:00 82 01/30/17 16:00 98.1 64 18 141/66 98 01/30/17 12:00 98.1 73 18 149/67 98 I/O 01/30/17 01/30/17 01/30/17 01/31/17 01/31/17 01/31/17 07:00 15:00 23:00 07:00 15:00 23:00 Intake Total 496 ml 950 ml 583 ml 120 ml Output Total 450 ml 500 ml Balance 46 ml 450 ml 583 ml 120 ml Intake Oral 360 ml 240 ml 120 ml IV Total 496 ml 590 ml 343 ml Output Urine Total 450 ml 500 ml # Voids 0 # Bowel Movements 0 0 0 Result Diagram: 01/31/17 0535 01/31/17 0535 Imaging Last Impressions Chest CT 01/27/17 0000 Signed Impressions: Service Date/Time: January 08:09 - CONCLUSION: Multifocal varying size areas of infiltrate throughout both lungs, the largest located in the left lower lobe, lingula and posterior segment right upper lobe. These infiltrates appear to have progressed significantly since chest x-ray yesterday and are new finding when compared to prior CT on 12/23/16. Stable small right pleural effusion. Dionte Valverde MD Chest X-Ray 01/26/17 1055 Signed Impressions: Service Date/Time: Thursday, January 26, 2017 11:22 - CONCLUSION: 1. There are infiltrate in the right upper lobe and subtle rounded area of infiltrate in the left midlung field. CT imaging would be of benefit for more definitive characterization. Findings are new when compared to previous. Underlying pneumonia is not excluded. Pavan Coon MD Objective Remarks GENERAL: This is a well-nourished, well-developed patient, in no apparent distress. CARDIOVASCULAR: Regular rate and regular rhythm without murmurs, gallops, or rubs. RESPIRATORY: diminished air entry on left base GASTROINTESTINAL: Abdomen soft, non-tender, nondistended. Normal, active bowel sounds MUSCULOSKELETAL: Extremities without clubbing, cyanosis, or edema. NEURO: Alert & Oriented x4 to person, place, time, situation. Moves all ext x4 Procedures None Medications and IVs Current Medications Sodium Chloride (NS 1000 ml Inj) 1,000 ml @ 1,000 mls/hr Q1H ONCE IV Last administered on 01/26/17 11:25; Start 01/26/17 at 10:55; Stop 01/26/17 at 11:54; Status DC Sodium Chloride 2 ml 2 ml UNSCH PRN IVF FLUSH AFTER USING IV ACCESS Last administered on 01/26/17 14:27; Start 01/26/17 at 11:00; Stop 01/26/17 at 16:54; Status DC Ceftriaxone Sodium 1000 mg/ Sodium Chloride 100 ml @ 200 mls/hr ONCE ONCE IV Last administered on 01/26/17 13:27; Start 01/26/17 at 13:15; Stop 01/26/17 at 13: 44; Status DC Azithromycin 500 mg/Sodium Chloride 250 ml @ 250 mls/hr ONCE ONCE IV Last administered on 01/26/17 13:27; Start 01/26/17 at 13:15; Stop 01/26/17 at 14:14; Status DC Piperacillin Sod/ Tazobactam Sod (Zosyn 4.5 Gm Premix) 100 ml @ 200 mls/hr Q6H IV Last administered on 01/31/17 05:30; Start 01/26/17 at 18:00 Albuterol/ Ipratropium (Duoneb Neb) 1 ampule QID NEB INH Last administered on 01/30/17 15:35; Start 01/26/17 at 20:00; Stop 01/30/17 at 20:00; Status DC Albuterol/ Ipratropium (Duoneb Neb) 1 ampule Q4HR NEB PRN INH SHORTNESS OF BREATH Last administered on 01/26/17 18:14; Start 01/26/17 at 16:45 Guaifenesin/ Codeine Phosphate (Robitussin Ac 200-20 Mg/10 ml Liq) 10 ml Q4H PRN PO severe COUGH Last administered on 01/26/17 17:20; Start 01/26/17 at 16:45 Heparin Sodium (Porcine) (Heparin Inj) 5,000 units Q12H SQ Last administered on 01/31/17 05:31; Start 01/26/17 at 17:00 Benzonatate (Tessalon) 200 mg Q8H PRN PO mild COUGH Last administered on 17:21; Start 01/26/17 at 16:45 Guaifenesin 600 mg 600 mg BID PO Last administered on 01/31/17 08:49; Start at 21:00 Potassium Chloride/Sodium Chloride (NS + KCl 20 Meq Inj) 1,000 ml @ 50 mls/hr Q20H IV Last administered on 01/28/17 08:17; Start 01/26/17 at 18:00; Stop at 08:50; Status DC Sodium Chloride (NS Flush) 2 ml UNSCH PRN IV FLUSH FLUSH AFTER USING IV ACCESS ; Start 01/26/17 at 17:00 Sodium Chloride (NS Flush) 2 ml BID IV FLUSH Last administered on 01/29/17 09: 00; Start 01/26/17 at 21:00 Acetaminophen (Tylenol) 650 mg Q4H PRN PO TEMP > 100.4; Start 01/26/17 at 17:00 Ondansetron HCl (Zofran Inj) 4 mg Q6H PRN IVP NAUSEA OR VOMITING; Start at 17:00 Bisacodyl (Dulcolax Supp) 10 mg DAILY PRN RECTAL CONSTIPATION; Start 01/26/17 at 17:00 Docusate Sodium (Colace) 100 mg Q12H PO Last administered on 01/30/17 17:10; Start 01/26/17 at 17:00 Magnesium Hydroxide (Milk Of Magnesia Liq) 30 ml Q12H PRN PO severe CONSTIPATION; Start 01/26/17 at 17:00 Sennosides (Senokot) 17.2 mg Q12H PRN PO mild CONSTIPATION; Start 01/26/17 at 17 :00 Naloxone HCl (Narcan Inj) 0.4 mg UNSCH PRN IV SEE LABEL COMMENTS; Start at 17:00 Dextrose (D50w (Vial) Inj) 25 ml UNSCH PRN IV PUSH HYPOGLYCEMIA-SEE COMMENTS; Start 01/26/17 at 17:00 Glucagon (Glucagon Inj) 1 mg UNSCH PRN OTHER HYPOGLYCEMIA-SEE COMMENTS; Start 01/26/17 at 17:00 Insulin Aspart (NovoLOG SUPPLEMENTAL SCALE) 1 ACHS SLIDING SCALE SQ Last administered on 01/29/17 16:00; Start 01/26/17 at 21:00 Aspirin (Ecotrin Ec) 81 mg DAILY PO Last administered on 01/31/17 08:50; Start 01/27/17 at 09:00 Mirtazapine (Remeron) 15 mg DAILY PO Last administered on 01/31/17 08:50; Start 01/27/17 at 09:00 Pantoprazole Sodium (Protonix) 20 mg DAILY PO Last administered on 01/31/17 08 :49; Start 01/27/17 at 09:00 Dexamethasone 4 mg 4 mg DAILY PO Last administered on 01/27/17 09:05; Start 01/27/17 at 09:00; Stop 01/27/17 at 15:27; Status DC Diltiazem HCl 125 mg/Sodium Chloride 125 ml @ 0 mls/hr TITRATE IV Last administered on 01/28/17 05:04; Start 01/28/17 at 04:45; Stop 01/29/17 at 04:13; Status DC Magnesium Sulfate/ Dextrose (Magnesium Sulfate 1 Gm Premix) 100 ml @ 100 mls/ hr ONCE ONCE IV Last administered on 01/28/17 08:18; Start 01/28/17 at 06:30; Stop 01/28/17 at 07:29; Status DC Digoxin (Lanoxin Inj) 0.5 mg NOW ONCE IVS Last administered on 01/28/17 08:21 ; Start 01/28/17 at 08:00; Stop 01/28/17 at 08:02; Status DC Digoxin (Lanoxin Inj) 0.25 mg Q6H IVS Last administered on 01/28/17 22:05; Start 01/28/17 at 14:00; Stop 01/28/17 at 20:01; Status DC Digoxin (Lanoxin) 0.25 mg DAILY PO Last administered on 01/31/17 08:49; Start 01/29/17 at 09:00 Diltiazem HCl 30 mg 30 mg QID PO Last administered on 01/28/17 22:05; Start 01/28/17 at 09:00; Stop 01/29/17 at 06:38; Status DC Potassium Chloride/Sodium Chloride (NS + KCl 20 Meq Inj) 1,000 ml @ 50 mls/hr Q20H IV Last administered on 01/31/17 05:33; Start 01/28/17 at 18:00 Potassium Chloride (KCl) 10 meq ONCE ONCE PO Last administered on 01/28/17 09: 03; Start 01/28/17 at 09:00; Stop 01/28/17 at 09:01; Status DC Magnesium Oxide (Mag-Ox) 400 mg Q12HR PO Last administered on 01/31/17 08:50; Start 01/28/17 at 09:00 Non-Formulary Medication 1 tab DAILY PO BSM; Start 01/28/17 at 09:00; Status UNV Patient Own Medication PT OWN MED: KOMBIGL... DAILY PO ; Start 01/29/17 at 09:00 ; Status Hold Diltiazem HCl (Cardizem) 60 mg QID PO ; Start 01/29/17 at 09:00; Stop 01/29/17 at 09:00; Status DC Diltiazem HCl 30 mg 30 mg QID PO Last administered on 01/31/17 08:50; Start at 09:00 Levofloxacin/ Dextrose (Levaquin 750 Mg Premix Inj) 150 ml @ 100 mls/hr Q24H IV Last administered on 01/31/17 08:50; Start 01/29/17 at 08:00 Lorazepam (Ativan) 0.5 mg HS PRN PO INSOMNIA Last administered on 01/30/17 20: 30; Start 01/30/17 at 18:00 A/P Assessment and Plan A/p Pseudomonas Pneumonia/bacteremia (immunocompromise) Continue Zosyn Continue Levaquin will consult ID Lung Cancer Bronchogenic Carcinoma of Right Lung Continue treatments as an outpatient contributory to immunocompromise on chemo pulmonary following. CAD No chest pain Continue baseline managements DM2 Follow blood sugars Soft mechanical diabetic Diet accu-check with SSI HTN Follow BP anemia - due to chronic disease will monitor H/H. Weakness continue PT Jenna Garcia MD Jan 31, 2017 11:07
--- NOTE | 2017-01-31 17:21 | PD.ID.CON ---
History of Present Illness Service ID Consult Requested By Dr Burns Reason for Consult pseudomonas bacteremia and PNA Primary Care Physician Henry Fleming, DO Diagnoses: History of Present Illness 66 yo F who was diagnosed with R lung CA 2 mos ago after 6-12 mos of cough, hemoptysis and 40 lbs weight loss completed 2 nd course of chemo about 2 weeks ago and 3 days later developped malaise, SOB, productive cough She presented 3 days ago, afebrile, but with WBC of 22K She grew finch S PSAE i sputu and one of blood clx 10/27 She is on Zosyn, levaquine Review of Systems Except as stated in HPI: all other systems reviewed are Neg Past Family Social History Allergies: Coded Allergies: No Known Allergies (Verified , 01/26/17) Past Medical History CAD periferal artery dz HTN DM lung CA Past Surgical History CABG, section, right chest port placement Active Ordered Medications Medications where reviewed in EMR Antibiotics Include: levaquine zosyn 4.5 q 6 Family History Non-Contributory. Social History quit Tobacco. after rceived the diagnosis smoked up to 1 ppd prior No ETOH. No Illicit Drugs. Physical Exam Vital Signs Vital Signs Date Time Temp Pulse Resp B/P Pulse Ox O2 Delivery O2 Flow Rate FiO2 01/31/17 16:00 97.8 79 18 140/79 99 01/31/17 12:00 97.6 95 18 135/62 100 01/31/17 10:30 3.00 01/31/17 08:30 97.6 78 18 157/73 98 01/31/17 08:00 66 01/31/17 08:00 96 Nasal Cannula 3.00 Humidified 01/31/17 04:00 97.8 64 14 143/63 93 01/31/17 00:00 97.9 73 16 129/59 99 01/30/17 20:30 Nasal Cannula 3.00 Humidified 01/30/17 20:13 99 Nasal Cannula 3.00 01/30/17 20:00 98.3 72 18 139/63 99 01/30/17 20:00 82 Physical Exam CONSTITUTIONAL/GENERAL: This is a thin malnourished patient chronically ill appearing in no apparent distress. TUBES/LINES/DRAINS: PORT in place R chest SKIN: No jaundice, rashes, or lesions. . Skin temperature appropriate. Not diaphoretic. HEAD: Atraumatic. Normocephalic.Alopecia EYES: Pupils equal and round and reactive. Extraocular motions intact. + mild scleral icterus. No injection or drainage. Fundi not examined. ENT: Hearing grossly normal. Nose without bleeding or purulent drainage. Oral mucosae moist; poor dentition NECK: Trachea midline. Supple, nontender. CARDIOVASCULAR: Regular rate and rhythm 2/6 syst murmur R USB, no , gallops, or rubs. No JVD. Peripheral pulses symmetric. RESPIRATORY/CHEST: Symmetric, unlabored respirations. Clear to auscultation. Breath sounds diminished bilaterally. Few scattered rhonchi. GASTROINTESTINAL: Abdomen soft, non-tender, nondistended. No hepato-splenomegaly , or palpable masses. No guarding. Bowel sounds present. GENITOURINARY: Without palpable bladder distension. MUSCULOSKELETAL: Extremities without clubbing, cyanosis, or edema. NEUROLOGICAL: Awake and alert. Motor and sensory grossly within normal limits. Follows commands. Cognitively sharp. Moves all extremities. PSYCHIATRIC: No obvious anxiety/depression. no apparent hallucinations or other psychotic thought process. Laboratory Laboratory Tests Test 01/31/17 05:35 White Blood Count 10.8 Red Blood Count 3.12 Hemoglobin 7.9 Hematocrit 24.7 Mean Corpuscular Volume 79.0 Mean Corpuscular Hemoglobin 25.4 Mean Corpuscular Hemoglobin 32.2 Concent Red Cell Distribution Width 19.8 Platelet Count 162 Mean Platelet Volume 8.2 Sodium Level 142 Potassium Level 3.6 Chloride Level 107 Carbon Dioxide Level 26.4 Anion Gap 9 Blood Urea Nitrogen 4 Creatinine 0.34 Estimat Glomerular Filtration 193 Rate Random Glucose 101 Calcium Level 7.2 Protein Corrected Calcium 8.9 Total Protein 4.2 Date/Time Procedure Status Source Growth 01/31/17 11:50 Aerobic Blood Culture Received Blood Peripheral Pending 01/31/17 11:50 Anaerobic Blood Culture Received Blood Peripheral Pending 01/31/17 10:15 Stool Occult Blood ([facility]) - Final Complete Stool Stool HEMOCCULT NEGATIVE Result Diagram: 01/31/17 0535 01/31/17 0535 Imaging Last Impressions Chest CT 01/27/17 0000 Signed Impressions: Service Date/Time: January 08:09 - CONCLUSION: Multifocal varying size areas of infiltrate throughout both lungs, the largest located in the left lower lobe, lingula and posterior segment right upper lobe. These infiltrates appear to have progressed significantly since chest x-ray yesterday and are new finding when compared to prior CT on 12/23/16. Stable small right pleural effusion. Dionte Valverde MD Chest X-Ray 01/26/17 1055 Signed Impressions: Service Date/Time: Thursday, January 26, 2017 11:22 - CONCLUSION: 1. There are infiltrate in the right upper lobe and subtle rounded area of infiltrate in the left midlung field. CT imaging would be of benefit for more definitive characterization. Findings are new when compared to previous. Underlying pneumonia is not excluded. Pavan Coon MD Assessment and Plan Assessment and Plan R Lung Ca , invasive moderately differentited squamous cell CA sp chemo PSAE PNA, multilobar PSAE bacremia, lo wgrfed -source is likely PNA Leukocytosis: improving Rec's: will cont zosyn, levaquine for now anticipate eventual transition to po abx fu P blood clx Tg Nelson MD Jan 31, 2017 17:21
--- NOTE | 2017-01-31 19:50 | HHI.PR ---
Subjective Remarks 66 YOWF with ca lung, Pn Feels weak Has cough with liquids No fever CT chest Bilat Pn Sp and Blood culture Pseudomonas tired, appetite poor Objective Vital Signs Vital Signs Date Time Temp Pulse Resp B/P Pulse Ox O2 Delivery O2 Flow Rate FiO2 01/31/17 16:00 97.8 79 18 140/79 99 01/31/17 12:00 97.6 95 18 135/62 100 01/31/17 10:30 3.00 01/31/17 08:30 97.6 78 18 157/73 98 01/31/17 08:00 66 01/31/17 08:00 96 Nasal Cannula 3.00 Humidified 01/31/17 04:00 97.8 64 14 143/63 93 01/31/17 00:00 97.9 73 16 129/59 99 01/30/17 20:30 Nasal Cannula 3.00 Humidified 01/30/17 20:13 99 Nasal Cannula 3.00 01/30/17 20:00 98.3 72 18 139/63 99 01/30/17 20:00 82 I/O 01/30/17 01/30/17 01/30/17 01/31/17 01/31/17 01/31/17 07:00 15:00 23:00 07:00 15:00 23:00 Intake Total 496 ml 950 ml 583 ml 120 ml 240 ml Output Total 450 ml 500 ml Balance 46 ml 450 ml 583 ml 120 ml 240 ml Intake Oral 360 ml 240 ml 120 ml 240 ml IV Total 496 ml 590 ml 343 ml Output Urine Total 450 ml 500 ml # Voids 0 1 # Bowel Movements 0 0 0 1 Result Diagram: 01/31/17 0535 01/31/17 0535 Objective Remarks GENERAL: Frail elderly female, mild sob SKIN: Warm and dry. HEAD: Normocephalic. EYES: No scleral icterus. No injection or drainage. NECK: Supple, trachea midline. No JVD or lymphadenopathy. CARDIOVASCULAR: Regular rate and rhythm without murmurs, gallops, or rubs. RESPIRATORY: Breath sounds equal bilaterally. No accessory muscle use. Bilat rhonchi GASTROINTESTINAL: Abdomen soft, non-tender, nondistended. MUSCULOSKELETAL: No cyanosis, or edema. BACK: Nontender without obvious deformity. No CVA tenderness. A/P Assessment and Plan Bilat Pneumonia ?Aspiration COPD Leucocytosis ca lung PLAN: Cont Abx per ID Aerosol nebs DW pt and RN at BS Advised to stick with honey thickened liq to avoid aspiration Wean 02 to keep sat >90% Encourage po Ensure 1 can TID Fermin Walls MD Jan 31, 2017 19:50
[2017-01-31] MEDS: SODIUM CHLORIDE 0.9% FLUSH 10 ML FLUSH IV FLUSH SCH (21:00)
[2017-01-31] MEDS: LORazepam 0.5 MG TAB PO PRN (22:00)
[2017-02-01] VITALS (9 sets, daily range): BP systolic 136–162; BP diastolic 64–87; PULSE 54–72; RESP 14–18; TEMP 97–98.2; O2SAT 92–100
[2017-02-01] MEDS: PIPERACIL-TAZO 4.5 GM PREMIX 100 ML IV SCH ×5 (01:16→23:04)
[2017-02-01] MEDS: HEPARIN SODIUM - SQ 10,000 UNITS/ML VIAL SQ SCH ×2 (04:22→17:00)
[2017-02-01] MEDS: DOCUSATE SODIUM 100 MG CAP PO SCH ×2 (04:22→17:00)
[2017-02-01] MEDS: INSULIN ASPART SUPPLEMENTAL SCALE SQ SCH ×4 (05:46→20:58)
[2017-02-01] MEDS: LEVOFLOXACIN 750 MG PREMIX INJ 150 ML IV SCH (08:00)
[2017-02-01] MEDS: DILTIAZEM HCL 30 MG TAB PO SCH ×3 (09:00→20:56)
[2017-02-01] MEDS: DIGOXIN 0.25 MG TAB PO SCH (09:00)
--- NOTE | 2017-02-01 10:10 | HHI.PR ---
Subjective Remarks in no acute distress. says that she wasn't feeling well last night with some nausea and weakness. HR noted that was on low side over night. d/w the RN and otherwise no other acute issues over night. Objective Vitals Vital Signs Date Time Temp Pulse Resp B/P Pulse Ox O2 Delivery O2 Flow Rate FiO2 02/01/17 08:00 98.2 58 18 153/69 92 02/01/17 04:00 97.1 56 14 148/66 99 02/01/17 00:00 97.7 54 14 136/64 100 01/31/17 22:00 53 01/31/17 22:00 Nasal Cannula 3.00 Humidified 01/31/17 21:23 96 Nasal Cannula 3.00 01/31/17 20:00 97.7 64 14 124/60 98 01/31/17 16:00 97.8 79 18 140/79 99 01/31/17 12:00 97.6 95 18 135/62 100 01/31/17 10:30 3.00 I/O 01/31/17 01/31/17 01/31/17 02/01/17 02/01/17 02/01/17 07:00 15:00 23:00 07:00 15:00 23:00 Intake Total 120 ml 240 ml 1062 ml 664 ml Output Total 650 ml 350 ml Balance 120 ml 240 ml 412 ml 314 ml Intake Oral 120 ml 240 ml 0 ml 250 ml IV Total 1062 ml 414 ml Output Urine Total 650 ml 350 ml # Voids 1 # Bowel Movements 0 1 0 0 Result Diagram: 01/31/17 0535 01/31/17 0535 Imaging Last Impressions Chest CT 01/27/17 0000 Signed Impressions: Service Date/Time: January 08:09 - CONCLUSION: Multifocal varying size areas of infiltrate throughout both lungs, the largest located in the left lower lobe, lingula and posterior segment right upper lobe. These infiltrates appear to have progressed significantly since chest x-ray yesterday and are new finding when compared to prior CT on 12/23/16. Stable small right pleural effusion. Dionte Valverde MD Chest X-Ray 01/26/17 1055 Signed Impressions: Service Date/Time: Thursday, January 26, 2017 11:22 - CONCLUSION: 1. There are infiltrate in the right upper lobe and subtle rounded area of infiltrate in the left midlung field. CT imaging would be of benefit for more definitive characterization. Findings are new when compared to previous. Underlying pneumonia is not excluded. Pavan Coon MD Objective Remarks GENERAL: in no apparent distress. CARDIOVASCULAR: Regular rate and regular rhythm without murmurs, gallops, or rubs. RESPIRATORY: diminished air entry on left base GASTROINTESTINAL: Abdomen soft, non-tender, nondistended. Normal, active bowel sounds MUSCULOSKELETAL: Extremities without clubbing, cyanosis, or edema. NEURO: Alert & Oriented x4 to person, place, time, situation. Moves all ext x4 Procedures None Medications and IVs Current Medications Sodium Chloride (NS 1000 ml Inj) 1,000 ml @ 1,000 mls/hr Q1H ONCE IV Last administered on 01/26/17 11:25; Start 01/26/17 at 10:55; Stop 01/26/17 at 11:54; Status DC Sodium Chloride 2 ml 2 ml UNSCH PRN IVF FLUSH AFTER USING IV ACCESS Last administered on 01/26/17 14:27; Start 01/26/17 at 11:00; Stop 01/26/17 at 16:54; Status DC Ceftriaxone Sodium 1000 mg/ Sodium Chloride 100 ml @ 200 mls/hr ONCE ONCE IV Last administered on 01/26/17 13:27; Start 01/26/17 at 13:15; Stop 01/26/17 at 13: 44; Status DC Azithromycin 500 mg/Sodium Chloride 250 ml @ 250 mls/hr ONCE ONCE IV Last administered on 01/26/17 13:27; Start 01/26/17 at 13:15; Stop 01/26/17 at 14:14; Status DC Piperacillin Sod/ Tazobactam Sod (Zosyn 4.5 Gm Premix) 100 ml @ 200 mls/hr Q6H IV Last administered on 02/01/17 05:15; Start 01/26/17 at 18:00 Albuterol/ Ipratropium (Duoneb Neb) 1 ampule QID NEB INH Last administered on 01/30/17 15:35; Start 01/26/17 at 20:00; Stop 01/30/17 at 20:00; Status DC Albuterol/ Ipratropium (Duoneb Neb) 1 ampule Q4HR NEB PRN INH SHORTNESS OF BREATH Last administered on 01/26/17 18:14; Start 01/26/17 at 16:45 Guaifenesin/ Codeine Phosphate (Robitussin Ac 200-20 Mg/10 ml Liq) 10 ml Q4H PRN PO severe COUGH Last administered on 01/26/17 17:20; Start 01/26/17 at 16:45 Heparin Sodium (Porcine) (Heparin Inj) 5,000 units Q12H SQ Last administered on 02/01/17 04:22; Start 01/26/17 at 17:00 Benzonatate (Tessalon) 200 mg Q8H PRN PO mild COUGH Last administered on 17:21; Start 01/26/17 at 16:45 Guaifenesin 600 mg 600 mg BID PO Last administered on 01/31/17 21:51; Start at 21:00 Potassium Chloride/Sodium Chloride (NS + KCl 20 Meq Inj) 1,000 ml @ 50 mls/hr Q20H IV Last administered on 01/28/17 08:17; Start 01/26/17 at 18:00; Stop at 08:50; Status DC Sodium Chloride (NS Flush) 2 ml UNSCH PRN IV FLUSH FLUSH AFTER USING IV ACCESS ; Start 01/26/17 at 17:00 Sodium Chloride (NS Flush) 2 ml BID IV FLUSH Last administered on 01/29/17 09: 00; Start 01/26/17 at 21:00 Acetaminophen (Tylenol) 650 mg Q4H PRN PO TEMP > 100.4; Start 01/26/17 at 17:00 Ondansetron HCl (Zofran Inj) 4 mg Q6H PRN IVP NAUSEA OR VOMITING; Start at 17:00 Bisacodyl (Dulcolax Supp) 10 mg DAILY PRN RECTAL CONSTIPATION; Start 01/26/17 at 17:00 Docusate Sodium (Colace) 100 mg Q12H PO Last administered on 02/01/17 04:22; Start 01/26/17 at 17:00 Magnesium Hydroxide (Milk Of Magnesia Liq) 30 ml Q12H PRN PO severe CONSTIPATION; Start 01/26/17 at 17:00 Sennosides (Senokot) 17.2 mg Q12H PRN PO mild CONSTIPATION; Start 01/26/17 at 17 :00 Naloxone HCl (Narcan Inj) 0.4 mg UNSCH PRN IV SEE LABEL COMMENTS; Start at 17:00 Dextrose (D50w (Vial) Inj) 25 ml UNSCH PRN IV PUSH HYPOGLYCEMIA-SEE COMMENTS; Start 01/26/17 at 17:00 Glucagon (Glucagon Inj) 1 mg UNSCH PRN OTHER HYPOGLYCEMIA-SEE COMMENTS; Start 01/26/17 at 17:00 Insulin Aspart (NovoLOG SUPPLEMENTAL SCALE) 1 ACHS SLIDING SCALE SQ Last administered on 01/29/17 16:00; Start 01/26/17 at 21:00 Aspirin (Ecotrin Ec) 81 mg DAILY PO Last administered on 01/31/17 08:50; Start 01/27/17 at 09:00 Mirtazapine (Remeron) 15 mg DAILY PO Last administered on 01/31/17 08:50; Start 01/27/17 at 09:00 Pantoprazole Sodium (Protonix) 20 mg DAILY PO Last administered on 01/31/17 08 :49; Start 01/27/17 at 09:00 Dexamethasone 4 mg 4 mg DAILY PO Last administered on 01/27/17 09:05; Start 01/27/17 at 09:00; Stop 01/27/17 at 15:27; Status DC Diltiazem HCl 125 mg/Sodium Chloride 125 ml @ 0 mls/hr TITRATE IV Last administered on 01/28/17 05:04; Start 01/28/17 at 04:45; Stop 01/29/17 at 04:13; Status DC Magnesium Sulfate/ Dextrose (Magnesium Sulfate 1 Gm Premix) 100 ml @ 100 mls/ hr ONCE ONCE IV Last administered on 01/28/17 08:18; Start 01/28/17 at 06:30; Stop 01/28/17 at 07:29; Status DC Digoxin (Lanoxin Inj) 0.5 mg NOW ONCE IVS Last administered on 01/28/17 08:21 ; Start 01/28/17 at 08:00; Stop 01/28/17 at 08:02; Status DC Digoxin (Lanoxin Inj) 0.25 mg Q6H IVS Last administered on 01/28/17 22:05; Start 01/28/17 at 14:00; Stop 01/28/17 at 20:01; Status DC Digoxin (Lanoxin) 0.25 mg DAILY PO Last administered on 01/31/17 08:49; Start 01/29/17 at 09:00 Diltiazem HCl 30 mg 30 mg QID PO Last administered on 01/28/17 22:05; Start 01/28/17 at 09:00; Stop 01/29/17 at 06:38; Status DC Potassium Chloride/Sodium Chloride (NS + KCl 20 Meq Inj) 1,000 ml @ 50 mls/hr Q20H IV Last administered on 01/31/17 05:33; Start 01/28/17 at 18:00 Potassium Chloride (KCl) 10 meq ONCE ONCE PO Last administered on 01/28/17 09: 03; Start 01/28/17 at 09:00; Stop 01/28/17 at 09:01; Status DC Magnesium Oxide (Mag-Ox) 400 mg Q12HR PO Last administered on 01/31/17 21:51; Start 01/28/17 at 09:00 Non-Formulary Medication 1 tab DAILY PO BSM; Start 01/28/17 at 09:00; Status UNV Patient Own Medication PT OWN MED: KOMBIGL... DAILY PO ; Start 01/29/17 at 09:00 ; Status Hold Diltiazem HCl (Cardizem) 60 mg QID PO ; Start 01/29/17 at 09:00; Stop 01/29/17 at 09:00; Status DC Diltiazem HCl 30 mg 30 mg QID PO Last administered on 01/31/17 21:51; Start at 09:00 Levofloxacin/ Dextrose (Levaquin 750 Mg Premix Inj) 150 ml @ 100 mls/hr Q24H IV Last administered on 02/01/17 08:00; Start 01/29/17 at 08:00 Lorazepam (Ativan) 0.5 mg HS PRN PO INSOMNIA Last administered on 01/31/17 22: 00; Start 01/30/17 at 18:00 A/P Assessment and Plan A/p Pseudomonas Pneumonia/bacteremia (immunocompromise) Continue Zosyn Continue Levaquin follow the repeated blood culture ID consult appreciated. Lung Cancer Bronchogenic Carcinoma of Right Lung Continue treatments as an outpatient contributory to immunocompromise on chemo pulmonary following. CAD No chest pain bradycardia will decrease cardizem and continue to monitor DM2 Follow blood sugars Soft mechanical diabetic Diet accu-check with SSI HTN continue cardizem Follow BP anemia - due to chronic disease will monitor H/H. Weakness continue PT Discharge Planning rehab was offered but the patient wants to go home. agreed with [facility]. case management will be consulte. possible dc home within the next two-three days if stable. Jenna Garcia MD Feb 01, 2017 10:10
--- NOTE | 2017-02-01 10:10 | HHI.FF ---
Face to Face Verification Diagnosis: (1) Generalized weakness (2) Pneumonia Physical Therapy Order: Evaluate and Treat Home Health Nursing Order: Medical education Signs/symptoms of disease process Medication education-adverse effect Nursing assessment with vital signs I have seen patient Kristi Dutta on 02/01/17. My clinical findings support the need for the requested home health care services because: Patient has SOB I certify that my clinical findings support that this patient is homebound because: Unsteady gait/balance Jenna Garcia MD Feb 01, 2017 10:10
[2017-02-01] MEDS: MAGNESIUM OXIDE 400 MG TAB PO SCH ×2 (11:18→20:56)
[2017-02-01] MEDS: PANTOPRAZOLE SOD 20 MG DELAYED RELEASE TAB PO SCH (11:18)
[2017-02-01] MEDS: guaiFENesin E.R. 600 MG TAB PO SCH ×2 (11:18→20:56)
[2017-02-01] MEDS: ASPIRIN EC 81 MG TABEC PO SCH (11:18)
[2017-02-01] MEDS: MIRTAZAPINE 15 MG TAB PO SCH (11:18)
[2017-02-01] MEDS: NS + KCL 20 MEQ INJ 1,000 ML IV SCH ×2 (15:00→20:57)
--- NOTE | 2017-02-01 18:48 | HHI.PR ---
Subjective Remarks 66 YOWF with ca lung, Pn Feels weak Has cough with liquids No fever CT chest Bilat Pn Sp and Blood culture Pseudomonas Feels little better today Appetite improving Objective Vital Signs Vital Signs Date Time Temp Pulse Resp B/P Pulse Ox O2 Delivery O2 Flow Rate FiO2 02/01/17 16:00 97.6 63 18 162/87 97 02/01/17 14:00 100 Nasal Cannula 3.00 02/01/17 12:00 97.0 62 18 148/65 92 02/01/17 08:00 96 Nasal Cannula 3.00 Humidified 02/01/17 08:00 98.2 58 18 153/69 92 02/01/17 08:00 58 02/01/17 08:00 58 02/01/17 04:00 97.1 56 14 148/66 99 02/01/17 00:00 97.7 54 14 136/64 100 01/31/17 22:00 53 01/31/17 22:00 Nasal Cannula 3.00 Humidified 01/31/17 21:23 96 Nasal Cannula 3.00 01/31/17 20:00 97.7 64 14 124/60 98 I/O 01/31/17 01/31/17 01/31/17 02/01/17 02/01/17 02/01/17 07:00 15:00 23:00 07:00 15:00 23:00 Intake Total 120 ml 240 ml 1062 ml 664 ml 240 ml Output Total 650 ml 350 ml Balance 120 ml 240 ml 412 ml 314 ml 240 ml Intake Oral 120 ml 240 ml 0 ml 250 ml 240 ml IV Total 1062 ml 414 ml Output Urine Total 650 ml 350 ml # Voids 1 1 # Bowel Movements 0 1 0 0 1 Result Diagram: 01/31/17 0535 01/31/17 0535 Objective Remarks GENERAL: Frail elderly female, mild sob SKIN: Warm and dry. HEAD: Normocephalic. EYES: No scleral icterus. No injection or drainage. NECK: Supple, trachea midline. No JVD or lymphadenopathy. CARDIOVASCULAR: Regular rate and rhythm without murmurs, gallops, or rubs. RESPIRATORY: Breath sounds equal bilaterally. No accessory muscle use. Bilat rhonchi GASTROINTESTINAL: Abdomen soft, non-tender, nondistended. MUSCULOSKELETAL: No cyanosis, or edema. BACK: Nontender without obvious deformity. No CVA tenderness. A/P Assessment and Plan Bilat Pneumonia ?Aspiration COPD Leucocytosis ca lung PLAN: Cont Abx per ID Aerosol nebs DW pt and RN at BS Encourage po Ensure 1 can TID Fermin Walls MD Feb 01, 2017 18:48
[2017-02-01] MEDS: SODIUM CHLORIDE 0.9% FLUSH 10 ML FLUSH IV FLUSH SCH (20:58)
[2017-02-01] MEDS: LORazepam 0.5 MG TAB PO PRN (21:02)
[2017-02-02] VITALS (9 sets, daily range): BP systolic 119–156; BP diastolic 63–76; PULSE 56–69; RESP 16–20; TEMP 97.4–98.1; O2SAT 95–100
[2017-02-02] MEDS: HEPARIN SODIUM - SQ 10,000 UNITS/ML VIAL SQ SCH ×2 (05:01→16:33)
[2017-02-02] MEDS: DOCUSATE SODIUM 100 MG CAP PO SCH ×2 (05:01→16:32)
[2017-02-02] MEDS: DILTIAZEM HCL 30 MG TAB PO SCH ×3 (05:01→21:54)
[2017-02-02] MEDS: PIPERACIL-TAZO 4.5 GM PREMIX 100 ML IV SCH ×3 (05:02→16:36)
[2017-02-02] MEDS: INSULIN ASPART SUPPLEMENTAL SCALE SQ SCH ×4 (06:34→21:55)
[2017-02-02 07:15] LABS: AUTOMATED NEUTROPHIL # 7.3 TH/MM3 (1.8-7.7); BASOPHIL % 0.4 % (0.0-2.0); EOSINOPHIL % 0.3 % (0.0-4.0); HEMATOCRIT 23.5 % (35.0-46.0); LYMPH % 11.2 % (9.0-44.0); MEAN CELL VOLUME 78.8 FL (80.0-100.0); MONO % 5.1 % (0.0-8.0); PLATELET COUNT 194 TH/MM3 (150-450); RED BLOOD COUNT 2.98 MIL/MM3 (4.00-5.30); RED CELL DISTRIBUTION WIDTH 19.5 % (11.6-17.2); WHITE BLOOD COUNT 8.8 TH/MM3 (4.0-11.0)
[2017-02-02 07:38] LABS: BICARBONATE 29.3 MEQ/L (21.0-32.0); POTASSIUM 3.2 MEQ/L (3.5-5.1)
[2017-02-02 07:44] LABS: HEMO FLAGS AUTO DIFF
[2017-02-02 08:02] LABS: CALCIUM-PROTEIN CORRECTED 8.4 MG/DL (8.5-10.1)
[2017-02-02 09:35] LABS: BANDS 12 % (0-6); METAMYELOCYTES 2 % (0-1); MYELOCYTES 1 % (0-0); NEUTROPHIL # MANUAL DIFF 7.9 TH/MM3 (1.8-7.7); OVALOCYTES 1+ (NORMAL); POLYS (SEG NEUTROPHILS) 75 % (16-70); TOXIC GRANULATION 2+ (NORMAL); WBC DIFF SAMPLE 100
[2017-02-02 09:36] LABS: PLATELET ESTIMATE SMEAR NORMAL (NORMAL); PLATELET MORPHOLOGY NORMAL (NORMAL); SCAN/DIFF FINAL DIFF MANUAL
[2017-02-02] MEDS: guaiFENesin E.R. 600 MG TAB PO SCH ×2 (09:42→21:53)
[2017-02-02] MEDS: DIGOXIN 0.25 MG TAB PO SCH (09:42)
[2017-02-02] MEDS: MAGNESIUM OXIDE 400 MG TAB PO SCH ×2 (09:42→21:53)
[2017-02-02] MEDS: PANTOPRAZOLE SOD 20 MG DELAYED RELEASE TAB PO SCH (09:42)
[2017-02-02] MEDS: MIRTAZAPINE 15 MG TAB PO SCH (09:42)
[2017-02-02] MEDS: ASPIRIN EC 81 MG TABEC PO SCH (09:43)
[2017-02-02] MEDS: SODIUM CHLORIDE 0.9% FLUSH 10 ML FLUSH IV FLUSH SCH ×2 (09:43→21:00)
[2017-02-02] MEDS: LEVOFLOXACIN 750 MG PREMIX INJ 150 ML IV SCH (09:44)
--- NOTE | 2017-02-02 10:00 | HHI.PR ---
Subjective Remarks resting comfortably with no distress. no fever. no sob. says that her appetite is better. d/w the RN and no acute issues over night. Objective Vitals Vital Signs Date Time Temp Pulse Resp B/P Pulse Ox O2 Delivery O2 Flow Rate FiO2 02/02/17 08:29 99 Nasal Cannula 3.00 02/02/17 08:00 98.1 62 18 119/63 99 02/02/17 04:00 97.8 56 16 125/76 100 02/02/17 00:25 66 02/01/17 23:51 97.9 66 15 147/67 99 02/01/17 21:00 95 Nasal Cannula 3.00 Humidified 02/01/17 20:00 97.7 72 16 147/66 93 02/01/17 19:55 97.6 72 16 147/66 93 02/01/17 16:00 97.6 63 18 162/87 97 02/01/17 14:00 100 Nasal Cannula 3.00 02/01/17 12:00 97.0 62 18 148/65 92 I/O 02/01/17 02/01/17 02/01/17 02/02/17 02/02/17 02/02/17 07:00 15:00 23:00 07:00 15:00 23:00 Intake Total 664 ml 240 ml 240 ml 240 ml Output Total 350 ml Balance 314 ml 240 ml 240 ml 240 ml Intake Oral 250 ml 240 ml 240 ml 240 ml IV Total 414 ml Output Urine Total 350 ml # Voids 1 1 2 # Bowel Movements 0 1 1 1 Result Diagram: 02/02/17 0640 02/02/17 0640 Imaging Last Impressions Chest CT 01/27/17 0000 Signed Impressions: Service Date/Time: January 08:09 - CONCLUSION: Multifocal varying size areas of infiltrate throughout both lungs, the largest located in the left lower lobe, lingula and posterior segment right upper lobe. These infiltrates appear to have progressed significantly since chest x-ray yesterday and are new finding when compared to prior CT on 12/23/16. Stable small right pleural effusion. Dionte Valverde MD Chest X-Ray 01/26/17 1055 Signed Impressions: Service Date/Time: Thursday, January 26, 2017 11:22 - CONCLUSION: 1. There are infiltrate in the right upper lobe and subtle rounded area of infiltrate in the left midlung field. CT imaging would be of benefit for more definitive characterization. Findings are new when compared to previous. Underlying pneumonia is not excluded. Pavan Coon MD Objective Remarks GENERAL: in no apparent distress. CARDIOVASCULAR: Regular rate and regular rhythm without murmurs, gallops, or rubs. RESPIRATORY: diminished air entry on left base GASTROINTESTINAL: Abdomen soft, non-tender, nondistended. Normal, active bowel sounds MUSCULOSKELETAL: Extremities without clubbing, cyanosis, or edema. NEURO: Alert & Oriented x4 to person, place, time, situation. Moves all ext x4 Procedures None Medications and IVs Current Medications Sodium Chloride (NS 1000 ml Inj) 1,000 ml @ 1,000 mls/hr Q1H ONCE IV Last administered on 01/26/17 11:25; Start 01/26/17 at 10:55; Stop 01/26/17 at 11:54; Status DC Sodium Chloride 2 ml 2 ml UNSCH PRN IVF FLUSH AFTER USING IV ACCESS Last administered on 01/26/17 14:27; Start 01/26/17 at 11:00; Stop 01/26/17 at 16:54; Status DC Ceftriaxone Sodium 1000 mg/ Sodium Chloride 100 ml @ 200 mls/hr ONCE ONCE IV Last administered on 01/26/17 13:27; Start 01/26/17 at 13:15; Stop 01/26/17 at 13: 44; Status DC Azithromycin 500 mg/Sodium Chloride 250 ml @ 250 mls/hr ONCE ONCE IV Last administered on 01/26/17 13:27; Start 01/26/17 at 13:15; Stop 01/26/17 at 14:14; Status DC Piperacillin Sod/ Tazobactam Sod (Zosyn 4.5 Gm Premix) 100 ml @ 200 mls/hr Q6H IV Last administered on 02/02/17 05:02; Start 01/26/17 at 18:00 Albuterol/ Ipratropium (Duoneb Neb) 1 ampule QID NEB INH Last administered on 01/30/17 15:35; Start 01/26/17 at 20:00; Stop 01/30/17 at 20:00; Status DC Albuterol/ Ipratropium (Duoneb Neb) 1 ampule Q4HR NEB PRN INH SHORTNESS OF BREATH Last administered on 01/26/17 18:14; Start 01/26/17 at 16:45 Guaifenesin/ Codeine Phosphate (Robitussin Ac 200-20 Mg/10 ml Liq) 10 ml Q4H PRN PO severe COUGH Last administered on 01/26/17 17:20; Start 01/26/17 at 16:45 Heparin Sodium (Porcine) (Heparin Inj) 5,000 units Q12H SQ Last administered on 02/02/17 05:01; Start 01/26/17 at 17:00 Benzonatate (Tessalon) 200 mg Q8H PRN PO mild COUGH Last administered on 17:21; Start 01/26/17 at 16:45 Guaifenesin 600 mg 600 mg BID PO Last administered on 02/02/17 09:42; Start at 21:00 Potassium Chloride/Sodium Chloride (NS + KCl 20 Meq Inj) 1,000 ml @ 50 mls/hr Q20H IV Last administered on 01/28/17 08:17; Start 01/26/17 at 18:00; Stop at 08:50; Status DC Sodium Chloride (NS Flush) 2 ml UNSCH PRN IV FLUSH FLUSH AFTER USING IV ACCESS ; Start 01/26/17 at 17:00 Sodium Chloride (NS Flush) 2 ml BID IV FLUSH Last administered on 02/02/17 09: 43; Start 01/26/17 at 21:00 Acetaminophen (Tylenol) 650 mg Q4H PRN PO TEMP > 100.4; Start 01/26/17 at 17:00 Ondansetron HCl (Zofran Inj) 4 mg Q6H PRN IVP NAUSEA OR VOMITING; Start at 17:00 Bisacodyl (Dulcolax Supp) 10 mg DAILY PRN RECTAL CONSTIPATION; Start 01/26/17 at 17:00 Docusate Sodium (Colace) 100 mg Q12H PO Last administered on 02/02/17 05:01; Start 01/26/17 at 17:00 Magnesium Hydroxide (Milk Of Magnesia Liq) 30 ml Q12H PRN PO severe CONSTIPATION; Start 01/26/17 at 17:00 Sennosides (Senokot) 17.2 mg Q12H PRN PO mild CONSTIPATION; Start 01/26/17 at 17 :00 Naloxone HCl (Narcan Inj) 0.4 mg UNSCH PRN IV SEE LABEL COMMENTS; Start at 17:00 Dextrose (D50w (Vial) Inj) 25 ml UNSCH PRN IV PUSH HYPOGLYCEMIA-SEE COMMENTS; Start 01/26/17 at 17:00 Glucagon (Glucagon Inj) 1 mg UNSCH PRN OTHER HYPOGLYCEMIA-SEE COMMENTS; Start 01/26/17 at 17:00 Insulin Aspart (NovoLOG SUPPLEMENTAL SCALE) 1 ACHS SLIDING SCALE SQ Last administered on 02/01/17 20:58; Start 01/26/17 at 21:00 Aspirin (Ecotrin Ec) 81 mg DAILY PO Last administered on 02/02/17 09:43; Start 01/27/17 at 09:00 Mirtazapine (Remeron) 15 mg DAILY PO Last administered on 02/02/17 09:42; Start 01/27/17 at 09:00 Pantoprazole Sodium (Protonix) 20 mg DAILY PO Last administered on 02/02/17 09 :42; Start 01/27/17 at 09:00 Dexamethasone 4 mg 4 mg DAILY PO Last administered on 01/27/17 09:05; Start 01/27/17 at 09:00; Stop 01/27/17 at 15:27; Status DC Diltiazem HCl 125 mg/Sodium Chloride 125 ml @ 0 mls/hr TITRATE IV Last administered on 01/28/17 05:04; Start 01/28/17 at 04:45; Stop 01/29/17 at 04:13; Status DC Magnesium Sulfate/ Dextrose (Magnesium Sulfate 1 Gm Premix) 100 ml @ 100 mls/ hr ONCE ONCE IV Last administered on 01/28/17 08:18; Start 01/28/17 at 06:30; Stop 01/28/17 at 07:29; Status DC Digoxin (Lanoxin Inj) 0.5 mg NOW ONCE IVS Last administered on 01/28/17 08:21 ; Start 01/28/17 at 08:00; Stop 01/28/17 at 08:02; Status DC Digoxin (Lanoxin Inj) 0.25 mg Q6H IVS Last administered on 01/28/17 22:05; Start 01/28/17 at 14:00; Stop 01/28/17 at 20:01; Status DC Digoxin (Lanoxin) 0.25 mg DAILY PO Last administered on 02/02/17 09:42; Start 01/29/17 at 09:00 Diltiazem HCl 30 mg 30 mg QID PO Last administered on 01/28/17 22:05; Start 01/28/17 at 09:00; Stop 01/29/17 at 06:38; Status DC Potassium Chloride/Sodium Chloride (NS + KCl 20 Meq Inj) 1,000 ml @ 50 mls/hr Q20H IV Last administered on 02/01/17 20:57; Start 01/28/17 at 18:00 Potassium Chloride (KCl) 10 meq ONCE ONCE PO Last administered on 01/28/17 09: 03; Start 01/28/17 at 09:00; Stop 01/28/17 at 09:01; Status DC Magnesium Oxide (Mag-Ox) 400 mg Q12HR PO Last administered on 02/02/17 09:42; Start 01/28/17 at 09:00 Non-Formulary Medication 1 tab DAILY PO BSM; Start 01/28/17 at 09:00; Status UNV Patient Own Medication PT OWN MED: KOMBIGL... DAILY PO ; Start 01/29/17 at 09:00 ; Status Hold Diltiazem HCl (Cardizem) 60 mg QID PO ; Start 01/29/17 at 09:00; Stop 01/29/17 at 09:00; Status DC Diltiazem HCl 30 mg 30 mg QID PO Last administered on 01/31/17 21:51; Start at 09:00; Stop 02/01/17 at 10:15; Status DC Levofloxacin/ Dextrose (Levaquin 750 Mg Premix Inj) 150 ml @ 100 mls/hr Q24H IV Last administered on 02/02/17 09:44; Start 01/29/17 at 08:00 Lorazepam (Ativan) 0.5 mg HS PRN PO INSOMNIA Last administered on 02/01/17 21: 02; Start 01/30/17 at 18:00 Diltiazem HCl (Cardizem) 30 mg Q8HR PO Last administered on 02/02/17 05:01; Start 02/01/17 at 14:00 A/P Assessment and Plan A/p Pseudomonas Pneumonia/bacteremia (immunocompromise) Continue Zosyn Continue Levaquin repeated blood cultures negative ID consult appreciated. Lung Cancer Bronchogenic Carcinoma of Right Lung f/u as outpatient contributory to immunocompromise on chemo pulmonary following. CAD No chest pain bradycardia-overall improved. decreased cardizem. continue to monitor DM2 Follow blood sugars Soft mechanical diabetic Diet accu-check with SSI HTN continue cardizem Follow BP anemia - due to chronic disease-fairly stable. will monitor H/H. hypokalemia-will replace. Weakness continue PT Discharge Planning d/w the patient again regarding rehab; now she's considering that option. d/w case management. dc planning within the next 24-48 hrs if stable. Jenna Garcia MD Feb 02, 2017 10:00
[2017-02-02] MEDS ORDERED: POTASSIUM CHLORIDE 10 MEQ CONTROLLED RELEASE TAB PO ONE ×2 (10:15→14:00)
[2017-02-02 12:02] LABS: MAGNESIUM 1.1 MG/DL (1.5-2.5)
[2017-02-02] MEDS: MAGNESIUM SULFATE 1 GM PREMIX 100 ML IV SCH ×2 (14:18→14:21)
[2017-02-02] MEDS: NS + KCL 20 MEQ INJ 1,000 ML IV SCH (16:40)
--- NOTE | 2017-02-02 18:41 | HHI.IDPN ---
Subjective Subjective Remarks improving no fever feels better Antibiotics zosyn levaquine Allergies: Coded Allergies: No Known Allergies (Verified , 01/26/17) Objective . Vital Signs Date Time Temp Pulse Resp B/P Pulse Ox O2 Delivery O2 Flow Rate FiO2 02/02/17 16:00 97.4 64 20 149/66 100 02/02/17 12:00 97.5 63 18 156/66 96 02/02/17 08:29 99 Nasal Cannula 3.00 02/02/17 08:28 69 02/02/17 08:00 96 Nasal Cannula 3.00 Humidified 02/02/17 08:00 98.1 62 18 119/63 99 02/02/17 04:00 97.8 56 16 125/76 100 02/02/17 00:25 66 02/01/17 23:51 97.9 66 15 147/67 99 02/01/17 21:00 95 Nasal Cannula 3.00 Humidified 02/01/17 20:00 97.7 72 16 147/66 93 02/01/17 19:55 97.6 72 16 147/66 93 02/01/17 02/01/17 02/02/17 15:00 23:00 07:00 Intake Total 240 ml 240 ml 240 ml Balance 240 ml 240 ml 240 ml Intake Oral 240 ml 240 ml 240 ml # Voids 1 1 2 # Bowel Movements 1 1 1 . Laboratory Tests Test 02/02/17 06:40 White Blood Count 8.8 TH/MM3 Red Blood Count 2.98 MIL/MM3 Hemoglobin 7.8 GM/DL Hematocrit 23.5 % Mean Corpuscular Volume 78.8 FL Mean Corpuscular Hemoglobin 26.0 PG Mean Corpuscular Hemoglobin 33.0 % Concent Red Cell Distribution Width 19.5 % Platelet Count 194 TH/MM3 Mean Platelet Volume 7.7 FL Neutrophils (%) (Auto) 83.0 % Lymphocytes (%) (Auto) 11.2 % Monocytes (%) (Auto) 5.1 % Eosinophils (%) (Auto) 0.3 % Basophils (%) (Auto) 0.4 % Neutrophils # (Auto) 7.3 TH/MM3 Lymphocytes # (Auto) 1.0 TH/MM3 Monocytes # (Auto) 0.4 TH/MM3 Eosinophils # (Auto) 0.0 TH/MM3 Basophils # (Auto) 0.0 TH/MM3 CBC Comment AUTO DIFF Differential Total Cells 100 Counted Neutrophils % (Manual) 75 % Band Neutrophils % 12 % Lymphocytes % 6 % Monocytes % 4 % Neutrophils # (Manual) 7.9 TH/MM3 Metamyelocytes 2 % Myelocytes 1 % Differential Comment FINAL DIFF MANUAL Toxic Granulation 2+ Platelet Estimate NORMAL Platelet Morphology Comment NORMAL Ovalocytes 1+ Laboratory Tests Test 02/02/17 06:40 Sodium Level 141 MEQ/L Potassium Level 3.2 MEQ/L Chloride Level 105 MEQ/L Carbon Dioxide Level 29.3 MEQ/L Anion Gap 7 MEQ/L Blood Urea Nitrogen 2 MG/DL Creatinine 0.27 MG/DL Estimat Glomerular Filtration 251 ML/MIN Rate Random Glucose 110 MG/DL Calcium Level 6.8 MG/DL Protein Corrected Calcium 8.4 MG/DL Magnesium Level 1.1 MG/DL Total Protein 4.2 GM/DL Microbiology Date/Time Procedure Status Source Growth 01/31/17 10:15 Stool Occult Blood ([facility]) - Final Complete Stool Stool HEMOCCULT NEGATIVE 01/31/17 11:50 Aerobic Blood Culture - Preliminary Resulted Blood Peripheral NO GROWTH IN 2 DAYS 01/31/17 11:50 Anaerobic Blood Culture - Preliminary Resulted Blood Peripheral NO GROWTH IN 2 DAYS Imaging Last Impressions Chest CT 01/27/17 0000 Signed Impressions: Service Date/Time: January 08:09 - CONCLUSION: Multifocal varying size areas of infiltrate throughout both lungs, the largest located in the left lower lobe, lingula and posterior segment right upper lobe. These infiltrates appear to have progressed significantly since chest x-ray yesterday and are new finding when compared to prior CT on 12/23/16. Stable small right pleural effusion. Dionte Valverde MD Chest X-Ray 01/26/17 1055 Signed Impressions: Service Date/Time: Thursday, January 26, 2017 11:22 - CONCLUSION: 1. There are infiltrate in the right upper lobe and subtle rounded area of infiltrate in the left midlung field. CT imaging would be of benefit for more definitive characterization. Findings are new when compared to previous. Underlying pneumonia is not excluded. Pavan Coon MD Physical Exam CONSTITUTIONAL/GENERAL: This is a thin malnourished patient chronically ill appearing in no apparent distress. TUBES/LINES/DRAINS: PORT in place R chest SKIN: No jaundice, rashes, or lesions. . HEAD: Atraumatic. Normocephalic.Alopecia EYES: No scleral icterus. No injection or drainage. Fundi not examined. CARDIOVASCULAR: Regular rate and rhythm 2/6 syst murmur R USB, no , gallops, or rubs. No JVD. Peripheral pulses symmetric. RESPIRATORY/CHEST: Symmetric, unlabored respirations. Clear to auscultation. Breath sounds diminished bilaterally. Few scattered rhonchi. GASTROINTESTINAL: Abdomen soft, non-tender, nondistended. No hepato-splenomegaly , or palpable masses. No guarding. Bowel sounds present. MUSCULOSKELETAL: Extremities without clubbing, cyanosis, or edema. NEUROLOGICAL: Awake and alert. Non focal PSYCHIATRIC: calm, cooperative Assessment & Plan Remarks R Lung Ca , invasive moderately differentited squamous cell CA sp chemo PSAE PNA, multilobar PSAE bacremia, lo wgrfed -source is likely PNA Leukocytosis, bandemia Rec's: dct zosyn start cefepime cont levaquine x 2 weeks anticipate eventual transition to po abx Tg Nelson MD Feb 02, 2017 18:41
--- NOTE | 2017-02-02 19:34 | HHI.PR ---
Subjective Remarks 66 YOWF with ca lung, Pn Feels weak Has cough with liquids No fever CT chest Bilat Pn Sp and Blood culture Pseudomonas Better but tired In good spirits Objective Vital Signs Vital Signs Date Time Temp Pulse Resp B/P Pulse Ox O2 Delivery O2 Flow Rate FiO2 02/02/17 16:00 97.4 64 20 149/66 100 02/02/17 12:00 97.5 63 18 156/66 96 02/02/17 08:29 99 Nasal Cannula 3.00 02/02/17 08:28 69 02/02/17 08:00 96 Nasal Cannula 3.00 Humidified 02/02/17 08:00 98.1 62 18 119/63 99 02/02/17 04:00 97.8 56 16 125/76 100 02/02/17 00:25 66 02/01/17 23:51 97.9 66 15 147/67 99 02/01/17 21:00 95 Nasal Cannula 3.00 Humidified 02/01/17 20:00 97.7 72 16 147/66 93 02/01/17 19:55 97.6 72 16 147/66 93 I/O 02/01/17 02/01/17 02/01/17 02/02/17 02/02/17 02/02/17 07:00 15:00 23:00 07:00 15:00 23:00 Intake Total 664 ml 240 ml 240 ml 240 ml 1080 ml Output Total 350 ml 250 ml Balance 314 ml 240 ml 240 ml 240 ml 830 ml Intake Oral 250 ml 240 ml 240 ml 240 ml 1080 ml IV Total 414 ml Output Urine Total 350 ml 250 ml # Voids 1 1 2 1 # Bowel Movements 0 1 1 1 2 Result Diagram: 02/02/17 0640 02/02/17 0640 Objective Remarks GENERAL: Frail elderly female, mild sob SKIN: Warm and dry. HEAD: Normocephalic. EYES: No scleral icterus. No injection or drainage. NECK: Supple, trachea midline. No JVD or lymphadenopathy. CARDIOVASCULAR: Regular rate and rhythm without murmurs, gallops, or rubs. RESPIRATORY: Breath sounds equal bilaterally. No accessory muscle use. Bilat rhonchi GASTROINTESTINAL: Abdomen soft, non-tender, nondistended. MUSCULOSKELETAL: No cyanosis, or edema. BACK: Nontender without obvious deformity. No CVA tenderness. A/P Assessment and Plan Bilat Pneumonia ?Aspiration COPD Leucocytosis ca lung PLAN: Cont Abx per ID Aerosol nebs DW pt and RN at BS Encourage po Ensure 1 can TID Abx Cefepime and Levaquin Fermin Walls MD Feb 02, 2017 19:34
[2017-02-02] MEDS: CEFEPIME INJ 2,000 MG in SODIUM CHLORIDE 0.9% INJ 100 ML IV SCH (21:53)
[2017-02-02] MEDS: LORazepam 0.5 MG TAB PO PRN (21:54)
[2017-02-03] VITALS (9 sets, daily range): BP systolic 134–160; BP diastolic 63–74; PULSE 58–74; RESP 16–18; TEMP 97–98.3; O2SAT 95–100
[2017-02-03] MEDS: DILTIAZEM HCL 30 MG TAB PO SCH ×3 (05:17→21:05)
[2017-02-03] MEDS: DOCUSATE SODIUM 100 MG CAP PO SCH ×2 (05:18→16:18)
[2017-02-03] MEDS: HEPARIN SODIUM - SQ 10,000 UNITS/ML VIAL SQ SCH ×2 (05:19→16:18)
[2017-02-03] MEDS: CEFEPIME INJ 2,000 MG in SODIUM CHLORIDE 0.9% INJ 100 ML IV SCH ×3 (05:20→21:06)
[2017-02-03 06:21] LABS: POTASSIUM 3.9 MEQ/L (3.5-5.1)
[2017-02-03 06:23] LABS: MAGNESIUM 1.5 MG/DL (1.5-2.5)
[2017-02-03] MEDS: INSULIN ASPART SUPPLEMENTAL SCALE SQ SCH ×4 (07:00→21:00)
--- NOTE | 2017-02-03 08:50 | HHI.PR ---
Subjective Remarks resting comfortably with no distress. has occasional cough. no fever or new complaints. Objective Vitals Vital Signs Date Time Temp Pulse Resp B/P Pulse Ox O2 Delivery O2 Flow Rate FiO2 02/03/17 06:26 58 02/03/17 04:00 97.5 64 16 148/63 100 02/03/17 00:00 97.3 61 18 144/65 99 02/02/17 22:00 96 Nasal Cannula 3.00 Humidified 02/02/17 21:45 95 Nasal Cannula 3.00 02/02/17 20:00 97.9 59 18 141/63 100 02/02/17 16:00 97.4 64 20 149/66 100 02/02/17 12:00 97.5 63 18 156/66 96 I/O 02/02/17 02/02/17 02/02/17 02/03/17 02/03/17 02/03/17 07:00 15:00 23:00 07:00 15:00 23:00 Intake Total 240 ml 3323 ml 240 ml 240 ml Output Total 250 ml 300 ml 900 ml Balance 240 ml 3073 ml -60 ml -660 ml Intake Oral 240 ml 1080 ml 240 ml 240 ml IV Total 2243 ml Output Urine Total 250 ml 300 ml 900 ml # Voids 2 1 # Bowel Movements 1 2 1 0 Result Diagram: 02/02/17 0640 02/03/17 0530 Imaging Last Impressions Chest CT 01/27/17 0000 Signed Impressions: Service Date/Time: January 08:09 - CONCLUSION: Multifocal varying size areas of infiltrate throughout both lungs, the largest located in the left lower lobe, lingula and posterior segment right upper lobe. These infiltrates appear to have progressed significantly since chest x-ray yesterday and are new finding when compared to prior CT on 12/23/16. Stable small right pleural effusion. Dionte Valverde MD Chest X-Ray 01/26/17 1055 Signed Impressions: Service Date/Time: Thursday, January 26, 2017 11:22 - CONCLUSION: 1. There are infiltrate in the right upper lobe and subtle rounded area of infiltrate in the left midlung field. CT imaging would be of benefit for more definitive characterization. Findings are new when compared to previous. Underlying pneumonia is not excluded. Pavan Coon MD Objective Remarks GENERAL: in no apparent distress. CARDIOVASCULAR: Regular rate and regular rhythm without murmurs, gallops, or rubs. RESPIRATORY: diminished air entry on left base GASTROINTESTINAL: Abdomen soft, non-tender, nondistended. Normal, active bowel sounds MUSCULOSKELETAL: Extremities without clubbing, cyanosis, or edema. NEURO: Alert & Oriented x4 to person, place, time, situation. Moves all ext x4 Procedures None Medications and IVs Current Medications Sodium Chloride (NS 1000 ml Inj) 1,000 ml @ 1,000 mls/hr Q1H ONCE IV Last administered on 01/26/17 11:25; Start 01/26/17 at 10:55; Stop 01/26/17 at 11:54; Status DC Sodium Chloride 2 ml 2 ml UNSCH PRN IVF FLUSH AFTER USING IV ACCESS Last administered on 01/26/17 14:27; Start 01/26/17 at 11:00; Stop 01/26/17 at 16:54; Status DC Ceftriaxone Sodium 1000 mg/ Sodium Chloride 100 ml @ 200 mls/hr ONCE ONCE IV Last administered on 01/26/17 13:27; Start 01/26/17 at 13:15; Stop 01/26/17 at 13: 44; Status DC Azithromycin 500 mg/Sodium Chloride 250 ml @ 250 mls/hr ONCE ONCE IV Last administered on 01/26/17 13:27; Start 01/26/17 at 13:15; Stop 01/26/17 at 14:14; Status DC Piperacillin Sod/ Tazobactam Sod (Zosyn 4.5 Gm Premix) 100 ml @ 200 mls/hr Q6H IV Last administered on 02/02/17 16:36; Start 01/26/17 at 18:00; Stop 02/02/17 at 18:43; Status DC Albuterol/ Ipratropium (Duoneb Neb) 1 ampule QID NEB INH Last administered on 01/30/17 15:35; Start 01/26/17 at 20:00; Stop 01/30/17 at 20:00; Status DC Albuterol/ Ipratropium (Duoneb Neb) 1 ampule Q4HR NEB PRN INH SHORTNESS OF BREATH Last administered on 01/26/17 18:14; Start 01/26/17 at 16:45 Guaifenesin/ Codeine Phosphate (Robitussin Ac 200-20 Mg/10 ml Liq) 10 ml Q4H PRN PO severe COUGH Last administered on 01/26/17 17:20; Start 01/26/17 at 16:45 Heparin Sodium (Porcine) (Heparin Inj) 5,000 units Q12H SQ Last administered on 02/03/17 05:19; Start 01/26/17 at 17:00 Benzonatate (Tessalon) 200 mg Q8H PRN PO mild COUGH Last administered on 17:21; Start 01/26/17 at 16:45 Guaifenesin 600 mg 600 mg BID PO Last administered on 02/02/17 21:53; Start at 21:00 Potassium Chloride/Sodium Chloride (NS + KCl 20 Meq Inj) 1,000 ml @ 50 mls/hr Q20H IV Last administered on 01/28/17 08:17; Start 01/26/17 at 18:00; Stop at 08:50; Status DC Sodium Chloride (NS Flush) 2 ml UNSCH PRN IV FLUSH FLUSH AFTER USING IV ACCESS ; Start 01/26/17 at 17:00 Sodium Chloride (NS Flush) 2 ml BID IV FLUSH Last administered on 02/02/17 09: 43; Start 01/26/17 at 21:00 Acetaminophen (Tylenol) 650 mg Q4H PRN PO TEMP > 100.4; Start 01/26/17 at 17:00 Ondansetron HCl (Zofran Inj) 4 mg Q6H PRN IVP NAUSEA OR VOMITING; Start at 17:00 Bisacodyl (Dulcolax Supp) 10 mg DAILY PRN RECTAL CONSTIPATION; Start 01/26/17 at 17:00 Docusate Sodium (Colace) 100 mg Q12H PO Last administered on 02/03/17 05:18; Start 01/26/17 at 17:00 Magnesium Hydroxide (Milk Of Magnesia Liq) 30 ml Q12H PRN PO severe CONSTIPATION; Start 01/26/17 at 17:00 Sennosides (Senokot) 17.2 mg Q12H PRN PO mild CONSTIPATION; Start 01/26/17 at 17 :00 Naloxone HCl (Narcan Inj) 0.4 mg UNSCH PRN IV SEE LABEL COMMENTS; Start at 17:00 Dextrose (D50w (Vial) Inj) 25 ml UNSCH PRN IV PUSH HYPOGLYCEMIA-SEE COMMENTS; Start 01/26/17 at 17:00 Glucagon (Glucagon Inj) 1 mg UNSCH PRN OTHER HYPOGLYCEMIA-SEE COMMENTS; Start 01/26/17 at 17:00 Insulin Aspart (NovoLOG SUPPLEMENTAL SCALE) 1 ACHS SLIDING SCALE SQ Last administered on 02/02/17 21:55; Start 01/26/17 at 21:00 Aspirin (Ecotrin Ec) 81 mg DAILY PO Last administered on 02/02/17 09:43; Start 01/27/17 at 09:00 Mirtazapine (Remeron) 15 mg DAILY PO Last administered on 02/02/17 09:42; Start 01/27/17 at 09:00 Pantoprazole Sodium (Protonix) 20 mg DAILY PO Last administered on 02/02/17 09 :42; Start 01/27/17 at 09:00 Dexamethasone 4 mg 4 mg DAILY PO Last administered on 01/27/17 09:05; Start 01/27/17 at 09:00; Stop 01/27/17 at 15:27; Status DC Diltiazem HCl 125 mg/Sodium Chloride 125 ml @ 0 mls/hr TITRATE IV Last administered on 01/28/17 05:04; Start 01/28/17 at 04:45; Stop 01/29/17 at 04:13; Status DC Magnesium Sulfate/ Dextrose (Magnesium Sulfate 1 Gm Premix) 100 ml @ 100 mls/ hr ONCE ONCE IV Last administered on 01/28/17 08:18; Start 01/28/17 at 06:30; Stop 01/28/17 at 07:29; Status DC Digoxin (Lanoxin Inj) 0.5 mg NOW ONCE IVS Last administered on 01/28/17 08:21 ; Start 01/28/17 at 08:00; Stop 01/28/17 at 08:02; Status DC Digoxin (Lanoxin Inj) 0.25 mg Q6H IVS Last administered on 01/28/17 22:05; Start 01/28/17 at 14:00; Stop 01/28/17 at 20:01; Status DC Digoxin (Lanoxin) 0.25 mg DAILY PO Last administered on 02/02/17 09:42; Start 01/29/17 at 09:00 Diltiazem HCl 30 mg 30 mg QID PO Last administered on 01/28/17 22:05; Start 01/28/17 at 09:00; Stop 01/29/17 at 06:38; Status DC Potassium Chloride/Sodium Chloride (NS + KCl 20 Meq Inj) 1,000 ml @ 50 mls/hr Q20H IV Last administered on 02/02/17 16:40; Start 01/28/17 at 18:00 Potassium Chloride (KCl) 10 meq ONCE ONCE PO Last administered on 01/28/17 09: 03; Start 01/28/17 at 09:00; Stop 01/28/17 at 09:01; Status DC Magnesium Oxide (Mag-Ox) 400 mg Q12HR PO Last administered on 02/02/17 21:53; Start 01/28/17 at 09:00 Non-Formulary Medication 1 tab DAILY PO BSM; Start 01/28/17 at 09:00; Status UNV Patient Own Medication PT OWN MED: KOMBIGL... DAILY PO ; Start 01/29/17 at 09:00 ; Status Hold Diltiazem HCl (Cardizem) 60 mg QID PO ; Start 01/29/17 at 09:00; Stop 01/29/17 at 09:00; Status DC Diltiazem HCl 30 mg 30 mg QID PO Last administered on 01/31/17 21:51; Start at 09:00; Stop 02/01/17 at 10:15; Status DC Levofloxacin/ Dextrose (Levaquin 750 Mg Premix Inj) 150 ml @ 100 mls/hr Q24H IV Last administered on 02/02/17 09:44; Start 01/29/17 at 08:00; Stop 02/02/17 at 18:43; Status DC Lorazepam (Ativan) 0.5 mg HS PRN PO INSOMNIA Last administered on 02/02/17 21: 54; Start 01/30/17 at 18:00 Diltiazem HCl (Cardizem) 30 mg Q8HR PO Last administered on 02/03/17 05:17; Start 02/01/17 at 14:00 Potassium Chloride (KCl) 40 meq ONCE ONCE PO Last administered on 02/02/17 10 :19; Start 02/02/17 at 10:15; Stop 02/02/17 at 10:16; Status DC Potassium Chloride 40 meq 40 meq ONCE ONCE PO Last administered on 02/02/17 14:17; Start 02/02/17 at 14:00; Stop 02/02/17 at 14:01; Status DC Magnesium Sulfate/ Dextrose 100 ml @ 100 mls/hr Q1H IV Last administered on 14:21; Start 02/02/17 at 14:00; Stop 02/02/17 at 15:59; Status DC Cefepime HCl/ Sodium Chloride (Maxipime Inj/NS Inj) 100 ml @ 200 mls/hr Q8H IV Last administered on 02/03/17 05:20; Start 02/02/17 at 20:00 Levofloxacin (Levaquin) 750 mg DAILY PO ; Start 02/03/17 at 09:00 A/P Assessment and Plan A/p Pseudomonas Pneumonia/bacteremia (immunocompromise) started on Cefepime Continue Levaquin repeated blood cultures negative so far. ID is following. Lung Cancer Bronchogenic Carcinoma of Right Lung f/u as outpatient contributory to immunocompromise on chemo pulmonary following. CAD No chest pain bradycardia-overall improved. decreased cardizem. continue to monitor DM2 Follow blood sugars Soft mechanical diabetic Diet accu-check with SSI HTN continue cardizem Follow BP anemia - due to chronic disease-fairly stable. will monitor H/H. hypokalemia/hypomagnesemia-replaced. generalized Weakness continue PT Discharge Planning d/w the patient again regarding rehab; now she's considering that option. d/w case management. dc to rehab when cleared by ID. Jenna Garcia MD Feb 03, 2017 08:50
[2017-02-03] MEDS ORDERED: DILT31TA PO (08:52)
[2017-02-03] MEDS ORDERED: DIGO0.25 PO (08:52)
[2017-02-03] MEDS: ASPIRIN EC 81 MG TABEC PO SCH (10:10)
[2017-02-03] MEDS: MAGNESIUM OXIDE 400 MG TAB PO SCH ×2 (10:10→21:05)
[2017-02-03] MEDS: LEVOFLOXACIN 750 MG TAB PO SCH (10:10)
[2017-02-03] MEDS: DIGOXIN 0.25 MG TAB PO SCH (10:10)
[2017-02-03] MEDS: MIRTAZAPINE 15 MG TAB PO SCH (10:11)
[2017-02-03] MEDS: guaiFENesin E.R. 600 MG TAB PO SCH ×2 (10:11→21:05)
[2017-02-03] MEDS: SODIUM CHLORIDE 0.9% FLUSH 10 ML FLUSH IV FLUSH SCH ×2 (10:18→21:20)
[2017-02-03] MEDS: PANTOPRAZOLE SOD 20 MG DELAYED RELEASE TAB PO SCH (10:18)
[2017-02-03] MEDS: NS + KCL 20 MEQ INJ 1,000 ML IV SCH (14:00)
--- NOTE | 2017-02-03 19:52 | HHI.PR ---
Subjective Remarks 66 YOWF with ca lung, Pn Feels weak Has cough with liquids No fever CT chest Bilat Pn Sp and Blood culture Pseudomonas Feels little stronger Was out of bed Objective Vital Signs Vital Signs Date Time Temp Pulse Resp B/P Pulse Ox O2 Delivery O2 Flow Rate FiO2 02/03/17 19:23 Room Air 02/03/17 16:00 97.0 74 18 134/66 98 02/03/17 14:36 65 160/74 02/03/17 12:00 97.4 65 18 160/73 98 02/03/17 09:37 Nasal Cannula 3.00 Humidified 02/03/17 08:29 64 02/03/17 08:00 97.8 60 18 149/66 97 02/03/17 06:26 58 02/03/17 04:00 97.5 64 16 148/63 100 02/03/17 00:00 97.3 61 18 144/65 99 02/02/17 22:00 96 Nasal Cannula 3.00 Humidified 02/02/17 21:45 95 Nasal Cannula 3.00 02/02/17 20:00 97.9 59 18 141/63 100 I/O 02/02/17 02/02/17 02/02/17 02/03/17 02/03/17 02/03/17 07:00 15:00 23:00 07:00 15:00 23:00 Intake Total 240 ml 3323 ml 240 ml 240 ml 480 ml Output Total 250 ml 300 ml 900 ml 700 ml Balance 240 ml 3073 ml -60 ml -660 ml -220 ml Intake Oral 240 ml 1080 ml 240 ml 240 ml 480 ml IV Total 2243 ml Output Urine Total 250 ml 300 ml 900 ml 700 ml # Voids 2 1 # Bowel Movements 1 2 1 0 0 Result Diagram: 02/02/17 0640 02/03/17 0530 Objective Remarks GENERAL: Frail elderly female, mild sob SKIN: Warm and dry. HEAD: Normocephalic. EYES: No scleral icterus. No injection or drainage. NECK: Supple, trachea midline. No JVD or lymphadenopathy. CARDIOVASCULAR: Regular rate and rhythm without murmurs, gallops, or rubs. RESPIRATORY: Breath sounds equal bilaterally. No accessory muscle use. Bilat rhonchi GASTROINTESTINAL: Abdomen soft, non-tender, nondistended. MUSCULOSKELETAL: No cyanosis, or edema. BACK: Nontender without obvious deformity. No CVA tenderness. A/P Assessment and Plan Bilat Pneumonia ?Aspiration COPD Leucocytosis ca lung PLAN: Cont Abx per ID Aerosol nebs Encourage po Ensure 1 can TID Fermin Walls MD Feb 03, 2017 19:52
[2017-02-03] MEDS: LORazepam 0.5 MG TAB PO PRN (21:08)
[2017-02-04] VITALS (10 sets, daily range): BP systolic 136–171; BP diastolic 64–77; PULSE 63–83; RESP 16–18; TEMP 97.6–98; O2SAT 93–98
[2017-02-04] MEDS: CEFEPIME INJ 2,000 MG in SODIUM CHLORIDE 0.9% INJ 100 ML IV SCH ×3 (04:18→20:14)
[2017-02-04] MEDS: DOCUSATE SODIUM 100 MG CAP PO SCH ×2 (05:00→16:32)
[2017-02-04] MEDS: DILTIAZEM HCL 30 MG TAB PO SCH ×3 (05:59→20:13)
[2017-02-04] MEDS: HEPARIN SODIUM - SQ 10,000 UNITS/ML VIAL SQ SCH ×2 (05:59→16:32)
[2017-02-04] MEDS: INSULIN ASPART SUPPLEMENTAL SCALE SQ SCH ×4 (05:59→20:31)
[2017-02-04] MEDS: MIRTAZAPINE 15 MG TAB PO SCH (09:54)
[2017-02-04] MEDS: DIGOXIN 0.25 MG TAB PO SCH (09:54)
[2017-02-04] MEDS: ASPIRIN EC 81 MG TABEC PO SCH (09:54)
[2017-02-04] MEDS: LEVOFLOXACIN 750 MG TAB PO SCH (09:54)
[2017-02-04] MEDS: MAGNESIUM OXIDE 400 MG TAB PO SCH ×2 (09:54→20:13)
[2017-02-04] MEDS: PANTOPRAZOLE SOD 20 MG DELAYED RELEASE TAB PO SCH (09:57)
[2017-02-04] MEDS: guaiFENesin E.R. 600 MG TAB PO SCH ×2 (09:57→20:13)
[2017-02-04] MEDS: SODIUM CHLORIDE 0.9% FLUSH 10 ML FLUSH IV FLUSH SCH ×2 (09:58→20:26)
[2017-02-04] MEDS: NS + KCL 20 MEQ INJ 1,000 ML IV SCH (09:59)
--- NOTE | 2017-02-04 10:46 | HHI.PR ---
Subjective Remarks resting comfortably with no distress. no sob or fever. no new complaints. Objective Vitals Vital Signs Date Time Temp Pulse Resp B/P Pulse Ox O2 Delivery O2 Flow Rate FiO2 02/04/17 09:30 93 21 02/04/17 08:15 83 02/04/17 08:15 Room Air 02/04/17 08:06 97.9 68 16 169/77 94 02/04/17 04:00 97.7 63 16 137/64 95 02/04/17 03:17 64 02/04/17 00:00 98.0 70 16 136/65 95 02/03/17 20:00 98.3 64 16 150/69 95 02/03/17 19:23 Room Air 02/03/17 16:00 97.0 74 18 134/66 98 02/03/17 14:36 65 160/74 02/03/17 12:00 97.4 65 18 160/73 98 I/O 02/03/17 02/03/17 02/03/17 02/04/17 02/04/17 02/04/17 07:00 15:00 23:00 07:00 15:00 23:00 Intake Total 240 ml 480 ml 240 ml 240 ml Output Total 900 ml 700 ml 650 ml 1200 ml Balance -660 ml -220 ml -410 ml -960 ml Intake Oral 240 ml 480 ml 240 ml 240 ml Output Urine Total 900 ml 700 ml 650 ml 1200 ml # Bowel Movements 0 0 0 0 Result Diagram: 02/02/17 0640 02/03/17 0530 Imaging Last Impressions Chest CT 01/27/17 0000 Signed Impressions: Service Date/Time: January 08:09 - CONCLUSION: Multifocal varying size areas of infiltrate throughout both lungs, the largest located in the left lower lobe, lingula and posterior segment right upper lobe. These infiltrates appear to have progressed significantly since chest x-ray yesterday and are new finding when compared to prior CT on 12/23/16. Stable small right pleural effusion. Dionte Valverde MD Chest X-Ray 01/26/17 1055 Signed Impressions: Service Date/Time: Thursday, January 26, 2017 11:22 - CONCLUSION: 1. There are infiltrate in the right upper lobe and subtle rounded area of infiltrate in the left midlung field. CT imaging would be of benefit for more definitive characterization. Findings are new when compared to previous. Underlying pneumonia is not excluded. Pavan Coon MD Objective Remarks GENERAL: in no apparent distress. CARDIOVASCULAR: Regular rate and regular rhythm without murmurs, gallops, or rubs. RESPIRATORY: diminished air entry on left base GASTROINTESTINAL: Abdomen soft, non-tender, nondistended. Normal, active bowel sounds MUSCULOSKELETAL: Extremities without clubbing, cyanosis, or edema. NEURO: Alert & Oriented x4 to person, place, time, situation. Moves all ext x4 Procedures None Medications and IVs Current Medications Sodium Chloride (NS 1000 ml Inj) 1,000 ml @ 1,000 mls/hr Q1H ONCE IV Last administered on 01/26/17 11:25; Start 01/26/17 at 10:55; Stop 01/26/17 at 11:54; Status DC Sodium Chloride 2 ml 2 ml UNSCH PRN IVF FLUSH AFTER USING IV ACCESS Last administered on 01/26/17 14:27; Start 01/26/17 at 11:00; Stop 01/26/17 at 16:54; Status DC Ceftriaxone Sodium 1000 mg/ Sodium Chloride 100 ml @ 200 mls/hr ONCE ONCE IV Last administered on 01/26/17 13:27; Start 01/26/17 at 13:15; Stop 01/26/17 at 13: 44; Status DC Azithromycin 500 mg/Sodium Chloride 250 ml @ 250 mls/hr ONCE ONCE IV Last administered on 01/26/17 13:27; Start 01/26/17 at 13:15; Stop 01/26/17 at 14:14; Status DC Piperacillin Sod/ Tazobactam Sod (Zosyn 4.5 Gm Premix) 100 ml @ 200 mls/hr Q6H IV Last administered on 02/02/17 16:36; Start 01/26/17 at 18:00; Stop 02/02/17 at 18:43; Status DC Albuterol/ Ipratropium (Duoneb Neb) 1 ampule QID NEB INH Last administered on 01/30/17 15:35; Start 01/26/17 at 20:00; Stop 01/30/17 at 20:00; Status DC Albuterol/ Ipratropium (Duoneb Neb) 1 ampule Q4HR NEB PRN INH SHORTNESS OF BREATH Last administered on 01/26/17 18:14; Start 01/26/17 at 16:45 Guaifenesin/ Codeine Phosphate (Robitussin Ac 200-20 Mg/10 ml Liq) 10 ml Q4H PRN PO severe COUGH Last administered on 01/26/17 17:20; Start 01/26/17 at 16:45 Heparin Sodium (Porcine) (Heparin Inj) 5,000 units Q12H SQ Last administered on 02/04/17 05:59; Start 01/26/17 at 17:00 Benzonatate (Tessalon) 200 mg Q8H PRN PO mild COUGH Last administered on 17:21; Start 01/26/17 at 16:45 Guaifenesin 600 mg 600 mg BID PO Last administered on 02/04/17 09:57; Start at 21:00 Potassium Chloride/Sodium Chloride (NS + KCl 20 Meq Inj) 1,000 ml @ 50 mls/hr Q20H IV Last administered on 01/28/17 08:17; Start 01/26/17 at 18:00; Stop at 08:50; Status DC Sodium Chloride (NS Flush) 2 ml UNSCH PRN IV FLUSH FLUSH AFTER USING IV ACCESS ; Start 01/26/17 at 17:00 Sodium Chloride (NS Flush) 2 ml BID IV FLUSH Last administered on 02/04/17 09: 58; Start 01/26/17 at 21:00 Acetaminophen (Tylenol) 650 mg Q4H PRN PO TEMP > 100.4; Start 01/26/17 at 17:00 Ondansetron HCl (Zofran Inj) 4 mg Q6H PRN IVP NAUSEA OR VOMITING; Start at 17:00 Bisacodyl (Dulcolax Supp) 10 mg DAILY PRN RECTAL CONSTIPATION; Start 01/26/17 at 17:00 Docusate Sodium (Colace) 100 mg Q12H PO Last administered on 02/03/17 05:18; Start 01/26/17 at 17:00 Magnesium Hydroxide (Milk Of Magnesia Liq) 30 ml Q12H PRN PO severe CONSTIPATION; Start 01/26/17 at 17:00 Sennosides (Senokot) 17.2 mg Q12H PRN PO mild CONSTIPATION; Start 01/26/17 at 17 :00 Naloxone HCl (Narcan Inj) 0.4 mg UNSCH PRN IV SEE LABEL COMMENTS; Start at 17:00 Dextrose (D50w (Vial) Inj) 25 ml UNSCH PRN IV PUSH HYPOGLYCEMIA-SEE COMMENTS; Start 01/26/17 at 17:00 Glucagon (Glucagon Inj) 1 mg UNSCH PRN OTHER HYPOGLYCEMIA-SEE COMMENTS; Start 01/26/17 at 17:00 Insulin Aspart (NovoLOG SUPPLEMENTAL SCALE) 1 ACHS SLIDING SCALE SQ Last administered on 02/03/17 21:00; Start 01/26/17 at 21:00 Aspirin (Ecotrin Ec) 81 mg DAILY PO Last administered on 02/04/17 09:54; Start 01/27/17 at 09:00 Mirtazapine (Remeron) 15 mg DAILY PO Last administered on 02/04/17 09:54; Start 01/27/17 at 09:00 Pantoprazole Sodium (Protonix) 20 mg DAILY PO Last administered on 02/04/17 09 :57; Start 01/27/17 at 09:00 Dexamethasone 4 mg 4 mg DAILY PO Last administered on 01/27/17 09:05; Start 01/27/17 at 09:00; Stop 01/27/17 at 15:27; Status DC Diltiazem HCl 125 mg/Sodium Chloride 125 ml @ 0 mls/hr TITRATE IV Last administered on 01/28/17 05:04; Start 01/28/17 at 04:45; Stop 01/29/17 at 04:13; Status DC Magnesium Sulfate/ Dextrose (Magnesium Sulfate 1 Gm Premix) 100 ml @ 100 mls/ hr ONCE ONCE IV Last administered on 01/28/17 08:18; Start 01/28/17 at 06:30; Stop 01/28/17 at 07:29; Status DC Digoxin (Lanoxin Inj) 0.5 mg NOW ONCE IVS Last administered on 01/28/17 08:21 ; Start 01/28/17 at 08:00; Stop 01/28/17 at 08:02; Status DC Digoxin (Lanoxin Inj) 0.25 mg Q6H IVS Last administered on 01/28/17 22:05; Start 01/28/17 at 14:00; Stop 01/28/17 at 20:01; Status DC Digoxin (Lanoxin) 0.25 mg DAILY PO Last administered on 02/04/17 09:54; Start 01/29/17 at 09:00 Diltiazem HCl 30 mg 30 mg QID PO Last administered on 01/28/17 22:05; Start 01/28/17 at 09:00; Stop 01/29/17 at 06:38; Status DC Potassium Chloride/Sodium Chloride (NS + KCl 20 Meq Inj) 1,000 ml @ 50 mls/hr Q20H IV Last administered on 02/02/17 16:40; Start 01/28/17 at 18:00 Potassium Chloride (KCl) 10 meq ONCE ONCE PO Last administered on 01/28/17 09: 03; Start 01/28/17 at 09:00; Stop 01/28/17 at 09:01; Status DC Magnesium Oxide (Mag-Ox) 400 mg Q12HR PO Last administered on 02/04/17 09:54; Start 01/28/17 at 09:00 Non-Formulary Medication 1 tab DAILY PO BSM; Start 01/28/17 at 09:00; Status UNV Patient Own Medication PT OWN MED: KOMBIGL... DAILY PO ; Start 01/29/17 at 09:00 ; Status Hold Diltiazem HCl (Cardizem) 60 mg QID PO ; Start 01/29/17 at 09:00; Stop 01/29/17 at 09:00; Status DC Diltiazem HCl 30 mg 30 mg QID PO Last administered on 01/31/17 21:51; Start at 09:00; Stop 02/01/17 at 10:15; Status DC Levofloxacin/ Dextrose (Levaquin 750 Mg Premix Inj) 150 ml @ 100 mls/hr Q24H IV Last administered on 02/02/17 09:44; Start 01/29/17 at 08:00; Stop 02/02/17 at 18:43; Status DC Lorazepam (Ativan) 0.5 mg HS PRN PO INSOMNIA Last administered on 02/03/17 21: 08; Start 01/30/17 at 18:00 Diltiazem HCl (Cardizem) 30 mg Q8HR PO Last administered on 02/04/17 05:59; Start 02/01/17 at 14:00 Potassium Chloride (KCl) 40 meq ONCE ONCE PO Last administered on 02/02/17 10 :19; Start 02/02/17 at 10:15; Stop 02/02/17 at 10:16; Status DC Potassium Chloride 40 meq 40 meq ONCE ONCE PO Last administered on 02/02/17 14:17; Start 02/02/17 at 14:00; Stop 02/02/17 at 14:01; Status DC Magnesium Sulfate/ Dextrose 100 ml @ 100 mls/hr Q1H IV Last administered on 14:21; Start 02/02/17 at 14:00; Stop 02/02/17 at 15:59; Status DC Cefepime HCl/ Sodium Chloride (Maxipime Inj/NS Inj) 100 ml @ 200 mls/hr Q8H IV Last administered on 02/04/17 04:18; Start 02/02/17 at 20:00 Levofloxacin (Levaquin) 750 mg DAILY PO Last administered on 02/04/17 09:54; Start 02/03/17 at 09:00 A/P Assessment and Plan A/p Pseudomonas Pneumonia/bacteremia started on Cefepime Continue Levaquin repeated blood cultures negative so far. ID is following. Lung Cancer Bronchogenic Carcinoma of Right Lung f/u as outpatient contributory to immunocompromise on chemo pulmonary following. CAD No chest pain atrial fibrillation continue digoxin and cardizem not a candidate for anticoagulation due to hemoptysis-per cardiology bradycardia-overall improved. decreased cardizem. continue to monitor DM2 Follow blood sugars Soft mechanical diabetic Diet accu-check with SSI HTN continue cardizem Follow BP anemia - due to chronic disease-fairly stable. will monitor H/H. hypokalemia/hypomagnesemia-replaced. generalized Weakness continue PT Discharge Planning dc planning to rehab when cleared by ID. d/w the case management. Jenna Garcia MD Feb 04, 2017 10:46
--- NOTE | 2017-02-04 12:29 | HHI.IDPN ---
Note Infectious Disease Note ID coverage Chart reviewed. Patient receiving treatment for pseudomonas pneumonia and sepsis. Coughing up thick aparicio sputum. Feel okay but has little energy. afebrile. Antibiotics Cefepime Levaquin Allergies: Coded Allergies: No Known Allergies (Verified , 01/26/17) Objective Vital Signs Date Time Temp Pulse Resp B/P Pulse Ox O2 Delivery O2 Flow Rate FiO2 02/04/17 09:30 93 21 02/04/17 08:15 83 02/04/17 08:15 Room Air 02/04/17 08:06 97.9 68 16 169/77 94 02/04/17 04:00 97.7 63 16 137/64 95 02/04/17 03:17 64 02/04/17 00:00 98.0 70 16 136/65 95 02/03/17 20:00 98.3 64 16 150/69 95 02/03/17 19:23 Room Air 02/03/17 16:00 97.0 74 18 134/66 98 02/03/17 14:36 65 160/74 02/03/17 02/03/17 02/04/17 15:00 23:00 07:00 Intake Total 480 ml 240 ml 240 ml Output Total 700 ml 650 ml 1200 ml Balance -220 ml -410 ml -960 ml Intake Oral 480 ml 240 ml 240 ml Output Urine Total 700 ml 650 ml 1200 ml # Bowel Movements 0 0 0 Laboratory Tests Test 02/03/17 05:30 Potassium Level 3.9 MEQ/L Magnesium Level 1.5 MG/DL Laboratory Tests Test 02/02/17 06:40 White Blood Count 8.8 TH/MM3 Red Blood Count 2.98 MIL/MM3 Hemoglobin 7.8 GM/DL Hematocrit 23.5 % Mean Corpuscular Volume 78.8 FL Mean Corpuscular Hemoglobin 26.0 PG Mean Corpuscular Hemoglobin 33.0 % Concent Red Cell Distribution Width 19.5 % Platelet Count 194 TH/MM3 Mean Platelet Volume 7.7 FL Neutrophils (%) (Auto) 83.0 % Lymphocytes (%) (Auto) 11.2 % Monocytes (%) (Auto) 5.1 % Eosinophils (%) (Auto) 0.3 % Basophils (%) (Auto) 0.4 % Neutrophils # (Auto) 7.3 TH/MM3 Lymphocytes # (Auto) 1.0 TH/MM3 Monocytes # (Auto) 0.4 TH/MM3 Eosinophils # (Auto) 0.0 TH/MM3 Basophils # (Auto) 0.0 TH/MM3 CBC Comment AUTO DIFF Differential Total Cells 100 Counted Neutrophils % (Manual) 75 % Band Neutrophils % 12 % Lymphocytes % 6 % Monocytes % 4 % Neutrophils # (Manual) 7.9 TH/MM3 Metamyelocytes 2 % Myelocytes 1 % Differential Comment FINAL DIFF MANUAL Toxic Granulation 2+ Platelet Estimate NORMAL Platelet Morphology Comment NORMAL Ovalocytes 1+ Laboratory Tests Test 02/02/17 06:40 Sodium Level 141 MEQ/L Potassium Level 3.2 MEQ/L Chloride Level 105 MEQ/L Carbon Dioxide Level 29.3 MEQ/L Anion Gap 7 MEQ/L Blood Urea Nitrogen 2 MG/DL Creatinine 0.27 MG/DL Estimat Glomerular Filtration 251 ML/MIN Rate Random Glucose 110 MG/DL Calcium Level 6.8 MG/DL Protein Corrected Calcium 8.4 MG/DL Magnesium Level 1.1 MG/DL Total Protein 4.2 GM/DL Imaging Chest X-Ray 02/04/17 0000 Signed Impressions: Service Date/Time: Saturday, February 04, 2017 12:25 - CONCLUSION: Acute bilateral patchy airspace disease characteristic of pneumonitis. Aiden Conti MD Chest CT 01/27/17 0000 Signed Impressions: Service Date/Time: January 08:09 - CONCLUSION: Multifocal varying size areas of infiltrate throughout both lungs, the largest located in the left lower lobe, lingula and posterior segment right upper lobe. These infiltrates appear to have progressed significantly since chest x-ray yesterday and are new finding when compared to prior CT on 12/23/16. Stable small right pleural effusion. Dionte Valverde MD Chest X-Ray 01/26/17 1055 Signed Impressions: Service Date/Time: Thursday, January 26, 2017 11:22 - CONCLUSION: 1. There are infiltrate in the right upper lobe and subtle rounded area of infiltrate in the left midlung field. CT imaging would be of benefit for more definitive characterization. Findings are new when compared to previous. Underlying pneumonia is not excluded. Paavn Coon MD Physical Exam GENERAL: No apparent distress. PORT in place R chest HEENT: No scleral icterus. No injection or drainage. Fundi not examined. CARDIOVASCULAR: Regular S1S2. RESPIRATORY/CHEST: Breath sounds diminished bilaterally. Few scattered rhonchi. GASTROINTESTINAL: Abdomen soft, non-tender, nondistended. EXTREMITIES: No clubbing, cyanosis, or edema. NEUROLOGICAL: Awake and alert. Non focal SKIN: No jaundice, rashes, or lesions. . PSYCHIATRIC: calm, cooperative Assessment & Plan R Lung Ca , invasive moderately differentited squamous cell CA sp chemo Pseudomonas PNA, multilobar Pseudomonas bacremia. -source is likely PNA Leukocytosis improved. Recommendations: Repeat the CXR . If still has significant infiltrates continue Cefepime/Levaquin to complete 14 days until 02/09. If improvement in CXR continue Levaquin until 02/09 and stop Cefepime. James Stanley MD Feb 04, 2017 12:29
--- NOTE | 2017-02-04 13:07 | RADRPT ---
EXAM DATE/TIME: 02/04/2017 12:25 [facility] COMPARISON: CHEST SINGLE AP, January 21, 2017, 16:58. INDICATIONS : Short of breath, evaluate pneumonia MEDICAL HISTORY : Carcinoma, lung. Congestive heart failure. Cardiovascular disease. SURGICAL HISTORY : CABG. ENCOUNTER: Subsequent ACUITY: 2 weeks PAIN SCORE: 0/10 LOCATION: Bilateral chest FINDINGS: Patchy air space disease has developed in the right upper lung field, left perihilar region and left base. Heart and mediastinal structures are stable. [id number] catheter remains in good position. CONCLUSION: Acute bilateral patchy airspace disease characteristic of pneumonitis. Aiden Conti MD on February 04, 2017 at 13:04 Board Certified Radiologist. This report was verified electronically.
--- NOTE | 2017-02-04 14:15 | HHI.FF ---
Infusion Therapy Location of Infusion Therapy: [facility] Infusion Therapy Order Patient Information Patient Weight 55.4 kg Diagnosis: (1) Pseudomonas pneumonia Coded Allergies: No Known Allergies (Verified , 01/26/17) Administer Medication Cefepime 2 grams IV q 8 hours Stop Treatment: Feb 09, 2017 Additional Information Venous access: Implanted Port Additional Instructions [x] Peripheral flush and dressing changes per protocol [x] Implanted port and central captain/airline pilot: * Implanted port: 10 ml Normal Saline followed by 5 ml Heparin 100 units/ml Heparin flush after each use and monthly to maintain. [] May leave port accessed during therapy. [] May leave peripheral site accessed for duration of therapy. [x] If patient has SOB or respiratory distress, check oxygen saturation. If less than 90% or clinical signs of respiratory distress, administer oxygen at 2 L/min. via nasal cannula and notify physician. [x] Anaphylaxis/Reaction orders: * Stop infusion. * Keep IV line open with saline flush. * Notify physician. * Monitor vital signs every 15 minutes until symptoms resolve. * Check Oxygen saturation; Oxygen at 2 L/min. via nasal cannula if less than 90% or clinical signs of respiratory distress. * Administer diphenhydramine (Benadryl) 25 mg IV STAT, (unless patient has received as pre-med). May repeat once, if necessary. * Solu-Cortef 250 mg IVP over 30-60 seconds, use 100 mg vials for each dissolution. * Epinephrine (1mg/1 ml) 0.3 mg subcutaneously or IVP now with any signs of respiratory distress. * Check with physician for new additional pre-med orders if patient is re- challenged or re-treated. [x] May remove PICC line when treatment complete, after confirming with Physician. [x] If the patient is admitted to the hospital, the ED, or transferred via [facility] , complete transfer form including medication reconciliation order sheet. Laboratory Tests Weekly Labs: James Jones MD Feb 04, 2017 14:15
--- NOTE | 2017-02-04 17:47 | HHI.PR ---
Subjective Remarks 66 YOWF with ca lung, Pn Feels weak Has cough with liquids No fever CT chest Bilat Pn Sp and Blood culture Pseudomonas Feels little stronger Objective Vital Signs Vital Signs Date Time Temp Pulse Resp B/P Pulse Ox O2 Delivery O2 Flow Rate FiO2 02/04/17 14:26 65 163/70 02/04/17 12:06 98.0 69 17 171/77 98 02/04/17 09:30 93 21 02/04/17 08:15 83 02/04/17 08:15 Room Air 02/04/17 08:06 97.9 68 16 169/77 94 02/04/17 04:00 97.7 63 16 137/64 95 02/04/17 03:17 64 02/04/17 00:00 98.0 70 16 136/65 95 02/03/17 20:00 98.3 64 16 150/69 95 02/03/17 19:23 Room Air I/O 02/03/17 02/03/17 02/03/17 02/04/17 02/04/17 02/04/17 07:00 15:00 23:00 07:00 15:00 23:00 Intake Total 240 ml 480 ml 240 ml 240 ml Output Total 900 ml 700 ml 650 ml 1200 ml Balance -660 ml -220 ml -410 ml -960 ml Intake Oral 240 ml 480 ml 240 ml 240 ml Output Urine Total 900 ml 700 ml 650 ml 1200 ml # Bowel Movements 0 0 0 0 Result Diagram: 02/02/17 0640 02/03/17 0530 Objective Remarks GENERAL: Frail elderly female, mild sob SKIN: Warm and dry. HEAD: Normocephalic. EYES: No scleral icterus. No injection or drainage. NECK: Supple, trachea midline. No JVD or lymphadenopathy. CARDIOVASCULAR: Regular rate and rhythm without murmurs, gallops, or rubs. RESPIRATORY: Breath sounds equal bilaterally. No accessory muscle use. Bilat rhonchi GASTROINTESTINAL: Abdomen soft, non-tender, nondistended. MUSCULOSKELETAL: No cyanosis, or edema. BACK: Nontender without obvious deformity. No CVA tenderness. A/P Assessment and Plan Bilat Pneumonia ?Aspiration COPD Leucocytosis ca lung PLAN: Cont Abx per ID Aerosol nebs Encourage po Ensure 1 can TID DC Plans for SNF with IV abx until 02/09 per ID Will FU in office Fermin Walls MD Feb 04, 2017 17:47
[2017-02-04] MEDS: LORazepam 0.5 MG TAB PO PRN (20:13)
[2017-02-05] VITALS (10 sets, daily range): BP systolic 136–182; BP diastolic 60–81; PULSE 60–124; RESP 12–20; TEMP 97.7–98.1; O2SAT 94–98
[2017-02-05] MEDS: NS + KCL 20 MEQ INJ 1,000 ML IV SCH (03:55)
[2017-02-05] MEDS: CEFEPIME INJ 2,000 MG in SODIUM CHLORIDE 0.9% INJ 100 ML IV SCH ×3 (03:55→20:30)
[2017-02-05] MEDS: DOCUSATE SODIUM 100 MG CAP PO SCH ×2 (05:00→13:07)
[2017-02-05] MEDS: INSULIN ASPART SUPPLEMENTAL SCALE SQ SCH ×4 (06:45→20:29)
[2017-02-05] MEDS: HEPARIN SODIUM - SQ 10,000 UNITS/ML VIAL SQ SCH ×2 (06:50→17:00)
[2017-02-05] MEDS: DILTIAZEM HCL 30 MG TAB PO SCH ×3 (06:50→20:29)
[2017-02-05] MEDS: MAGNESIUM OXIDE 400 MG TAB PO SCH ×2 (08:15→20:30)
[2017-02-05] MEDS: ASPIRIN EC 81 MG TABEC PO SCH (10:58)
[2017-02-05] MEDS: SODIUM CHLORIDE 0.9% FLUSH 10 ML FLUSH IV FLUSH SCH ×2 (10:58→20:30)
[2017-02-05] MEDS: LEVOFLOXACIN 750 MG TAB PO SCH (10:59)
[2017-02-05] MEDS: DIGOXIN 0.25 MG TAB PO SCH (10:59)
[2017-02-05] MEDS: MIRTAZAPINE 15 MG TAB PO SCH (10:59)
[2017-02-05] MEDS: PANTOPRAZOLE SOD 20 MG DELAYED RELEASE TAB PO SCH (10:59)
[2017-02-05] MEDS: guaiFENesin E.R. 600 MG TAB PO SCH ×2 (10:59→20:29)
--- NOTE | 2017-02-05 11:41 | HHI.PR ---
Subjective Remarks resting comfortably with no distress. no fever. no new complaints. Objective Vitals Vital Signs Date Time Temp Pulse Resp B/P Pulse Ox O2 Delivery O2 Flow Rate FiO2 02/05/17 08:00 97.8 64 20 153/69 95 02/05/17 05:36 63 02/05/17 04:00 97.9 60 18 160/70 94 02/05/17 00:00 97.7 60 18 160/79 97 02/04/17 20:33 Room Air 02/04/17 20:00 98.0 63 18 150/72 97 02/04/17 16:06 97.6 63 17 150/68 95 02/04/17 14:26 65 163/70 02/04/17 12:06 98.0 69 17 171/77 98 I/O 02/04/17 02/04/17 02/04/17 02/05/17 02/05/17 02/05/17 07:00 15:00 23:00 07:00 15:00 23:00 Intake Total 240 ml 360 ml 480 ml 240 ml Output Total 1200 ml 850 ml 250 ml Balance -960 ml 360 ml -370 ml -10 ml Intake Oral 240 ml 360 ml 480 ml 240 ml Output Urine Total 1200 ml 850 ml 250 ml # Voids 3 # Bowel Movements 0 1 2 1 Result Diagram: 02/02/17 0640 02/03/17 0530 Imaging Last Impressions Chest X-Ray 02/04/17 0000 Signed Impressions: Service Date/Time: Saturday, February 04, 2017 12:25 - CONCLUSION: Acute bilateral patchy airspace disease characteristic of pneumonitis. Aiden Conti MD Chest CT 01/27/17 0000 Signed Impressions: Service Date/Time: January 08:09 - CONCLUSION: Multifocal varying size areas of infiltrate throughout both lungs, the largest located in the left lower lobe, lingula and posterior segment right upper lobe. These infiltrates appear to have progressed significantly since chest x-ray yesterday and are new finding when compared to prior CT on 12/23/16. Stable small right pleural effusion. Dionte Valverde MD Objective Remarks GENERAL: in no apparent distress. CARDIOVASCULAR: Regular rate and regular rhythm without murmurs, gallops, or rubs. RESPIRATORY: diminished air entry on left base GASTROINTESTINAL: Abdomen soft, non-tender, nondistended. Normal, active bowel sounds MUSCULOSKELETAL: Extremities without clubbing, cyanosis, or edema. NEURO: Alert & Oriented x4 to person, place, time, situation. Moves all ext x4 Procedures None Medications and IVs Current Medications Sodium Chloride (NS 1000 ml Inj) 1,000 ml @ 1,000 mls/hr Q1H ONCE IV Last administered on 01/26/17 11:25; Start 01/26/17 at 10:55; Stop 01/26/17 at 11:54; Status DC Sodium Chloride 2 ml 2 ml UNSCH PRN IVF FLUSH AFTER USING IV ACCESS Last administered on 01/26/17 14:27; Start 01/26/17 at 11:00; Stop 01/26/17 at 16:54; Status DC Ceftriaxone Sodium 1000 mg/ Sodium Chloride 100 ml @ 200 mls/hr ONCE ONCE IV Last administered on 01/26/17 13:27; Start 01/26/17 at 13:15; Stop 01/26/17 at 13: 44; Status DC Azithromycin 500 mg/Sodium Chloride 250 ml @ 250 mls/hr ONCE ONCE IV Last administered on 01/26/17 13:27; Start 01/26/17 at 13:15; Stop 01/26/17 at 14:14; Status DC Piperacillin Sod/ Tazobactam Sod (Zosyn 4.5 Gm Premix) 100 ml @ 200 mls/hr Q6H IV Last administered on 02/02/17 16:36; Start 01/26/17 at 18:00; Stop 02/02/17 at 18:43; Status DC Albuterol/ Ipratropium (Duoneb Neb) 1 ampule QID NEB INH Last administered on 01/30/17 15:35; Start 01/26/17 at 20:00; Stop 01/30/17 at 20:00; Status DC Albuterol/ Ipratropium (Duoneb Neb) 1 ampule Q4HR NEB PRN INH SHORTNESS OF BREATH Last administered on 01/26/17 18:14; Start 01/26/17 at 16:45 Guaifenesin/ Codeine Phosphate (Robitussin Ac 200-20 Mg/10 ml Liq) 10 ml Q4H PRN PO severe COUGH Last administered on 01/26/17 17:20; Start 01/26/17 at 16:45 Heparin Sodium (Porcine) (Heparin Inj) 5,000 units Q12H SQ Last administered on 02/05/17 06:50; Start 01/26/17 at 17:00 Benzonatate (Tessalon) 200 mg Q8H PRN PO mild COUGH Last administered on 17:21; Start 01/26/17 at 16:45 Guaifenesin 600 mg 600 mg BID PO Last administered on 02/05/17 10:59; Start at 21:00 Potassium Chloride/Sodium Chloride (NS + KCl 20 Meq Inj) 1,000 ml @ 50 mls/hr Q20H IV Last administered on 01/28/17 08:17; Start 01/26/17 at 18:00; Stop at 08:50; Status DC Sodium Chloride (NS Flush) 2 ml UNSCH PRN IV FLUSH FLUSH AFTER USING IV ACCESS ; Start 01/26/17 at 17:00 Sodium Chloride (NS Flush) 2 ml BID IV FLUSH Last administered on 02/05/17 10: 58; Start 01/26/17 at 21:00 Acetaminophen (Tylenol) 650 mg Q4H PRN PO TEMP > 100.4; Start 01/26/17 at 17:00 Ondansetron HCl (Zofran Inj) 4 mg Q6H PRN IVP NAUSEA OR VOMITING; Start at 17:00 Bisacodyl (Dulcolax Supp) 10 mg DAILY PRN RECTAL CONSTIPATION; Start 01/26/17 at 17:00 Docusate Sodium (Colace) 100 mg Q12H PO Last administered on 02/03/17 05:18; Start 01/26/17 at 17:00 Magnesium Hydroxide (Milk Of Magnesia Liq) 30 ml Q12H PRN PO severe CONSTIPATION; Start 01/26/17 at 17:00 Sennosides (Senokot) 17.2 mg Q12H PRN PO mild CONSTIPATION; Start 01/26/17 at 17 :00 Naloxone HCl (Narcan Inj) 0.4 mg UNSCH PRN IV SEE LABEL COMMENTS; Start at 17:00 Dextrose (D50w (Vial) Inj) 25 ml UNSCH PRN IV PUSH HYPOGLYCEMIA-SEE COMMENTS; Start 01/26/17 at 17:00 Glucagon (Glucagon Inj) 1 mg UNSCH PRN OTHER HYPOGLYCEMIA-SEE COMMENTS; Start 01/26/17 at 17:00 Insulin Aspart (NovoLOG SUPPLEMENTAL SCALE) 1 ACHS SLIDING SCALE SQ Last administered on 02/04/17 16:31; Start 01/26/17 at 21:00 Aspirin (Ecotrin Ec) 81 mg DAILY PO Last administered on 02/05/17 10:58; Start 01/27/17 at 09:00 Mirtazapine (Remeron) 15 mg DAILY PO Last administered on 02/05/17 10:59; Start 01/27/17 at 09:00 Pantoprazole Sodium (Protonix) 20 mg DAILY PO Last administered on 02/05/17 10 :59; Start 01/27/17 at 09:00 Dexamethasone 4 mg 4 mg DAILY PO Last administered on 01/27/17 09:05; Start 01/27/17 at 09:00; Stop 01/27/17 at 15:27; Status DC Diltiazem HCl 125 mg/Sodium Chloride 125 ml @ 0 mls/hr TITRATE IV Last administered on 01/28/17 05:04; Start 01/28/17 at 04:45; Stop 01/29/17 at 04:13; Status DC Magnesium Sulfate/ Dextrose (Magnesium Sulfate 1 Gm Premix) 100 ml @ 100 mls/ hr ONCE ONCE IV Last administered on 01/28/17 08:18; Start 01/28/17 at 06:30; Stop 01/28/17 at 07:29; Status DC Digoxin (Lanoxin Inj) 0.5 mg NOW ONCE IVS Last administered on 01/28/17 08:21 ; Start 01/28/17 at 08:00; Stop 01/28/17 at 08:02; Status DC Digoxin (Lanoxin Inj) 0.25 mg Q6H IVS Last administered on 01/28/17 22:05; Start 01/28/17 at 14:00; Stop 01/28/17 at 20:01; Status DC Digoxin (Lanoxin) 0.25 mg DAILY PO Last administered on 02/05/17 10:59; Start 01/29/17 at 09:00 Diltiazem HCl 30 mg 30 mg QID PO Last administered on 01/28/17 22:05; Start 01/28/17 at 09:00; Stop 01/29/17 at 06:38; Status DC Potassium Chloride/Sodium Chloride (NS + KCl 20 Meq Inj) 1,000 ml @ 50 mls/hr Q20H IV Last administered on 02/02/17 16:40; Start 01/28/17 at 18:00 Potassium Chloride (KCl) 10 meq ONCE ONCE PO Last administered on 01/28/17 09: 03; Start 01/28/17 at 09:00; Stop 01/28/17 at 09:01; Status DC Magnesium Oxide (Mag-Ox) 400 mg Q12HR PO Last administered on 02/05/17 08:15; Start 01/28/17 at 09:00 Non-Formulary Medication 1 tab DAILY PO BSM; Start 01/28/17 at 09:00; Status UNV Patient Own Medication PT OWN MED: KOMBIGL... DAILY PO ; Start 01/29/17 at 09:00 ; Status Hold Diltiazem HCl (Cardizem) 60 mg QID PO ; Start 01/29/17 at 09:00; Stop 01/29/17 at 09:00; Status DC Diltiazem HCl 30 mg 30 mg QID PO Last administered on 01/31/17 21:51; Start at 09:00; Stop 02/01/17 at 10:15; Status DC Levofloxacin/ Dextrose (Levaquin 750 Mg Premix Inj) 150 ml @ 100 mls/hr Q24H IV Last administered on 02/02/17 09:44; Start 01/29/17 at 08:00; Stop 02/02/17 at 18:43; Status DC Lorazepam (Ativan) 0.5 mg HS PRN PO INSOMNIA Last administered on 02/04/17 20: 13; Start 01/30/17 at 18:00 Diltiazem HCl (Cardizem) 30 mg Q8HR PO Last administered on 02/05/17 06:50; Start 02/01/17 at 14:00 Potassium Chloride (KCl) 40 meq ONCE ONCE PO Last administered on 02/02/17 10 :19; Start 02/02/17 at 10:15; Stop 02/02/17 at 10:16; Status DC Potassium Chloride 40 meq 40 meq ONCE ONCE PO Last administered on 02/02/17 14:17; Start 02/02/17 at 14:00; Stop 02/02/17 at 14:01; Status DC Magnesium Sulfate/ Dextrose 100 ml @ 100 mls/hr Q1H IV Last administered on 14:21; Start 02/02/17 at 14:00; Stop 02/02/17 at 15:59; Status DC Cefepime HCl/ Sodium Chloride (Maxipime Inj/NS Inj) 100 ml @ 200 mls/hr Q8H IV Last administered on 02/05/17 03:55; Start 02/02/17 at 20:00 Levofloxacin (Levaquin) 750 mg DAILY PO Last administered on 02/05/17 10:59; Start 02/03/17 at 09:00 A/P Assessment and Plan A/p Pseudomonas Pneumonia/bacteremia started on Cefepime Continue Levaquin repeated blood cultures negative so far. repeated CXR on 02/04 with acute pneumonitis ID is following. Lung Cancer Bronchogenic Carcinoma of Right Lung f/u as outpatient contributory to immunocompromise on chemo pulmonary following. CAD No chest pain atrial fibrillation continue digoxin and cardizem not a candidate for anticoagulation due to hemoptysis-per cardiology bradycardia-overall improved. continue cardizem. continue to monitor DM2 Follow blood sugars Soft mechanical diabetic Diet accu-check with SSI HTN continue cardizem Follow BP anemia - due to chronic disease-fairly stable. will monitor H/H. hypokalemia/hypomagnesemia-replaced. generalized Weakness continue PT Discharge Planning d/w and the patient was cleared for discharge with outpatient IV antibiotic treatment. dc to SNF when arrangements made-pending the BMP today. see med list. d/w the patient and case management. time spent 35 min. Jenna Garcia MD Feb 05, 2017 11:41
[2017-02-05] MEDS ORDERED: LEVA750T PO (12:56)
--- NOTE | 2017-02-05 13:03 | HHI.DCPOC ---
Discharge Care Plan Diagnosis: (1) Pneumonia Your Health Problems Are: Shortness of Breath Goals to Promote Your Health * To prevent worsening of your condition and complications * To maintain your health at the optimal level Directions to Meet Your Goals Take your medications as prescribed Follow your dietary instruction Follow activity as directed Keep your appointments as scheduled Take your immunizations and boosters as scheduled If your symptoms worsen call your PCP, if no PCP go to Urgent Care Center or Emergency Room Smoking is Dangerous to Your Health. Avoid second hand smoke Call the 24-hour hour crisis hotline for domestic abuse at Jenna Garcia MD Feb 05, 2017 13:02
--- NOTE | 2017-02-05 13:04 | HHI.DS ---
Discharge Summary Admission Date Jan 26, 2017 at 15:36 Discharge Date: Feb 05, 2017 Admitting Diagnosis pneumonia, lung cancer (1) Pneumonia ICD Code: J18.9 Diagnosis: Principal (2) Leukocytosis ICD Code: D72.829 Diagnosis: Principal (3) Bacteremia ICD Code: R78.81 Diagnosis: Principal Procedures None Brief History - From Admission This is a 66-year-old female with a history of lung cancer on chemotherapy, COPD , hypertension, diabetes with this and coronary artery disease. She is well- known to me from recent admission for gastroenteritis. She was discharged 3 days ago improved. Yesterday she developed weakness and productive cough of clear phlegm associated with shortness of breath. No fever, chills, nausea, vomiting and diarrhea. In the emergency department, she was found to have pneumonia and was given IV Rocephin and Zithromax. She meets criteria for sepsis with leukocytosis, tachypnea and tachycardia. Lactic acid 1.7. CBC/BMP: 02/02/17 0640 02/03/17 0530 Imaging Last Impressions Chest X-Ray 02/04/17 0000 Signed Impressions: Service Date/Time: Saturday, February 04, 2017 12:25 - CONCLUSION: Acute bilateral patchy airspace disease characteristic of pneumonitis. Aiden Conti MD Chest CT 01/27/17 0000 Signed Impressions: Service Date/Time: January 08:09 - CONCLUSION: Multifocal varying size areas of infiltrate throughout both lungs, the largest located in the left lower lobe, lingula and posterior segment right upper lobe. These infiltrates appear to have progressed significantly since chest x-ray yesterday and are new finding when compared to prior CT on 12/23/16. Stable small right pleural effusion. Dionte Valverde MD PE at Discharge GENERAL: in no apparent distress. CARDIOVASCULAR: Regular rate and regular rhythm without murmurs, gallops, or rubs. RESPIRATORY: diminished air entry on left base GASTROINTESTINAL: Abdomen soft, non-tender, nondistended. Normal, active bowel sounds MUSCULOSKELETAL: Extremities without clubbing, cyanosis, or edema. NEURO: Alert & Oriented x4 to person, place, time, situation. Moves all ext x4 Hospital Course Pseudomonas Pneumonia/bacteremia started on Cefepime Continue Levaquin repeated blood cultures negative so far. repeated CXR on 02/04 with acute pneumonitis ID is following. Lung Cancer Bronchogenic Carcinoma of Right Lung f/u as outpatient contributory to immunocompromise on chemo pulmonary following. CAD No chest pain atrial fibrillation continue digoxin and cardizem not a candidate for anticoagulation due to hemoptysis-per cardiology bradycardia-overall improved. continue cardizem. continue to monitor DM2 Follow blood sugars Soft mechanical diabetic Diet accu-check with SSI HTN continue cardizem Follow BP anemia - due to chronic disease-fairly stable. will monitor H/H. hypokalemia/hypomagnesemia-replaced. generalized Weakness continue PT Pt Condition on Discharge: Fair Discharge Disposition: Discharge to SNF Discharge Time: > 30 minutes Discharge Instructions DIET: Follow Instructions for: Heart Healthy Diet, Diabetic Diet Activities you can perform: Regular-No Restrictions Follow up Referrals: Oncology PCP Follow-up New Medications: Levofloxacin (Levaquin) 750 Mg Tab 750 MG PO DAILY Infection Days 4 Ref 0 TAB Digoxin (Digoxin) 0.25 Mg Tab 0.25 MG PO DAILY a-fib Days 30 Ref 0 TAB Diltiazem (Cardizem) 30 Mg Tab 30 MG PO Q8HR a-fib Days 30 Ref 0 TAB Continued Medications: Albuterol 8.5 GM Inh (Proair Hfa 8.5 GM Inh) 90 Mcg/Act Aer 2 PUFF INH Q4HR 108 mcg/actuation PRN SHORTNESS OF BREATH #1 Ref 0 INHALER Aspirin (Aspirin) 81 Mg Tabdr 81 MG PO DAILY TAB Diphenoxylate-Atropine (Diphenoxylate-Atropine) 2.5-0.025 Mg Tab 1 TAB PO Q6H PRN loose stool #30 TAB Furosemide (Lasix) 20 Mg Tab 10 MG PO DAILY PRN SWELLING FEET #30 Ref 0 TAB Mirtazapine (Remeron) 15 Mg Tab 15 MG PO DAILY Depression Control #30 Ref 0 TAB Omeprazole (Prilosec) 20 Mg Cap 20 MG PO DAILY #30 Ref 0 CAP Ondansetron (Zofran) 8 Mg Tab 8 MG PO TID PRN NAUSEA OR VOMITING Ref 0 TAB Potassium Chloride Liq (Potassium Chloride Liq) 20 Meq/15 Ml Soln 20 MEQ PO DAILY Electrolyte Replacement Ref 0 ML Ranitidine (Zantac) 300 Mg Tab 300 MG PO HS Ref 0 TAB Saxagliptin-Metformin ER (Kombiglyze Xr) 2.5-1,000 Mg Tab 1 TAB PO DAILY Blood Sugar Management #30 Ref 0 TAB Discontinued Medications: Amlodipine (Norvasc) 10 Mg Tab 10 MG PO DAILY HTN Days 30 TAB Metoprolol Tartrate (Metoprolol Tartrate) 25 Mg Tab 12.5 MG PO Q12HR CAD Days 30 TAB Jenna Garcia MD Feb 05, 2017 13:04
[2017-02-05 16:35] LABS: BICARBONATE 32.1 MEQ/L (21.0-32.0); MAGNESIUM 1.3 MG/DL (1.5-2.5); POTASSIUM 3.4 MEQ/L (3.5-5.1)
--- NOTE | 2017-02-05 17:44 | HHI.PR ---
Subjective Remarks 66 YOWF with ca lung, Pn Feels weak Has cough with liquids No fever CT chest Bilat Pn Sp and Blood culture Pseudomonas Feels little stronger Off 02 Objective Vital Signs Vital Signs Date Time Temp Pulse Resp B/P Pulse Ox O2 Delivery O2 Flow Rate FiO2 02/05/17 16:00 97.9 63 16 182/81 95 02/05/17 13:12 65 177/77 02/05/17 12:00 97.8 60 12 136/60 97 02/05/17 11:51 98 Nasal Cannula 21 02/05/17 11:00 97 Room Air 02/05/17 08:00 97.8 64 20 153/69 95 02/05/17 05:36 63 02/05/17 04:00 97.9 60 18 160/70 94 02/05/17 00:00 97.7 60 18 160/79 97 02/04/17 20:33 Room Air 02/04/17 20:00 98.0 63 18 150/72 97 I/O 02/04/17 02/04/17 02/04/17 02/05/17 02/05/17 02/05/17 07:00 15:00 23:00 07:00 15:00 23:00 Intake Total 240 ml 360 ml 480 ml 240 ml 820 ml Output Total 1200 ml 850 ml 250 ml 375 ml Balance -960 ml 360 ml -370 ml -10 ml 445 ml Intake Oral 240 ml 360 ml 480 ml 240 ml 720 ml IV Total 100 ml Output Urine Total 1200 ml 850 ml 250 ml 375 ml # Voids 3 # Bowel Movements 0 1 2 1 0 Result Diagram: 02/02/17 0640 02/05/17 1555 Objective Remarks GENERAL: Frail elderly female, mild sob SKIN: Warm and dry. HEAD: Normocephalic. EYES: No scleral icterus. No injection or drainage. NECK: Supple, trachea midline. No JVD or lymphadenopathy. CARDIOVASCULAR: Regular rate and rhythm without murmurs, gallops, or rubs. RESPIRATORY: Breath sounds equal bilaterally. No accessory muscle use. Bilat rhonchi GASTROINTESTINAL: Abdomen soft, non-tender, nondistended. MUSCULOSKELETAL: No cyanosis, or edema. BACK: Nontender without obvious deformity. No CVA tenderness. A/P Assessment and Plan Bilat Pneumonia ?Aspiration COPD Leucocytosis ca lung PLAN: Aerosol nebs Encourage po Ensure 1 can TID DC Plans for SNF with IV abx until 02/09 per ID Will FU in office Stable on Fermin Ott MD Feb 05, 2017 17:44
[2017-02-05] MEDS: LORazepam 0.5 MG TAB PO PRN (20:42)
[2017-02-05] MEDS ORDERED: ALTEPLASE RECOMBINANT 2 MG VIAL INTRACATH ONE (21:30)
[2017-02-05] MEDS ORDERED: ENALAPRILAT 1.25 MG/ML VIAL IV PUSH PRN (21:30)
[2017-02-05] MEDS ORDERED: POTASSIUM CHLORIDE 10 MEQ CONTROLLED RELEASE TAB PO ONE (21:45)
[2017-02-05] MEDS: MAGNESIUM SULFATE 1 GM PREMIX 100 ML IV SCH (22:40)
[2017-02-06] VITALS: BP 155/68; PULSE 60; RESP 18; TEMP 98.4; O2SAT 95
[2017-02-06] MEDS: MAGNESIUM SULFATE 1 GM PREMIX 100 ML IV SCH
[2017-02-06] MEDS: NS + KCL 20 MEQ INJ 1,000 ML IV SCH (01:43)
[2017-02-06 04:00] VITALS: BP 153/70; PULSE 66; RESP 18; TEMP 97.6; O2SAT 96
[2017-02-06] MEDS: DOCUSATE SODIUM 100 MG CAP PO SCH (05:00)
[2017-02-06] MEDS: CEFEPIME INJ 2,000 MG in SODIUM CHLORIDE 0.9% INJ 100 ML IV SCH ×2 (05:08→12:34)
[2017-02-06] MEDS: HEPARIN SODIUM - SQ 10,000 UNITS/ML VIAL SQ SCH (05:13)
[2017-02-06] MEDS: DILTIAZEM HCL 30 MG TAB PO SCH (05:13)
[2017-02-06] MEDS: INSULIN ASPART SUPPLEMENTAL SCALE SQ SCH ×2 (06:26→12:34)
[2017-02-06 08:00] VITALS: BP 157/67; PULSE 61; RESP 16; TEMP 98.1; O2SAT 96
[2017-02-06] MEDS: MAGNESIUM OXIDE 400 MG TAB PO SCH (08:13)
[2017-02-06] MEDS: DIGOXIN 0.25 MG TAB PO SCH (09:00)
--- NOTE | 2017-02-06 09:53 | HHI.PR ---
Subjective Remarks resting comfortably with no distress. no sob, chest pain. no fever. Objective Vitals Vital Signs Date Time Temp Pulse Resp B/P Pulse Ox O2 Delivery O2 Flow Rate FiO2 02/06/17 08:00 98.1 61 16 157/67 96 02/06/17 04:00 97.6 66 18 153/70 96 02/06/17 00:00 98.4 60 18 155/68 95 02/05/17 21:00 Room Air 02/05/17 20:00 98.1 62 18 180/79 98 02/05/17 19:33 74 02/05/17 16:00 97.9 63 16 182/81 95 02/05/17 13:12 65 177/77 02/05/17 12:00 97.8 60 12 136/60 97 02/05/17 11:51 98 Nasal Cannula 21 02/05/17 11:00 97 Room Air I/O 02/05/17 02/05/17 02/05/17 02/06/17 02/06/17 02/06/17 07:00 15:00 23:00 07:00 15:00 23:00 Intake Total 240 ml 820 ml 460 ml 240 ml Output Total 250 ml 375 ml 650 ml 950 ml Balance -10 ml 445 ml -190 ml -710 ml Intake Oral 240 ml 720 ml 360 ml 240 ml IV Total 100 ml 100 ml Output Urine Total 250 ml 375 ml 650 ml 950 ml # Bowel Movements 1 0 0 0 Result Diagram: 02/02/17 0640 02/05/17 1555 Imaging Last Impressions Chest X-Ray 02/04/17 0000 Signed Impressions: Service Date/Time: Saturday, February 04, 2017 12:25 - CONCLUSION: Acute bilateral patchy airspace disease characteristic of pneumonitis. Aiden Conti MD Chest CT 01/27/17 0000 Signed Impressions: Service Date/Time: January 08:09 - CONCLUSION: Multifocal varying size areas of infiltrate throughout both lungs, the largest located in the left lower lobe, lingula and posterior segment right upper lobe. These infiltrates appear to have progressed significantly since chest x-ray yesterday and are new finding when compared to prior CT on 12/23/16. Stable small right pleural effusion. Dionte Valverde MD Objective Remarks GENERAL: in no apparent distress. CARDIOVASCULAR: Regular rate and regular rhythm without murmurs, gallops, or rubs. RESPIRATORY: diminished air entry on left base GASTROINTESTINAL: Abdomen soft, non-tender, nondistended. Normal, active bowel sounds MUSCULOSKELETAL: Extremities without clubbing, cyanosis, or edema. NEURO: Alert & Oriented x4 to person, place, time, situation. Moves all ext x4 Procedures None Medications and IVs Current Medications Sodium Chloride (NS 1000 ml Inj) 1,000 ml @ 1,000 mls/hr Q1H ONCE IV Last administered on 01/26/17 11:25; Start 01/26/17 at 10:55; Stop 01/26/17 at 11:54; Status DC Sodium Chloride 2 ml 2 ml UNSCH PRN IVF FLUSH AFTER USING IV ACCESS Last administered on 01/26/17 14:27; Start 01/26/17 at 11:00; Stop 01/26/17 at 16:54; Status DC Ceftriaxone Sodium 1000 mg/ Sodium Chloride 100 ml @ 200 mls/hr ONCE ONCE IV Last administered on 01/26/17 13:27; Start 01/26/17 at 13:15; Stop 01/26/17 at 13: 44; Status DC Azithromycin 500 mg/Sodium Chloride 250 ml @ 250 mls/hr ONCE ONCE IV Last administered on 01/26/17 13:27; Start 01/26/17 at 13:15; Stop 01/26/17 at 14:14; Status DC Piperacillin Sod/ Tazobactam Sod (Zosyn 4.5 Gm Premix) 100 ml @ 200 mls/hr Q6H IV Last administered on 02/02/17 16:36; Start 01/26/17 at 18:00; Stop 02/02/17 at 18:43; Status DC Albuterol/ Ipratropium (Duoneb Neb) 1 ampule QID NEB INH Last administered on 01/30/17 15:35; Start 01/26/17 at 20:00; Stop 01/30/17 at 20:00; Status DC Albuterol/ Ipratropium (Duoneb Neb) 1 ampule Q4HR NEB PRN INH SHORTNESS OF BREATH Last administered on 01/26/17 18:14; Start 01/26/17 at 16:45 Guaifenesin/ Codeine Phosphate (Robitussin Ac 200-20 Mg/10 ml Liq) 10 ml Q4H PRN PO severe COUGH Last administered on 01/26/17 17:20; Start 01/26/17 at 16:45 Heparin Sodium (Porcine) (Heparin Inj) 5,000 units Q12H SQ Last administered on 02/06/17 05:13; Start 01/26/17 at 17:00 Benzonatate (Tessalon) 200 mg Q8H PRN PO mild COUGH Last administered on 17:21; Start 01/26/17 at 16:45 Guaifenesin 600 mg 600 mg BID PO Last administered on 02/05/17 20:29; Start at 21:00 Potassium Chloride/Sodium Chloride (NS + KCl 20 Meq Inj) 1,000 ml @ 50 mls/hr Q20H IV Last administered on 01/28/17 08:17; Start 01/26/17 at 18:00; Stop at 08:50; Status DC Sodium Chloride (NS Flush) 2 ml UNSCH PRN IV FLUSH FLUSH AFTER USING IV ACCESS ; Start 01/26/17 at 17:00 Sodium Chloride (NS Flush) 2 ml BID IV FLUSH Last administered on 02/05/17 20: 30; Start 01/26/17 at 21:00 Acetaminophen (Tylenol) 650 mg Q4H PRN PO TEMP > 100.4; Start 01/26/17 at 17:00 Ondansetron HCl (Zofran Inj) 4 mg Q6H PRN IVP NAUSEA OR VOMITING; Start at 17:00 Bisacodyl (Dulcolax Supp) 10 mg DAILY PRN RECTAL CONSTIPATION; Start 01/26/17 at 17:00 Docusate Sodium (Colace) 100 mg Q12H PO Last administered on 02/05/17 13:07; Start 01/26/17 at 17:00 Magnesium Hydroxide (Milk Of Magnesia Liq) 30 ml Q12H PRN PO severe CONSTIPATION; Start 01/26/17 at 17:00 Sennosides (Senokot) 17.2 mg Q12H PRN PO mild CONSTIPATION; Start 01/26/17 at 17 :00 Naloxone HCl (Narcan Inj) 0.4 mg UNSCH PRN IV SEE LABEL COMMENTS; Start at 17:00 Dextrose (D50w (Vial) Inj) 25 ml UNSCH PRN IV PUSH HYPOGLYCEMIA-SEE COMMENTS; Start 01/26/17 at 17:00 Glucagon (Glucagon Inj) 1 mg UNSCH PRN OTHER HYPOGLYCEMIA-SEE COMMENTS; Start 01/26/17 at 17:00 Insulin Aspart (NovoLOG SUPPLEMENTAL SCALE) 1 ACHS SLIDING SCALE SQ Last administered on 02/05/17 16:00; Start 01/26/17 at 21:00 Aspirin (Ecotrin Ec) 81 mg DAILY PO Last administered on 02/05/17 10:58; Start 01/27/17 at 09:00 Mirtazapine (Remeron) 15 mg DAILY PO Last administered on 02/05/17 10:59; Start 01/27/17 at 09:00 Pantoprazole Sodium (Protonix) 20 mg DAILY PO Last administered on 02/05/17 10 :59; Start 01/27/17 at 09:00 Dexamethasone 4 mg 4 mg DAILY PO Last administered on 01/27/17 09:05; Start 01/27/17 at 09:00; Stop 01/27/17 at 15:27; Status DC Diltiazem HCl 125 mg/Sodium Chloride 125 ml @ 0 mls/hr TITRATE IV Last administered on 01/28/17 05:04; Start 01/28/17 at 04:45; Stop 01/29/17 at 04:13; Status DC Magnesium Sulfate/ Dextrose (Magnesium Sulfate 1 Gm Premix) 100 ml @ 100 mls/ hr ONCE ONCE IV Last administered on 01/28/17 08:18; Start 01/28/17 at 06:30; Stop 01/28/17 at 07:29; Status DC Digoxin (Lanoxin Inj) 0.5 mg NOW ONCE IVS Last administered on 01/28/17 08:21 ; Start 01/28/17 at 08:00; Stop 01/28/17 at 08:02; Status DC Digoxin (Lanoxin Inj) 0.25 mg Q6H IVS Last administered on 01/28/17 22:05; Start 01/28/17 at 14:00; Stop 01/28/17 at 20:01; Status DC Digoxin (Lanoxin) 0.25 mg DAILY PO Last administered on 02/05/17 10:59; Start 01/29/17 at 09:00 Diltiazem HCl 30 mg 30 mg QID PO Last administered on 01/28/17 22:05; Start 01/28/17 at 09:00; Stop 01/29/17 at 06:38; Status DC Potassium Chloride/Sodium Chloride (NS + KCl 20 Meq Inj) 1,000 ml @ 50 mls/hr Q20H IV Last administered on 02/02/17 16:40; Start 01/28/17 at 18:00 Potassium Chloride (KCl) 10 meq ONCE ONCE PO Last administered on 01/28/17 09: 03; Start 01/28/17 at 09:00; Stop 01/28/17 at 09:01; Status DC Magnesium Oxide (Mag-Ox) 400 mg Q12HR PO Last administered on 02/06/17 08:13; Start 01/28/17 at 09:00 Non-Formulary Medication 1 tab DAILY PO BSM; Start 01/28/17 at 09:00; Status UNV Patient Own Medication PT OWN MED: KOMBIGL... DAILY PO ; Start 01/29/17 at 09:00 ; Status Hold Diltiazem HCl (Cardizem) 60 mg QID PO ; Start 01/29/17 at 09:00; Stop 01/29/17 at 09:00; Status DC Diltiazem HCl 30 mg 30 mg QID PO Last administered on 01/31/17 21:51; Start at 09:00; Stop 02/01/17 at 10:15; Status DC Levofloxacin/ Dextrose (Levaquin 750 Mg Premix Inj) 150 ml @ 100 mls/hr Q24H IV Last administered on 02/02/17 09:44; Start 01/29/17 at 08:00; Stop 02/02/17 at 18:43; Status DC Lorazepam (Ativan) 0.5 mg HS PRN PO INSOMNIA Last administered on 02/05/17 20: 42; Start 01/30/17 at 18:00 Diltiazem HCl (Cardizem) 30 mg Q8HR PO Last administered on 02/06/17 05:13; Start 02/01/17 at 14:00 Potassium Chloride (KCl) 40 meq ONCE ONCE PO Last administered on 4/12/17at 10 :19; Start 02/02/17 at 10:15; Stop 02/02/17 at 10:16; Status DC Potassium Chloride 40 meq 40 meq ONCE ONCE PO Last administered on 02/02/17 14:17; Start 02/02/17 at 14:00; Stop 02/02/17 at 14:01; Status DC Magnesium Sulfate/ Dextrose 100 ml @ 100 mls/hr Q1H IV Last administered on 14:21; Start 02/02/17 at 14:00; Stop 02/02/17 at 15:59; Status DC Cefepime HCl/ Sodium Chloride (Maxipime Inj/NS Inj) 100 ml @ 200 mls/hr Q8H IV Last administered on 02/06/17 05:08; Start 02/02/17 at 20:00 Levofloxacin (Levaquin) 750 mg DAILY PO Last administered on 02/05/17 10:59; Start 02/03/17 at 09:00 Alteplase, Recombinant (Cathflo Activase Inj) 2 mg ONCE ONCE INTRACATH Last administered on 02/05/17 21:47; Start 02/05/17 at 21:30; Stop 02/05/17 at 21:31 ; Status DC Enalaprilat (Vasotec Inj) 1.25 mg Q6H PRN IV PUSH SBP>180, DBP>95; Start 02/05 at 21:30 Potassium Chloride 30 meq 30 meq ONCE ONCE PO Last administered on 02/05/17 21:54; Start 02/05/17 at 21:45; Stop 02/05/17 at 21:46; Status DC Magnesium Sulfate/ Dextrose (Magnesium Sulfate 1 Gm Premix) 100 ml @ 100 mls/ hr Q1H IV Last administered on 02/06/17 00:00; Start 02/05/17 at 21:45; Stop 02/05/17 at 23:44; Status DC A/P Assessment and Plan A/p Pseudomonas Pneumonia/bacteremia started on Cefepime Continue Levaquin repeated blood cultures negative so far. previously d/w ; continue Abx till 02/09/17. Lung Cancer Bronchogenic Carcinoma of Right Lung f/u as outpatient on chemo pulmonary following. CAD No chest pain atrial fibrillation continue digoxin and cardizem not a candidate for anticoagulation due to hemoptysis-per cardiology bradycardia-overall improved. continue cardizem. continue to monitor DM2 Follow blood sugars Soft mechanical diabetic Diet accu-check with SSI HTN continue cardizem Follow BP anemia - due to chronic disease-fairly stable. will monitor H/H. hypokalemia/hypomagnesemia-replaced. generalized Weakness continue PT Discharge Planning previously d/w and the patient was cleared for discharge with outpatient IV antibiotic treatment. dc to SNF today. see med list. d/w the patient and case management. time spent 35 min. Jenna Garcia MD Feb 06, 2017 09:53
[2017-02-06] MEDS: LEVOFLOXACIN 750 MG TAB PO SCH (10:15)
[2017-02-06] MEDS: SODIUM CHLORIDE 0.9% FLUSH 10 ML FLUSH IV FLUSH SCH (10:15)
[2017-02-06] MEDS: ASPIRIN EC 81 MG TABEC PO SCH (10:15)
[2017-02-06] MEDS: guaiFENesin E.R. 600 MG TAB PO SCH (10:15)
[2017-02-06] MEDS: MIRTAZAPINE 15 MG TAB PO SCH (10:16)
[2017-02-06] MEDS: PANTOPRAZOLE SOD 20 MG DELAYED RELEASE TAB PO SCH (10:16)
[2017-02-06 11:25] VITALS: O2SAT 97
[2017-02-06 12:00] VITALS: BP 150/71; PULSE 65; RESP 18; TEMP 97.8; O2SAT 97
== END 2017-02-06 14:01 | DRG 871 ==
LOC: NEPC 10:28 → NEDA 15:36 → N04A 19:06
PROVIDERS: ADMIT Internal Medicine; ATTEND Internal Medicine
DX: A41.52 Sepsis due to Pseudomonas (principal); J15.1 Pneumonia due to Pseudomonas; J44.0 Chronic obstructive pulmonary disease with (acute) lower respiratory infection; I48.0 Paroxysmal atrial fibrillation; C34.91 Malignant neoplasm of unspecified part of right bronchus or lung; R04.2 Hemoptysis; R13.10 Dysphagia, unspecified; E11.65 Type 2 diabetes mellitus with hyperglycemia; E83.42 Hypomagnesemia; I10 Essential (primary) hypertension; D63.8 Anemia in other chronic diseases classified elsewhere; I25.10 Atherosclerotic heart disease of native coronary artery without angina pectoris; F41.9 Anxiety disorder, unspecified; I73.9 Peripheral vascular disease, unspecified; R00.1 Bradycardia, unspecified; E87.6 Hypokalemia; G47.00 Insomnia, unspecified; Z79.84 Long term (current) use of oral hypoglycemic drugs; Z95.1 Presence of aortocoronary bypass graft; Z95.5 Presence of coronary angioplasty implant and graft; Z87.891 Personal history of nicotine dependence
CPT/HCPCS: 36600; 71010; 71020; 71250; 80048; 80053; 81001; 82272; 82805; 82948; 83605; 83735; 84132; 84155; 84439; 84443; 84484; 85007; 85014; 85018; 85027; 87040; 87070; 87077; 87186; 87205; 87449; 93005; 93306; 94640; 94664; 96361; 96365; 96368; J0456; J0692; J0696; J1160; J1644; J1815; J1956; J2543; J2997; J3475; J3480; J7030; J7050; J8540; P9612

== ENCOUNTER 2017-10-03 10:24 | Emergency (ER) | payer OTHER ==
[~2017-10-03] VITALS: Ht 170.2 cm; Wt 59.0 kg
[~2017-10-03 10:24] MED LIST changes: -AMLO10 PO; -DEXA4TAB PO; +DIGO0.25 PO; +DILT31TA PO; -FLUTI110I INH; +FURO1TAB62 PO; +LEVA750T PO; -MAGN400T3 PO; -METO25TA3 PO; +POTA10SO12 PO; -POTA20TA5 PO; +PRIL20CA9 PO; +REME15TA PO; +ZOFR8TAB PO
[2017-10-03 10:25] VITALS: BP 173/105; PULSE 113; RESP 18; TEMP 97.8; O2SAT 98
[2017-10-03] MEDS ORDERED: AMLO10TA2 PO (11:07)
[2017-10-03] MEDS ORDERED: METO1TAB42 PO (11:07)
--- NOTE | 2017-10-03 11:13 | PD ---
HPI Chief Complaint: Fall Time Seen by Provider: 11:12 Travel History International Travel<30 days: No Contact w/Intl Traveler<30days: No Traveled to known affect area: No History of Present Illness HPI 67-year-old female with history of osteoporosis, cancer, currently undergoing chemotherapy, presents emergency department for evaluation of low back pain following a trip and fall. Patient states that she tripped over the shoes that she was wearing and fell backwards, landing on her back. She reports significant mid low back pain.. Pain does not radiate anywhere. Denies any alterations in sensation or weakness. She did strike her head or lose consciousness. She denies any other symptoms at this time. PFSH Past Medical History Hx Anticoagulant Therapy: Yes (ASA ) Blood Disorders: No Anxiety: Yes Depression: No Heart Rhythm Problems: No Cancer: Yes (Lung ca) Cardiac Catheterization: Yes (2 STENTS) Cardiovascular Problems: Yes (HBP) High Cholesterol: No Chemotherapy: Yes Chest Pain: No Congestive Heart Failure: Yes Coronary Artery Disease: Yes Diabetes: Yes Patient Takes Glucophage: Yes Diminished Hearing: No Endocrine: Yes Genitourinary: No Hepatitis: No Hiatal Hernia: No Hypertension: Yes Immune Disorder: No Implanted Vascular Access Dvce: Yes Medical other: Yes Musculoskeletal: No Neurologic: No Psychiatric: No Reproductive: No Respiratory: Yes (LUNG CA) Immunizations Current: No Thyroid Disease: No Tetanus Vaccination: > 5 Years Influenza Vaccination: No Menopausal: Yes Past Surgical History Abdominal Surgery: No AICD: No Body Medical Devices: STENTS Cardiac Surgery: Yes (Stents, CABG x 3) Section: Yes (X3) Coronary Artery Bypass Graft: Yes (07/2015) Ear Surgery: No Endocrine Surgery: No Eye Surgery: No Genitourinary Surgery: No Gynecologic Surgery: No Hysterectomy: Yes Joint Replacement: No Oral Surgery: No Pacemaker: No Thoracic Surgery: No Other Surgery: Yes Social History Alcohol Use: No Tobacco Use: Yes (1 PPD) Substance Use: No Allergies-Medications (Allergen,Severity, Reaction): Coded Allergies: No Known Allergies (Verified Adverse Reaction, Unknown, 10/03/17) Reported Meds & Prescriptions Reported Meds & Active Scripts Active Naproxen 500 Mg Tab 500 Mg PO BID PRN Colace (Docusate Sodium) 100 Mg Capsule 1 Cap PO BID Take this medication while taking narcotic pain control to reduce constipation risk Percocet (Oxycodone-Acetaminophen) 5-325 mg Tab 1 Tab PO Q6H PRN Reported Amlodipine (Amlodipine Besylate) 10 Mg Tab 10 Mg PO DAILY Metoprolol Succinate ER 24 HR (Metoprolol Succinate) 25 Mg Tab 25 Mg PO BID Kombiglyze Xr (Saxagliptin-Metformin ER) 2.5-1,000 Mg Tab 1 Tab PO DAILY Review of Systems Except as stated in HPI: all other systems reviewed are Neg Physical Exam Narrative GENERAL: Well-nourished female patient, sitting in bed in no acute distress SKIN: Focused skin assessment warm/dry. HEAD: Atraumatic. Normocephalic. EYES: Pupils equal and round. No scleral icterus. No injection or drainage. ENT: No nasal bleeding or discharge. Mucous membranes pink and moist. NECK: Trachea midline. No JVD. No cervical spine tenderness to palpation. CARDIOVASCULAR: Tachycardic rate and rhythm. No murmur appreciated. RESPIRATORY: No accessory muscle use. Clear to auscultation. Breath sounds equal bilaterally. GASTROINTESTINAL: Abdomen soft, non-tender, nondistended. Hepatic and splenic margins not palpable. MUSCULOSKELETAL: No obvious deformities. No clubbing. No cyanosis. No edema. Patient does have midline lumbar spinal tenderness. 5+ strength equal bilateral excretion wheeze. Sensation intact distal extremities. NEUROLOGICAL: Awake and alert. No obvious cranial nerve deficits. Motor grossly within normal limits. Normal speech. PSYCHIATRIC: Appropriate mood and affect; insight and judgment normal. Data Data Last Documented VS Vital Signs Date Time Temp Pulse Resp B/P (MAP) Pulse Ox O2 Delivery O2 Flow Rate FiO2 10/03/17 13:37 10/03/17 10:53 53 20 100 Room Air 10/03/17 10:[address] Lumb Spine W/O Contrast (10/03/17 ) Ketorolac Inj (Toradol Inj) (10/03/17 11:15) Orphenadrine Inj (Norflex Inj) (10/03/17 11:15) Support Splint (10/03/17 12:30) Ed Discharge Order (10/03/17 12:31) Oxycodone-Acetamin 5-325 Mg (Percocet (10/03/17 12:45) Brace Quick Draw Corset (10/03/17 ) MDM Medical Decision Making Medical Screen Exam Complete: Yes Emergency Medical Condition: Yes Medical Record Reviewed: Yes Differential Diagnosis Muscle strain versus discogenic pain versus radiculopathy versus fracture Narrative Course 67-year-old female presents to emergency department for evaluation of low back pain following a trip and fall. Patient appears without distress. She does have low back pain. Patient is treated for pain. CT imaging is complete and shows Last Impressions Lumbar Spine CT 10/03/17 0000 Signed Impressions: Service Date/Time: Tuesday, October 03, 2017 11:36 - CONCLUSION: 1. Slight interval worsening of the mild compression deformity involving the superior endplate of L1 compared to January of 2017. 2. Moderate circumferential spinal stenosis and mild bilateral foraminal narrowing at L2-3, L3-4 and L4-5. 3. Minimal diffuse disc bulge and facet joint hypertrophy bilaterally at L5-S1. 4. Diffuse osteoporosis. Polo Brennan MD Patient does have a mild compression deformity involving the superior endplate of L1 has slight worsening since January. I discussed this with the patient. She is placed in a quick draw back brace and encouraged to follow-up with a primary care provider and neurosurgeon. She verbalizes understanding. She agrees to return immediately with any acute worsening symptoms. Diagnosis Primary Impression: Low back pain Qualified Codes: M54.5 - Low back pain Additional Impression: Compression deformity of vertebra Referrals: Neurosurgeon Primary Care Physician Patient Instructions: General Instructions Departure Forms: Tests/Procedures Additional Instructions: Wear brace for support and when ambulatory Follow-up with your primary care provider Seek neurosurgeon evaluation Return immediately to the emergency department with any acute worsening symptoms Med/Other Pt SpecificInfo: Prescription(s) given Scripts Naproxen (Naproxen) 500 Mg Tab 500 MG PO BID Y for PAIN SCALE 1 TO 10, #30 TAB 0 Refills Prov: Jes Kaufman 10/03/17 Docusate Sodium (Colace) 100 Mg Capsule 1 CAP PO BID, #20 Take this medication while taking narcotic pain control to reduce constipation risk Prov: Jes Kaufman 10/03/17 Oxycodone-Acetaminophen (Percocet) 5-325 mg Tab 1 TAB PO Q6H Y for PAIN GREATER THAN 5, #15 TAB 0 Refills Prov: Jes Kaufman 10/03/17 Disposition: 01 DISCHARGE HOME Condition: Stable Jes KaufmanP Oct 03, 2017 11:12
[2017-10-03] MEDS ORDERED: ORPHENADRINE INJ 60 MG/2 ML AMP IM ONE (11:15)
[2017-10-03] MEDS ORDERED: KETOROLAC TROMETHAMINE 60 MG/2 ML (IM) VIAL IM ONE (11:15)
--- NOTE | 2017-10-03 12:20 | RADRPT ---
EXAM DATE/TIME: 10/03/2017 11:36 [facility] COMPARISON: CT THORAX W/O CONTRAST, January 27, 2017, 8:09. INDICATIONS : Patient fell, low back pain RADIATION DOSE: 35.86 CTDIvol (mGy) MEDICAL HISTORY : Hypertension. Cardiovascular disease Carcinoma, lung. SURGICAL HISTORY : None. ENCOUNTER: Initial ACUITY: 1 day PAIN SCALE: 10/10 LOCATION: low back TECHNIQUE: Volumetric scanning of the lumbar spine was performed. Multiplanar reconstructions in the sagittal, coronal and oblique axial planes were performed. Using automated exposure control and adjustment of the mA and/or kV according to patient size, radiation dose was kept as low as reasonably achievable t o obtain optimal diagnostic quality images. DICOM format image data is available electronically for review and comparison. FINDINGS: Degenerative changes and scoliosis of the lumbar spine are noted. There has been slight interval wors ening of mild compression deformity involving the superior endplate of L1 compared to January of 2017. Diffuse osteoporosis of the lumbar spine is noted. Degenerative disease is noted throughout the lumba r spine. No evidence of spondylolisthesis or spondylolysis. T12-L1: The thecal sac has a normal diameter. No evidence of disc bulge or protrusion. The neural foramina are patent bilaterally. L1-L2: The thecal sac has a normal diameter. No evidence of disc bulge or protrusion. The neural foramina are patent bilaterally. L2-L3: Moderate circumferential spinal stenosis and mild bilateral foraminal narrowing is noted secondary to diffuse disc bulge, facet joint hypertrophy and ligamentous laxity. L3-L4: Moderate circumferential spinal stenosis and mild bilateral foraminal narrowing is noted secondary to diffuse disc bulge, facet joint hypertrophy and ligamentous laxity. L4-L5: Moderate circumferential spinal stenosis and mild bilateral foraminal narrowing is noted secondary to diffuse disc bulge, facet joint hypertrophy and ligamentous laxity. L5-S1: Minimal diffuse disc bulge is noted. Facet joint hypertrophy is noted bilaterally. No spinal stenosis or neural foraminal narrowing is noted. CONCLUSION: 1. Slight interval worsening of the mild compression deformity involving the superior endplate of L1 compared to January of 2017. 2. Moderate circumferential spinal stenosis and mild bilateral foraminal narrowing at L2-3, L3-4 and L4-5. 3. Minimal diffuse disc bulge and facet joint hypertrophy bilaterally at L5-S1. 4. Diffuse osteoporosis. Polo Brennan MD on October 03, 2017 at 12:08 Board Certified Radiologist. This report was verified electronically.
[2017-10-03] MEDS ORDERED: NAPR500T2 PO (12:35)
[2017-10-03] MEDS ORDERED: PERC5TAB12 PO (12:35)
[2017-10-03] MEDS ORDERED: COLA100C5 PO (12:35)
[2017-10-03] MEDS ORDERED: oxyCODONE/ACETAMINOPHEN 5 MG/325 MG TAB PO ONE (12:45)
== END 2017-10-03 13:38 | disposition home or self-care (01) ==
LOC: NEPE 10:24
DX: C34.90 Malignant neoplasm of unspecified part of unspecified bronchus or lung (principal); M54.5 Low back pain; F17.200 Nicotine dependence, unspecified, uncomplicated; I11.0 Hypertensive heart disease with heart failure; I50.9 Heart failure, unspecified; I25.10 Atherosclerotic heart disease of native coronary artery without angina pectoris
CPT/HCPCS: 72131; 96372; 99285; J1885; J2360; L0627

== ENCOUNTER 2017-11-03 04:15 | Emergency (ER) | payer OTHER ==
[~2017-11-03] VITALS: Ht 170.2 cm; Wt 59.0 kg
[~2017-11-03 04:15] MED LIST changes: -ALBUAER3 INH; +AMLO10TA2 PO; -ASPI1TAB69 PO; +COLA100C5 PO; -DIGO0.25 PO; -DILT31TA PO; -DIPH2.5T14 PO; -FURO1TAB62 PO; -LEVA750T PO; +METO1TAB42 PO; +NAPR500T2 PO; +PERC5TAB12 PO; -POTA10SO12 PO; -PRIL20CA9 PO; -REME15TA PO; -ZANT300T PO; -ZOFR8TAB PO
[2017-11-03 04:18] VITALS: BP 175/74; PULSE 82; RESP 18; TEMP 98.1; O2SAT 96
[2017-11-03 04:35] VITALS: BP 135/63; PULSE 61; RESP 20; O2SAT 99
[2017-11-03 05:10] LABS: AUTOMATED NEUTROPHIL # 5.3 TH/MM3 (1.8-7.7); BASOPHIL # 0.1 TH/MM3 (0-0.2); BASOPHIL % 1.4 % (0.0-2.0); EOSINOPHIL # 0.4 TH/MM3 (0-0.4); HEMATOCRIT 31.4 % (35.0-46.0); HEMOGLOBIN 10.9 GM/DL (11.6-15.3); LYMPH % 27.8 % (9.0-44.0); LYMPHOCYTE # 2.5 TH/MM3 (1.0-4.8); MEAN CELL VOLUME 85.4 FL (80.0-100.0); MEAN CORPUSCULAR HEMOGLOBIN 29.6 PG (27.0-34.0); MEAN CORPUSCULAR HGB CONC 34.7 % (32.0-36.0); MEAN PLATELET VOLUME 8.4 FL (7.0-11.0); MONO % 7.9 % (0.0-8.0); MONOCYTE # 0.7 TH/MM3 (0-0.9); NEUT % 58.9 % (16.0-70.0); PLATELET COUNT 255 TH/MM3 (150-450); RED BLOOD COUNT 3.68 MIL/MM3 (4.00-5.30)
[2017-11-03] MEDS ORDERED: SODIUM CHLORIDE 0.9% FLUSH 10 ML FLUSH IV FLUSH PRN (05:15)
[2017-11-03] MEDS ORDERED: ATROPINE/SCOPOLAM/HYOSCYAM/PB ELIXIR 10 ML CUP PO ONE (05:15)
[2017-11-03] MEDS ORDERED: FAMOTIDINE 20 MG/2 ML VIAL IV PUSH ONE (05:15)
[2017-11-03] MEDS ORDERED: ALUMINUM/MAGNESIUM/SIMETH 30 ML CUP PO ONE (05:15)
--- NOTE | 2017-11-03 05:16 | PD ---
HPI Chief Complaint: Chest Pain Time Seen by Provider: 04:58 Travel History International Travel<30 days: No Contact w/Intl Traveler<30days: No Traveled to known affect area: No History of Present Illness HPI 67-year-old female complains of epigastric abdominal pain. Patient states the pain started about an hour prior coming to the emergency room. Patient states the pain cramping pain started around the epigastric area with radiation to the back. Patient states that she has nausea but no vomiting or diarrhea. Patient denies any dysuria or frequency. Patient denies any vaginal discharge or bleeding. Patient has history of right lung cancer and taking immunotherapy every 2 weeks. Patient has history of hypertension, diabetes. Patient is a smoker. Patient denies history of CAD. Patient has a history of alcohol abuse. Patient states that she has been constipated for the past week. Patient complains of constipation. PFSH Past Medical History Hx Anticoagulant Therapy: Yes (ASA ) Blood Disorders: No Anxiety: Yes Depression: No Heart Rhythm Problems: No Cancer: Yes (Lung ca) Cardiac Catheterization: Yes (2 STENTS) Cardiovascular Problems: Yes (HBP) High Cholesterol: No Chemotherapy: Yes Chest Pain: No Congestive Heart Failure: Yes Coronary Artery Disease: Yes Diabetes: Yes Patient Takes Glucophage: No Diminished Hearing: No Endocrine: Yes Gastrointestinal Disorders: No Genitourinary: No Hepatitis: No Hiatal Hernia: No Hypertension: Yes Immune Disorder: No Implanted Vascular Access Dvce: Yes Medical other: Yes Musculoskeletal: No Neurologic: No Psychiatric: No Reproductive: No Respiratory: Yes (LUNG CA) Immunizations Current: No Thyroid Disease: No Menopausal: Yes Past Surgical History Abdominal Surgery: No AICD: No Body Medical Devices: STENTS Cardiac Surgery: Yes (Stents, CABG x 3) Section: Yes (X3) Coronary Artery Bypass Graft: Yes (07/2015) Ear Surgery: No Endocrine Surgery: No Eye Surgery: No Genitourinary Surgery: No Gynecologic Surgery: No Hysterectomy: Yes Joint Replacement: No Neurologic Surgery: No Oral Surgery: No Pacemaker: No Thoracic Surgery: No Other Surgery: No Social History Alcohol Use: Yes Tobacco Use: Yes (1 PPD) Substance Use: No Allergies-Medications (Allergen,Severity, Reaction): Coded Allergies: No Known Allergies (Verified Adverse Reaction, Unknown, 11/03/17) Reported Meds & Prescriptions Reported Meds & Active Scripts Active Naproxen 500 Mg Tab 500 Mg PO BID PRN Colace (Docusate Sodium) 100 Mg Capsule 1 Cap PO BID Take this medication while taking narcotic pain control to reduce constipation risk Percocet (Oxycodone-Acetaminophen) 5-325 mg Tab 1 Tab PO Q6H PRN Reported Amlodipine (Amlodipine Besylate) 10 Mg Tab 10 Mg PO DAILY Metoprolol Succinate ER 24 HR (Metoprolol Succinate) 25 Mg Tab 25 Mg PO BID Kombiglyze Xr (Saxagliptin-Metformin ER) 2.5-1,000 Mg Tab 1 Tab PO DAILY Review of Systems General / Constitutional: No: Fever Eyes: No: Visual changes HENT: No: Headaches Cardiovascular: No: Chest Pain or Discomfort Respiratory: No: Shortness of Breath Gastrointestinal: Positive: Abdominal Pain Genitourinary: No: Dysuria Musculoskeletal: No: Pain Skin: No Rash Neurologic: No: Weakness Psychiatric: No: Depression Endocrine: No: Polydipsia Hematologic/Lymphatic: No: Easy Bruising Physical Exam Narrative GENERAL: Well-nourished, well-developed patient. SKIN: Focused skin assessment warm/dry. HEAD: Normocephalic. EYES: No scleral icterus. No injection or drainage. NECK: Supple, trachea midline. No JVD or lymphadenopathy. CARDIOVASCULAR: Regular rate and rhythm without murmurs, gallops, or rubs. RESPIRATORY: Breath sounds equal bilaterally. No accessory muscle use. GASTROINTESTINAL: Abdomen soft, nondistended. Patient has mild tenderness on palpation epigastric area. No rebound tenderness. No mass. MUSCULOSKELETAL: No cyanosis, or edema. BACK: Nontender without obvious deformity. No CVA tenderness. Neurologic exam normal. Data Data Last Documented VS Vital Signs Date Time Temp Pulse Resp B/P (MAP) Pulse Ox O2 Delivery O2 Flow Rate FiO2 11/03/17 05:48 56 17 123/58 (79) 100 Room Air 11/03/17 04:18 98.1 Orders Orders Electrocardiogram (11/03/17 04:56) Complete Blood Count With Diff (11/03/17 04:56) Basic Metabolic Panel (Bmp) (11/03/17 04:56) Ckmb (Isoenzyme) Profile (11/03/17 04:56) Troponin I (11/03/17 04:56) Chest, Single Ap (11/03/17 04:56) Iv Access Insert/Monitor (11/03/17 04:56) Ecg Monitoring (11/03/17 04:56) Oxygen Administration (11/03/17 04:56) Oximetry (11/03/17 04:56) Prothrombin Time / Inr (Pt) (11/03/17 04:56) Lipase (11/03/17 05:08) Sodium Chloride 0.9% Flush (Ns Flush) (11/03/17 05:15) Famotidine Inj (Pepcid Inj) (11/03/17 05:15) Al-Mag Hy-Si 40-40-4 Mg/Ml Liq (Mag-Al P (11/03/17 05:15) Iqulf-Umnqth-Bwvckw-Pb Liq ( Liq (11/03/17 05:15) Labs Laboratory Tests Test 11/03/17 05:00 White Blood Count 9.0 TH/MM3 Red Blood Count 3.68 MIL/MM3 Hemoglobin 10.9 GM/DL Hematocrit 31.4 % Mean Corpuscular Volume 85.4 FL Mean Corpuscular Hemoglobin 29.6 PG Mean Corpuscular Hemoglobin Concent 34.7 % Red Cell Distribution Width 13.0 % Platelet Count 255 TH/MM3 Mean Platelet Volume 8.4 FL Neutrophils (%) (Auto) 58.9 % Lymphocytes (%) (Auto) 27.8 % Monocytes (%) (Auto) 7.9 % Eosinophils (%) (Auto) 4.0 % Basophils (%) (Auto) 1.4 % Neutrophils # (Auto) 5.3 TH/MM3 Lymphocytes # (Auto) 2.5 TH/MM3 Monocytes # (Auto) 0.7 TH/MM3 Eosinophils # (Auto) 0.4 TH/MM3 Basophils # (Auto) 0.1 TH/MM3 CBC Comment DIFF FINAL Differential Comment Prothrombin Time 10.6 SEC Prothromb Time International Ratio 1.0 RATIO Blood Urea Nitrogen 16 MG/DL Creatinine 0.82 MG/DL Random Glucose 131 MG/DL Calcium Level 8.6 MG/DL Sodium Level 138 MEQ/L Potassium Level 3.6 MEQ/L Chloride Level 106 MEQ/L Carbon Dioxide Level 23.9 MEQ/L Anion Gap 8 MEQ/L Estimat Glomerular Filtration Rate 70 ML/MIN Total Creatine Kinase 33 U/L Troponin I LESS THAN 0.02 NG/ML Lipase 215 U/L MDM Medical Decision Making Medical Screen Exam Complete: Yes Emergency Medical Condition: Yes Interpretation(s) EKG shows sinus rhythm nonspecific ST-T wave change. Differential Diagnosis Differential diagnosis including gastritis, PUD, pancreatitis, cholecystitis, colitis, UTI, pyelonephritis, nephrolithiasis, congenic, MN, PE, pneumothorax. Narrative Course 67-year-old female with epigastric abdominal pain. History of right lung CA. Pepcid 20 mg IV. Maalox 30 cc by mouth. 10 cc by mouth. 6:20 AM. Patient feeling much better. Diagnosis Primary Impression: Atypical chest pain Additional Impressions: Gastritis Qualified Codes: K29.00 - Acute gastritis without bleeding Constipation Qualified Codes: K59.00 - Constipation, unspecified Patient Instructions: General Instructions Additional Instructions: Take medications as directed. Follow-up with personal physician and GI specialist. Return if increasing chest pain or shortness of breath. Med/Other Pt SpecificInfo: Prescription(s) given Scripts Pantoprazole (Protonix) 40 Mg Tab 40 MG PO DAILY for Reflux, #30 TAB 0 Refills Prov: Allan Queen MD 11/03/17 Peg-Electrolytes (Golytely 236 gm) 4,000 Ml Soln 4000 ML PO ONCE for Bowel Cleanser, #1 CONTAINER 0 Refills Prov: Allan Queen MD 11/03/17 Disposition: 01 DISCHARGE HOME Condition: Stable Allan Queen MD Nov 03, 2017 05:16
--- NOTE | 2017-11-03 05:22 | RADRPT ---
EXAM DATE/TIME: 11/03/2017 05:05 [facility] COMPARISON: CHEST SINGLE AP, February 04, 2017, 12:25. INDICATIONS : Chest pain. MEDICAL HISTORY : Carcinoma, lung. Congestive heart failure. Cardiovascular disease. SURGICAL HISTORY : CABG. Infusaport. ENCOUNTER: Initial ACUITY: 1 day PAIN SCORE: 2/10 LOCATION: Bilateral lower chest FINDINGS: The cardiac silhouette is normal in transverse diameter. Median sternotomy wires are present. Infuse- a-Port is in place via right internal jugular approach with its tip in the superior vena cava. The dave ngs are free of acute parenchymal opacity. No effusions are identified. CONCLUSION: 1. Cardiomegaly. No acute pulmonary disease. Emanuel Romo MD on November 03, 2017 at 5:20 Board Certified Radiologist. This report was verified electronically.
[2017-11-03 05:23] LABS: PROTHROMBIN TIME - PATIENT 10.6 SEC (9.8-11.6)
[2017-11-03 05:28] LABS: BICARBONATE 23.9 MEQ/L (21.0-32.0); BLOOD UREA NITROGEN 16 MG/DL (7-18); CALCIUM 8.6 MG/DL (8.5-10.1); CHLORIDE 106 MEQ/L (98-107); CREATININE 0.82 MG/DL (0.50-1.00); GLOMERULAR FILTRATION RATE 70 ML/MIN (>89); GLUCOSE,RANDOM 131 MG/DL (74-106); SODIUM (NA) 138 MEQ/L (136-145)
[2017-11-03 05:32] LABS: TROPONIN I LESS THAN 0.02 NG/ML (0.02-0.05)
[2017-11-03 05:48] VITALS: BP 123/58; PULSE 56; RESP 17; O2SAT 100
[2017-11-03] MEDS ORDERED: PROT40TA PO (06:23)
[2017-11-03] MEDS ORDERED: COLY4000S PO (06:23)
--- NOTE | 2017-11-04 11:43 | EKG ---
Date Performed: 11/03/2017 Time Performed: 04:52:18 PTAGE: 67 years EKG: SINUS BRADYCARDIA BORDERLINE ECG Compared to PREVIOUS TRACING , the atrial fibrillation has resolved. There has been overall improveme nt in the nonspecific ST changes. PREVIOUS TRACIN01/28/2017 04.22 DOCTOR: Cathy Obrien Interpretating Date/Time 11/04/2017 11:41:59
== END 2017-11-03 06:58 | disposition home or self-care (01) ==
LOC: NEPE 04:15
DX: K29.00 Acute gastritis without bleeding (principal); R07.89 Other chest pain; K59.00 Constipation, unspecified; E11.9 Type 2 diabetes mellitus without complications; I11.0 Hypertensive heart disease with heart failure; I50.9 Heart failure, unspecified; R94.31 Abnormal electrocardiogram [ECG] [EKG]; C34.91 Malignant neoplasm of unspecified part of right bronchus or lung; F17.210 Nicotine dependence, cigarettes, uncomplicated
CPT/HCPCS: 71045; 80048; 82550; 83690; 84484; 85025; 85610; 93005; 96374

== ENCOUNTER 2018-01-05 09:53 | Observation (INO) | payer OTHER ==
[~2018-01-05] VITALS: Ht 170.2 cm; Wt 57.0 kg
[~2018-01-05 09:53] MED LIST changes: +COLY4000S PO; +PROT40TA PO
[2018-01-05 09:59] VITALS: BP 192/78; PULSE 62; RESP 18; TEMP 97.8; O2SAT 100
--- NOTE | 2018-01-05 10:35 | RADRPT ---
EXAM DATE/TIME: 01/05/2018 10:20 [facility] COMPARISON: CHEST SINGLE AP, November 03, 2017, 5:05. INDICATIONS : Chest pain MEDICAL HISTORY : Carcinoma, lung. Congestive heart failure. Cardiovascular disease SURGICAL HISTORY : CABG. Infusaport ENCOUNTER: Initial ACUITY: 1 day PAIN SCORE: 4/10 LOCATION: chest FINDINGS: Mediastinal wires are noted status post cardiac surgery. The heart is enlarged. The pulmonary vascula ture is normal. Right internal jugular [id number] has its tip in the superior vena cava. No pneumo thorax is noted. CONCLUSION: 1. Cardiomegaly. 2. No acute focal pulmonary or pulmonary vascular congestion. Polo Brennan MD on January 05, 2018 at 10:28 Board Certified Radiologist. This report was verified electronically.
--- NOTE | 2018-01-05 10:37 | PD ---
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 Said it is constant and she had a funny feeling in her left arm that went away. Denies any sob, fever, cough, n/v, abdominal pain, focal weakness or numbness. Pt follows with oncologist Dr. Bermeo and is on immunotherapy every 2 weeks for her cancer. Last treatment was last week. 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 PFSH Past Medical History Hx Anticoagulant Therapy: Yes (ASA ) Blood Disorders: No Anxiety: Yes Depression: No Heart Rhythm Problems: No Cancer: Yes (Lung ca) Cardiac Catheterization: Yes (2 STENTS) Cardiovascular Problems: Yes (HBP) High Cholesterol: No Chemotherapy: Yes Chest Pain: No Congestive Heart Failure: Yes Coronary Artery Disease: Yes Diabetes: Yes Patient Takes Glucophage: No Diminished Hearing: No Endocrine: Yes Gastrointestinal Disorders: No Genitourinary: No Hepatitis: No Hiatal Hernia: No Hypertension: Yes Immune Disorder: No Implanted Vascular Access Dvce: Yes (RIGHT CHEST ) Musculoskeletal: No Neurologic: No Psychiatric: No Reproductive: No Respiratory: Yes (LUNG CA) Immunizations Current: No Thyroid Disease: No Tetanus Vaccination: > 5 Years Influenza Vaccination: No ?: Not Menopausal: Yes Past Surgical History Abdominal Surgery: No AICD: No Body Medical Devices: STENTS Cardiac Surgery: Yes (Stents, CABG x 3) Section: Yes (X3) Coronary Artery Bypass Graft: Yes (07/2015) Ear Surgery: No Endocrine Surgery: No Eye Surgery: No Genitourinary Surgery: No Gynecologic Surgery: No Hysterectomy: Yes Joint Replacement: No Neurologic Surgery: No Oral Surgery: No Pacemaker: No Thoracic Surgery: No Other Surgery: No Social History Alcohol Use: Yes Tobacco Use: Yes (1 PPD) Substance Use: No Allergies-Medications (Allergen,Severity, Reaction): Coded Allergies: No Known Allergies (Verified Adverse Reaction, Unknown, 01/05/18) Reported Meds & Prescriptions Reported Meds & Active Scripts Active Colace (Docusate Sodium) 100 Mg Capsule 1 Cap PO BID Take this medication while taking narcotic pain control to reduce constipation risk Percocet (Oxycodone-Acetaminophen) 5-325 mg Tab 1 Tab PO Q6H PRN Reported Amlodipine (Amlodipine Besylate) 10 Mg Tab 10 Mg PO DAILY Metoprolol Succinate ER 24 HR (Metoprolol Succinate) 25 Mg Tab 25 Mg PO BID Kombiglyze Xr (Saxagliptin-Metformin ER) 2.5-1,000 Mg Tab 1 Tab PO DAILY Review of Systems Except as stated in HPI: all other systems reviewed are Neg Physical Exam Narrative GENERAL: 67yo F in mild distress. SKIN: Focused skin assessment warm/dry. HEAD: Atraumatic. Normocephalic. EYES: Pupils equal and round. No scleral icterus. No injection or drainage. ENT: No nasal bleeding or discharge. Mucous membranes pink and moist. NECK: Trachea midline. No JVD. CARDIOVASCULAR: Regular rate and rhythm. No murmur appreciated. RESPIRATORY: No accessory muscle use. Clear to auscultation. Breath sounds equal bilaterally. GASTROINTESTINAL: Abdomen soft, non-tender, nondistended. MUSCULOSKELETAL: No obvious deformities. No clubbing. No cyanosis. No edema. NEUROLOGICAL: Awake and alert. No obvious cranial nerve deficits. Motor grossly within normal limits. Normal speech. PSYCHIATRIC: Appropriate mood and affect; insight and judgment normal. Data Data Last Documented VS Vital Signs Date Time Temp Pulse Resp B/P (MAP) Pulse Ox O2 Delivery O2 Flow Rate FiO2 01/05/18 12:00 62 18 180/70 (106) 97 Room Air 01/05/18 09:59 97.8 Orders Orders Basic Metabolic Panel (Bmp) (01/05/18 10:16) Complete Blood Count With Diff (01/05/18 10:16) Magnesium (Mg) (01/05/18 10:16) Prothrombin Time / Inr (Pt) (01/05/18 10:16) Act Partial Throm Time (Ptt) (01/05/18 10:16) Troponin I (01/05/18 10:16) Chest, Single Ap (01/05/18 10:16) Aspirin (Aspirin) (01/05/18 12:00) Nitroglycerin-D5w 50 Mg/250 Ml (Nitrogly (01/05/18 12:00) Ondansetron Inj (Zofran Inj) (01/05/18 12:00) Admit Order (Ed Use Only) (01/05/18 12:02) Metoprolol Succinate Er (Toprol Xl) (01/05/18 12:15) Amlodipine (Norvasc) (01/05/18 12:15) Labs Laboratory Tests Test 01/05/18 10:21 White Blood Count 9.4 TH/MM3 Red Blood Count 3.74 MIL/MM3 Hemoglobin 11.0 GM/DL Hematocrit 32.6 % Mean Corpuscular Volume 87.3 FL Mean Corpuscular Hemoglobin 29.5 PG Mean Corpuscular Hemoglobin Concent 33.8 % Red Cell Distribution Width 15.3 % Platelet Count 211 TH/MM3 Mean Platelet Volume 8.8 FL Neutrophils (%) (Auto) 58.5 % Lymphocytes (%) (Auto) 27.8 % Monocytes (%) (Auto) 9.0 % Eosinophils (%) (Auto) 3.6 % Basophils (%) (Auto) 1.1 % Neutrophils # (Auto) 5.5 TH/MM3 Lymphocytes # (Auto) 2.6 TH/MM3 Monocytes # (Auto) 0.8 TH/MM3 Eosinophils # (Auto) 0.3 TH/MM3 Basophils # (Auto) 0.1 TH/MM3 CBC Comment DIFF FINAL Differential Comment Prothrombin Time 10.4 SEC Prothromb Time International Ratio 1.0 RATIO Activated Partial Thromboplast Time 20.8 SEC Blood Urea Nitrogen 15 MG/DL Creatinine 0.83 MG/DL Random Glucose 113 MG/DL Calcium Level 8.8 MG/DL Magnesium Level 1.8 MG/DL Sodium Level 141 MEQ/L Potassium Level 3.6 MEQ/L Chloride Level 108 MEQ/L Carbon Dioxide Level 23.4 MEQ/L Anion Gap 10 MEQ/L Estimat Glomerular Filtration Rate 69 ML/MIN Troponin I LESS THAN 0.02 NG/ML MDM Medical Decision Making Medical Screen Exam Complete: Yes Emergency Medical Condition: Yes Interpretation(s) EKG: NSR 63bpm. Normal axis. ST depression inferior leads II, III, aVF. 1mm ST elevation V2. Differential Diagnosis ACS vs. musculoskeletal pain vs. GERD vs. malignancy pain Narrative Course 67yo F with left sided chest pressure around 6am today. Also had a funny feeling in left arm that resolved. Pt has history of CAD and the presentation is more concerning for ACS than PE. O2 sat 100% on RA and pt denies any sob. Pt also with ST depression in inferior leads. Pt was given aspirin by [facility] and after second nitro stray, she felt nauseous and vomited. Said she does not want anymore nitro. Pressure has resolved but still a little nauseous so zofran ordered. Labs reviewed, no leukocytosis. H/H 32.6. This is baseline. Troponin negative. CXR showed cardiomegaly. No acute focal pulmonary or pulmonary vascular congestion. BP is elevated and pt did not take her blood pressure medication today so will give her metoprolol 25mg and amlodipine 10mg PO. Given risk factor and presentation, will admit to chest pain center for serial EKG and cardiac enzymes. Pt was initially admitted to Dr. Guajardo in chest pain center but after evaluation by [facility] pain [facility], requested pt be admitted to inpatient due to positive nuclear stress test before and possibility of intervention. Discussed with Dr. Schmidt and accepted to her service. Pt requesting pain medication so morphine 2mg IV given. Diagnosis Primary Impression: Chest pain Qualified Codes: R07.9 - Chest pain, unspecified Admitting Information Admitting Physician Requests: Observation Scripts Pantoprazole (Protonix) 40 Mg Tab 40 MG PO DAILY for Reflux, #30 TAB 0 Refills Prov: Henok Byrd 01/06/18 Michaela Mendiola DO Jan 05, 2018 10:37
[2018-01-05 10:43] LABS: AUTOMATED NEUTROPHIL # 5.5 TH/MM3 (1.8-7.7); BASOPHIL # 0.1 TH/MM3 (0-0.2); BASOPHIL % 1.1 % (0.0-2.0); EOSINOPHIL # 0.3 TH/MM3 (0-0.4); EOSINOPHIL % 3.6 % (0.0-4.0); HEMATOCRIT 32.6 % (35.0-46.0); LYMPH % 27.8 % (9.0-44.0); LYMPHOCYTE # 2.6 TH/MM3 (1.0-4.8); MEAN CELL VOLUME 87.3 FL (80.0-100.0); MEAN CORPUSCULAR HEMOGLOBIN 29.5 PG (27.0-34.0); MEAN CORPUSCULAR HGB CONC 33.8 % (32.0-36.0); MEAN PLATELET VOLUME 8.8 FL (7.0-11.0); MONOCYTE # 0.8 TH/MM3 (0-0.9); NEUT % 58.5 % (16.0-70.0); PLATELET COUNT 211 TH/MM3 (150-450); RED BLOOD COUNT 3.74 MIL/MM3 (4.00-5.30); RED CELL DISTRIBUTION WIDTH 15.3 % (11.6-17.2); WHITE BLOOD COUNT 9.4 TH/MM3 (4.0-11.0)
[2018-01-05 10:55] LABS: PROTHROMBIN TIME - PATIENT 10.4 SEC (9.8-11.6)
[2018-01-05 11:02] LABS: BICARBONATE 23.4 MEQ/L (21.0-32.0); BLOOD UREA NITROGEN 15 MG/DL (7-18); CALCIUM 8.8 MG/DL (8.5-10.1); CHLORIDE 108 MEQ/L (98-107); CREATININE 0.83 MG/DL (0.50-1.00); GLOMERULAR FILTRATION RATE 69 ML/MIN (>89); GLUCOSE,RANDOM 113 MG/DL (74-106); MAGNESIUM 1.8 MG/DL (1.5-2.5); SODIUM (NA) 141 MEQ/L (136-145)
[2018-01-05 11:06] LABS: TROPONIN I LESS THAN 0.02 NG/ML (0.02-0.05)
[2018-01-05 12:00] VITALS: BP 180/70; PULSE 62; RESP 18; O2SAT 97
[2018-01-05] MEDS ORDERED: ASPIRIN 325 MG TAB PO ONE (12:00)
[2018-01-05] MEDS ORDERED: ONDANSETRON HCL 4 MG/2 ML VIAL IV PUSH ONE (12:00)
[2018-01-05] MEDS ORDERED: NITROGLYCERIN-D5W 50 MG/250 ML 250 ML IV ONE (12:00)
[2018-01-05] MEDS ORDERED: METOPROLOL SUCCINATE 25 MG EXTENDED RELEASE TAB PO ONE (12:15)
[2018-01-05] MEDS ORDERED: MAGNESIUM HYDROXIDE SUSP 30 ML CUP PO PRN (13:30)
[2018-01-05] MEDS ORDERED: ONDANSETRON HCL 4 MG/2 ML VIAL IVP PRN (13:30)
[2018-01-05] MEDS ORDERED: BISACODYL 10 MG SUPP RECTAL PRN (13:30)
[2018-01-05] MEDS ORDERED: SODIUM CHLORIDE 0.9% FLUSH 10 ML FLUSH IV FLUSH PRN (13:30)
[2018-01-05] MEDS ORDERED: NALOXONE HCL 0.4 MG/ML AMP IV PUSH PRN (13:30)
[2018-01-05] MEDS ORDERED: ACETAMINOPHEN 325 MG TAB PO PRN (13:30)
[2018-01-05] MEDS ORDERED: SENNOSIDES 8.6 MG TAB PO PRN (13:30)
[2018-01-05] MEDS ORDERED: LACTULOSE SYRUP 20 GM/30 ML CUP PO PRN (13:30)
[2018-01-05 14:06] VITALS: BP 172/80; PULSE 59; RESP 17; O2SAT 97
[2018-01-05] MEDS ORDERED: MORPHINE SULFATE 2 MG/ML INJ IV PUSH ONE (14:15)
[2018-01-05 15:35] VITALS: BP 174/83
[2018-01-05 15:52] VITALS: BP 173/77; PULSE 58; RESP 24; TEMP 97.9; O2SAT 99
--- NOTE | 2018-01-05 15:55 | HHI.HP ---
HPI Service [facility] Primary Care Physician Unknown Admission Diagnosis Chest pain Diagnoses: Chief Complaint: Chest pain Travel History International Travel<30 Days: No Contact w/Intl Traveler <30 Da: No Traveled to Known Affected Are: No History of Present Illness Written by Henok Ahumada, acting as scribe for Dr. Schmidt on 01/05/18 at 15:43. 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 Patient states the chest pain started this morning, dull, achy, pressure-like, radiating to her back not associated with any diaphoresis, nausea, vomiting. Patient states when she came into the hospital they gave her some medication that she started vomiting without any nausea. States that the pain never goes away and it has been present right now. Patient states that it is the morphine that is making her vomit. Pain is described in the midsternal area, 04/02, nonradiating right now, pressure-like, achy, does not know what aggravates or relieves it. Denies SOB/ dyspnea. Denies palpitations, headaches, dizziness. Denies fevers, chills. Denies abdominal pain, cramping, diarrhea. Denies dysuria. 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 COPD HTN DM CHF CAD Past Surgical History CABG times 12/2014 2 stent placement 3 Reported Medications Reported Meds & Active Scripts Active Protonix (Pantoprazole Sodium) 40 Mg Tab 40 Mg PO DAILY Golytely 236 gm (Polyethylene Glycol/Electrolytes) 4,000 Ml Soln 4,000 Ml PO ONCE Naproxen 500 Mg Tab 500 Mg PO BID PRN Colace (Docusate Sodium) 100 Mg Capsule 1 Cap PO BID Take this medication while taking narcotic pain control to reduce constipation risk Percocet (Oxycodone-Acetaminophen) 5-325 mg Tab 1 Tab PO Q6H PRN Reported Amlodipine (Amlodipine Besylate) 10 Mg Tab 10 Mg PO DAILY Metoprolol Succinate ER 24 HR (Metoprolol Succinate) 25 Mg Tab 25 Mg PO BID Kombiglyze Xr (Saxagliptin-Metformin ER) 2.5-1,000 Mg Tab 1 Tab PO DAILY Allergies: Coded Allergies: No Known Allergies (Verified Adverse Reaction, Unknown, 01/05/18) Active Ordered Medications Current Medications Medications (Trade) Dose Ordered Sig/Babar Route Start Time Stop Time Status Last Admin (NS Flush) 2 ml UNSCH PRN IV FLUSH 01/05/18 13:30 (NS Flush) 2 ml BID IV FLUSH 01/05/18 21:00 (Tylenol) 650 mg Q4H PRN PO 01/05/18 13:30 (Zofran Inj) 4 mg Q6H PRN IVP 01/05/18 13:30 01/05/18 15:39 (Narcan Inj) 0.4 mg UNSCH PRN IV PUSH 01/05/18 13:30 (Deysi-Colace) 1 tab BID PO 01/05/18 21:00 (Milk Of Magnesia Liq) 30 ml Q12H PRN PO 01/05/18 13:30 (Senokot) 17.2 mg Q12H PRN PO 01/05/18 13:30 (Dulcolax Supp) 10 mg DAILY PRN RECTAL 01/05/18 13:30 (Lactulose Liq) 30 ml DAILY PRN PO 01/05/18 13:30 Family History Father has pacemaker, he is in his 90s Mom in 2009, diabetes Social History Denies alcohol use Former smoker, quit in 2017 Denies illicit drug use Physical Exam Vital Signs Vital Signs Date Time Temp Pulse Resp B/P (MAP) Pulse Ox O2 Delivery O2 Flow Rate FiO2 01/05/18 15:35 61 17 174/83 (113) 98 01/05/18 14:06 59 17 172/80 (110) 97 Room Air 01/05/18 12:00 62 18 180/70 (106) 97 Room Air 01/05/18 09:59 97.8 62 18 192/78 (116) 100 Physical Exam GENERAL: This is a thin appearing, well-developed patient, in no apparent distress. SKIN: Warm and dry. HEAD: Normocephalic. EYES: Pupils equal round and reactive. Extraocular motions intact. No scleral icterus. No injection or drainage. ENT: Nose without bleeding. Throat without erythema. Uvula midline. Airway patent. NECK: Trachea midline. CARDIOVASCULAR: Regular rate and rhythm without murmurs, gallops, or rubs. Midsternal scar from CABG noted. Right subclavian port in place. RESPIRATORY: Bronchial breath sounds left base. No wheezes, rales, or rhonchi. GASTROINTESTINAL: Abdomen soft, non-tender, nondistended. Bowel sounds hypoactive. MUSCULOSKELETAL: Extremities without clubbing, cyanosis, or edema. NEUROLOGICAL: Awake and alert. Cranial nerves II through XII intact. Motor and sensory grossly within normal limits. Normal speech. Laboratory Laboratory Tests Test 01/05/18 10:21 01/05/18 13:50 White Blood Count 9.4 Red Blood Count 3.74 Hemoglobin 11.0 Hematocrit 32.6 Mean Corpuscular Volume 87.3 Mean Corpuscular Hemoglobin 29.5 Mean Corpuscular Hemoglobin Concent 33.8 Red Cell Distribution Width 15.3 Platelet Count 211 Mean Platelet Volume 8.8 Neutrophils (%) (Auto) 58.5 Lymphocytes (%) (Auto) 27.8 Monocytes (%) (Auto) 9.0 Eosinophils (%) (Auto) 3.6 Basophils (%) (Auto) 1.1 Neutrophils # (Auto) 5.5 Lymphocytes # (Auto) 2.6 Monocytes # (Auto) 0.8 Eosinophils # (Auto) 0.3 Basophils # (Auto) 0.1 CBC Comment DIFF FINAL Differential Comment Prothrombin Time 10.4 Prothromb Time International Ratio 1.0 Activated Partial Thromboplast Time 20.8 Blood Urea Nitrogen 15 Creatinine 0.83 Random Glucose 113 Calcium Level 8.8 Magnesium Level 1.8 Sodium Level 141 Potassium Level 3.6 Chloride Level 108 Carbon Dioxide Level 23.4 Anion Gap 10 Estimat Glomerular Filtration Rate 69 Troponin I LESS THAN 0.02 LESS THAN 0.02 Result Diagram: 01/05/18 1021 01/05/18 1021 Imaging Last Impressions Chest X-Ray 01/05/18 1016 Signed Impressions: Service Date/Time: December 10:20 - CONCLUSION: 1. Cardiomegaly. 2. No acute focal pulmonary or pulmonary vascular congestion. MD Shelton Villagomez VTE Risk Assessment Caprini VTE Risk Assessment: Mod/High Risk (score >= 2) Caprini Risk Assessment Model Point Value = 1 Point Value = 2 Point Value = 3 Point Value = 5 Age 41-60 Minor surgery BMI > 25 kg/m2 Swollen legs Varicose veins or History of unexplained or recurrent spontaneous Oral contraceptives or hormone replacement Sepsis (< 1 month) Serious lung disease, including pneumonia (< 1 month) Abnormal pulmonary function Acute myocardial infarction Congestive heart failure (< 1 month) History of inflammatory bowel disease Medical patient at bed rest Age 61-74 Arthroscopic surgery Major open surgery (> 45 min) Laparoscopic surgery (> 45 min) Malignancy Confined to bed (> 72 hours) Immobilizing plaster cast Central venous access Age >= 75 History of VTE Family history of VTE Factor V Leiden Prothrombin [id number] Lupus anticoagulant Anticardiolipin antibodies Elevated serum homocysteine Heparin-induced thrombocytopenia Other congenital or acquired thrombophilia Stroke (< 1 month) Elective arthroplasty Hip, pelvis, or leg fracture Acute spinal cord injury (< 1 month) Prophylaxis Regimen Total Risk Factor Score Risk Level Prophylaxis Regimen 0-1 Low Early ambulation 2 Moderate Order ONE of the following: *Sequential Compression Device (SCD) *Heparin 5000 units SQ BID 3-4 Higher Order ONE of the following medications: *Heparin 5000 units SQ TID *Enoxaparin/Lovenox 40 mg SQ daily (WT < 150 kg, CrCl > 30 mL/min) *Enoxaparin/Lovenox 30 mg SQ daily (WT < 150 kg, CrCl > 10-29 mL/min) *Enoxaparin/Lovenox 30 mg SQ BID (WT < 150 kg, CrCl > 30 mL/min) AND/OR *Sequential Compression Device (SCD) 5 or more Highest Order ONE of the following medications: *Heparin 5000 units SQ TID (Preferred with Epidurals) *Enoxaparin/Lovenox 40 mg SQ daily (WT < 150 kg, CrCl > 30 mL/min) *Enoxaparin/Lovenox 30 mg SQ daily (WT < 150 kg, CrCl > 10-29 mL/min) *Enoxaparin/Lovenox 30 mg SQ BID (WT < 150 kg, CrCl > 30 mL/min) AND *Sequential Compression Device (SCD) Assessment and Plan Problem List: (1) S/P CABG x 3 ICD Code: Z95.1 - Presence of aortocoronary bypass graft Status: Chronic (2) Chest pain ICD Code: R07.9 - Chest pain, unspecified Status: Acute Assessment and Plan Patient is a 67-year-old female with primary medical history of 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 Atypical chest pain Rule out ACS -Patient significant history of stent placement, CABG 3 in 2015 -2 troponin < 0.02 -Serial EKGs -EKG reviewed, sinus rhythm rate of 63, no ST elevation noted. -Patient was given morphine, amlodipine, aspirin 325, metoprolol and nitro in the ED -Continue with metoprolol, and amlodipine -Monitor BP trend -Maalox 1 dose now, pantoprazole. Vomiting -This could be medication related. Patient states the chest pain was not associated with vomiting. She started vomiting when she was given morphine and nitroglycerin in the ED. -Zofran as needed -Avoid morphine for now. Will start [place] for pain. Patient takes Percocet at home and Naprosyn DVT prop SCD, Lovenox This note was transcribed by HILARIO Dang . I, Dr. Lauryn Schmidt personally performed the history, physical exam, and medical decision making; and confirmed the accuracy of the information in the transcribed note. Authenticated by Dr. Lauryn Schmidt on 01/05/18 at 15:43. Code Status Full code Discussed Condition With Patient, nursing, ED Attending Problem Qualifiers (1) Chest pain: Qualified Codes: R07.9 - Chest pain, unspecified Henok Byrd Jan 05, 2018 15:55 Lauryn Schmidt MD Jan 05, 2018 15:56
[2018-01-05] MEDS ORDERED: MORPHINE SULFATE 2 MG/ML INJ IV PUSH PRN (16:00)
[2018-01-05] MEDS ORDERED: DEXTROSE 50% IN WATER 50 ML VIAL(D50) IV PUSH PRN (16:15)
[2018-01-05] MEDS ORDERED: GLUCAGON 1 MG/ML VIAL OTHER PRN (16:15)
[2018-01-05] MEDS ORDERED: ACETAMINOPHEN/HYDROcodone 325 MG/5 MG TAB PO PRN (16:15)
[2018-01-05] MEDS: INSULIN ASPART SUPPLEMENTAL SCALE SQ SCH ×2 (17:00→20:47)
[2018-01-05] MEDS: PANTOPRAZOLE SOD 40 MG DELAYED RELEASE TAB PO SCH (17:00)
[2018-01-05] MEDS ORDERED: ALUMINUM/MAGNESIUM/SIMETH 30 ML CUP PO ONE (17:00)
[2018-01-05] MEDS ORDERED: ENOXAPARIN SODIUM 40 MG/0.4 ML SYRINGE SQ SCH (20:00)
[2018-01-05] MEDS: SODIUM CHLORIDE 0.9% FLUSH 10 ML FLUSH IV FLUSH SCH (20:46)
[2018-01-05] MEDS: DOCUSATE SODIUM 50 MG/SENNA 8.6 MG TAB PO SCH (20:47)
[2018-01-05] MEDS: METOPROLOL SUCCINATE 25 MG EXTENDED RELEASE TAB PO SCH (20:47)
[2018-01-05 22:02] VITALS: BP 146/67; PULSE 56; RESP 18; TEMP 98.7; O2SAT 97
[2018-01-06 00:29] VITALS: BP 127/60; PULSE 57; RESP 18; TEMP 99.9; O2SAT 96
--- NOTE | 2018-01-06 00:50 | MB ---
cc: Jude Clifford DO DATE OF CONSULT: REASON FOR CONSULTATION: Chest pain, accelerated hypertension. HISTORY OF PRESENT ILLNESS: Kristi Dutta is a pleasant 67-year-old female who sees my partner, Dr. Ross, in the office and presented due to chest pain. Chest pain started this morning and was dull and achy and pressurelike, radiating to the left side of her chest. She states when she called EMS and arrived at the hospital, they gave her some medicine and she started vomiting, without any nausea. Pain was 6/10 and pressurelike. She did not notice anything that aggravated or relieved it. Denies shortness of breath at this time. PAST MEDICAL HISTORY: 1. Stage IV small cell carcinoma, bilateral lungs. 2. COPD. 3. Hypertension. 4. Diabetes mellitus. 5. CHF. 6. CAD. 7. Atrial fibrillation. PAST SURGICAL HISTORY: 1. CABG x3 (08/18/2015) with FARLEY to LAD, SVG to RCA, SVG to OM2,. 2. Cardiac catheterization (08/13/2015), LAD proximal 70-80%, distal LAD 70%, left circumflex 60-70%. RCA proximal 70%. 3. x3. ALLERGIES: NO KNOWN DRUG MEDICATIONS: 1. Toprol XL 25 mg b.i.d. 2. Norvasc 10 mg daily. 3. Naproxen 500 mg b.i.d. as needed. 4. Percocet 5/325 every 6 hours as needed. 5. Colace 1 tab b.i.d. 6. Protonix 40 mg daily. 7. Kombiglyze XR 1 tab daily. FAMILY HISTORY: Denies premature coronary artery disease or sudden cardiac within the family. SOCIAL HISTORY: The patient is a previous smoker, but quit in 2017. She denies alcohol use. Denies illicit drug abuse. REVIEW OF SYSTEMS: Fourteen systems were reviewed including osteopathic; pertinent positives and negatives above, otherwise, negative. PHYSICAL EXAMINATION: Vital signs: Temperature 97.9, heart rate 58, blood pressure 173/77, respirations 20, pulse oximetry 99% in room air. General: The patient appears well, in no acute distress, alert, awake and oriented x3. HEENT: Extraocular muscles intact. Mucous membranes moist. Neck: Is supple. No JVD at 45 degrees. No carotid bruits heard bilaterally. Carotid upstroke is brisk in nature. Heart: Is regular rate and rhythm. Positive first and second heart sounds with no noted murmurs, gallops or rubs. Lungs: Are clear to auscultation bilaterally. No wheezes, rales or rhonchi. Abdomen: Is soft, nontender, nondistended. No organomegaly noted. Extremities: Show no clubbing, cyanosis or edema. Femoral and distal pulses intact bilaterally. Neurologic: No focal deficits. Skin: Warm, dry and intact. Osteopathic: No kyphoscoliosis ____ tender points. LAB WORK: Hemoglobin 11.0, hematocrit 32.6, platelets 211. Potassium 3.6, BUN 15, creatinine 0.83. Troponin negative x3. Electrocardiogram (01/05/2018 at 1421): Sinus bradycardia, possible left atrial enlargement. Nonspecific ST-T wave changes. IMPRESSIONS: 1. Chest pain, somewhat atypical for coronary insufficiency. 2. Coronary artery disease with a history of coronary artery bypass grafting x3. 3. Accelerated hypertension with a blood pressure of 192/78 on arrival. 4. History of lung cancer, stage IV small cell carcinoma. 5. Chronic obstructive pulmonary disease. 6. Diabetes. 7. Atrial fibrillation. RECOMMENDATIONS: 1. Ms. Dutta presented with chest pain, which was somewhat atypical for coronary insufficiency and this may be due to her accelerated hypertension. 2. Overall, her blood pressure is better controlled and we will continue her on her Toprol XL, as well as her Norvasc. 3. Due to her hypertension, she should attempt to avoid naproxen and all other NSAIDs. 4. For some reason, she is not on aspirin with a history of coronary artery disease. This may be due to her previous hemoptysis and, if it is, she is most likely not a candidate for an ischemic evaluation as she would not be able to be placed on dual antiplatelet therapy. 5. This will be discussed with her before deciding how to proceed in her further evaluation. Thank you for allowing me to see Kristi Dutta. If there are any questions, please do not hesitate to call. Jude Clifford, DO THAKUR/LESTER , 12:06 AM , 12:50 AM
[2018-01-06 04:00] VITALS: PULSE 53
[2018-01-06 05:12] VITALS: BP 132/60; PULSE 68; RESP 18; TEMP 98.2; O2SAT 100
[2018-01-06 07:06] VITALS: BP 140/58; PULSE 61; RESP 16; TEMP 98.4; O2SAT 97
[2018-01-06] MEDS: DOCUSATE SODIUM 50 MG/SENNA 8.6 MG TAB PO SCH (07:50)
[2018-01-06] MEDS: SODIUM CHLORIDE 0.9% FLUSH 10 ML FLUSH IV FLUSH SCH (07:50)
[2018-01-06] MEDS: PANTOPRAZOLE SOD 40 MG DELAYED RELEASE TAB PO SCH (07:50)
[2018-01-06] MEDS: INSULIN ASPART SUPPLEMENTAL SCALE SQ SCH (07:53)
[2018-01-06 08:04] LABS: ALBUMIN 3.3 GM/DL (3.4-5.0); AST (GOT) 18 U/L (15-37); BICARBONATE 22.6 MEQ/L (21.0-32.0); BLOOD UREA NITROGEN 14 MG/DL (7-18); CALCIUM 9.1 MG/DL (8.5-10.1); CHLORIDE 103 MEQ/L (98-107); CREATININE 0.81 MG/DL (0.50-1.00); GLOMERULAR FILTRATION RATE 71 ML/MIN (>89); GLUCOSE,RANDOM 100 MG/DL (74-106); SODIUM (NA) 136 MEQ/L (136-145)
[2018-01-06 08:07] LABS: ALKALINE PHOSPHATASE 94 U/L (45-117); ALT (GPT) 21 U/L (10-53); TOTAL BILIRUBIN ADULT 1.4 MG/DL (0.2-1.0); TOTAL PROTEIN 6.2 GM/DL (6.4-8.2)
[2018-01-06 08:45] VITALS: O2SAT 97
[2018-01-06] MEDS: METOPROLOL SUCCINATE 25 MG EXTENDED RELEASE TAB PO SCH (08:47)
[2018-01-06] MEDS ORDERED: PROT40TA PO (09:26)
--- NOTE | 2018-01-06 09:26 | HHI.DS ---
Discharge Summary Admission Date Jan 05, 2018 at 12:03 Discharge Date: Jan 07, 2018 Admitting Diagnosis Chest pain (1) S/P CABG x 3 ICD Code: Z95.1 - Presence of aortocoronary bypass graft Status: Chronic (2) Chest pain ICD Code: R07.9 - Chest pain, unspecified Status: Acute Procedures none Brief History - From Admission Written by Henok Ahumada, acting as scribe for Dr. Schmidt on 01/05/18 at 15:43. 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 Patient states the chest pain started this morning, dull, achy, pressure-like, radiating to her back not associated with any diaphoresis, nausea, vomiting. Patient states when she came into the hospital they gave her some medication that she started vomiting without any nausea. States that the pain never goes away and it has been present right now. Patient states that it is the morphine that is making her vomit. Pain is described in the midsternal area, 6/10, nonradiating right now, pressure-like, achy, does not know what aggravates or relieves it. Denies SOB/ dyspnea. Denies palpitations, headaches, dizziness. Denies fevers, chills. Denies abdominal pain, cramping, diarrhea. Denies dysuria. CBC/BMP: 01/05/18 1021 01/06/18 0555 Significant Findings Laboratory Tests Test 01/05/18 10:21 01/05/18 13:50 01/05/18 16:30 01/06/18 05:55 Red Blood Count 3.74 MIL/MM3 (4.00-5.30) Hemoglobin 11.0 GM/DL (11.6-15.3) Hematocrit 32.6 % (35.0-46.0) Monocytes (%) (Auto) 9.0 % (0.0-8.0) Activated Partial Thromboplast Time 20.8 SEC (24.3-30.1) Random Glucose 113 MG/DL (74-106) Chloride Level 108 MEQ/L (98-107) Estimat Glomerular Filtration Rate 69 ML/MIN (>89) 71 ML/MIN (>89) Troponin I LESS THAN 0.02 NG/ML LESS THAN 0.02 NG/ML LESS THAN 0.02 NG/ML Total Protein 6.2 GM/DL (6.4-8.2) Albumin 3.3 GM/DL (3.4-5.0) Total Bilirubin 1.4 MG/DL (0.2-1.0) Imaging Last Impressions Chest X-Ray 01/05/18 1016 Signed Impressions: Service Date/Time: December 10:20 - CONCLUSION: 1. Cardiomegaly. 2. No acute focal pulmonary or pulmonary vascular congestion. Polo Brennan MD Transfer Summary GENERAL: This is a thin appearing, well-developed patient, in no apparent distress. CARDIOVASCULAR: Regular rate and rhythm without murmurs, gallops, or rubs. Midsternal scar from previous CABG noted. Right subclavian port in place. RESPIRATORY: Bronchial breath sounds left base. No wheezes, rales, or rhonchi. GASTROINTESTINAL: Abdomen soft, non-tender, nondistended. Bowel sounds hypoactive. MUSCULOSKELETAL: Extremities without clubbing, cyanosis, or edema. NEUROLOGICAL: Awake and alert. Cranial nerves II through XII intact. Motor and sensory grossly within normal limits. Normal speech. Pt update on day of discharge Feel sbetter .No cough. no fever or chills.NO n/v/d/c. Satting well on room air. 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 Atypical chest pain Rule out ACS -Patient significant history of stent placement, CABG 3 in 2015 -2 troponin < 0.02 -Serial EKGs -EKG reviewed, sinus rhythm rate of 63, no ST elevation noted. -Patient was given morphine, amlodipine, aspirin 325, metoprolol and nitro in the ED -Continue with metoprolol, and amlodipine -Monitor BP trend -Maalox 1 dose now, pantoprazole. Vomiting -This could be medication related. Patient states the chest pain was not associated with vomiting. She started vomiting when she was given morphine and nitroglycerin in the ED. -Zofran as needed -Avoid morphine for now. Will start [place] for pain. Patient takes Percocet at home and Naprosyn DVT prop SCD, Lovenox Patient improved. No much cough, no n/v/d/c. eating well satting well on room air. DC home in stable condition to follow up as OP with pCP and consultants Pt Condition on Discharge: Stable Discharge Disposition: Discharge Home Discharge Time: > 30 minutes Discharge Instructions DIET: Follow Instructions for: Heart Healthy Diet Activities you can perform: Regular-No Restrictions Follow up Referrals: Cardiology - 1 Week with John White MD PCP Follow-up - 2-3 Days Continued Medications: Amlodipine (Amlodipine) 10 Mg Tab 10 MG PO DAILY for Blood Pressure Management, #30 TAB 0 Refills Docusate Sodium (Colace) 100 Mg Capsule 1 CAP PO BID, #20 Take this medication while taking narcotic pain control to reduce constipation risk Metoprolol Succinate ER 24 HR (Metoprolol Succinate ER 24 HR) 25 Mg Tab 25 MG PO BID, #30 TAB 0 Refills Oxycodone-Acetaminophen (Percocet) 5-325 mg Tab 1 TAB PO Q6H PRN for PAIN GREATER THAN 5, #15 TAB 0 Refills Pantoprazole (Protonix) 40 Mg Tab 40 MG PO DAILY for Reflux, #30 TAB 0 Refills (This prescription has been renewed ) Saxagliptin-Metformin ER (Kombiglyze Xr) 2.5-1,000 Mg Tab 1 TAB PO DAILY for Blood Sugar Management, #30 TAB 0 Refills Discontinued Medications: Naproxen (Naproxen) 500 Mg Tab 500 MG PO BID PRN for PAIN SCALE 1 TO 10, #30 TAB 0 Refills Peg-Electrolytes (Golytely 236 gm) 4,000 Ml Soln 4000 ML PO ONCE for Bowel Cleanser, #1 CONTAINER 0 Refills Lauryn Schmidt MD Jan 06, 2018 09:26
--- NOTE | 2018-01-06 10:05 | HHI.DCPOC ---
Discharge Care Plan Diagnosis: (1) Chest pain (2) S/P CABG x 3 (3) Nausea & vomiting Your Health Problems Are: Chest Pain Goals to Promote Your Health * To prevent worsening of your condition and complications * To maintain your health at the optimal level Directions to Meet Your Goals Take your medications as prescribed Follow your dietary instruction Follow activity as directed Keep your appointments as scheduled Take your immunizations and boosters as scheduled If your symptoms worsen call your PCP, if no PCP go to Urgent Care Center or Emergency Room Smoking is Dangerous to Your Health. Avoid second hand smoke Call the 24-hour hour crisis hotline for domestic abuse at Henok Byrd Jan 06, 2018 10:05
--- NOTE | 2018-01-06 12:42 | PD.CARD.PN ---
Subjective Subjective Remarks No chest pain Blood pressure better Objective Medications Current Medications Medications (Trade) Dose Ordered Sig/[place] Route Start Time Stop Time Status Last Admin (NS Flush) 2 ml UNSCH PRN IV FLUSH 01/05/18 13:30 (NS Flush) 2 ml BID IV FLUSH 01/05/18 21:00 01/06/18 07:50 (Tylenol) 650 mg Q4H PRN PO 01/05/18 13:30 (Zofran Inj) 4 mg Q6H PRN IVP 01/05/18 13:30 01/05/18 15:39 (Narcan Inj) 0.4 mg UNSCH PRN IV PUSH 01/05/18 13:30 (Deysi-Colace) 1 tab BID PO 01/05/18 21:00 (Milk Of Magnesia Liq) 30 ml Q12H PRN PO 01/05/18 13:30 (Senokot) 17.2 mg Q12H PRN PO 01/05/18 13:30 (Dulcolax Supp) 10 mg DAILY PRN RECTAL 01/05/18 13:30 (Lactulose Liq) 30 ml DAILY PRN PO 01/05/18 13:30 (Morphine Inj) 2 mg Q4H PRN IV PUSH 01/05/18 16:00 01/05/18 16:47 (Nenzel 5-325 Mg) 1 tab Q4H PRN PO 01/05/18 16:15 (Protonix) 40 mg DAILY PO 01/05/18 17:00 01/06/18 07:50 (Norvasc) 10 mg DAILY PO 01/05/18 17:00 01/06/18 07:49 (Toprol Xl) 25 mg BID PO 01/05/18 21:00 01/06/18 08:47 (D50w (Vial) Inj) 50 ml UNSCH PRN IV PUSH 01/05/18 16:15 (Glucagon Inj) 1 mg UNSCH PRN OTHER 01/05/18 16:15 (NovoLOG SUPPLEMENTAL SCALE) 1 ACHS SLIDING SCALE SQ 01/05/18 17:00 (Lovenox Inj) 40 mg Q24H SQ 01/05/18 20:00 Vital Signs / I&O Vital Signs Date Time Temp Pulse Resp B/P (MAP) Pulse Ox O2 Delivery O2 Flow Rate FiO2 01/06/18 08:45 97 21 3/16/18 07:06 98.4 61 16 140/58 (85) 97 01/06/18 05:12 98.2 68 18 132/60 (84) 100 01/06/18 04:58 21 01/06/18 04:00 53 01/06/18 00:29 99.9 57 18 127/60 (82) 96 01/05/18 22:02 98.7 56 18 146/67 (93) 97 01/05/18 17:05 20 01/05/18 15:52 97.9 58 24 173/77 (109) 99 01/05/18 15:35 61 17 174/83 (113) 98 01/05/18 14:06 59 17 172/80 (110) 97 Room Air I/O 01/05/18 01/05/18 01/05/18 01/06/18 01/06/18 01/06/18 07:00 15:00 23:00 07:00 15:00 23:00 Intake Total 240 ml Balance 240 ml Intake Oral 240 ml # Voids 1 2 2 Physical Exam GENERAL: NAD, AAOx3 SKIN: Warm and dry. HEAD: Atraumatic. Normocephalic. EYES: Pupils equal and round. No scleral icterus. No injection or drainage. ENT: No nasal bleeding or discharge. Mucous membranes pink and moist. NECK: Trachea midline. No JVD. CARDIOVASCULAR: Regular rate and rhythm. RESPIRATORY: No accessory muscle use. Clear to auscultation. Breath sounds equal bilaterally. GASTROINTESTINAL: Abdomen soft, non-tender, nondistended. Hepatic and splenic margins not palpable. MUSCULOSKELETAL: Extremities without clubbing, cyanosis, or edema. No obvious deformities. NEUROLOGICAL: Awake and alert. No obvious cranial nerve deficits. Motor grossly within normal limits. Five out of 5 muscle strength in the arms and legs. Normal speech. PSYCHIATRIC: Appropriate mood and affect; insight and judgment normal. Laboratory Laboratory Tests Test 01/05/18 13:50 01/05/18 16:30 01/06/18 05:55 Troponin I LESS THAN 0.02 NG/ML LESS THAN 0.02 NG/ML Blood Urea Nitrogen 14 MG/DL Creatinine 0.81 MG/DL Random Glucose 100 MG/DL Total Protein 6.2 GM/DL Albumin 3.3 GM/DL Calcium Level 9.1 MG/DL Alkaline Phosphatase 94 U/L Aspartate Amino Transf (AST/SGOT) 18 U/L Alanine Aminotransferase (ALT/SGPT) 21 U/L Total Bilirubin 1.4 MG/DL Sodium Level 136 MEQ/L Potassium Level 3.7 MEQ/L Chloride Level 103 MEQ/L Carbon Dioxide Level 22.6 MEQ/L Anion Gap 10 MEQ/L Estimat Glomerular Filtration Rate 71 ML/MIN Assessment and Plan Problem List: (1) Chest pain ICD Codes: R07.9 - Chest pain, unspecified Status: Acute (2) Hypertensive urgency ICD Codes: I16.0 - Hypertensive urgency Status: Acute (3) S/P CABG x 3 ICD Codes: Z95.1 - Presence of aortocoronary bypass graft Status: Chronic (4) Nausea & vomiting ICD Codes: R11.2 - Nausea with vomiting, unspecified Status: Acute (5) Lung cancer ICD Codes: C34.90 - Malignant neoplasm of unspecified part of unspecified bronchus or lung Status: Acute (6) HTN (hypertension) ICD Codes: I10 - Essential (primary) hypertension Status: Chronic (7) CAD (coronary artery disease) ICD Codes: I25.10 - Atherosclerotic heart disease of [place] coronary artery without angina pectoris Status: Chronic (8) Diabetes mellitus ICD Codes: E11.9 - Type 2 diabetes mellitus without complications Status: Chronic (9) Atrial fibrillation ICD Codes: I48.91 - Unspecified atrial fibrillation Status: Acute Assessment and Plan 1) Accelerated HTN Blood pressure now controlled 2) CP, somewhat atypical Most likely due to accelerated HTN/HTN urgency Patient is on ASA 81mg daily at home Discussed consideration of stress test, patient refuses, wants to go home 3) Trops negative, EKG negative Cardiovascularly stable for discharge, understands risk of not having further work up Follow up with Dr. White on discharge 4) AFib Not an anti-coagulation candidate due to previous hemoptysis Problem Qualifiers (1) Chest pain: Qualified Codes: R07.9 - Chest pain, unspecified Jude Clifford DO Jan 06, 2018 12:42
--- NOTE | 2018-01-06 13:48 | EKG ---
Date Performed: 01/05/2018 Time Performed: 14:21:43 PTAGE: 67 years EKG: SINUS BRADYCARDIA POSSIBLE LEFT ATRIAL ENLARGEMENT BORDERLINE ECG PREVIOUS TRACING : 01/05/[address]-T wave changes, but largely unchanged. DOCTOR: Jose A Field Interpretating Date/Time 01/06/2018 13:47:16
--- NOTE | 2018-01-06 13:48 | EKG ---
Date Performed: 01/05/2018 Time Performed: 10:02:48 PTAGE: 67 years EKG: Sinus rhythm POSSIBLE LEFT ATRIAL ENLARGEMENT NONSPECIFIC T-WAVE ABNORMALITY BORDERLINE ECG PREVIOUS TRACING : 11/03/[address]-T wave changes are more prominent. DOCTOR: Jose A Field Interpretating Date/Time 01/06/2018 13:46:57
== END 2018-01-06 13:01 | disposition home or self-care (01) ==
LOC: NEPC 09:53 → NEDA 12:03 → NEPGCP 15:51
PROVIDERS: ADMIT Hospitalist; ATTEND Hospitalist
DX: R07.89 Other chest pain (principal); I16.0 Hypertensive urgency; R00.1 Bradycardia, unspecified; R11.2 Nausea with vomiting, unspecified; I25.10 Atherosclerotic heart disease of native coronary artery without angina pectoris; I11.0 Hypertensive heart disease with heart failure; I50.9 Heart failure, unspecified; I48.91 Unspecified atrial fibrillation; C34.90 Malignant neoplasm of unspecified part of unspecified bronchus or lung; J44.9 Chronic obstructive pulmonary disease, unspecified; E11.9 Type 2 diabetes mellitus without complications; F41.9 Anxiety disorder, unspecified; Z95.1 Presence of aortocoronary bypass graft; Z79.899 Other long term (current) drug therapy
CPT/HCPCS: 71045; 80048; 80053; 82948; 83735; 84484; 85025; 85610; 85730; 93005; 96374; 96375; 96376; 99285; G0378; J2270; J2405